=== PATIENT | female | born 1945 | race Caucasian/White ===

== ENCOUNTER → 2019-04-05 17:31 | Outpatient (CLI) | payer MEDICARE, SELFPAY ==
[2019-03-28 16:12] VITALS: BMI 36.1
--- NOTE | 2019-04-05 17:55 | CT_ITS ---
STUDY: CT ABDOMEN AND PELVIS WITH AND WITHOUT CONTRAST REASON FOR EXAM: Female, 73 years old. Hematuria RADIATION DOSAGE (If Supplied By Facility): CTDIvol = ( 24.45 ) mGy, DLP = ( 2800.76 ) mGycm TECHNIQUE: Transaxial images were obtained from the dome of the diaphragm to the symphysis pubis without oral contrast. IV 100mL Isovue-300 was administered. Sagittal and coronal images were reconstructed. Individualized dose optimization techniques were used for this CT. COMPARISON: None. FINDINGS: The visualized lung bases are unremarkable. The visualized portions of the heart are within normal limits. Up to 1 cm right cysts in the liver. Normal gallbladder and extrahepatic biliary system. Normal spleen. Normal pancreas. Normal bilateral adrenal glands. There are 3-4 nonobstructive stones are present 3 mm up to 1 cm cysts in the right kidney. There are 4-5 nonobstructive stones up to 3 mm in the left kidney. Normal visualized stomach. Normal small intestine. Fecal retention in the colon. The appendix is visualized and appears normal. Calcified abdominal aorta. Normal inferior vena cava. Normal retroperitoneum. Normal urinary bladder. Small fatty umbilical hernia. Normal osseous structures. CT/CT Abd/Pelvis W/WO Contrast IMPRESSION: Nonobstructive calculi are noted bilaterally. Right renal cysts. Small fatty umbilical hernia. Diffuse colonic fecal retention. Hepatic cysts. Electronically Signed: Luis Alberto Valdez DO at 23:01 EST Tel [phone], Service support ,
== END ==
PROVIDERS: Family Provider Family Medicine; PCP Family Medicine; Referring Provider Nurse Practitioner Adult Health
DX: R31.9 Hematuria, unspecified (principal)
CPT/HCPCS: 74178; Q9967; A4216

== ENCOUNTER → 2019-04-12 14:56 | Outpatient (CLI) | payer MEDICARE, SELFPAY ==
[2019-03-28 16:12] VITALS: BMI 36.1
--- NOTE | 2019-04-12 14:56 | ECHOD_ITS ---
Reason For Study: MURMUR Procedure This was a 2D Doppler, Color Flow transthoracic echocardiogram. The study was technically difficult. Exam performed in department. Left Ventricle Normal LV size. Left ventricular systolic function is normal. The estimated ejection fraction is 65 %. Diastolic function is indeterminate. No regional wall motion abnormalities noted. Right Ventricle Normal RV size. Normal systolic function. Atria Normal left atrium. Normal right atrium. No doppler evidence for ASD. Mitral Valve There is mild mitral annular calcification. Mild focal mitral valve calcification of the anterior leaflet. Mild (1+) mitral valve insufficiency. Tricuspid Valve Normal tricuspid valve. Trivial tricuspid valve insufficiency. Right ventricular systolic pressure estimated to be 37 mmHg. Aortic Valve Trisinus/trileaflet aortic valve. Mild focal aortic valve calcification. Mild aortic stenosis. Mild (1+) aortic valve insufficiency. Pulmonic Valve The pulmonic valve is not well visualized. Great Vessels Mildly dilated ascending aorta. Pericardium/Pleural No pericardial effusion. MMode/2D Measurements & Calculations LVIDd: 4.3 cm IVSd: 1.1 cm LVOT diam: 2.1 cm LVIDs: 2.5 cm LVPWd: 1.1 cm LVOT area: 3.4 cm2 RVDd: 3.4 cm FS: 42.1 % Ao root diam: 4.2 cm LAV(MOD-sp4): 47.7 ml LA A4 area: 17.2 cm2 LA dimension(2D): 3.5 cm RA A4 area: 11.2 cm2 Time Measurements MV dec time: 0.27 sec Doppler Measurements & Calculations MV E max major: 96.4 cm/sec Lat Peak E' Major: 9.6 cm/sec Med Peak E' Major: 6.0 cm/sec MV A max major: 112.6 cm/sec E/E' lat: 10.1 E/E' med: 16.0 MV E/A: 0.86 Ao V2 max: 240.0 cm/sec AI max major: 392.0 cm/sec LV V1 max: 125.7 cm/sec Ao max P.1 mmHg AI max P.5 mmHg LV V1 max P.3 mmHg Ao V2 mean: 169.7 cm/sec AI dec slope: 244.0 cm/sec2 LV V1 mean P.6 mmHg Ao mean P.5 mmHg AI P1/2t: 470.6 msec LV V1 mean: 90.3 cm/sec Ao V2 VTI: 54.0 cm LV V1 VTI: 32.8 cm FEDERICO(I,D): 2.1 cm2 FEDERICO(V,D): 1.8 cm2 SV(LVOT): 111.6 ml PA V2 max: 125.0 cm/sec TR max major: 292.6 cm/sec TR max P.3 mmHg Interpretation Summary The study was technically difficult. Left ventricular systolic function is normal. The estimated ejection fraction is 65 %. There is mild mitral annular calcification. Mild focal mitral valve calcification of the anterior leaflet. Mild (1+) mitral valve insufficiency. Trivial tricuspid valve insufficiency. Mild aortic stenosis. Mild (1+) aortic valve insufficiency. Mildly dilated ascending aorta. Right ventricular systolic pressure estimated to be 37 mmHg. Diastolic function is indeterminate. Ordering Physician: Jai Emerson Referring Physician: Colby Porter Performed By: Nanci Keith, ONEIDA, RVT
== END ==
PROVIDERS: Family Provider Family Medicine; PCP Family Medicine; Referring Provider Internal Medicine Cardiovascular Disease; Visit Provider Internal Medicine Cardiovascular Disease
DX: I71.2 Thoracic aortic aneurysm, without rupture (principal)
CPT/HCPCS: 93306

== ENCOUNTER → 2019-04-23 14:26 | Outpatient (CLI) | payer MEDICARE, SELFPAY ==
[2019-03-28 16:12] VITALS: BMI 36.1
--- NOTE | 2019-04-23 14:28 | CT_ITS ---
STUDY: CT CHEST WITH CONTRAST REASON FOR EXAM: Female, 73 years old. Aortic dilatation, hx atrial tachycardia. Family cardiac history. RADIATION DOSAGE (If Supplied By Facility): CTDIvol = ( 12.95 ) mGy, DLP = ( 469.52 ) mGycm TECHNIQUE: Transaxial imaging was performed following intravenous administration of IV 100mL Isovue-300. Multiplanar coronal and sagittal images were reformatted. Individualized dose optimization techniques were used for this CT. COMPARISON: None. FINDINGS: Mild degree of increased markings at the lung bases suggestive of linear scarring. Mild degree of linear scarring is seen in the peripheral aspects of the right middle lobe and lingular segment of the left upper lobe. There is a 5.4 mm noncalcified nodule in the posterior aspect of the superior segment of the right lobe as seen on axial image #54. 3 mm nodule in the posterior aspect of the right upper lobe as seen on axial image #49. There is no demonstrated pleural abnormality. Normal heart and pericardium. Normal mediastinum. Normal hilar regions. Normal enhanced pulmonary arteries. There is atherosclerotic calcification of the aortic arch . The aortic arch measures upper limits of normal at 40 mm at the root of the ascending aorta. There are degenerative changes of the thoracic spine. There is no demonstrated abnormality of the visualized upper abdomen. CT/Chest WITH Contrast IMPRESSION: The descending thoracic aorta measures 40 mm in maximum transverse dimension. Nodular density seen in the right lung as described. A 12 month follow-up is recommended. Electronically Signed: Job Mcguire, at 13:35 EST , Service support ,
[2019-04-23 14:55] LABS: CREATININE FINGERSTICK 0.9 mg/dL (0.55-1.02); EGFR FINGERSTICK > 60.0000 mL/min (>60)
== END ==
PROVIDERS: Family Provider Family Medicine; PCP Family Medicine; Referring Provider Internal Medicine Cardiovascular Disease; Visit Provider Internal Medicine Cardiovascular Disease
DX: I71.2 Thoracic aortic aneurysm, without rupture (principal)
CPT/HCPCS: 71260; Q9967; A4216

== ENCOUNTER → 2019-05-22 | Outpatient (CLI) | payer MEDICARE, SELFPAY ==
[2019-03-28 16:12] VITALS: BMI 36.1
--- NOTE | 2019-05-22 | CYSPIN_PTH ---
PATIENT: MARZENA Fleming LOC: [facility] U#:[id number] AGE/SX: 73/F ROOM: RE05/22/[address]: Dr. Michele Goodman MD : 1945 BED: DIS: 05/22/2019 SPEC #: [id number] RECD: 05/22/19 16:33 STATUS: MILAN SHILPI #: [id number] [place]: 05/22/19 00:[address]: Michele Goodman DEPT: CYTOLOGY RECD BY: Royal Gomez ENTERED: 05/23/19 08:23 SP TYPE: CYSPIN FL OTHR DR: Dr. Colby Porter III, MD Tissues: Urine Procedures: Pap Stain (control) Special Stain Group II Cytospin Fluid HEADER OPERATION: Not noted PRE-OP DIAGNOSIS: Gross hematuria TISSUE SUBMITTED: Urine for cytology DIAGNOSIS CYTOLOGY Urine for cytology (cytospin): Atypical urothelial cells suspicious for urothelial malignancy. AM:manjeet 05/24/19 COMMENT Case has been reviewed in consultation with Dr. Romero who concurs with the above diagnosis. IDC:[facility] CYTOLOGY STUDY Slides are reviewed. CYTOLOGY GROSS Received is 55 ml of clear yellow fluid labeled with the patient's name and and designated per the requisition as urine. Submitted for cytology preparation. / manjeet 05/23/19 TC:? CPT: 65636
[2019-05-22 17:19] LABS: Cytology, Body Fluid / CSF SEE PATHOLOGY REPORT
== END | disposition home or self-care (01) ==
LOC: LABSPEC 17:09
PROVIDERS: PCP Family Medicine; Referring Provider Urology; Visit Provider Urology
DX: R31.0 Gross hematuria (principal)
CPT/HCPCS: 87086; 87088; 88108; 88313

== ENCOUNTER 2019-06-15 06:04 | Day surgery (SDC) | payer MEDICARE, SELFPAY ==
[2019-03-28 16:12] VITALS: BMI 36.1
[2019-06-15 06:59] VITALS: BP 133/54; PULSE 56; RESP 16; TEMP 36.3; O2SAT 93; BMI 35.9
[2019-06-15] MEDS: Lactated Ringers 1,000 ML 100 ML IV (07:16)
[2019-06-15] MEDS: Cefazolin 2 GM in 0.9% Normal Saline 100 ML IV (08:25)
--- NOTE | 2019-06-15 09:11 | DCINST_ITS ---
Discharge Diet: Light diet - advance as tolerated Discharge Activity: Return to Normal Activity, May not drive while taking narcotic pain medications. May shower in (days): 1 Call your doctor if you observe: Fever of 101 or Higher Suture Line Care: Avoid Pulling/Pushing, Avoid Pinching/Bending Allergies/Adverse Reactions: Allergies lisinopril Adverse Reaction (Severe, Verified 06/15/19 06:56) Intolerence, cough nalbuphine HCl [From Nubain] Adverse Reaction (Verified 06/15/19 06:56) Nausea/Vom/Diarrhea Medications to take at Discharge Amitriptyline HCl [Elavil] 25 mg PO QHS 02/22/13 Gabapentin [Neurontin] 300 mg PO BIDCM 02/22/13 Digoxin [Lanoxin] 250 mcg PO DAILY 02/01/14 amlodipine 5 mg tablet 10 mg PO DAILY tab 10/06/17 pravastatin 80 mg tablet 80 mg PO QDAY 11/22/17 aspirin 81 mg tablet,delayed release 81 mg PO .2XWK 11/23/17 naproxen 500 mg tablet 500 mg PO BID 11/23/17 atenolol 100 mg tablet 100 mg PO DAILY 03/28/19 hydrocodone 5 mg-acetaminophen 325 mg tablet 1 tab PO DAILY PRN tab 03/28/19 Primary Care Physician: Colby Porter III, MD [Primary Care Provider] - Test Results: Test results from this visit will be discussed in further detail at your follow- up appointment, if applicable. Please Follow Up With: Michele Goodman MD When: please call to make an appointment.
--- NOTE | 2019-06-15 09:15 | PCM.OPRPT ---
Report of Operation Date of Procedure: 06/15/19 Pre-Operative Diagnosis: Bilateral renal calculi atypical cytology, cytology atypical was suspicious for malignancy. Post-Operative Diagnosis: Bilateral kidney stones no tumors seen. Surgery/Procedure Performed:: Cystoscopy, balloon dilation of the left ureter, left ureteroscopy laser lithotripsy of stones and left stent placement, balloon dilation of the right ureter right ureteroscopy laser lithotripsy of stones and right stent placement. Description of Surgical Findings:: 73-year-old female who had a history of gross hematuria on work-up she was found to have a normal bladder she had bilateral kidney stones cytology was sent off and came back suspicious for malignant cells are this for I recommended we proceed with cystoscopy bilateral ureteroscopy for inspection of both the kidneys and also redo inspection of the kidney and bladder and at the same time will laser the stones in the both kidneys. Patient was taken back to the operating room after smooth induction of general anesthesia he was placed supine on the table, urethrovaginal area prepped and draped in usual sterile fashion, went into the bladder with a 21 Angolan rigid cystourethroscope cannulated the left ureteral orifice with a Glidewire advance a balloon dilator over this balloon dilated the distal left ureter, after the balloon dilation was completed with a 12 Angolan 10 cm balloon dilator then I put a wire up in the left kidney I went over the wire with the flexible ureteroscope was able to get into the kidney inspected the upper pole midpole lower pole the kidney I inspected the ureter and the entire length there is no tumors I did find some stones in the upper pole in the midpole used a 200 ?m laser fiber laser the stones little tiny pieces that should pass on their own I worked my way down the ureter put a wire up in the left side and put a stent on the left side with a string for extraction. I then went to the right side and identified the right ureteral orifice advanced a wire up the right kidney over the wire I put a right balloon dilator and balloon dilated the distal right ureter with a balloon dilator once completed then I put a wire up on the right side and over the wire went in with a flexible ureteroscope once I got up into the kidney inspected the kidney the upper pole midpole lower pole and the entire length the ureter no tumors were seen along in the kidney or along the ureter. I then used a laser fiber and there was a stone in the midpole of the kidney and this is laser little tiny pieces. I then worked my way down the ureter on the right side and place a stent put a wire up in the right side and place a stent so he has stents in both sides of strings and the stent for easy extraction bladder was drained patient anesthetic reversed she was given antibiotics and pain medicine will see her next week for removal of the stents. Type of Anesthesia:: General Drains: bilateral stents - Admit VTE Documentation VTE Present on Admission: No
[2019-06-15 09:18] VITALS: BP 133/54; BP 146/69; PULSE 62; RESP 12; TEMP 36.3; O2SAT 92
[2019-06-15 09:30] VITALS: BP 133/54; BP 148/72; PULSE 59; RESP 14; O2SAT 92
[2019-06-15 09:45] VITALS: BP 133/54; BP 143/65; PULSE 60; RESP 16; O2SAT 96
[2019-06-15 09:49] VITALS: BP 133/54; BP 146/67; PULSE 59; RESP 16; TEMP 36.4; O2SAT 94
[2019-06-15 11:16] VITALS: BP 133/54; BP 137/58; PULSE 66; RESP 16; TEMP 36.8; O2SAT 94
== END 2019-06-15 11:22 | disposition home or self-care (01) ==
LOC: SDC 06:05 → AC 06:12
PROVIDERS: PCP Family Medicine; Referring Provider Urology; Visit Provider Urology
PROC: 0TJ98ZZ Inspection of Ureter, Via Natural or Artificial Opening Endoscopic (ICD-10-PCS; CPT 52352; principal; 2019-06-15 08:10)
DX: N20.0 Calculus of kidney (principal); I10 Essential (primary) hypertension; E78.5 Hyperlipidemia, unspecified; G25.81 Restless legs syndrome; Z87.891 Personal history of nicotine dependence; Z87.442 Personal history of urinary calculi; Z79.899 Other long term (current) drug therapy
CPT/HCPCS: 00873; 52356; J7120; Q9967; C1769; C2617; J2405

== ENCOUNTER → 2020-07-28 10:50 | Outpatient (CLI) | payer MEDICARE, SELFPAY ==
[2020-07-16 16:04] VITALS: BMI 36.0
--- NOTE | 2020-07-28 10:51 | ECHOD_ITS ---
Reason For Study: Murmur Procedure This was a 2D Doppler, Color Flow transthoracic echocardiogram. The exam was of adequate technical quality. Exam performed in department. Left Ventricle Normal LV size. Mild concentric left ventricular hypertrophy. Left ventricular systolic function is normal. The estimated ejection fraction is 65 %. No evidence for diastolic dysfunction. No regional wall motion abnormalities noted. Right Ventricle Normal RV size. Normal systolic function. Atria Normal left atrium. Normal right atrium. No doppler evidence for ASD. Mitral Valve There is mild mitral annular calcification. Extension of the mitral annular calcification on the base of the posterior mitral valve leaflet. Mild focal mitral valve calcification of the anterior leaflet. Mild (1+) mitral valve insufficiency. Tricuspid Valve Normal tricuspid valve. Trivial tricuspid valve insufficiency. Right ventricular systolic pressure estimated to be 29 mmHg. Aortic Valve Trisinus/trileaflet aortic valve. Mild diffuse aortic valve thickening. Moderate focal aortic valve calcification. Mild aortic stenosis. Mild (1+) aortic valve insufficiency. Pulmonic Valve The pulmonic valve is not well visualized. Great Vessels Normal sized aortic root. Pericardium/Pleural No pericardial effusion. MMode/2D Measurements & Calculations LVIDd: 3.7 cm IVSd: 1.6 cm LVOT diam: 2.1 cm LVIDs: 2.1 cm LVPWd: 1.3 cm LVOT area: 3.4 cm2 RVDd: 3.4 cm FS: 41.7 % Ao root diam: 3.8 cm LAV(MOD-bp): 34.8 ml LVAd ap4: 26.6 cm2 LAV(MOD-bp) Indexed: 17.9 ml/m2 EDV(MOD-sp4): 71.1 ml LAV(MOD-sp2): 39.0 ml EDV(sp4-el): 71.7 ml LAV(MOD-sp4): 26.3 ml LVAs ap4: 13.1 cm2 ESV(MOD-sp4): 20.6 ml ESV(sp4-el): 19.8 ml EF(MOD-sp4): 71.0 % EF(sp4-el): 72.4 % SV(MOD-sp4): 50.4 ml SV(sp4-el): 51.9 ml LA A4 area: 11.9 cm2 LA dimension(2D): 3.3 cm RA A4 area: 11.7 cm2 Doppler Measurements & Calculations MV E max major: 72.9 cm/sec Lat Peak E' Major: 9.0 cm/sec Med Peak E' Major: 6.3 cm/sec MV A max major: 109.0 cm/sec E/E' lat: 8.1 E/E' med: 11.5 MV E/A: 0.67 Ao V2 max: 235.0 cm/sec AI max major: 341.5 cm/sec LV V1 max: 128.9 cm/sec Ao max P.1 mmHg AI max P.7 mmHg LV V1 max P.7 mmHg Ao V2 mean: 156.5 cm/sec LV V1 mean P.7 mmHg Ao mean P.0 mmHg AI dec slope: 160.8 cm/sec2 LV V1 mean: 91.4 cm/sec Ao V2 VTI: 54.2 cm AI P1/2t: 621.9 msec LV V1 VTI: 32.7 cm FEDERICO(I,D): 2.0 cm2 FEDERICO(V,D): 1.9 cm2 SV(LVOT): 110.8 ml PA V2 max: 102.9 cm/sec TR max major: 253.9 cm/sec TR max P.8 mmHg ECHO/Echo Complete Interpretation Summary Left ventricular systolic function is normal. The estimated ejection fraction is 65 %. Mild concentric left ventricular hypertrophy. There is mild mitral annular calcification. Extension of the mitral annular calcification on the base of the posterior mitr al valve leaflet. Mild focal mitral valve calcification of the anterior leaflet. Mild (1+) mitral valve insufficiency. Trivial tricuspid valve insufficiency. Mild aortic stenosis. Mild (1+) aortic valve insufficiency. Right ventricular systolic pressure estimated to be 29 mmHg. No evidence for diastolic dysfunction. Ordering Physician: Jai Emerson Referring Physician: DAVID oPrter M.D. Performed By: Kanika Campbell RDCS
== END ==
PROVIDERS: PCP Family Medicine; Referring Provider Internal Medicine Cardiovascular Disease; Visit Provider Internal Medicine Cardiovascular Disease
DX: I71.2 Thoracic aortic aneurysm, without rupture (principal); I35.1 Nonrheumatic aortic (valve) insufficiency; I47.1 Supraventricular tachycardia; E78.5 Hyperlipidemia, unspecified; I10 Essential (primary) hypertension; R60.9 Edema, unspecified
CPT/HCPCS: 93306

== ENCOUNTER 2020-12-01 20:19 | Emergency (ER) | payer MEDICARE, SELFPAY ==
[2020-08-04 14:27] VITALS: BMI 35.9
[2020-12-01 20:20] VITALS: BP 150/70; PULSE 90; RESP 16; TEMP 36.3; O2SAT 98; BMI 35.4
--- NOTE | 2020-12-01 20:46 | ED.VIS.FALL ---
HPI HPI - Fall History of Present Illness Chief Complaint: Fall Informant: patient Occured/Mechanism Occurred: Today and Hours Mechanism/Context: Yes same level fall and Yes slip Narrative: Slipped and bathroom striking the back of her head and lower back Usually ambulates: Without assistance Pain/Injury Pain Location: head (Occiput) and back (Central low lumbar) Quality of Pain: Dull and Aching Current Severity: Mild Maximum Severity: Severe Worsened by: Back pain is worse with movement and bending Relieved by: Better remaining still Associated Symptoms Associated Symptoms: Positive for Parasthesias (Neuropathy lower extremities); Negative for Weakness, Loss of function, Inability to ambulate and Loss of consciousness Narrative Narrative: Patient is a 75-year-old woman with history of essential hypertension, hyperlipidemia, nonrheumatic aortic valvular heart disease, paroxysmal atrial tachycardia and thoracic aortic aneurysm without rupture who is on a baby aspirin twice a week. She hit the back of her head when she fell. She slipped in the bathroom because she was unable to hold her urine until making it to the bathroom. She hit the back of her head. She denies loss of conscious. She days. She denies double vision, blurred vision loss of vision. She denies neck pain. She denies chest pain or shortness of breath. She denies abdominal pain. She does report lower abdominal pain. She states she has paresthesia of her legs due to neuropathy. She does not know the cause of her neuropathy. She has no other complaints. Tetanus Immunization: 5-10 years Prior similar symptoms: No Recent Illness/Hospitalization: No [facility] Medical History (Updated 12/01/20 @ 20:[address] Irving Preston MD) Dysmetabolic syndrome Dyspnea on exertion Essential hypertension GERD (gastroesophageal reflux disease) History of kidney stones Hyperlipidemia Nonrheumatic aortic (valve) insufficiency Paroxysmal atrial tachycardia Peripheral neuropathy Thoracic aortic aneurysm without rupture Home Medications amitriptyline 25 mg PO QHS 02/22/13 [History Last Taken Unknown] gabapentin 300 mg PO BIDCM 02/22/13 [History Last Taken Unknown] digoxin 250 mcg PO DAILY 02/01/14 [History Last Taken 06/15/19 05:15 250 MCG] pravastatin 80 mg tablet 80 mg PO QDAY 11/22/17 [History Last Taken Unknown] aspirin 81 mg tablet,delayed release 81 mg PO .2XWK 11/23/17 [History Last Taken Unknown] naproxen 500 mg tablet 500 mg PO BID 11/23/17 [History Last Taken Unknown] atenolol 100 mg tablet 100 mg PO DAILY 03/28/19 [History Last Taken 06/15/19 05:15 100 MG] amlodipine 5 mg tablet 5 mg PO DAILY tablet 07/16/20 [History Last Taken Unknown] furosemide 20 mg tablet 20 mg PO BID #60 tablet 07/29/20 [Rx Last Taken Unknown] meloxicam 15 mg tablet 15 mg PO DAILY #30 tablet 08/04/20 [Rx Last Taken Unknown] Allergy/AdvReac Type Severity Reaction Status Date / Time lisinopril AdvReac Severe Intolerence, Verified 12/01/20 20:23 cough nalbuphine HCl [From Nubain] AdvReac Nausea/Vom/ Verified 12/01/20 20:23 Diarrhea Family History Father CAD (coronary artery disease) Myocardial infarction, Onset Age: 51 Brother Myocardial infarction, Onset Age: 51 Brother CAD (coronary artery disease) Hx of CABG Sister Heart disease COPD (chronic obstructive pulmonary disease) Sister CVA (cerebral vascular accident) Surgical History History of arthroscopy of right shoulder History of back surgery History of elbow surgery History of hand surgery History of hysterectomy History of knee replacement procedure of right knee History of knee surgery Status post trigger finger release Social History (Updated 12/01/20 @ 20:[address] Irving Preston MD) household members: none Smoking Status: Former smoker alcohol intake: never substance use type: does not use ROS ROS ED Constitutional Constitutional ED: Denies chills, fever(s), subjective or sweats Eyes Eyes: Denies blurry vision, change in vision or diplopia ENT ENT ED: Denies ear pain, rhinorrhea or sore throat Cardiovascular Cardiovascular: Denies chest pain, orthopnea, palpitations or paroxysmal nocturnal dyspnea Respiratory/Chest Respiratory/Chest: Denies dyspnea, dyspnea on exertion, orthopnea or paroxysmal nocturnal dyspnea Gastrointestinal Gastrointestinal: Denies abdominal pain, diarrhea, nausea or vomiting Genitourinary Genitourinary ED: Denies dysuria, hematuria or urinary frequency Musculoskeletal Musculoskeletal: Reports back pain; Denies arthralgias, myalgias or neck pain Integumentary Denies abscess or rash Neurologic Neurologic: Denies paresthesias or weakness Hematologic/Lymphatic Hematologic/Lymphatic: Denies easy bleeding or easy bruising EXAM Physical Exam Const Vital Signs: 12/01/20 20:20 Temperature 97.3 F L Temperature Source Temporal Pulse Rate 90 Respiratory Rate 16 Blood Pressure 150/70 H Blood Pressure Mean 96 Pulse Ox 98 Oxygen Delivery Method Room Air Positive well nourished and well developed General Appearance ED: well developed and NAD HEENT Reports normocephalic and TM's clear HEENT Narrative: There is no clinical findings of basal skull fracture. There is no hematoma abrasion over the occiput. There is no palpable depression. There is no septal deviation hematoma noted. atraumatic Tympanic Membrane ED: Yes TM's clear Eyes PERRL and EOMs intact bilaterally Eyes Narrative: There is no subconjunctival hemorrhage noted. General Eye ED: Negative for pale conjunctiva or scleral icterus Neck full ROM, no lymphadenopathy and supple General: Negative for tenderness Chest Wall inspection of chest normal Resp normal respiratory effort and clear to auscultation bilaterally Cardio regular rate, regular rhythm, S1 normal heart sound, S2 normal heart sound and no murmurs GI non-tender, non-distended and no masses Auscultation: normoactive bowel sounds Palpation: soft Back/Spine no CVA tenderness Cervical Spine: Negative for cervical spine tenderness Thoracic Spine / Upper Back: Negative for thoracic spinal tenderness Lumbar Spine / Lower Back: lumbar spinal tenderness; Negative for paraspinal muscle tenderness Extremity normal to inspection, full ROM, normal capillary refill, no joint enlargement, no clubbing, cyanosis or edema and no calf tenderness Neuro oriented x3, CN's II-XII intact bilaterally, no focal motor deficits and no sensory deficits noted Delio Coma Scale: document GCS findings Spontaneous Obeys Commands Oriented 15 Sensorium / Orientation: alert Motor Exam: strength 5/5 throughout Psych mental status grossly normal and thought process normal Skin Lesions: no lesions Rashes: no rashes MDM MDM MDM Narrative Medical decision making narrative: Patient has significant tenderness over the lumbar spinous processes. Will obtain x-ray to rule out contusion versus fracture. Patient was offered pain medicine which she declined. Since there is no evidence of trauma to the head, no loss conscious, no amnesia and she is not on anticoagulant per the [place] CT head rule imaging is not warranted. Radiography Diagnostic Testing: Three-view x-ray of the LS-spine was ordered. The x-ray was interpreted by me as negative for any acute process. There is no fracture, dislocation or subluxation. There is calcification of the entire aorta. The aorta is not dilated. There is significant degenerative changes of L4-5 disc space and L5-S1 disc space. There is also degenerative changes of L3 and L2 vertebral body. There is no abnormality of the portion of the pelvis or right or left femoral heads. Discharge Plan Triage Chief Complaint: Fall ED Provider: Irving Preston Dx/Rx/DC Orders Clinical Impression: Contusion of scalp, Contusion of lower back Instructions: ED Back Contusion, ED Scalp Contusion Prescriptions: No Action naproxen 500 mg tablet 500 mg PO BID RF: 0 pravastatin 80 mg tablet 80 mg PO QDAY RF: 0 atenolol 100 mg tablet 100 mg PO DAILY RF: 0 meloxicam [Mobic] 15 mg tablet 15 mg PO DAILY Qty: 30 RF: 0 amitriptyline 25 MG tablet 25 mg PO QHS RF: 0 gabapentin 300 MG capsule 300 mg PO BIDCM RF: 0 digoxin 250 MCG tablet 250 mcg PO DAILY RF: 0 aspirin 81 mg tablet,delayed release (DR/EC) 81 mg PO .2XWK RF: 0 amlodipine 5 mg tablet 5 mg PO DAILY RF: 0 furosemide 20 mg tablet 20 mg PO BID Qty: 60 RF: 12 Primary Care Provider: Rebecca Lewis Referrals: Rebecca Lewis MD [Primary Care Provider] - 1 Week if not improving Activity Restrictions/Additional Instructions: 1. Apply ice to areas discomfort 6-8 times a day 2. You may feel worse over the next 24 to 4 hours 3. You may hurt in more places and you presently do. Disposition Disposition: Home, Self Care
--- NOTE | 2020-12-01 21:10 | RAD_ITS ---
STUDY: X-RAY - LUMBAR SPINE REASON FOR EXAM: Female, 75 years old. Injury/Pain TECHNIQUE: 3 view(s) of the lumbar spine were obtained. COMPARISON: 31 March 2021 FINDINGS: Number spine is intact and aligned with age-related degeneration of L4-L5 and L5-S1 disc spaces and lower lumbar facets. SI joints are normal. There is no intestinal obstruction. There is aortic atherosclerosis. RAD/Lumbar Spine 2 or 3 Views IMPRESSION: No acute abnormality on plain films. For evaluation of fracture in adults over age [address] as plain films have suboptimal diagnostic accuracy. Electronically Signed: Mary Dallas MD at 21:33 EDT Tel , Service support ,
== END 2020-12-01 21:34 | disposition home or self-care (01) ==
PROVIDERS: Emergency Provider Emergency Medicine; PCP Internal Medicine
DX: S00.03XA Contusion of scalp, initial encounter (principal); S30.0XXA Contusion of lower back and pelvis, initial encounter; I10 Essential (primary) hypertension; K21.9 Gastro-esophageal reflux disease without esophagitis; E78.5 Hyperlipidemia, unspecified; Z79.899 Other long term (current) drug therapy; Z87.891 Personal history of nicotine dependence; W01.0XXA Fall on same level from slipping, tripping and stumbling without subsequent striking against object, initial encounter; Y93.01 Activity, walking, marching and hiking; Y92.002 Bathroom of unspecified non-institutional (private) residence as the place of occurrence of the external cause; Y99.8 Other external cause status
CPT/HCPCS: 72100; 99282

== ENCOUNTER 2020-12-02 16:33 | Inpatient (IN) | payer MEDICARE, SELFPAY ==
[2020-12-01 20:20] VITALS: BMI 35.4
[2020-12-02] VITALS (8 sets, daily range): BP systolic 129–153; BP diastolic 52–63; PULSE 74–89; RESP 15–26; TEMP 37.8–39.4; O2SAT 90–98; BMI 36.3; BMI 35.3
--- NOTE | 2020-12-02 17:07 | CT_ITS ---
HISTORY: trauma EXAMINATION: CT Spine Lumbar W/O Contrast Injection TECHNIQUE: Helically acquired images were obtained of the lumbar spine. 2D reformats were reviewed. A radiation dose optimization technique was used for this scan. IV Contrast dosage and agent: COMPARISON: None FINDINGS: VERTEBRAE: No fracture or traumatic subluxation. No discrete lytic or blastic abnormality observed. Normal alignment. DISCS and SPINAL CANAL: Degenerative loss of height at L3-4 and L4-5. Central and bilateral foraminal stenoses at L3-4 and L4-5. VISUALIZED ABDOMEN: Visualized abdominal aorta is not dilated. CT/Spine Lumbar without Contrast IMPRESSION: No evidence of acute lumbar spinal fracture. 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 Individualized dose optimization techniques were used for this CT. at 2034 Reported and signed by: Arturo Tanner MD Electronically Signed: Arturo Tanner MD at 20:33 EDT Tel , Service support ,
--- NOTE | 2020-12-02 17:07 | CT_ITS ---
HISTORY: trauma TECHNIQUE: Multiple axial images were obtained of the brain without intravenous contrast. A radiation dose optimization technique was used for this scan. IV Contrast dosage and agent: None. COMPARISON: None FINDINGS: # of images incl. paperwork: [id number] PARANASAL SINUSES AND MASTOID AIR CELLS: Left maxillary mucous retention cyst. INTRACRANIAL HEMORRHAGE: None. BRAIN PARENCHYMA: No CT evidence of stroke. Irregular calcification in the midline of the high posterior parietal lobes, 2.3 cm transverse by 2.0 cm craniocaudal by 1.0 cm AP. There is preservation of the breaux/white matter interface. Posterior fossa structures are unremarkable. There is hypoattenuation of the periventricular white matter. Chronic involutional changes are noted. CSF SPACES: Appropriate for age. There is no hydrocephalus. MASS EFFECT: None. CALVARIUM: No acute fracture. CT/Brain/Head without Contrast IMPRESSION: Chronic involutional and white matter changes. No acute intracranial process. Large midline extra-axial, dural and parafalcine calcification, possible meningioma. If not previously evaluated, this finding may be characterized by contrast enhanced brain MRI. Individualized dose optimization techniques were used for this CT. at 1949 Reported and signed by: Arturo Tanner MD Electronically Signed: Arturo Tanner MD at 19:48 EDT Tel , Service support ,
--- NOTE | 2020-12-02 17:07 | CT_ITS ---
HISTORY: trauma, fall EXAMINATION: CT Spine Cervical W/O Contrast Injection TECHNIQUE: Helically acquired images were obtained of the cervical spine. 2D reformatted images were reviewed. A radiation dose optimization technique was used for this scan. IV Contrast dosage and agent: None. COMPARISON: None FINDINGS: VERTEBRAE: No fracture or traumatic subluxation. No discrete lytic or blastic abnormality observed. Normal alignment. Normal craniocervical junction and cervicothoracic junction. DISCS and SPINAL CANAL: Degenerative discogenic changes are noted. No critical stenosis. NECK SOFT TISSUES: No prevertebral soft tissue swelling. LUNG APICES: Clear. CT/Spine Cervical without Contras IMPRESSION: Degenerative changes. No evidence of acute cervical spinal fracture. Individualized dose optimization techniques were used for this CT. at 1908 Reported and signed by: Arturo Tanner MD Electronically Signed: Arturo Tanner MD at 19:07 EDT Tel , Service support ,
--- NOTE | 2020-12-02 17:10 | EDS_ITS ---
HPI HPI - Fall History of Present Illness Chief Complaint: Fall Informant: patient and family Narrative Narrative: Patient returns to the ED by EMS for reevaluation. Seen yesterday for mechanical fall in the bathroom hitting the back of her head and her lower back. She had x-rays of lumbar spine. Family states they stayed with her 2:11 PM. They called her at 9 AM this morning patient reports she had 2 more falls. She has history of neuropathy with recent diabetes. She states her legs just felt weak. She is using a walker since yesterday however no assistance prior to that. Family is concerned states little bit more confused than normal. Patient does take baby aspirin. She had a head injury yesterday. There is no head imaging was performed. Patient does report pain in her back since the fall. Currently lives alone. Family reports there has been multiple falls recently. Patient denies any new injuries from the 2 falls this morning. History of hypertension, diabetes, hyperlipidemia, paroxysmal atrial tachycardia, none rheumatic aortic valve insufficiency, thoracic aortic aneurysm. 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 Patient noted to have a fever on arrival. Reports mild cough and reports she thinks she may feel like she is having urinary tract infection. She has been Covid vaccinated with [email or web address]. [facility] Medical History (Updated 12/02/20 @ 20:[address] Rajiv Quiroz DO) Dysmetabolic syndrome Dyspnea on exertion Essential hypertension GERD (gastroesophageal reflux disease) History of kidney stones Hyperlipidemia Nonrheumatic aortic (valve) insufficiency Paroxysmal atrial tachycardia Peripheral neuropathy Thoracic aortic aneurysm without rupture Home Medications amitriptyline 25 mg PO QHS 02/22/13 [History Last Taken Unknown] gabapentin 300 mg PO BIDCM 02/22/13 [History Last Taken Unknown] digoxin 250 mcg PO DAILY 02/01/14 [History Last Taken 06/15/19 05:15 250 MCG] pravastatin 80 mg tablet 80 mg PO QDAY 11/22/17 [History Last Taken Unknown] aspirin 81 mg tablet,delayed release 81 mg PO .2XWK 11/23/17 [History Last Taken Unknown] naproxen 500 mg tablet 500 mg PO BID 11/23/17 [History Last Taken Unknown] atenolol 100 mg tablet 50 mg PO DAILY 03/28/19 [History Last Taken 06/15/19 05:15 100 MG] amlodipine 5 mg tablet 10 mg PO DAILY tablet 07/16/20 [History Last Taken Unknown] furosemide 20 mg tablet 20 mg PO BID #60 tablet 07/29/20 [Rx Last Taken Unknown] meloxicam 15 mg tablet 15 mg PO DAILY #30 tablet 08/04/20 [Rx Last Taken Unknown] metformin 500 mg PO BID 12/02/20 [History Last Taken Unknown] Allergy/AdvReac Type Severity Reaction Status Date / Time lisinopril AdvReac Severe Intolerence, Verified 12/01/20 20:23 cough nalbuphine HCl [From Nubain] AdvReac Nausea/Vom/ Verified 12/01/20 20:23 Diarrhea Family History Father CAD (coronary artery disease) Myocardial infarction, Onset Age: 51 Brother Myocardial infarction, Onset Age: 51 Brother CAD (coronary artery disease) Hx of CABG Sister Heart disease COPD (chronic obstructive pulmonary disease) Sister CVA (cerebral vascular accident) Surgical History History of arthroscopy of right shoulder History of back surgery History of elbow surgery History of hand surgery History of hysterectomy History of knee replacement procedure of right knee History of knee surgery Status post trigger finger release Social History household members: none Smoking Status: Former smoker alcohol intake: never substance use type: does not use ROS ROS ED Constitutional Constitutional ED: Denies chills, fever(s) or sweats Eyes Eyes: Denies change in vision ENT ENT ED: Denies dysphagia or sore throat Cardiovascular Cardiovascular: Denies chest pain, leg edema, palpitations or racing heartbeat Respiratory/Chest Respiratory/Chest: Denies cough, dyspnea or dyspnea on exertion Gastrointestinal Gastrointestinal: Denies abdominal pain, diarrhea, nausea or vomiting Genitourinary Genitourinary ED: Denies dysuria, hematuria or urinary frequency Musculoskeletal Musculoskeletal: Reports back pain; Denies extremity pain or neck pain Integumentary Denies rash or wounds Neurologic Neurologic: Denies headache(s), paresthesias or weakness EXAM Physical Exam Const Vital Signs: 12/02/20 16:34 12/02/20 19:08 12/02/20 19:23 Temperature 103 F H Temperature Source Oral Pulse Rate 89 74 Respiratory Rate 26 H 15 Respiratory Effort Normal Non-Labored Respiratory Depth Normal Respiratory Pattern Normal Blood Pressure 153/63 H 147/52 H Blood Pressure Mean 93 83 Pulse Ox 93 91 94 Oxygen Delivery Method Room Air Nasal Cannula Oxygen Flow Rate (L/min) 1.5 GCS 14 with slight confusion, however is alert and oriented x3. Positive well nourished and well developed General Appearance ED: well developed and NAD HEENT Reports moist mucous membranes HEENT Narrative: No hemotympanum. normocephalic and atraumatic Eyes PERRL, EOMs intact bilaterally and conjunctivae normal General Eye ED: Yes normal appearance of both eyes Neck no lymphadenopathy and supple General: Negative for tenderness Chest Wall Chest: Negative for tenderness Resp normal respiratory effort and normal air movement Effort and Inspection: symmetric chest movement; Negative for respiratory distress Cardio regular rate, regular rhythm and no murmurs Peripheral Pulses: pulses 2+ throughout GI normal to inspection, nondistended, normoactive bowel sounds and non-tender Palpation: Negative for guarding or rebound tenderness present Back/Spine no CVA tenderness and no thoracic nor lumbar tenderness Back/Spine Narrative: This midline tenderness L4-L5 with no step-offs. Extremity normal to inspection General Extremety ED: Negative for edema or tenderness General Extremity: Negative for edema Neuro oriented x3 and no sensory deficits noted Sensorium / Orientation: awake and alert Skin no rashes or lesions noted and no wounds MDM MDM MDM Narrative Medical decision making narrative: Patient no new injuries from falls. Patient found to have fever in the ED later reporting there is some dysuria. Sepsis work-up initiated. White count 20 lactic acid 2.5. Chest x-ray report slight haziness right lower lobe, she reports a nonproductive cough she is in no resp iratory distress. Urine did note signs of infection. Cultures are is pending. She is covered with Zosyn. With her injury yesterday slight confusion I did obtain CT head and neck with trauma scans notes a meningioma that is known. There is no bleeds. Patient with persistent lower back pain I did have a CT lumbar spine also negative for fracture. On reevaluation she is much more alert and awake. Blood pressure stable. She meets severe sepsis criteria with white count however clinically stable. I spoke with hospitalist Dr. Lynn for admission and will place him to ICU meeting severe sepsis criteria. Lab Data Attestation: I reviewed the patient's lab results. Labs: Laboratory Results - last 24 hr 12/02/20 12/02/20 12/02/20 16:45 16:45 16:45 WBC 20.2 H RBC 4.17 L Hgb 13.3 Hct 41.1 MCV 98.6 MCH 31.9 MCHC 32.4 RDW Std Deviation 50.5 H RDW Coeff of Patti 13.8 Plt Count 198 MPV 10.2 Immature Gran % (Auto) 1.000 H Neut % (Auto) 81.4 H Lymph % (Auto) 5.7 L [place] % (Auto) 11.6 H Eos % (Auto) 0.1 Baso % (Auto) 0.2 Absolute Neuts (auto) 16.4 H Absolute Lymphs (auto) 1.15 Nucleated RBC % 0 Differential Comment SCANNED Diff Path Review May foll Sodium 135 L Potassium 4.0 Chloride 97 L Carbon Dioxide 29.0 Anion Gap 9 BUN 19 H Creatinine 1.39 H Estim Creat Clear Calc 28.93 Est GFR (MDRD) Af Amer 48 L Est GFR (MDRD) Non-Af 39 L BUN/Creatinine Ratio 13.7 Glucose 136 H Lactic Acid 2.5 H* Calcium 9.9 Total Bilirubin 0.90 Direct Bilirubin 0.27 AST 30 ALT 38 Alkaline Phosphatase 70 Total Protein 7.8 Albumin 4.1 Globulin 3.7 Urine Color Urine Clarity Urine pH Ur Specific [place] Urine Protein Urine Glucose (UA) Urine Ketones Urine Occult Blood Urine Nitrite Urine Bilirubin Urine Urobilinogen Ur Leukocyte Esterase Urine RBC Urine WBC Ur Squamous Epith Cells Urine Bacteria Urine Mucus 12/02/20 16:45 WBC RBC Hgb Hct MCV MCH MCHC RDW Std Deviation RDW Coeff of Patti Plt Count MPV Immature Gran % (Auto) Neut % (Auto) Lymph % (Auto) [place] % (Auto) Eos % (Auto) Baso % (Auto) Absolute Neuts (auto) Absolute Lymphs (auto) Nucleated RBC % Differential Comment Diff Path Review Sodium Potassium Chloride Carbon Dioxide Anion Gap BUN Creatinine Estim Creat Clear Calc Est GFR (MDRD) Af Amer Est GFR (MDRD) Non-Af BUN/Creatinine Ratio Glucose Lactic Acid Calcium Total Bilirubin Direct Bilirubin AST ALT Alkaline Phosphatase Total Protein Albumin Globulin Urine Color Yellow Urine Clarity Cloudy Urine pH 6.5 Ur Specific [place] 1.015 Urine Protein 100 H Urine Glucose (UA) Normal Urine Ketones Negative Urine Occult Blood 250 H Urine Nitrite Positive H Urine Bilirubin Negative Urine Urobilinogen Normal Ur Leukocyte Esterase 500 H Urine RBC 0 SEEN Urine WBC >100 SEEN Ur Squamous Epith Cells 0 SEEN Urine Bacteria 0 SEEN Urine Mucus 0 SEEN Radiography Diagnostic Testing: Radiology Impression Brain CT 12/02/20 17:07 IMPRESSION: Chronic involutional and white matter changes. No acute intracranial process. Large midline extra-axial, dural and parafalcine calcification, possible meningioma. If not previously evaluated, this finding may be characterized by contrast enhanced brain MRI. Individualized dose optimization techniques were used for this CT. at 1949 Reported and signed by: Arturo Tanner MD Electronically Signed: Arturo Tanner MD at 19:48 EDT Tel , Service support , Cervical Spine CT 12/02/20 17:07 IMPRESSION: Degenerative changes. No evidence of acute cervical spinal fracture. Individualized dose optimization techniques were used for this CT. at 1908 Reported and signed by: Arturo Tanner MD Electronically Signed: Arturo Tanner MD at 19:07 EDT Tel , Service support , Lumbar Spine CT 12/02/20 17:07 IMPRESSION: No evidence of acute lumbar spinal fracture. 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 Individualized dose optimization techniques were used for this CT. at 2034 Reported and signed by: Arturo Tanner MD Electronically Signed: Arturo Tanner MD at 20:33 EDT Tel , Service support , Chest X-Ray 12/02/20 18:10 IMPRESSION: Right basilar airspace disease suspicious for pneumonia. Recommend follow-up to resolution. at 1852 Reported and signed by: Arturo Tanner MD Electronically Signed: Arturo Tanner MD at 18:51 EDT Tel , Service support , EKG Initial EKG: Attestation: I personally reviewed and interpreted this EKG as follows: Comments: Sinus rhythm 87, no ST changes. T wave inversion lateral leads. Discharge Plan Triage Chief Complaint: Fall ED Provider: Rajiv Quiroz Dx/Rx/DC Orders Clinical Impression: Severe sepsis, Acute UTI, Back contusion, Meningioma Prescriptions: No Action naproxen 500 mg tablet 500 mg PO BID RF: 0 pravastatin 80 mg tablet 80 mg PO QDAY RF: 0 atenolol 100 mg tablet 50 mg PO DAILY RF: 0 meloxicam [Mobic] 15 mg tablet 15 mg PO DAILY Qty: 30 RF: 0 amitriptyline 25 MG tablet 25 mg PO QHS RF: 0 gabapentin 300 MG capsule 300 mg PO BIDCM RF: 0 digoxin 250 MCG tablet 250 mcg PO DAILY RF: 0 aspirin 81 mg tablet,delayed release (DR/EC) 81 mg PO .2XWK RF: 0 metformin 500 mg tablet 500 mg PO BID RF: 0 amlodipine 5 mg tablet 10 mg PO DAILY RF: 0 furosemide 20 mg tablet 20 mg PO BID Qty: 60 RF: 12 Primary Care Provider: Rebecca Lewis Referrals: Rebecca Lewis MD [Primary Care Provider] - Disposition Disposition: Acute Care Hospital
--- NOTE | 2020-12-02 17:14 | EKG12_ITS ---
Test Reason : Blood Pressure : / mmHG Vent. Rate : 087 BPM Atrial Rate : 087 BPM P-R Int : 156 ms QRS Dur : 090 ms QT Int : 334 ms P-R-T Axes : -04 -21 169 degrees QTc Int : 401 ms Normal sinus rhythm ST & T wave abnormality, consider lateral ischemia Abnormal ECG Confirmed by CHASE HOPKINS, BURAK ([id number]), state editor APRIL MATHIAS ([id number]) on 12/03/2020 1:50:45 PM Referred By: MARSHA Confirmed By:BURAK STONE MD
[2020-12-02 17:33] LABS: Absolute Lymphocyte Count 1.15 X10^3/uL (0.83-4.51); Absolute Neutrophil Count 16.4 X10^3/uL (2.0-7.7); Basophil# 0.05 X10^3/uL; Basophil% 0.2 % (0-1); Eosinophil# 0.03 X10^3/uL; Eosinophils% 0.1 % (0-5); Hematocrit 41.1 % (37-47); Hemoglobin 13.3 g/dL (12.0-15.0); Lymphocyte # 1.15 X10^3/ul (0.83-4.51); Lymphocyte % 5.7 % (19-41); Mean Corp Hgb Conc 32.4 g/dL (32-36); Mean Corpuscular Hgb 31.9 pg (27.0-32.0); Mean Corpuscular Volume 98.6 fL (81-99); Mean Platelet Vol. 10.2 fl (6.2-12.0); Monocyte# 2.34 X10^3/uL; Monocyte% 11.6 % (0-10); NRBC Flagged by Analyzer 0 % (0-5); Neutrophil % 81.4 % (47-70); POSITIVE DIFFERENTIAL YES; Platelet Count 198 K/mm3 (150-450); RBC Distribution Width CV 13.8 % (11.6-14.6); RBC Distribution Width SD 50.5 fl (35.1-43.9); Red Blood Count 4.17 M/mm3 (4.2-5.4); White Blood Count 20.2 K/mm3 (4.4-11.0)
[2020-12-02 17:37] LABS: Differential Indicated SCAN CRITERIA MET
[2020-12-02 17:41] LABS: Bacteria 0 SEEN /hpf (None Seen); Mucous, Urine 0 SEEN /hpf (<or=2+); Red Blood Cells-Urine 0 SEEN /hpf (0-5); Squamous Epithelial Cells - UA 0 SEEN /hpf (5-10)
[2020-12-02 17:43] LABS: AST(SGOT) 30 U/L (15-37); Alanine Aminotransfer ALT/SGPT 38 U/L (13-56); Albumin, Serum 4.1 g/dL (3.2-5.0); Alkaline Phosphatase 70 U/L (45-117); Anion Gap 9 (5-15); BUN 19 mg/dL (7-18); BUN/Creat Ratio 13.7 RATIO (10-20); Bilirubin, Direct 0.27 mg/dL (0.00-0.30); Calcium,Total 9.9 mg/dL (8.5-10.1); Chloride 97 mmol/L (98-107); Creatinine, Serum 1.39 mg/dL (0.55-1.02); EST Glomerular Filtration Rate 39 mL/min (>60); Est Glom Filt Rate - Afr Amer 48 mL/min (>60); Estimated Creatinine Clearance 28.93 ml/min; Globulin 3.7 g/dL (2.2-4.2); Glucose 136 mg/dL (74-106); Protein, Total 7.8 g/dL (6.4-8.2); Sodium Level 135 mmol/L (136-145)
[2020-12-02 17:58] LABS: Lactic Acid 2.5 mmol/L (0.4-1.9)
[2020-12-02 18:02] LABS: Color, Urine Yellow (Yellow); Glucose, Dipstick Normal (Normal); Ketone-Dipstick Negative (Negative); Leukocyte Esterase-Dipstick 500 /ul (Negative); Nitrite-Dipstick Positive (Negative); Occult Blood-Urine 250 /ul (Negative); Protein-Dipstick 100 mg/dl (Negative); Specific Gravity, Urine 1.015 (1.002-1.030); Urine Bilirubin Dipstick Negative (Negative); Urine Clarity Cloudy (Clear); Urine Urobilinogen Normal (Normal); Urine pH 6.5 (5.0 - 8.0)
--- NOTE | 2020-12-02 18:10 | RAD_ITS ---
HISTORY: confusion EXAMINATION/TECHNIQUE: XR Chest 1 View: Portable upright AP chest x-ray COMPARISON: None FINDINGS: LINES/DEVICES: None. LUNGS: Hazy airspace opacity right lower lung field without consolidation or pleural effusion. No vascular congestion. MEDIASTINUM AND CARDIOVASCULAR STRUCTURES: Cardiac silhouette not enlarged. Central airways and mediastinal contour are unremarkable. BONES AND SOFT TISSUES: No acute bony abnormalities. RAD/Chest 1 View (Portable) IMPRESSION: Right basilar airspace disease suspicious for pneumonia. Recommend follow-up to resolution. at 1852 Reported and signed by: Arturo Tanner MD Electronically Signed: Arturo Tanner MD at 18:51 EDT Tel , Service support ,
[2020-12-02 18:13] LABS: Differential Comment SCANNED
[2020-12-02 18:16] LABS: White Blood Cells >100 SEEN /hpf (0-5)
--- NOTE | 2020-12-02 21:05 | HP.PCM.HOS_ITS ---
[facility] - General General Date of Admission: 12/02/20 Date of Service: 12/02/20 Chief Complaint: Multiple falls HPI Narrative MARZENA TUESDAY, is a 75 F with a significant history of paroxysmal atrial tachycardia; chronic back pain; and neuropathy who presents to emergency department with multiple falls. A day before presentation as she fell at the bathroom and came to the emergency department. She was discharged home. On the day of presentation she fell 2 times; once at the bedroom and the other time at the Ring. She reported at times she feels insecure in walking. She reports suprapubic pain and right upper quadrant pain. She has polyuria that is chronic. She denies shortness of breath. But she reported occasionally she has to take in a deep breath and this has been going on for about 2 years. She denies coughing. [facility] Medical History (Updated 12/02/20 @ 21:[address] Austin Lynn MD) Dysmetabolic syndrome Dyspnea on exertion Essential hypertension GERD (gastroesophageal reflux disease) History of kidney stones Hyperlipidemia Nonrheumatic aortic (valve) insufficiency Paroxysmal atrial tachycardia Peripheral neuropathy Thoracic aortic aneurysm without rupture Home Medications amitriptyline 25 mg PO QHS 02/22/13 [History Last Taken Unknown] gabapentin 300 mg PO BID 02/22/13 [History Last Taken Unknown] digoxin 250 mcg PO DAILY 02/01/14 [History Last Taken 06/15/19 05:15 250 MCG] pravastatin 80 mg tablet 80 mg PO QDAY 11/22/17 [History Last Taken Unknown] aspirin 81 mg tablet,delayed release 81 mg PO .2XWK 11/23/17 [History Last Taken Unknown] naproxen 500 mg tablet 500 mg PO BID 11/23/17 [History Last Taken Unknown] atenolol 100 mg tablet 50 mg PO DAILY 03/28/19 [History Last Taken 06/15/19 05:15 100 MG] amlodipine 5 mg tablet 10 mg PO DAILY tablet 07/16/20 [History Last Taken Unknown] furosemide 20 mg tablet 20 mg PO BID #60 tablet 07/29/20 [Rx Last Taken Unknown] meloxicam [Mobic] 15 mg PO DAILY 12/02/20 [History Last Taken Unknown] metformin 500 mg PO BID 12/02/20 [History Last Taken Unknown] Allergy/AdvReac Type Severity Reaction Status Date / Time lisinopril AdvReac Severe Intolerence, Verified 12/01/20 20:23 cough nalbuphine HCl [From Nubain] AdvReac Nausea/Vom/ Verified 12/01/20 20:23 Diarrhea Family History Father CAD (coronary artery disease) Myocardial infarction, Onset Age: 51 Brother Myocardial infarction, Onset Age: 51 Brother CAD (coronary artery disease) Hx of CABG Sister Heart disease COPD (chronic obstructive pulmonary disease) Sister CVA (cerebral vascular accident) Surgical History History of arthroscopy of right shoulder History of back surgery History of elbow surgery History of hand surgery History of hysterectomy History of knee replacement procedure of right knee History of knee surgery Status post trigger finger release Social History household members: none Smoking Status: Former smoker alcohol intake: never substance use type: does not use ROS ROS Narrative Constitutional: Denies anorexia and change in weight Eyes: Denies blurry vision, change in eye color, change in vision, discharge from eye(s), double vision, erythema, eye pain, loss of vision or other HEENT: Denies abnormal hearing, dysphagia, ear pain, epistaxis, headache(s), hearing loss, nasal congestion, nasal discharge, post nasal drip, sinus pressure, sore throat or other Cardiovascular: Denies chest pain. Denies dyspnea on exertion, orthopnea and paroxysmal nocturnal dyspnea Respiratory/Chest: Denies cough, excessive phlegm production. Gastrointestinal: Reports right upper quadrant pain and suprapubic pain. Denies coffee ground emesis, constipation, diarrhea, dyspepsia, hematemesis, hematochezia, loose stools, melena, nausea, vomiting or other Genitourinary: Denies burning urination, difficulty urinating, dysuria, hematuria, nocturia, urinary hesitancy, urinary incontinence, urinary urgency or other. Reports polyuria (chronic) Musculoskeletal: Reports lower back pain. Denies myalgias, neck pain or other Neurologic: Denies abnormal gait, abnormal speech, dizziness, focal weakness, headache(s), numbness, paresthesias, seizure-like activity, seizures, syncope, tingling, tremor(s) or other. Reports confusion Psychiatric: Denies anxiety, depression, homicidal ideation, suicidal ideation or other Endocrinology: Denies change in body appearance, cold intolerance, excessive sweating, heat intolerance, polydipsia, polyuria or other Hematologic/Lymphatic: Denies anemia, easy bleeding, easy bruising, lymphadenopathy or other Integumentary: Denies rashes. Allergic/Immunologic: Denies rhinitis, hives, eczema, asthma or other Vital Signs Vital Signs Vital Signs: 12/02/20 16:34 12/02/20 19:08 12/02/20 19:23 Temperature 103 F H Temperature Source Oral Pulse Rate 89 74 Respiratory Rate 26 H 15 Respiratory Effort Normal Non-Labored Respiratory Depth Normal Respiratory Pattern Normal Blood Pressure 153/63 H 147/52 H Blood Pressure Mean 93 83 Pulse Ox 93 91 94 Oxygen Delivery Method Room Air Nasal Cannula Oxygen Flow Rate (L/min) 1.5 Weight Weight: 93 kg Body Mass Index (BMI) 36.3 Physical Exam Narrative Physical exam: General: Well-nourished, well-developed, no acute distress Head: Normocephalic, atraumatic, no tenderness Eyes: PERRLA, EOMI ENT, no trauma, moist mucous membranes, no rhinorrhea Neck: Nontender, full range of motion, no spinal tenderness, deformities, step- off CVS: Regular rate and rhythm Respiratory no acute distress, clear to auscultation bilaterally, chest wall nontender, no wheezing Abdomen: Soft, nontender, nondistended, normal bowel sounds, no masses : Deferred Back: Nontender, no CVA tenderness, no midline spinal tenderness, deformities, step-offs Extremities: Nontender full range of motion, no trauma Skin: Normal color, no trauma, abrasions Neuro: Alert, oriented, cranial nerves II through XII grossly intact. Psychiatry: Normal mood. Normal affect. Not depressed. Not anxious. Results Lab / Micro Data Result Diagrams: 12/02/20 16:45 12/02/20 16:45 Labs: Laboratory Results - last 24 hr 12/02/20 16:45: WBC 20.2 H, RBC 4.17 L, Hgb 13.3, Hct 41.1, MCV 98.6, MCH 31.9, MCHC 32.4, RDW Std Deviation 50.5 H, RDW Coeff of Patti 13.8, Plt Count 198, MPV 10.2, Immature Gran % (Auto) 1.000 H, Neut % (Auto) 81.4 H, Lymph % (Auto) 5.7 L , [place] % (Auto) 11.6 H, Eos % (Auto) 0.1, Baso % (Auto) 0.2, Absolute Neuts (auto) 16.4 H, Absolute Lymphs (auto) 1.15, Nucleated RBC % 0, Differential Comment SCANNED, Diff Path Review August foll 12/02/20 16:45: Sodium 135 L, Potassium 4.0, Chloride 97 L, Carbon Dioxide 29.0, Anion Gap 9, BUN 19 H, Creatinine 1.39 H, Estim Creat Clear Calc 28.93, Est GFR (MDRD) Af Amer 48 L, Est GFR (MDRD) Non-Af 39 L, BUN/Creatinine Ratio 13.7, Glucose 136 H, Calcium 9.9, Total Bilirubin 0.90, Direct Bilirubin 0.27, AST 30, ALT 38, Alkaline Phosphatase 70, Total Protein 7.8, Albumin 4.1, Globulin 3.7 12/02/20 16:45: Lactic Acid 2.5 H* 12/02/20 16:45: Urine Color Yellow, Urine Clarity Cloudy, Urine pH 6.5, Ur Specific [place] 1.015, Urine Protein 100 H, Urine Glucose (UA) Normal, Urine Ketones Negative, Urine Occult Blood 250 H, Urine Nitrite Positive H, Urine B ilirubin Negative, Urine Urobilinogen Normal, Ur Leukocyte Esterase 500 H, Urine RBC 0 SEEN, Urine WBC >100 SEEN, Ur Squamous Epith Cells 0 SEEN, Urine Bacteria 0 SEEN, Urine Mucus 0 SEEN Micro: Microbiology 12/02/20 17:25 Mucosa - Nose SARS-CoV-2 Antigen (Rapid) - Final Radiology Impression Brain CT 12/02/20 17:07 IMPRESSION: Chronic involutional and white matter changes. No acute intracranial process. Large midline extra-axial, dural and parafalcine calcification, possible meningioma. If not previously evaluated, this finding may be characterized by contrast enhanced brain MRI. Individualized dose optimization techniques were used for this CT. at 1949 Reported and signed by: Arturo Tanner MD Electronically Signed: Arturo Tanner MD at 19:48 EDT Tel , Service support , Cervical Spine CT 12/02/20 17:07 IMPRESSION: Degenerative changes. No evidence of acute cervical spinal fracture. Individualized dose optimization techniques were used for this CT. at 1908 Reported and signed by: Arturo Tanner MD Electronically Signed: Arturo Tanner MD at 19:07 EDT Tel , Service support , Lumbar Spine CT 12/02/20 17:07 IMPRESSION: No evidence of acute lumbar spinal fracture. 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 Individualized dose optimization techniques were used for this CT. at 2034 Reported and signed by: Arturo Tanner MD Electronically Signed: Artuor Tanner MD at 20:33 EDT Tel , Service support , Chest X-Ray 12/02/20 18:10 IMPRESSION: Right basilar airspace disease suspicious for pneumonia. Recommend follow-up to resolution. at 1852 Reported and signed by: Arturo Tanner MD Electronically Signed: Arturo Tanner MD at 18:51 EDT Tel , Service support , Assessment & Plan Assessment/Plan (1) Sepsis: QUALIFIERS: Acute renal failure type: unspecified Sepsis acute organ dysfunction status: with acute organ dysfunction Sepsis type: sepsis due to unspecified organism Severe sepsis acute organ dysfunction type: acute renal failure Severe sepsis shock status: without septic shock Qualified Code(s): A41.9 - Sepsis, unspecified organism; R65.20 - Severe sepsis without septic shock; N17.9 - Acute kidney failure, unspecified (2) Severe sepsis: (3) Meningioma: (4) Essential hypertension: (5) Paroxysmal atrial tachycardia: PLAN: Sepsis SIRS criteria: T-max of 103 Fahrenheit. White count of 20.2. Lactic acid of 2.5. Abnormal urinalysis. Bandemia of 1%. Urine culture pending. Blood culture pending. Rapid Covid antigen negative. Received Zosyn at the emergency department. Will continue patient on ceftriaxone. Impression of chest x-ray by radiologist: Right basilar airspace disease lucero spicious for pneumonia. Actual chest x-ray image was independently interpreted. Patient with a subtle infiltrate at the right base. However patient denies any acute lung symptoms. Doxycycline ordered. Admit to intensive care unit. Assistant Signal Maintainer consult. Trend CBC and BMP. Multiple falls/debility PT and OT to work with patient for strengthening and balance training. Review of community records showed that 25 hydroxyvitamin D level on 11/14/2020 was 40.5, normal. Essential hypertension Blood pressure is not within goal Atenolol and amlodipine continued. Trend blood pressure and adjust blood pressure medications. Acute kidney injury Review of community records show that on 08/02/2020 her creatinine was 0.80. Review of hospital records show that last creatinine was 11/04/2013. This was normal at 0.7. Trend BMP. Avoid nephrotoxins. Home Lasix held. Gentle IV hydration. Urine electrolytes ordered. Paroxysmal atrial tachycardia Stable Digoxin continued Diabetes mellitus Patient with hyperglycemia on presentation Review community records shows that on 11/14/2020 Her hemoglobin A1c was 6.4. Hold Metformin in view of lactic acidosis. Accu-Chek QA [facility] with correction scale insulin ordered. Meningioma Chronic DVT prophylaxis Subcutaneous heparin ordered. Charges/Coding Visit Charges Inpatient E&M: 16128 Init Hosp L3
--- NOTE | 2020-12-02 21:17 | NURSING ---
Report called to Valentín tube sent down on ice for reflex lactic acid
[2020-12-02 21:39] LABS: Reflex Lactate? Y
[2020-12-02 22:16] LABS: Lactic Acid 1.9 mmol/L (0.4-1.9)
[2020-12-02] MEDS: 0.9% Normal Saline 1,000 ML 75 ML IV (22:50)
[2020-12-02] MEDS: CLARIFY ORDER 1 EACH NOTE (22:53)
[2020-12-02] MEDS: Insulin Lispro 100 UNIT/ML INSULN.PEN SC (23:21)
[2020-12-02] MEDS: Heparin Injection (Vial) 5,000 UNIT/ML VIAL 5000 UNIT SC (23:21)
[2020-12-02 23:31] LABS: Bedside Glucose 246 mg/dL (70-110)
[2020-12-02] MEDS: MELATONIN 3 MG TABLET PO (23:50)
[2020-12-02] MEDS: Acetaminophen 325 MG Tablet 650 MG PO (23:50)
[2020-12-03] VITALS (19 sets, daily range): BP systolic 122–160; BP diastolic 48–97; PULSE 68–86; RESP 14–24; TEMP 36.7–37.7; O2SAT 90–97
[2020-12-03 00:19] LABS: Urea Nitrogen, Urine 329 mg/dL (NO RANGE EST.); Urine Sodium 17 mmol/L (Not Establ.)
[2020-12-03] MEDS: Ceftriaxone 1 GM/50 ML BAG IV ×2 (01:52→21:12)
[2020-12-03 05:13] LABS: Absolute Lymphocyte Count 0.94 X10^3/uL (0.83-4.51); Absolute Neutrophil Count 12.1 X10^3/uL (2.0-7.7); Basophil# 0.04 X10^3/uL; Basophil% 0.3 % (0-1); Eosinophil# 0.04 X10^3/uL; Eosinophils% 0.3 % (0-5); Hemoglobin 11.6 g/dL (12.0-15.0); Lymphocyte # 0.94 X10^3/ul (0.83-4.51); Lymphocyte % 6.4 % (19-41); Mean Corp Hgb Conc 32.2 g/dL (32-36); Mean Corpuscular Hgb 31.3 pg (27.0-32.0); Mean Platelet Vol. 9.6 fl (6.2-12.0); Monocyte# 1.46 X10^3/uL; NRBC Flagged by Analyzer 0 % (0-5); Neutrophil # 12.07 X10^3/uL (2.7-7.7); Neutrophil % 82.3 % (47-70); Platelet Count 151 K/mm3 (150-450); RBC Distribution Width CV 13.7 % (11.6-14.6); RBC Distribution Width SD 49.1 fl (35.1-43.9); Red Blood Count 3.71 M/mm3 (4.2-5.4); White Blood Count 14.7 K/mm3 (4.4-11.0)
[2020-12-03 05:27] LABS: Anion Gap 7 (5-15); BUN 20 mg/dL (7-18); BUN/Creat Ratio 16.1 RATIO (10-20); Calcium,Total 9.1 mg/dL (8.5-10.1); Chloride 103 mmol/L (98-107); Creatinine, Serum 1.24 mg/dL (0.55-1.02); EST Glomerular Filtration Rate 45 mL/min (>60); Est Glom Filt Rate - Afr Amer 54 mL/min (>60); Estimated Creatinine Clearance 32.43 ml/min; Glucose 144 mg/dL (74-106); Potassium 3.4 mmol/L (3.5-5.1); Sodium Level 138 mmol/L (136-145)
--- NOTE | 2020-12-03 08:05 | CON.PCM.CC_ITS ---
Assessment & Plan Assessment/Plan (1) Severe sepsis: (2) Meningioma: (3) Paroxysmal atrial tachycardia: (4) Acute UTI: PLAN: RECOMMENDATIONS: 1. Continue ceftriaxone. Discontinue doxycycline 2. Encourage incentive spirometer. Wean oxygen as tolerated. 3. PT/OT to evaluate 4. Continue telemetry 5. Hemodynamically stable on room air. Will sign off from a critical care perspective 6. Okay to leave the intensive care unit from my perspective IMPRESSIONS: 1. Severe sepsis secondary to UTI Endorgan damage demonstrated by encephalopathy and right lower lobe infiltrate. Patient had a slight increase in creatinine, but this would not constitute endorgan damage by recent criteria. Despite right lower lobe infiltrate, patient does not appear to have any symptomatology to suggest pneumonia, so we will discontinue doxycycline. Lobar pneumonia would not require atypical coverage. Patient does not appear to have gram-negative syndrome at this time. Likely okay to transfer from the intensive care unit. Agree with holding Lasix for 24 hours. Fluid boluses if necessary for decreased blood pressure. 2. Multiple falls/debility Clinical suspicion that weakness is secondary to problem #1. PT and OT can work with strengthening and balancing therapy. Exam is nonfocal at this time, so doubt acute CVA. 3. Advanced age/diabetes mellitus/hypertension/meningioma/obesity Complicates care, management, recovery and prognosis. We will need to watch blood sugars closely as endogenous steroids will be higher. Agree with continuation of antihypertensives at this time. Patient may require sliding scale insulin since Metformin has been held. Meningioma may be the cause of some neurologic symptoms, but these were not reported prior to onset of UTI. HPI Consult Data Date of Consult: 12/03/20 HPI Narrative HPI Narrative: MARZENA TUESDAY is a 75 F, with past medical history listed below, who presents to [facility] on 12/02/2020 secondary to concerns for repeat evaluation. Patient was seen in the ER on the day previous secondary to a fall in the bathroom where she struck the back of her head and her lower back. Patient had x-rays at that time that were unremarkable so she was discharged home. Subsequently at home, patient had experienced 2 more falls and stated that her legs were weak. Patient had been using a walker to assist given her falls and her family was concerned that she was more confused than normal. Patient reportedly lives alone at baseline. No new fall injuries were reported. In the ER, patient was febrile at 103 ?F, but normotensive with a heart rate of 89. Patient was ultimately requiring 1.5 L to maintain saturation at 94%. Patient has not required supplemental oxygen previously. Laboratory work-up showed a leukocytosis of 20.2 with a left shift. Chemistries showed an elevated creatinine of 1.39, lactate of 2.5 and normal liver function studies. Urinalysis was suggestive of UTI with occult blood, nitrites, leukocyte esterase and leukocytes. Multiple imaging studies were obtained. Of note, chest x-ray showed a possible right lower lobe infiltrate. The patient was given antibiotics, but no fluids and admitted to the intensive care unit for further evaluation. Since being in the intensive care unit, patient has remained hemodynamically stable. Patient's mentation reportedly is improving and she is faster to respond. Patient does not report any dysuria, abdominal pain, back pain, nausea or vomiting. Patient states she feels her weakness is probably improved, but she has not attempted to stand. Patient does not report requiring supplemental oxygen previously. Patient does report a [id number] smoking history, but does not carry a diagnosis of COPD or asthma. Patient does not use any inhalers at baseline. Patient describes herself as a social drinker and denies any illicit drug use. Patient denies any asbestos or TB exposure. Patient is a questionable historian, but otherwise review of systems negative from a constitutional, HEENT, respiratory, cardiovascular, GI, genitourinary, musculoskeletal, skin, neurologic, psychiatric and hematologic system unless stated above. [facility] Medical History Dysmetabolic syndrome Dyspnea on exertion Essential hypertension GERD (gastroesophageal reflux disease) History of kidney stones Hyperlipidemia Nonrheumatic aortic (valve) insufficiency Paroxysmal atrial tachycardia Peripheral neuropathy Thoracic aortic aneurysm without rupture Home Medications amitriptyline 25 mg PO QHS 02/22/13 [History Last Taken Unknown] gabapentin 300 mg PO BID 02/22/13 [History Last Taken Unknown] digoxin 250 mcg PO DAILY 02/01/14 [History Last Taken 06/15/19 05:15 250 MCG] pravastatin 80 mg tablet 80 mg PO QDAY 11/22/17 [History Last Taken Unknown] aspirin 81 mg tablet,delayed release 81 mg PO .2XWK 11/23/17 [History Last Taken Unknown] naproxen 500 mg tablet 500 mg PO BID 11/23/17 [History Last Taken Unknown] atenolol 100 mg tablet 50 mg PO DAILY 03/28/19 [History Last Taken 06/15/19 05:15 100 MG] amlodipine 5 mg tablet 10 mg PO DAILY tablet 07/16/20 [History Last Taken Unknown] furosemide 20 mg tablet 20 mg PO BID #60 tablet 07/29/20 [Rx Last Taken Unknown] meloxicam [Mobic] 15 mg PO DAILY 12/02/20 [History Last Taken Unknown] metformin 500 mg PO BID 12/02/20 [History Last Taken Unknown] Allergy/AdvReac Type Severity Reaction Status Date / Time lisinopril AdvReac Severe Intolerence, Verified 12/01/20 20:23 cough nalbuphine HCl [From Nubain] AdvReac Nausea/Vom/ Verified 12/01/20 20:23 Diarrhea Family History Father CAD (coronary artery disease) Myocardial infarction, Onset Age: 51 Brother Myocardial infarction, Onset Age: 51 Brother CAD (coronary artery disease) Hx of CABG Sister Heart disease COPD (chronic obstructive pulmonary disease) Sister CVA (cerebral vascular accident) Surgical History History of arthroscopy of right shoulder History of back surgery History of elbow surgery History of hand surgery History of hysterectomy History of knee replacement procedure of right knee History of knee surgery Status post trigger finger release Social History household members: none Smoking Status: Former smoker alcohol intake: never substance use type: does not use ROS ROS Narrative See HPI Physical Exam Const alert, oriented x3 and no apparent distress Constitutional Narrative: Somewhat slower to respond General Appearance: cooperative and well developed Nutritional Appearance: obese HEENT normocephalic, head/scalp atraumatic and moist oral mucous membranes Eyes PERRL and EOMs intact bilaterally Neck full ROM and no lymphadenopathy Chest inspection of chest normal Resp normal respiratory effort and no use of accessory muscles Effort and Inspection: able to speak in complete sentences Auscultation: clear to auscultation bilaterally; Negative for rales, rhonchi or wheezes Percussion: Negative for dullness Cardio regular rate, regular rhythm, S1 normal heart sound, S2 normal heart sound, no murmurs, no rub and no gallops GI normal to inspection, nondistended, normoactive bowel sounds no CVA tenderness Extremity normal to inspection General Extremity: edema bilateral (1+) lower extremity Skin no rashes or lesions noted Neuro oriented x3, CN's II-XII intact bilaterally, moves all extremities and no focal motor deficits Psych cooperative and affect normal Lab / Micro Data Result Diagrams: 12/03/20 04:55 12/03/20 04:55 Labs: Laboratory Results - last 24 hr 12/02/20 16:45: WBC 20.2 H, RBC 4.17 L, Hgb 13.3, Hct 41.1, MCV 98.6, MCH 31.9, MCHC 32.4, RDW Std Deviation 50.5 H, RDW Coeff of Patti 13.8, Plt Count 198, MPV 10.2, Immature Gran % (Auto) 1.000 H, Neut % (Auto) 81.4 H, Lymph % (Auto) 5.7 L , [place] % (Auto) 11.6 H, Eos % (Auto) 0.1, Baso % (Auto) 0.2, Absolute Neuts (auto) 16.4 H, Absolute Lymphs (auto) 1.15, Nucleated RBC % 0, Differential Comment SCANNED, Diff Path Review August12/02/20 16:45: Sodium 135 L, Potassium 4.0, Chloride 97 L, Carbon Dioxide 29.0, Anion Gap 9, BUN 19 H, Creatinine 1.39 H, Estim Creat Clear Calc 28.93, Est GFR (MDRD) Af Amer 48 L, Est GFR (MDRD) Non-Af 39 L, BUN/Creatinine Ratio 13.7, Glucose 136 H, Calcium 9.9, Total Bilirubin 0.90, Direct Bilirubin 0.27, AST 30, ALT 38, Alkaline Phosphatase 70, Total Protein 7.8, Albumin 4.1, Globulin 3.7 12/02/20 16:45: Lactic Acid 2.5 H* 12/02/20 16:45: Urine Color Yellow, Urine Clarity Cloudy, Urine pH 6.5, Ur Specific [place] 1.015, Urine Protein 100 H, Urine Glucose (UA) Normal, Urine Ketones Negative, Urine Occult Blood 250 H, Urine Nitrite Positive H, Urine Bilirubin Negative, Urine Urobilinogen Normal, Ur Leukocyte Esterase 500 H, Urine RBC 0 SEEN, Urine WBC >100 SEEN, Ur Squamous Epith Cells 0 SEEN, Urine Bacteria 0 SEEN, Urine Mucus 0 SEEN 12/02/20 21:31: Lactic Acid 1.9 12/02/20 23:19: POC Glucose 246 H 12/03/20 00:00: Ur Random Sodium 17, Urine Creatinine 59.40, Urine Urea Nitrogen 329 12/03/20 04:55: WBC 14.7 H, RBC 3.71 L, Hgb 11.6 L, Hct 36.0 L, MCV 97.0, MCH 31.3, MCHC 32.2, RDW Std Deviation 49.1 H, RDW Coeff of Patit 13.7, Plt Count 151, MPV 9.6, Immature Gran % (Auto) 0.700, Neut % (Auto) 82.3 H, Lymph % (Auto) 6.4 L, [place] % (Auto) 10.0, Eos % (Auto) 0.3, Baso % (Auto) 0.3, Absolute Neuts (auto) 12.1 H, Absolute Lymphs (auto) 0.94, Nucleated RBC % 0 12/03/20 04:55: Sodium 138, Potassium 3.4 L, Chloride 103, Carbon Dioxide 28.0, Anion Gap 7, BUN 20 H, Creatinine 1.24 H, Estim Creat Clear Calc 32.43, Est GFR (MDRD) Af Amer 54 L, Est GFR (MDRD) Non-Af 45 L, BUN/Creatinine Ratio 16.1, Glucose 144 H, Calcium 9.1 Micro: Microbiology 12/02/20 17:30 Blood Culture (Wb) - Left Hand Blood Culture - Preliminary Gram negative jhon 12/02/20 17:25 Mucosa - Nose SARS-CoV-2 Antigen (Rapid) - Final Radiology Impression Brain CT 12/02/20 17:07 IMPRESSION: Chronic involutional and white matter changes. No acute intracranial process. Large midline extra-axial, dural and parafalcine calcification, possible meningioma. If not previously evaluated, this finding may be characterized by contrast enhanced brain MRI. Individualized dose optimization techniques were used for this CT. at 1949 Reported and signed by: Arturo Tanner MD Electronically Signed: Arturo Tanner MD at 19:48 EDT Tel , Service support , Cervical Spine CT 12/02/20 17:07 IMPRESSION: Degenerative changes. No evidence of acute cervical spinal fracture. Individualized dose optimization techniques were used for this CT. at 1908 Reported and signed by: Arturo Tanner MD Electronically Signed: Arturo Tanner MD at 19:07 EDT Tel , Service support , Lumbar Spine CT 12/02/20 17:07 IMPRESSION: No evidence of acute lumbar spinal fracture. 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 Individualized dose optimization techniques were used for this CT. at 2034 Reported and signed by: Arturo Tanner MD Electronically Signed: Arturo Tanner MD at 20:33 EDT Tel , Service support , Chest X-Ray 12/02/20 18:10 IMPRESSION: Right basilar airspace disease suspicious for pneumonia. Recommend follow-up to resolution. at 1852 Reported and signed by: Arturo Tanner MD Electronically Signed: Arturo Tanner MD at 18:51 EDT Tel , Service support , Charges/Coding Visit Charges Inpatient E&M: 68378 Init Hosp L3
[2020-12-03] MEDS: Atenolol 50 MG Tablet PO (08:38)
[2020-12-03] MEDS: amLODIPine 10 MG Tablet PO (08:38)
[2020-12-03] MEDS: Digoxin 250 MCG Tablet PO (08:40)
[2020-12-03] MEDS: Heparin Injection (Vial) 5,000 UNIT/ML VIAL 5000 UNIT SC ×2 (08:41→21:11)
[2020-12-03] MEDS: CHLORHEXIDINE GLUC 2% CLOTH 1 EACH TOWELETTE TOPICAL (09:31)
[2020-12-03] MEDS: Acetaminophen 325 MG Tablet 650 MG PO (09:31)
[2020-12-03 10:26] LABS: Pathologist Review Reviewed
--- NOTE | 2020-12-03 10:26 | PCS.PANDOC ---
PANDEMIC DOCUMENTATION INITIATED: Date: 12/02/2020 Time: 2209
[2020-12-03] MEDS: HYDROcodone Bitartrate/Apap 5/325 Tablet PO ×2 (11:22→17:18)
--- NOTE | 2020-12-03 12:04 | CASEMGMT ---
RN CM Assessment Introduced role of RN CM to patient. Patient is alert, oriented and able to participate in RN CM Assessment. Care providers, pharmacy, and demographics verified. Admit Dx: Sepsis s/t UTI Re-Admit: No Barriers/Issues: Patient lives alone. Has steps to enter home and stated has fallen backwards onto concrete. Has railing on one side but does not always use railing. Has a medical alert device through [employer] but forgets to wear it sometimes. Recent fall from this illness prior to this admission while trying to make it from her bed to bathroom. States her Dtr Olga worked at a SNF and is wanting patient to come live with her and currently working on it with patient medical insurance for equipment and if allowed- hospital bed. States supposed to have rollator delivered today and her dtr is supposed to get a shower stool for her. PCP: [place] was her PCP and retired, starting as a new patient with Dr Lewis (first appt Jan 16, 2021) Specialists: Cardio- Moodispatammy Preferred [facility]acy: [facility] Insurance: [place] Secure Rx Benefit: Yes LNOK: Dtr Olga Gibson LW/HPOA: HPOA on file with [facility], Dtr Marcie Aguirre passed aware, Next HPOA is dtr Olga Gibson then alternative dtr Nanci Childers. Living Arrangements: Lives alone in a H, 5-6 steps to enter home ADL?s: Independent with ambulation and ADLs Transportation: Patient drives, Dtr Olga will transport upon DC DME: Cane, 2WW, Rollator being delivered today, Glucometer, hospital bed (self purchased), States dtr supposed to get her shower stool. HHC: None SNF: None Goal: Home and unsure of needs. States this is the first time since she has been out of her hospital bed to her bedside chair. States agreeable to HH PT if recommended and aware RNCM will continue to follow should any needs arise. DC PLAN: Home and RNCM to f/u on any mobility needs to see if HH PT recommended. 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 Prefers HH over Outpatient PT. No other needs anticipated. Jimi Chery, STEFANO
[2020-12-03] MEDS: Insulin Lispro 100 UNIT/ML INSULN.PEN SC ×3 (12:21→21:12)
[2020-12-03] MEDS: 0.9% Normal Saline 1,000 ML 75 ML IV (12:23)
[2020-12-03 12:30] LABS: Bedside Glucose 170 mg/dL (70-110)
--- NOTE | 2020-12-03 14:01 | PCM.PN.HOSP ---
Subjective Subjective Complains of back pain post fall. Objective Data Objective Data Vital Signs: Vital Signs Temp Pulse Resp BP Pulse Ox 37.1 C 79 20 H 155/50 H 90 12/03/20 12:00 12/03/20 13:00 12/03/20 13:00 12/03/20 13:00 12/03/20 13:00 Oxygen Flow Rate (L/min) 1 Oxygen Delivery Method Room Air Weight: 90.9 kg Body Mass Index (BMI) 35.3 Intake & Output: Intake and Output for Last 24 Hours 12/01/20 12/02/20 12/03/20 23:59 23:59 23:59 Intake Total 50 / 50 1989 / 1989 Output Total 1000 / 1000 Balance 50 / 50 990 / 990 Lab / Micro Data Result Diagrams: 12/03/20 04:55 12/03/20 04:55 Labs: Laboratory Results - last 24 hr 12/02/20 16:45: WBC 20.2 H, RBC 4.17 L, Hgb 13.3, Hct 41.1, MCV 98.6, MCH 31.9, MCHC 32.4, RDW Std Deviation 50.5 H, RDW Coeff of Patti 13.8, Plt Count 198, MPV 10.2, Immature Gran % (Auto) 1.000 H, Neut % (Auto) 81.4 H, Lymph % (Auto) 5.7 L, [place] % (Auto) 11.6 H, Eos % (Auto) 0.1, Baso % (Auto) 0.2, Absolute Neuts (auto) 16.4 H, Absolute Lymphs (auto) 1.15, Nucleated RBC % 0, Differential Comment SCANNED, Diff Path Review Reviewed 12/02/20 16:45: Sodium 135 L, Potassium 4.0, Chloride 97 L, Carbon Dioxide 29.0, Anion Gap 9, BUN 19 H, Creatinine 1.39 H, Estim Creat Clear Calc 28.93, Est GFR (MDRD) Af Amer 48 L, Est GFR (MDRD) Non-Af 39 L, BUN/Creatinine Ratio 13.7, Glucose 136 H, Calcium 9.9, Total Bilirubin 0.90, Direct Bilirubin 0.27, AST 30, ALT 38, Alkaline Phosphatase 70, Total Protein 7.8, Albumin 4.1, Globulin 3.7 12/02/20 16:45: Lactic Acid 2.5 H* 12/02/20 16:45: Urine Color Yellow, Urine Clarity Cloudy, Urine pH 6.5, Ur Specific [place] 1.015, Urine Protein 100 H, Urine Glucose (UA) Normal, Urine Ketones Negative, Urine Occult Blood 250 H, Urine Nitrite Positive H, Urine Bilirubin Negative, Urine Urobilinogen Normal, Ur Leukocyte Esterase 500 H, Urine RBC 0 SEEN, Urine WBC >100 SEEN, Ur Squamous Epith Cells 0 SEEN, Urine Bacteria 0 SEEN, Urine Mucus 0 SEEN 12/02/20 21:31: Lactic Acid 1.9 12/02/20 23:19: POC Glucose 246 H 12/03/20 00:00: Ur Random Sodium 17, Urine Creatinine 59.40, Urine Urea Nitrogen 329 12/03/20 04:55: WBC 14.7 H, RBC 3.71 L, Hgb 11.6 L, Hct 36.0 L, MCV 97.0, MCH 31.3, MCHC 32.2, RDW Std Deviation 49.1 H, RDW Coeff of Patti 13.7, Plt Count 151, MPV 9.6, Immature Gran % (Auto) 0.700, Neut % (Auto) 82.3 H, Lymph % (Auto) 6.4 L, [place] % (Auto) 10.0, Eos % (Auto) 0.3, Baso % (Auto) 0.3, Absolute Neuts (auto) 12.1 H, Absolute Lymphs (auto) 0.94, Nucleated RBC % 0 12/03/20 04:55: Sodium 138, Potassium 3.4 L, Chloride 103, Carbon Dioxide 28.0, Anion Gap 7, BUN 20 H, Creatinine 1.24 H, Estim Creat Clear Calc 32.43, Est GFR (MDRD) Af Amer 54 L, Est GFR (MDRD) Non-Af 45 L, BUN/Creatinine Ratio 16.1, Glucose 144 H, Calcium 9.1 12/03/20 12:20: POC Glucose 170 H Micro: Microbiology 12/02/20 16:45 Urine, Catheterized Urine Culture - Preliminary Gram negative jhon 12/02/20 16:45 Blood Culture (Wb) - Venous Blood Culture - Preliminary 12/02/20 17:30 Blood Culture (Wb) - Left Hand Blood Culture - Preliminary Gram negative jhon 12/02/20 17:25 Mucosa - Nose SARS-CoV-2 Antigen (Rapid) - Final Radiography Diagnostic Testing: Radiology Impression Brain CT 12/02/20 17:07 IMPRESSION: Chronic involutional and white matter changes. No acute intracranial process. Large midline extra-axial, dural and parafalcine calcification, possible meningioma. If not previously evaluated, this finding may be characterized by contrast enhanced brain MRI. Individualized dose optimization techniques were used for this CT. at 1949 Reported and signed by: Arturo Tanner MD Electronically Signed: Arturo Tanner MD at 19:48 EDT Tel , Service support , Cervical Spine CT 12/02/20 17:07 IMPRESSION: Degenerative changes. No evidence of acute cervical spinal fracture. Individualized dose optimization techniques were used for this CT. at 1908 Reported and signed by: Arturo Tanner MD Electronically Signed: Arturo Tanner MD at 19:07 EDT Tel , Service support , Lumbar Spine CT 12/02/20 17:07 IMPRESSION: No evidence of acute lumbar spinal fracture. 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 Individualized dose optimization techniques were used for this CT. at 2034 Reported and signed by: Arturo Tanner MD Electronically Signed: Arturo Tanner MD at 20:33 EDT Tel , Service support , Chest X-Ray 12/02/20 18:10 IMPRESSION: Right basilar airspace disease suspicious for pneumonia. Recommend follow-up to resolution. at 1852 Reported and signed by: Arturo Tanner MD Electronically Signed: Arturo Tanner MD at 18:51 EDT Tel , Service support , Physical Exam Const alert HEENT Head and Scalp: normocephalic Resp normal respiratory effort, no retractions, no use of accessory muscles and clear to auscultation bilaterally Cardio regular rate, regular rhythm, S1 normal heart sound and S2 normal heart sound GI normal to inspection, nondistended, normoactive bowel sounds, soft to palpation, non-tender and non-distended Extremity normal to inspection Assessment & Plan Assessment/Plan (1) Sepsis: QUALIFIERS: Sepsis type: sepsis due to unspecified organism Sepsis acute organ dysfunction status: with acute organ dysfunction Severe sepsis acute organ dysfunction type: acute renal failure Acute renal failure type: unspecified Severe sepsis shock status: without septic shock Qualified Code(s): A41.9 - Sepsis, unspecified organism; R65.20 - Severe sepsis without septic shock; N17.9 - Acute kidney failure, unspecified (2) Acute UTI: PLAN: 1. Early sepsis qSOFA score on admission was only 1 for respiratory rate Therefore sepsis and a severe sepsis ruled out. Secondary to UTI Clinically stable 2. UTI Urine culture showing gram-negative jhon Currently on ceftriaxone 3. Falls Likely contributed by the UTI PT OT evaluation for further recommendations 4. Back contusion Secondary to fall Add [place] to assist with pain as she states that that is what she typically takes as acetaminophen has been ineffective 5. Paroxysmal atrial tachycardia Continue with atenolol, digoxin Follow-up with Dr. Emerson as outpatient 6. VTE prophylaxis with heparin Transfer to Medical Surgical floor. Charges/Coding Visit Charges Inpatient E&M: 07370 Subs Hosp L2
[2020-12-03 16:56] LABS: Bedside Glucose 176 mg/dL (70-110)
[2020-12-03] MEDS: Ondansetron 4 MG/2 ML Vial IV (17:20)
[2020-12-03] MEDS: Furosemide 20 MG Tablet PO (21:10)
[2020-12-03] MEDS: Pravastatin 80 MG Tablet PO (21:11)
[2020-12-03] MEDS: Amitriptyline 25 MG Tablet PO (21:11)
[2020-12-03 21:21] LABS: Bedside Glucose 168 mg/dL (70-110)
[2020-12-04] VITALS (7 sets, daily range): BP systolic 121–154; BP diastolic 54–68; PULSE 66–82; RESP 16–18; TEMP 36.7–38.1; O2SAT 94–97
[2020-12-04] MEDS: 0.9% Normal Saline 1,000 ML 75 ML IV ×2 (01:15→13:53)
[2020-12-04] MEDS: HYDROcodone Bitartrate/Apap 5/325 Tablet PO ×2 (05:01→13:55)
[2020-12-04 05:05] LABS: Absolute Lymphocyte Count 0.72 X10^3/uL (0.83-4.51); Absolute Neutrophil Count 7.2 X10^3/uL (2.0-7.7); Basophil# 0.05 X10^3/uL; Basophil% 0.5 % (0-1); Eosinophil# 0.11 X10^3/uL; Eosinophils% 1.2 % (0-5); Hematocrit 36.4 % (37-47); Hemoglobin 11.5 g/dL (12.0-15.0); Lymphocyte # 0.72 X10^3/ul (0.83-4.51); Lymphocyte % 7.9 % (19-41); Mean Corp Hgb Conc 31.6 g/dL (32-36); Mean Corpuscular Volume 98.1 fL (81-99); Mean Platelet Vol. 10.4 fl (6.2-12.0); Monocyte# 1.02 X10^3/uL; Monocyte% 11.1 % (0-10); NRBC Flagged by Analyzer 0.2 % (0-5); Neutrophil # 7.16 X10^3/uL (2.7-7.7); Neutrophil % 78.3 % (47-70); Platelet Count 139 K/mm3 (150-450); RBC Distribution Width CV 13.4 % (11.6-14.6); RBC Distribution Width SD 47.8 fl (35.1-43.9); Red Blood Count 3.71 M/mm3 (4.2-5.4); White Blood Count 9.2 K/mm3 (4.4-11.0)
[2020-12-04 05:20] LABS: Anion Gap 5 (5-15); BUN 15 mg/dL (7-18); BUN/Creat Ratio 14.9 RATIO (10-20); Calcium,Total 8.7 mg/dL (8.5-10.1); Chloride 104 mmol/L (98-107); Creatinine, Serum 1.01 mg/dL (0.55-1.02); EST Glomerular Filtration Rate 57 mL/min (>60); Est Glom Filt Rate - Afr Amer 69 mL/min (>60); Estimated Creatinine Clearance 39.81 ml/min; Glucose 139 mg/dL (74-106); Potassium 3.7 mmol/L (3.5-5.1); Sodium Level 136 mmol/L (136-145)
[2020-12-04 08:05] LABS: Bedside Glucose 131 mg/dL (70-110)
[2020-12-04] MEDS: Heparin Injection (Vial) 5,000 UNIT/ML VIAL 5000 UNIT SC ×2 (10:01→21:57)
[2020-12-04] MEDS: Atenolol 50 MG Tablet PO (10:01)
[2020-12-04] MEDS: Digoxin 250 MCG Tablet PO (10:01)
[2020-12-04] MEDS: Meloxicam 15 MG Tablet PO (10:01)
[2020-12-04] MEDS: Furosemide 20 MG Tablet PO ×2 (10:01→21:57)
[2020-12-04] MEDS: amLODIPine 10 MG Tablet PO (10:01)
[2020-12-04] MEDS: Senna/Docusate Sodium 1 Tablet 2 TABLET PO (10:05)
[2020-12-04] MEDS: Insulin Lispro 100 UNIT/ML INSULN.PEN SC ×2 (11:51→22:01)
[2020-12-04 12:26] LABS: Bedside Glucose 175 mg/dL (70-110)
[2020-12-04] MEDS: Gabapentin 300 MG Capsule PO (16:22)
--- NOTE | 2020-12-04 16:30 | PN.HOSP_ITS ---
Subjective Subjective Feels good. Ready to go home. Objective Data Objective Data Vital Signs: Vital Signs Temp Pulse Resp BP Pulse Ox 36.8 C 70 16 137/68 H 97 12/04/20 16:00 12/04/20 16:00 12/04/20 16:00 12/04/20 16:00 12/04/20 16:00 Oxygen Flow Rate (L/min) 3 Oxygen Delivery Method Room Air Weight: 90.9 kg Body Mass Index (BMI) 35.3 Intake & Output: Intake and Output for Last 24 Hours 12/02/20 12/03/20 12/04/20 23:59 23:59 23:59 Intake Total 50 / 50 2280 / 2280 1912.5 / 1912.5 Output Total 1900 / 2400 1325 / 1325 Balance 50 / 50 380 / -120 587.5 / 587.5 Lab / Micro Data Result Diagrams: 12/04/20 04:57 12/04/20 04:57 Labs: Laboratory Results - last 24 hr 12/03/20 16:51: POC Glucose 176 H 12/03/20 21:10: POC Glucose 168 H 12/04/20 04:57: WBC 9.2, RBC 3.71 L, Hgb 11.5 L, Hct 36.4 L, MCV 98.1, MCH 31.0, MCHC 31.6 L, RDW Std Deviation 47.8 H, RDW Coeff of Patti 13.4, Plt Count 139 L, MPV 10.4, Immature Gran % (Auto) 1.000 H, Neut % (Auto) 78.3 H, Lymph % (Auto) 7.9 L, [place] % (Auto) 11.1 H, Eos % (Auto) 1.2, Baso % (Auto) 0.5, Absolute Neuts (auto) 7.2, Absolute Lymphs (auto) 0.72 L, Nucleated RBC % 0.2 12/04/20 04:57: Sodium 136, Potassium 3.7, Chloride 104, Carbon Dioxide 27.0, Anion Gap 5, BUN 15, Creatinine 1.01, Estim Creat Clear Calc 39.81, Est GFR (MDRD) Af Amer 69, Est GFR (MDRD) Non-Af 57 L, BUN/Creatinine Ratio 14.9, Glucose 139 H, Calcium 8.7 12/04/20 08:03: POC Glucose 131 H 12/04/20 11:49: POC Glucose 175 H Micro: Microbiology 12/02/20 16:45 Urine, Catheterized Urine Culture - Final Escherichia coli 12/02/20 16:45 Blood Culture (Wb) - Venous Blood Culture - Preliminary Gram negative jhon 12/02/20 17:30 Blood Culture (Wb) - Left Hand Blood Culture - Preliminary Gram negative jhon 12/02/20 17:25 Mucosa - Nose SARS-CoV-2 Antigen (Rapid) - Final Physical Exam Const alert HEENT Head and Scalp: normocephalic Eyes PERRL Resp normal respiratory effort, no retractions and no use of accessory muscles Cardio regular rate, regular rhythm, S1 normal heart sound and S2 normal heart sound GI normal to inspection, nondistended, normoactive bowel sounds, soft to palpation, non-tender and non-distended Extremity normal to inspection Assessment & Plan Assessment/Plan (1) Sepsis: QUALIFIERS: Sepsis type: sepsis due to unspecified organism Seps is acute organ dysfunction status: with acute organ dysfunction Severe sepsis acute organ dysfunction type: acute renal failure Acute renal failure type: unspecified Severe sepsis shock status: without septic shock Qualified Code(s): A41.9 - Sepsis, unspecified organism; R65.20 - Severe sepsis without septic shock; N17.9 - Acute kidney failure, unspecified (2) Acute UTI: PLAN: 1. Early sepsis qSOFA score on admission was only 1 for respiratory rate Therefore sepsis and a severe sepsis ruled out. Secondary to UTI and bacteremia Clinically stable 2. UTI Urine culture showing E. coli Currently on ceftriaxone 3. Bacteremia GNR so far 2/2 bottles. ID still pending 4. Falls Likely contributed by the UTI PT OT recommending addnl therapy 4. Back contusion Secondary to fall Add [place] to assist with pain as she states that that is what she typically takes as acetaminophen has been ineffective 5. Paroxysmal atrial tachycardia Continue with atenolol, digoxin Follow-up with Dr. Emerson as outpatient 6. VTE prophylaxis with heparin Charges/Coding Visit Charges Inpatient E&M: 42258 Subs Hosp L2
[2020-12-04 16:55] LABS: Bedside Glucose 131 mg/dL (70-110)
[2020-12-04] MEDS: Amitriptyline 25 MG Tablet PO (21:57)
[2020-12-04] MEDS: Ceftriaxone 1 GM/50 ML BAG IV (21:57)
[2020-12-04] MEDS: Pravastatin 80 MG Tablet PO (21:57)
[2020-12-04 22:10] LABS: Bedside Glucose 151 mg/dL (70-110)
[2020-12-05 03:10] VITALS: BP 164/73; PULSE 81; RESP 18; TEMP 37.5; O2SAT 94
[2020-12-05] MEDS: 0.9% Normal Saline 1,000 ML 75 ML IV (03:14)
[2020-12-05 09:10] VITALS: BP 148/67; PULSE 71; RESP 16; TEMP 37.2; O2SAT 96
--- NOTE | 2020-12-05 10:12 | PCM.DC ---
Discharge Instructions Diet Discharge Diet: 1999 Calorie Control Diet Activity Discharge Activity: Return to Normal Activity Dressing / Incision Call your doctor if you observe: Fever of 101 or Higher Follow Up Care Test Results: Test results from this visit will be discussed in further detail at your follow-up appointment, if applicable. Discharge Plan Admission Admit Date/Time: 12/02/20 21:02 Primary Reason for Your Visit: Bacteremia. Urinary tract infection. Attending Provider: Tiburcio Ngo Primary Care Provider: Rebecca Lewis Consulting Providers: Lauri Holt Discharge Orders/Prescriptions Prescriptions: New amoxicillin-pot clavulanate [Augmentin] 875-125 mg tablet 1 tab PO BID Qty: 14 RF: 0 Continued naproxen 500 mg tablet 500 mg PO BID RF: 0 pravastatin 80 mg tablet 80 mg PO QDAY RF: 0 atenolol 100 mg tablet 50 mg PO DAILY RF: 0 amitriptyline 25 MG tablet 25 mg PO QHS RF: 0 gabapentin 300 MG capsule 300 mg PO BID RF: 0 digoxin 250 MCG tablet 250 mcg PO DAILY RF: 0 aspirin 81 mg tablet,delayed release (DR/EC) 81 mg PO .2XWK RF: 0 metformin 500 mg tablet 500 mg PO BID RF: 0 meloxicam [Mobic] 15 mg tablet 15 mg PO DAILY RF: 0 amlodipine 5 mg tablet 10 mg PO DAILY RF: 0 furosemide 20 mg tablet 20 mg PO BID Qty: 60 RF: 12 Referrals / Follow Up: Rebecca Lewis MD [Primary Care Provider] - Within 2 Weeks Disposition Disposition (needs filled in before D/C Order can be placed): Home Health Service
--- NOTE | 2020-12-05 10:20 | PCM.DC.SUM ---
Providers Date of Admission: 12/02/20 Primary Care Physician: Dr. Rebecca Lewis MD Consultations 12/02/20 22:19 Consult: [employer] Records Clerk / Pulmonary Medicine Routine Consulting Provider: Lauri Holt Reason for Consult: Sepsis EMERGENT Consult: No MD Notified: Yes Date Notified: 12/02/20 Time Notified: 21:01 Method of Notification: Text Reason For Visit: SEPSIS Diagnosis Discharge Diagnosis (1) Sepsis: Status: Acute Code(s): A41.9 - Sepsis, unspecified organism Qualifiers: Sepsis type: sepsis due to unspecified organism Sepsis acute organ dysfunction status: with acute organ dysfunction Severe sepsis acute organ dysfunction type: acute renal failure Acute renal failure type: unspecified Severe sepsis shock status: without septic shock Qualified Code(s): A41.9 - Sepsis, unspecified organism; R65.20 - Severe sepsis without septic shock; N17.9 - Acute kidney failure, unspecified (2) Acute UTI: Status: Acute Code(s): N39.0 - Urinary tract infection, site not specified Medications at Discharge Home Medications amitriptyline 25 mg PO QHS 02/22/13 gabapentin 300 mg PO BID 02/22/13 digoxin 250 mcg PO DAILY 02/01/14 pravastatin 80 mg tablet 80 mg PO QDAY 11/22/17 aspirin 81 mg tablet,delayed release 81 mg PO .2XWK 11/23/17 naproxen 500 mg tablet 500 mg PO BID 11/23/17 atenolol 100 mg tablet 50 mg PO DAILY 03/28/19 amlodipine 5 mg tablet 10 mg PO DAILY tablet 07/16/20 furosemide 20 mg tablet 20 mg PO BID #60 tablet 07/29/20 meloxicam [Mobic] 15 mg PO DAILY 12/02/20 metformin 500 mg PO BID 12/02/20 amoxicillin-pot clavulanate [Augmentin] 1 tab PO BID #14 tab 12/05/20 Hospital Course Summary of Care Provided Minutes Spent on Discharge: 32 Hospital Course: 35-year-old female presents with fall. Patient was found to have a UTI. Initial concern was for sepsis but patient did not meet sofa criteria for sepsis. Patient was found to be bacteremic as well. The urinary tract infection and bacteremia were both E. coli. Patient will be discharged with Augmentin for total 10 days of antibiotics. Patient did receive 3 days of ceftriaxone here in the hospital. Patient was seen by therapy recommendation with therapy needs. Patient be discharged home with home care. 1. Early sepsis qSOFA score on admission was only 1 for respiratory rate Therefore sepsis and a severe sepsis ruled out. Secondary to UTI and bacteremia Clinically stable 2. UTI Urine culture showing E. coli Currently on ceftriaxone, change to Augmentin 3. Bacteremia E. coli Augmentin for total of 10 days of abx. 4. Falls Likely contributed by the UTI PT OT recommending addnl therapy home health care. 4. Back contusion Secondary to fall Add [place] to assist with pain as she states that that is what she typically takes as acetaminophen has been ineffective 5. Paroxysmal atrial tachycardia Continue with atenolol, digoxin Follow-up with Dr. Emerson as outpatient Physical Exam Const alert General Appearance: cooperative Extremity Extremity Narrative: infitration of RUE w/o erythema. Weight / BMI Weight Weight: 91.4 kg Body Mass Index (BMI) 35.3 ABG / Lab / Microbiology Data Result Diagrams: 12/04/20 04:57 12/04/20 04:57 Laboratory: Laboratory Results - last 24 hr 12/04/20 11:49: POC Glucose 175 H 12/04/20 16:25: POC Glucose 131 H 12/04/20 22:00: POC Glucose 151 H Microbiology: Microbiology 12/02/20 17:30 Blood Culture (Wb) - Left Hand Blood Culture - Final Gram negative jhon 12/02/20 16:45 Blood Culture (Wb) - Venous Blood Culture - Final Escherichia coli 12/02/20 16:45 Urine, Catheterized Urine Culture - Final Escherichia coli 12/02/20 17:25 Mucosa - Nose SARS-CoV-2 Antigen (Rapid) - Final D/C Instructions Discharge Diet: 2000 Calorie Control Diet Call your doctor if you observe: Fever of 101 or Higher Meaningful Use Info Meaningful Use Diagnoses (Choose all that apply): None applicable Discharge Plan Admission Admit Date/Time: 12/02/20 21:02 Primary Reason for Your Visit: Bacteremia. Urinary tract infection. Attending Provider: Tiburcio Ngo Primary Care Provider: Rebecca Lewis Consulting Providers: Lauri Holt Discharge Orders/Prescriptions Prescriptions: New amoxicillin-pot clavulanate [Augmentin] 875-125 mg tablet 1 tab PO BID Qty: 14 RF: 0 Continued naproxen 500 mg tablet 500 mg PO BID RF: 0 pravastatin 80 mg tablet 80 mg PO QDAY RF: 0 atenolol 100 mg tablet 50 mg PO DAILY RF: 0 amitriptyline 25 MG tablet 25 mg PO QHS RF: 0 gabapentin 300 MG capsule 300 mg PO BID RF: 0 digoxin 250 MCG tablet 250 mcg PO DAILY RF: 0 aspirin 81 mg tablet,delayed release (DR/EC) 81 mg PO .2XWK RF: 0 metformin 500 mg tablet 500 mg PO BID RF: 0 meloxicam [Mobic] 15 mg tablet 15 mg PO DAILY RF: 0 amlodipine 5 mg tablet 10 mg PO DAILY RF: 0 furosemide 20 mg tablet 20 mg PO BID Qty: 60 RF: 12 Referrals / Follow Up: Rebecca Lewis MD [Primary Care Provider] - Within 2 Weeks Disposition Disposition (needs filled in before D/C Order can be placed): Home Health Service Charges/Coding Visit Charges Inpatient E&M: 80553 Disch Hosp
[2020-12-05] MEDS: Gabapentin 300 MG Capsule PO (10:43)
[2020-12-05] MEDS: Digoxin 250 MCG Tablet PO (10:43)
[2020-12-05] MEDS: Furosemide 20 MG Tablet PO (10:44)
[2020-12-05] MEDS: amLODIPine 10 MG Tablet PO (10:44)
[2020-12-05] MEDS: Meloxicam 15 MG Tablet PO (10:44)
[2020-12-05] MEDS: Atenolol 50 MG Tablet PO (10:44)
--- NOTE | 2020-12-05 10:50 | CASEMGMT ---
RN CM in to discuss discharge planning with patient. Daughter on phone with CM. Daughter and patient requesting C. Patient was provided a list of [facility] providers including quality and resource use data and consistent with the patient?s preferred geographic region, medical needs, and insurance network. The patient?s preferred provider is [facility]. RN BISHNU called and made referral to [facility], awaiting acceptance.
--- NOTE | 2020-12-05 11:25 | CASEMGMT ---
CHARLINE GOETZ received call back from Michelle at [facility], they are able to accept the patient with start of care for Tuesday. CHARLINE GOETZ updated patient and daughter. No further questions or concerns at this time.
[2020-12-05 11:30] VITALS: O2SAT 92
--- NOTE | 2020-12-08 15:30 | CASEMGMT ---
RN CM Discharge Follow Up Phone Call: VIRGILE: Traci Strata:3 Call Date: 12/08/20 Discharge Date: 12/05/20 Time of Call:1525 Duration:<1 min Admitting Dx:sepsis RN BISHNU attempted to complete follow up phone call after recent hospitalization. Phone rang and rang, no voicemail. Unable to leave message.
== END 2020-12-05 13:30 | disposition home health service (06) | DRG 690 ==
LOC: ED 20:55 → ICU 21:01
PROVIDERS: Admitting Provider Hospitalist; Emergency Provider Emergency Medicine; PCP Internal Medicine
DX: N39.0 Urinary tract infection, site not specified (principal); I47.1 Supraventricular tachycardia; N17.9 Acute kidney failure, unspecified; R78.81 Bacteremia; B96.20 Unspecified Escherichia coli [E. coli] as the cause of diseases classified elsewhere; R29.6 Repeated falls; S20.229A Contusion of unspecified back wall of thorax, initial encounter; S09.90XA Unspecified injury of head, initial encounter; D32.9 Benign neoplasm of meninges, unspecified; W18.30XA Fall on same level, unspecified, initial encounter; Y93.9 Activity, unspecified; Y92.002 Bathroom of unspecified non-institutional (private) residence as the place of occurrence of the external cause; E11.40 Type 2 diabetes mellitus with diabetic neuropathy, unspecified; R53.81 Other malaise; E11.65 Type 2 diabetes mellitus with hyperglycemia; E78.5 Hyperlipidemia, unspecified; G89.29 Other chronic pain; I10 Essential (primary) hypertension; I35.1 Nonrheumatic aortic (valve) insufficiency; I25.2 Old myocardial infarction; I71.2 Thoracic aortic aneurysm, without rupture; J44.9 Chronic obstructive pulmonary disease, unspecified; K21.9 Gastro-esophageal reflux disease without esophagitis; M48.061 Spinal stenosis, lumbar region without neurogenic claudication; Z79.82 Long term (current) use of aspirin; Z79.84 Long term (current) use of oral hypoglycemic drugs; Z87.442 Personal history of urinary calculi; Z95.1 Presence of aortocoronary bypass graft; Z79.899 Other long term (current) drug therapy; Z87.891 Personal history of nicotine dependence
CPT/HCPCS: 70450; 71045; 72100; 72125; 72131; 80048; 80076; 81001; 82570; 82962; 83605; 84300; 84540; 85025; 87040; 87077; 87086; 87088; 87186; 87426; 93005; 97162; 97166; 97530; 97535; 97802; 99251; 99282; 99285; J7030; A4216; G0463; J2405

== ENCOUNTER 2021-05-11 15:05 | Outpatient (CLI) | payer MEDICARE, SELFPAY ==
--- NOTE | 2021-05-11 15:08 | CT_ITS ---
STUDY: CT Lower Extremity W/O Contrast Injection 05/11/2021 7:59 PM REASON FOR EXAM: Female, 75 years old. templating for left TKA Individualized dose optimization techniques were used for this CT. TECHNIQUE: templating for left TKA ITALIA protocol COMPARISON: No priors for comparison. FINDINGS: A jhon was placed along the lateral aspect of the patient''s lower extremity. CT scans were obtained over the hip, knee, and ankle, separately. IMPRESSION: The images will be utilized by the surgical prosthesis biomedical field service engineer for measurement and planning purposes.. Electronically Signed: Noah Whitaker MD at 20:01 EST , Service support , CT/Extremity Lower without Contra
== END 2021-05-11 23:59 | disposition short-term general hospital (02) ==
PROVIDERS: PCP Internal Medicine; Referring Provider Orthopaedic Surgery; Visit Provider Orthopaedic Surgery
DX: M17.12 Unilateral primary osteoarthritis, left knee (principal)
CPT/HCPCS: 73700

== ENCOUNTER 2021-05-25 06:10 | Outpatient (CLI) | payer MEDICARE, SELFPAY ==
--- NOTE | 2021-05-25 08:30 | STRESSREP_ITS ---
Stress Test Report Date: 05-25-2021 Procedure: Pharmacologic stress nuclear imaging study Indications: Abnormal ECG; cardiac dysrhythmia; preoperative assessment Consent: Per the patient Procedure: The patient underwent pharmacologic (Regadenoson 0.4mg ) evaluation with a peak heart rate of 85 beats per minute (58%predicted maximal heart rate) and a peak b lood pressure of 154/70 mmHg. The baseline ECG demonstrated sinus rhythm; ST/T wave abnormality. The peak pharmacologic ECG demonstrated continued ST/T wave abnormality. There were no cardiac dysrhythmias pretest, during pharmacologic infusion, or recovery. There was no complaint of chest discomfort during pharmacologic infusion or recovery. The examination was discontinued secondary to completion of protocol. Impression: 1. Pharmacologic (Regadenoson) evaluation 2. Peak pharmacologic ECG with continued ST/T wave abnormality. 3. There were no cardiac dysrhythmias pretest, during pharmacologic infusion, or recovery. 4. Nuclear images pending Myocardial perfusion imaging study: Technique: The patient was injected with 11.3 millicuries of technetium 99m Cardiolite and subsequently rest SPECT Cardiolite nuclear imaging was obtained in the horizontal long, vertical long, and short axis views. The patient underwent pharmacologic (Regadenoson) evaluation with a peak heart rate of 85 beats per minute (58% percent predicted maximal heart rate) and a peak blood pressure of 154/70 mmHg. The patient was injected with 33.9 millicuries of technetium 99m Cardiolite and subsequently stress SPECT Cardiolite nuclear imaging was obtained in the horizontal long, vertical long, and short axis views. A gated Cardiolite study at peak stress was obtained. Interpretation: Rest and stress SPECT Cardiolite nuclear imaging status post realignment, normalization, and attenuation correction demonstrate relative uniform tracer uptake and myocardial perfusion appearing within normal limits. There is end systolic thickening and brightening. The gated Cardiolite study demonstrates myocardial thickening and inward wall motion. The reported LVEF is 71%. Impression: 1. Rest and stress SPECT Cardiolite nuclear imaging demonstrate relative uniform tracer uptake and myocardial perfusion appearing within normal limits. 2. The gated Cardiolite study reports an LVEF of 71%. This note was generated with [employer] software. It may contain incorrect words, spelling, and punctuation that were not noted in checking the note before signing.
== END 2021-05-25 23:59 | disposition home or self-care (01) ==
PROVIDERS: PCP Internal Medicine; Referring Provider Nurse Practitioner Gerontology; Visit Provider Nurse Practitioner Gerontology
DX: R94.31 Abnormal electrocardiogram [ECG] [EKG] (principal)
CPT/HCPCS: 78452; 93017; A9500; A4216; J2785

== ENCOUNTER 2021-05-26 05:53 | Inpatient (IN) | payer MEDICARE, SELFPAY ==
--- NOTE | 2021-05-14 10:32 | EKG12_ITS ---
Test Reason : PREOP Blood Pressure : / mmHG Vent. Rate : 059 BPM Atrial Rate : 059 BPM P-R Int : 180 ms QRS Dur : 086 ms QT Int : 384 ms P-R-T Axes : 012 -26 205 degrees QTc Int : 380 ms Sinus bradycardia Septal infarct , age undetermined ST & T wave abnormality, consider inferolateral ischemia Abnormal ECG Confirmed by MARICHUY HOPKINS, MILES ([id number]), clinical editor APRIL MATHIAS ([id number]) on 05/15/2021 1:01:07 PM Referred By: Austin Abdalla Confirmed By:SRIRAM BENEDICT MD
[2021-05-14 12:25] LABS: Absolute Lymphocyte Count 1.96 X10^3/uL (0.83-4.51); Absolute Neutrophil Count 5.6 X10^3/uL (2.0-7.7); Basophil# 0.07 X10^3/uL; Basophil% 0.8 % (0-1); Eosinophil# 0.23 X10^3/uL; Eosinophils% 2.6 % (0-5); Hematocrit 39.1 % (37-47); Hemoglobin 12.5 g/dL (12.0-15.0); Lymphocyte # 1.96 X10^3/ul (0.83-4.51); Lymphocyte % 22.2 % (19-41); Mean Corpuscular Hgb 31.5 pg (27.0-32.0); Mean Corpuscular Volume 98.5 fL (81-99); Mean Platelet Vol. 10.5 fl (6.2-12.0); Monocyte# 0.95 X10^3/uL; Monocyte% 10.8 % (0-10); NRBC Flagged by Analyzer 0 % (0-5); Neutrophil # 5.56 X10^3/uL (2.7-7.7); Neutrophil % 63.1 % (47-70); Platelet Count 253 K/mm3 (150-450); RBC Distribution Width CV 13.8 % (11.6-14.6); RBC Distribution Width SD 49.6 fl (35.1-43.9); Red Blood Count 3.97 M/mm3 (4.2-5.4); White Blood Count 8.8 K/mm3 (4.4-11.0)
[2021-05-14 12:37] LABS: Prothrombin Time (Protime)PT. 12.2 SECONDS (11.7-14.9)
[2021-05-14 12:38] LABS: Partial Thromboplast Time 30.4 Seconds (24.1-36.2)
[2021-05-14 14:09] LABS: Magnesium 2.2 mg/dL (1.6-2.6)
[2021-05-14 14:09] LABS: Anion Gap 8 (5-15); BUN 12 mg/dL (7-18); BUN/Creat Ratio 12.8 RATIO (10-20); Calcium,Total 9.6 mg/dL (8.5-10.1); Chloride 106 mmol/L (98-107); Creatinine, Serum 0.94 mg/dL (0.55-1.02); EST Glomerular Filtration Rate 62 mL/min (>60); Est Glom Filt Rate - Afr Amer 75 mL/min (>60); Glucose 77 mg/dL (74-106); Potassium 3.6 mmol/L (3.5-5.1); Sodium Level 141 mmol/L (136-145)
[2021-05-15 17:52] LABS: Fructosamine 241 umol/L (0-285)
[2021-05-26] VITALS (19 sets, daily range): BP systolic 126–165; BP diastolic 58–85; PULSE 66–83; RESP 10–18; TEMP 36.6–37.2; O2SAT 89–99; BMI 35.8
[2021-05-26] MEDS: Lactated Ringers 1,000 ML 15 ML IV (06:30)
[2021-05-26] MEDS: Acetaminophen 500 MG Tablet 1000 MG PO ×3 (06:39→21:13)
[2021-05-26] MEDS: Scopolamine 1mg/72hr Patch 1 PATCH TD (06:40)
[2021-05-26] MEDS: Gabapentin 600 MG Tablet PO (06:40)
[2021-05-26 06:41] LABS: Bedside Glucose 238 mg/dL (70-110)
[2021-05-26] MEDS: Insulin Lispro 100 UNIT/ML INSULN.PEN SC (06:45)
[2021-05-26] MEDS: Cefazolin 2 GM in 0.9% Normal Saline 100 ML IV (08:30)
[2021-05-26] MEDS: TXA 1000mg in NS100 100ml (IVPB at Incision) 660 MG IV (08:40)
[2021-05-26] MEDS: dexAMETHasone 10 MG/ML Vial IV (08:40)
[2021-05-26] MEDS: Lactated Ringers 1,000 ML 125 ML IV (09:00)
[2021-05-26] MEDS: TXA 1000mg in NS100 100ml (IVPB at Closure) 660 MG IV (09:35)
[2021-05-26] MEDS: 0.9% Normal Saline (Pres. free 10 ML Vial (09:48)
[2021-05-26] MEDS: Betamethasone/Betamethasone 30 MG/5 ML Vial (09:48)
[2021-05-26] MEDS: Bupivacaine 0.5% PF 10 ML VIAL (09:48)
[2021-05-26] MEDS: Epinephrine (1 mg/ml) 1 MG/ML VIAL (09:48)
--- NOTE | 2021-05-26 10:38 | RAD_ITS ---
STUDY: X-RAY - LEFT KNEE REASON FOR EXAM: Postoperative evaluation of left total knee arthroplasty. TECHNIQUE: 2 view(s) of the knee. COMPARISON: Radiographs 04/15/2021. FINDINGS: There is a left total knee arthroplasty without evidence of complication. There is postoperative gas in the soft tissues and overlying skin balta. There is vascular calcification. RAD/Knee 1 or 2 Views IMPRESSION: Uncomplicated left total knee arthroplasty. Electronically Signed: Andrea German MD at 11:54 EST ,
--- NOTE | 2021-05-26 10:41 | PCM.HP.BLA ---
History and Physical Date of Admission: 05/26/21 Date of Service: 04/15/21 MR#:[id number]:[id number]: [facility] #:[id number]:1945 Provider:Dr. Austin Abdalla DOAge/Sex: 75/F Location:[place]:Signed Intake Intake Visit Reasons: LEFT KNEE Allergies lisinopril Adverse Reaction (Severe, Verified 12/01/20 20:23) Intolerence, cough nalbuphine HCl [From Nubain] Adverse Reaction (Verified 12/01/20 20:23) Nausea/Vom/Diarrhea Medications amitriptyline 25 mg PO QHS 02/22/13 [History Confirmed 04/15/21] gabapentin 300 mg PO BID 02/22/13 [History Confirmed 04/15/21] digoxin 250 mcg PO DAILY 02/01/14 [History Confirmed 04/15/21] pravastatin 80 mg tablet 80 mg PO QDAY 11/22/17 [History Confirmed 04/15/21] aspirin 81 mg tablet,delayed release 81 mg PO .2XWK 11/23/17 [History Confirmed 04/15/21] naproxen 500 mg tablet 500 mg PO BID 11/23/17 [History Confirmed 04/15/21] atenolol 100 mg tablet 50 mg PO DAILY 03/28/19 [History Confirmed 04/15/21] amlodipine 5 mg tablet 10 mg PO DAILY tablet 07/16/20 [History Confirmed 04/15/21] furosemide 20 mg tablet 20 mg PO BID #60 tablet 07/29/20 [Rx Confirmed 04/15/21] metformin 500 mg PO BID 12/02/20 [History Confirmed 04/15/21] [facility] Medical History (Updated 02/02/21 @ 11:[address] Austin Abdalla DO) Dysmetabolic syndrome Dyspnea on exertion Essential hypertension GERD (gastroesophageal reflux disease) History of kidney stones Hyperlipidemia Meningioma Nonrheumatic aortic (valve) insufficiency Paroxysmal atrial tachycardia Peripheral neuropathy Thoracic aortic aneurysm without rupture Surgical History History of arthroscopy of right shoulder History of back surgery History of elbow surgery History of hand surgery History of hysterectomy History of knee replacement procedure of right knee History of knee surgery Status post trigger finger release Family History Father CAD (coronary artery disease) Myocardial infarction, Onset Age: 51 Brother Myocardial infarction, Onset Age: 51 Brother CAD (coronary artery disease) Hx of CABG Sister Heart disease COPD (chronic obstructive pulmonary disease) Sister CVA (cerebral vascular accident) Social History household members: none Smoking Status: Former smoker alcohol intake: never substance use type: does not use HPI LEFT KNEE Details: Parts of this documentation were recorded by a scribe, this documentation accurately reflects the service provided and the decisions made by me, Dr. Austin Abdalla, DO 04/15/21 0808. MARZENA TUESDAY is a 75 year old F here today for F/U on the left knee. She states that the steroid injection in 01/2021 was helpful for about 2 months then she had a fall and she had to kneel to get up off the floor and this caused her knee pain to flare up and she has been having increased anterior knee pain since this incident. She does also report a hx of falls and balance issues. She does have chronic edema and was previously on Lasix and did not get a refill for unknown reasons Hx of BL shoulder scopes, hx of elbow surgery and back surgery. SHe has a hx of left knee arthroscopy but does not recall when this was. denies any hx of ulcer or infection in the foot. Ortho Exam General General: Yes no acute distress Neurologic: Yes alert and Yes oriented x3 Psychologic: Yes reasonable and appropriate Left Knee Skin/Wound: No ecchymosis, No erythema and Yes swelling Homans Sign: No Knee ROM: Yes ROM-Extension -20 to 0 and No ROM-Flexion 0-140 (98) Examination: Yes med jt line tenderness Stability: NML: Anterior Drawer, NML: Posterior Drawer and NML: Varus 0 and 1+: Valgus 0 Apprehension with Lateral Translation: No Patella Grind: Yes KNEE: pitting edema to tibial tubercle bilateral legs Decreased foot palpable pedal pulses no gross motor or sensory deficits medial hamstring inflammation posterior varicose veins intact sensation to light touch Coding Level of Care Code Off vis,est,level 3 Diagnoses Left knee DJD M17.12 Osteoarthritis type: primary Assessment and Plan Assessment and Plan (1) Left knee DJD: Status: Acute Qualifiers: Osteoarthritis type: primary Qualified Code(s): M17.12 - Unilateral primary osteoarthritis, left knee Orders: Orders: Knee 4 or More Views Today Plan - Dr. Austin Abdalla, DO: Obtained X-rays of patient's left knee. Personally reviewed x-rays. There is no obvious fracture, dislocation, or lucency noted. Educated that she does have OA of the left knee and there are calcifications noted on xrays that could indicate pseudogout of the knee but denies any hx of gout. Treatment options are PT or steroid injection or bracing or TKA. Educated that she is at an increased risk of developing a blood clot d/t her pitting edema in her legs prior to surgery. She also is at an risks for fx after the knee replacement d/t her hx of falls and balance issues. Risks, benefits and alternatives of surgery reviewed including but not limited to bleeding, infection, nerve, artery and/or tissue damage, fracture, VTE, mechanical feel of the knee, continued pain, stiffness and expected post-operative course. Naproxen will need to be stopped 7 days prior to surgery. Recommended that she stays the night after her surgery as long as she is ok with the risk of exposure to COVID, as she is of advanced age has multiple medical comorbidities and has balance difficulty with history of falls. Will schedule the surgery for inpatient. She wishes to proceed with left TKA and the IOVERA tx as long as it is covered by insurance. She will sign consent the day of IOVERA. She will need PCP clearance and cardiac clearance. Will also ask her PCP/cardiology is she can she be placed back onto diuretic for pitting edema pre and post op. Recommended out patient PT post op. Follow up for IOVERA tx or sooner if pain, swelling, numbness or associated symptoms, or concerns develop. All questions answered. Patient in agreement of plan. 04/15/21 1059<Electronically signed by Austin Abdalla DO>Date Austin Abdalla DO Cosigner Signature:Date I have re-examined the patient. There are no clinical changes since date of exam
--- NOTE | 2021-05-26 10:49 | PCM.OPRPT ---
Report of Operation Date of Procedure: 05/26/21 Description of Surgical Findings:: Preoperative diagnosis: Left knee DJD Postoperative diagnosis: Same Procedure: Left total knee arthroplasty CT guided Robotic Assisted Implant: Madeline triathlon cemented, femoral component size3, tibial baseplate size 4, asymmetric patella size 35, polyethylene X3 size 9 CS Anesthesia: Spinal with adductor canal block Tourniquet time: 40 broken up into 2 intervals minutes at 300 mmHg Complications: None Condition: Stable to PACU Estimated blood loss: 200 cc Indication for procedure: This is a 75-year-old female with long standing degenerative joint disease of the knee who has failed conservative treatment and wished to proceed with elective total knee arthroplasty. Risk benefits and alternatives were reviewed including; risk of bleeding, infection, nerve artery and tissue damage, continued pain, postoperative stiffness, venous thromboembolism, need for postoperative rehabilitation, mechanical feel to the knee, and expected postoperative course. The pre- operative CT and templating was performed with component sizing. Procedure: The patient was met in the preoperative holding area. The operative extremity was identified by both patient and physician and was marked. Patient was met by anesthesia. An adductor canal block was placed by anesthesia postoperatively the patient was brought back to the operating room on a wheeled cart and transferred to the operating table in the supine position. Anesthesia was started. A well-padded tourniquet was placed on the operative extremity. The patient was prepped and draped in the usual sterile fashion. A timeout was called to ensure the proper patient procedure and extremity were being contemplated. An esmarch was used to exsanguinate the extremity. The tourniquet was inflated. A 10 blade scalpel was used to make a midline incision down through the skin and subcutaneous tissue. Skin retractors placed. Bovie and Aquamantis were used to perform meticulous hemostasis. full-thickness flaps were elevated medial and lateral along the joint capsule. A deep blade scalpel was used to perform a medial parapatellar arthrotomy. The knee was brought to full extension. A bovie was used to release the soft tissues off the most proximal aspect of the medial tibial plateau, a three-quarter inch curved osteotome was also used in this process. The infrapatellar fat pad was excised. The suprapatellar fat pad was excised partially anteriorolateraly and portion the anterioromedial pad was elevated from the femur. At this point our intra-articular femoral array was placed at a 45 degree angle proximal and posterior to the medial epicondyle. femoral checkpoint was placed at this time. Our tibial array was placed greater than 1 hands breath below the incision at a 20 degree angle stab incisions were made with a 15 blade scalpel and pins were placed and attached to the tibial array , tibial checkpoint was placed in the proximal tibial metaphysis. Tourniquet was let down. At this point registration traore were taken throughout the knee . Once the knee was registered we then tensioned the medial and lateral ligaments in extension and 90 degrees of flexion. We then used these numbers to adjust our components within parameters to balance the knee in both flexion and extension once this was done on our monitor we then proceeded with using the robotic arm to make our tibial plateau cut, anterior and posterior chamfer and distal femur cuts. we removed the cut fragments with the use of a bovie and Sylvester, we did use a lamina electronic equipment repairer to insure we visualized and removed all posterior osteophytes and at this time also used the Aquamantis on the posterior joint capsule. we then trialed and achieved the desired plan with a well-balanced knee. we used the green probe to tran the corresponding tibial rotation based on our CT template. Lug holes were drilled in the femur the tibia preparation was completed with the appropriate sized base plate pinned based on previous rotation tran. An appropriate sized fin punch was used on the tibia and the patella was prepared by first using a caliper to ensure sufficient bone stock and a patellar reamer to remove the desired amount of bone. lug holes drilled for an asymmetric poly. We then brought the knee through range of motion with excellent patellar tracking. We thoroughly irrigated the knee. Trial components were removed a posterior capsular injection was preformed with our standard cocktail. In addition the aqua Mantis was also used to aid in hemostasis. Betadine rinse was allowed to sit and washed out completely. Components were cemented into place all excess cement was removed with a Maynard elevator. Aricept rinse was then used followed by several more liters of irrigation after it was allowed to sit. The joint capsule was closed with #1 Ethibond [id number] followed by Vicryl in the subcutaneous tissues with balta in the skin. Arrays and checkpoints were removed prior to closure all counts were correct stab incisions were closed with a staple standard dressing in the form of Mepilex AG for the main incision and a small Mepilex over the pin holes. Thigh-high LAYLA hose applied over top of dressing. Patient tolerated the procedure well and was directed to PACU in stable condition . There were no intraoperative complications.
[2021-05-26 11:11] LABS: Bedside Glucose 150 mg/dL (70-110)
[2021-05-26] MEDS: Cefazolin 1 GM/50 ML BAG IV ×2 (11:25→19:08)
[2021-05-26] MEDS: 0.9% Normal Saline 1,000 ML 100 ML IV (14:44)
[2021-05-26] MEDS: oxyCODONE 5 MG Tablet PO ×2 (15:31→19:08)
[2021-05-26 15:51] LABS: Bedside Glucose 184 mg/dL (70-110)
[2021-05-26] MEDS: Furosemide 20 MG Tablet PO (17:03)
[2021-05-26] MEDS: metFORMIN HCl 500 MG Tablet PO (17:03)
[2021-05-26] MEDS: Senna/Docusate Sodium 1 Tablet 2 TABLET PO (21:12)
[2021-05-26] MEDS: Amitriptyline 25 MG Tablet PO (21:12)
[2021-05-26] MEDS: Gabapentin 300 MG Capsule PO (21:13)
[2021-05-26] MEDS: Atenolol 50 MG Tablet PO (21:13)
[2021-05-26] MEDS: Pravastatin 80 MG Tablet PO (21:16)
[2021-05-27] MEDS: 0.9% Normal Saline 1,000 ML 100 ML IV (01:07)
[2021-05-27] MEDS: oxyCODONE 5 MG Tablet PO ×3 (01:10→11:15)
[2021-05-27 02:41] VITALS: BP 151/79; PULSE 80; RESP 18; TEMP 36.7; O2SAT 96
[2021-05-27] MEDS: Cefazolin 1 GM/50 ML BAG IV (04:04)
[2021-05-27 04:55] LABS: Hematocrit 34.9 % (37-47); Mean Corp Hgb Conc 31.5 g/dL (32-36); Mean Corpuscular Hgb 31.5 pg (27.0-32.0); Mean Platelet Vol. 9.9 fl (6.2-12.0); Platelet Count 198 K/mm3 (150-450); RBC Distribution Width CV 13.9 % (11.6-14.6); RBC Distribution Width SD 50.6 fl (35.1-43.9); Red Blood Count 3.49 M/mm3 (4.2-5.4); White Blood Count 16.4 K/mm3 (4.4-11.0)
[2021-05-27 05:15] LABS: Anion Gap 7 (5-15); BUN 9 mg/dL (7-18); BUN/Creat Ratio 11.5 RATIO (10-20); Calcium,Total 8.3 mg/dL (8.5-10.1); Chloride 106 mmol/L (98-107); Creatinine, Serum 0.78 mg/dL (0.55-1.02); EST Glomerular Filtration Rate 76 mL/min (>60); Est Glom Filt Rate - Afr Amer 92 mL/min (>60); Estimated Creatinine Clearance 40.21 ml/min; Glucose 154 mg/dL (74-106); Potassium 3.8 mmol/L (3.5-5.1); Sodium Level 140 mmol/L (136-145)
[2021-05-27] MEDS: APIXABAN 2.5 MG TABLET PO (06:14)
[2021-05-27] MEDS: Acetaminophen 500 MG Tablet 1000 MG PO (06:14)
[2021-05-27 06:30] VITALS: BP 145/77; PULSE 81; RESP 18; TEMP 36.6; O2SAT 96
[2021-05-27 09:46] VITALS: BP 144/68; PULSE 71; RESP 18; TEMP 36.6; O2SAT 92
[2021-05-27] MEDS: Digoxin 250 MCG Tablet PO (09:52)
[2021-05-27] MEDS: metFORMIN HCl 500 MG Tablet PO (09:52)
[2021-05-27] MEDS: Gabapentin 300 MG Capsule PO (09:53)
[2021-05-27] MEDS: Senna/Docusate Sodium 1 Tablet 2 TABLET PO (09:53)
[2021-05-27] MEDS: Cholecalciferol (VIT D3) 25 MCG TABLET (1,000 UNITS) PO (09:53)
[2021-05-27] MEDS: Furosemide 20 MG Tablet PO (09:53)
[2021-05-27] MEDS: Atenolol 50 MG Tablet PO (09:53)
[2021-05-27] MEDS: amLODIPine 10 MG Tablet PO (09:53)
--- NOTE | 2021-05-27 10:00 | CASEMGMT ---
CHARLINE GOETZ Assessment: Face to Face with pt for initial transition planning/care coordination assessment. CHARLINE GOETZ introduced self and role at [facility], pt voices understanding and consents to assessment. Pt is A/O x4 and answers all questions appropriately at this time. Pt sitting up in chair and just gave her lunch order to her the nurse. Care providers, pharmacy, and demographics verified/updated. Admitting Dx: Left TKR robotic PCP:Joshua Specialists: Lianne, ortho; [place], cardio Preferred Pharmacy: [facility] Retail Insurance: [employer] Secure Prescription Benefit: yes LW/HPOA: Pt has LW/DPOA on file at [facility]. Her DPOA is her dtr Olga Gibson. LNOK: Olga Gibson, dtaldo Living Arrangements: Pt lives alone in a two story house with 6 steps to enter. Pt reports she is I in ADL's and denies concerns at home. Transportation: Pt drives self and denies concerns with transportation typically but states she does not have transportation for therapy. She states her insurance provides transportation and if she gives a 48 hour notice, they will take her to her appts. DME/HHC/SNF: Pt has a FWW, grab bars over the toilet, lift chair and bed that is adjustable. Pt denies having previous HHC or SNF stays. Pt states that she will contact her insurance after dc to have meals delivered to her. Pt states she would like to have therapy at [facility]. She states she spoke with regarding home therapy and he prefers outpt. She is agreeable to this. Pt states no concerns with going home at time of dc. Pt states no further concerns/needs. CM to follow. Advised pt to ask CM if any further question/concerns/needs arise, voices understanding. Pt Goal: Home with outpt therapy Plan: Home with outpt therapy
--- NOTE | 2021-05-27 10:55 | CASEMGMT ---
Addendum entered by Marichuy Carranza 05/27/21 12:16: Pt wished to use [facility] van for transportation home today. TC to them, spoke with Zahira, she states they do not have availability for this today. Original Note: TC to [facility], pt has an appt set up on Tuesday at 1pm that was set up in March. TC to [facility] transportation, pt had not been set up with transportation for this appt and they do not have availability to do so. CHARLINE CM in to pt room to make aware, pt given her insurance phone number to contact for transportation. Pt will ask family member to transport her if her insurance is unable.
--- NOTE | 2021-05-27 11:29 | PCM.PN.ORT ---
Subjective Subjective Seen and examined doing well pain controlled although feels her pain was better controlled with Horse Shoe and is requesting to be switched. Denies she is requesting to go home fevers chills nausea vomiting shortness of breath or chest pain and she reports she did well she did have physical therapy this morning she feels she is safe to return home. Objective Data Objective Data Vital Signs: Vital Signs Temp Pulse Resp BP Pulse Ox 98 F 71 18 144/68 H 92 05/27/21 09:46 05/27/21 09:46 05/27/21 09:46 05/27/21 09:46 05/27/21 09:46 Oxygen Flow Rate (L/min) 2 Oxygen Delivery Method Room Air Weight: 202 lb 3.2 oz Body Mass Index (BMI) 35.8 Intake & Output: Intake and Output for Last 24 Hours 05/25/21 05/26/21 05/27/21 23:59 23:59 23:59 Intake Total 3789.67 / 3789.67 1088.33 / 1088.33 Output Total 2200 / 2200 2900 / 2900 Balance 1589.67 / 1589.67 -1811.67 / -1811.67 Lab / Micro Data Result Diagrams: 05/27/21 04:13 05/27/21 04:13 Labs: Laboratory Results - last 24 hr 05/26/21 15:43: POC Glucose 184 H 05/27/21 04:13: WBC 16.4 H, RBC 3.49 L, Hgb 11.0 L, Hct 34.9 L, MCV 100.0 H, MCH 31.5, MCHC 31.5 L, RDW Std Deviation 50.6 H, RDW Coeff of Patti 13.9, Plt Count 198, MPV 9.9 05/27/21 04:13: Sodium 140, Potassium 3.8, Chloride 106, Carbon Dioxide 27.0, Anion Gap 7, BUN 9, Creatinine 0.78, Estim Creat Clear Calc 40.21, Est GFR (MDRD) Af Amer 92, Est GFR (MDRD) Non-Af 76, BUN/Creatinine Ratio 11.5, Glucose 154 H, Calcium 8.3 L Micro: Microbiology 05/15/21 11:00 Swab (Method) Nasal Screen MRSA/MSSA - Final Radiography Diagnostic Testing: Radiology Impression Knee X-Ray 05/26/21 10:38 IMPRESSION: Uncomplicated left total knee arthroplasty. Electronically Signed: Andrea German MD at 11:54 EST , Physical Exam Const alert and oriented x3 General Appearance: cooperative Extremity Extremity Narrative: Dressing with minimal amount of drainage seal intact compartments soft neurovascular intact Assessment & Plan Assessment/Plan (1) S/P total knee arthroplasty: QUALIFIERS: Laterality: left Qualified Code(s): Z96.652 - Presence of left artificial knee joint PLAN: Postop day #1 left total knee arthroplasty. We will switch pain medication from oxycodone to Horse Shoe per patient request. Patient is requesting to be discharged home we will start outpatient physical therapy PT OT weightbearing as tolerated Eliquis 2.5 mg twice daily for 2 weeks follow-up in the office in 2 weeks dressing to remain on study 2 hours postop may remove on Tuesday for first shower stressed importance of ice and elevation of her legs with her lower extremity edema history cautioned for signs of blood clot and notification of us if concerned.
--- NOTE | 2021-05-27 11:34 | PCM.DC ---
Discharge Instructions Diet Discharge Diet: 2000 Calorie Control Diet (High sugar diet increases risk of infection) Activity Weight Bearing Status: Weight bearing as tolerated Keep extremity elevated above heart level: Operative Extremity Dressing / Incision Call your doctor if you observe: Shortness of breath and Chest pain Additional Dressing/Incision Instructions:: Ice and elevate one week while not ambulating. Ambulation is encouraged. Weightbearing as tolerated. Use assistive devise for stability. Encourage FULL knee extension and flexion 1 time EVERY time you get up and down and MULTIPLE times per day. No showering 72 hours after surgery. Begin showering postop day #3. Remove the dressing prior to shower and gently wash with warm water and antibacterial soap then pat dry and place abdominal pad (or plain gauze) and LAYLA hose over top. This is to be done daily. Do not submerge for 3 weeks. If not showering daily after the initial 72 hours then you must clean incision and change dressing daily. Do not allow animals near the incision area. Keep clean. Follow anticoagulation recommendations as prescribed. Do not take any NSAIDs while on blood thinner. Do not take any additional narcotic pain medication other than what was prescribed on your surgery day without discussing with physician. Narcotic medication can be addictive. Do not drink alcohol while taking narcotics. Start physical therapy. If you are not currently scheduled for physical therapy or you are unsure of appointment time please call office [facility] to arrange. Call Dr. Abdalla with any concerns. Follow Up Care Please Follow Up With: Austin Abdalla DO When: 2 weeks Test Results: Test results from this visit will be discussed in further detail at your follow-up appointment, if applicable. Discharge Plan Admission Admit Date/Time: 05/26/21 05:53 Attending Provider: Austin Abdalla Primary Care Provider: Rebecca Lewis Discharge Orders/Prescriptions Prescriptions: New Eliquis 2.5 mg Tablet 2.5 mg PO BID Qty: 28 RF: 0 hydrocodone-acetaminophen 5-325 mg tablet 1 - 2 tab PO Q4H PRN (Reason: pain) 7 Days Qty: 60 RF: 0 Continued pravastatin 80 mg tablet 80 mg PO QDAY RF: 0 atenolol 100 mg tablet 50 mg PO BID RF: 0 amlodipine 10 mg tablet 10 mg PO DAILY RF: 0 amitriptyline 25 MG tablet 25 mg PO QHS RF: 0 gabapentin 300 MG capsule 300 mg PO BID RF: 0 digoxin 250 MCG tablet 250 mcg PO DAILY RF: 0 metformin 500 mg tablet 500 mg PO BID RF: 0 cholecalciferol (vitamin D3) [Vitamin D3] 25 mcg (1,000 unit) Tablet 25 mcg PO DAILY RF: 0 furosemide 20 mg tablet 20 mg PO BID RF: 0 Referrals / Follow Up: Rebecca Lewis MD [Primary Care Provider] -
--- NOTE | 2021-05-27 11:38 | PCM.DC.SUM ---
Providers Date of Admission: 05/26/21 Primary Care Physician: Dr. Rebecca Lewis MD Reason For Visit: LT TOTAL KNEE ROBOT Diagnosis Discharge Diagnosis (1) S/P total knee arthroplasty: Status: Acute Code(s): Z96.659 - Presence of unspecified artificial knee joint Qualifiers: Laterality: left Qualified Code(s): Z96.652 - Presence of left artificial knee joint Medications at Discharge Home Medications amitriptyline 25 mg PO QHS 02/22/13 gabapentin 300 mg PO BID 02/22/13 digoxin 250 mcg PO DAILY 02/01/14 pravastatin 80 mg tablet 80 mg PO QDAY 11/22/17 atenolol 100 mg tablet 50 mg PO BID 03/28/19 metformin 500 mg PO BID 12/02/20 cholecalciferol (vitamin D3) [Vitamin D3] 25 mcg PO DAILY 05/12/21 furosemide 20 mg PO BID 05/12/21 amlodipine 10 mg tablet 10 mg PO DAILY tab 05/20/21 apixaban [Eliquis] 2.5 mg PO BID #28 tab 05/27/21 hydrocodone-acetaminophen 1 - 2 tab PO Q4H PRN 7 Days #60 tab 05/27/21 Hospital Course Summary of Care Provided Hospital Course: Who has long history of 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 Patient underwent the aformentioned procedure on the admission date without any intraoperative complications. Patient did receive pre-and postoperative antibiotics which were discontinued within 23 hours postoperatively. Patient did receive general anesthesia and adductor canal block postoperatively. pain was controlled with IV and transition to p.o. pain medication. Patient has had [place] and oxycodone in the past and feels that [place] works better for her and she request to be changed. She will be discharged home with [place] instead of oxycodone although she was counseled that this does contain Tylenol and would limit her max daily dose of Tylenol. Patient had minimal intraoperative blood loss and 2gm tranexamic acid was administered there was no need for postoperative blood transfusion Patients vital signs remained stable. Patient was started on both mechanical and chemical DVT per prophylaxis postoperatively in the form of SCDs LAYLA hose and Eliquis 2.5 mg twice daily for which she will continue for 2 additional weeks post hospital discharge. thigh high layla hose placed over top of the meplix silver dressing. This should be removed 72 hrs post operatively and showering begun daily at that time with warm water and antibacterial soap. not to submerge for 3 weeks. To change dressing daily after first dressing change. Patient will follow-up in the office in 2 weeks. No intrahospital complications. Weight / BMI Weight Weight: 202 lb 3.2 oz Body Mass Index (BMI) 35.8 ABG / Lab / Microbiology Data Result Diagrams: 05/27/21 04:13 05/27/21 04:13 Laboratory: Laboratory Results - last 24 hr 05/26/21 15:43: POC Glucose 184 H 05/27/21 04:13: WBC 16.4 H, RBC 3.49 L, Hgb 11.0 L, Hct 34.9 L, MCV 100.0 H, MCH 31.5, MCHC 31.5 L, RDW Std Deviation 50.6 H, RDW Coeff of Patti 13.9, Plt Count 198, MPV 9.9 05/27/21 04:13: Sodium 140, Potassium 3.8, Chloride 106, Carbon Dioxide 27.0, Anion Gap 7, BUN 9, Creatinine 0.78, Estim Creat Clear Calc 40.21, Est GFR (MDRD) Af Amer 92, Est GFR (MDRD) Non-Af 76, BUN/Creatinine Ratio 11.5, Glucose 154 H, Calcium 8.3 L Microbiology: Microbiology 05/15/21 11:00 Swab (Method) Nasal Screen MRSA/MSSA - Final Radiography Diagnostic Testing: Radiology Impression Knee X-Ray 05/26/21 10:38 IMPRESSION: Uncomplicated left total knee arthroplasty. Electronically Signed: Andrea German MD at 11:54 EST , D/C Instructions Discharge Diet: 2000 Calorie Control Diet (High sugar diet increases risk of infection) Weight Bearing Status: Weight bearing as tolerated Keep extremity elevated above heart level: Operative Extremity Call your doctor if you observe: Shortness of breath and Chest pain Additional Dressing/Incision Instructions: Ice and elevate one week while not ambulating. Ambulation is encouraged. Weightbearing as tolerated. Use assistive devise for stability. Encourage FULL knee extension and flexion 1 time EVERY time you get up and down and MULTIPLE times per day. No showering 72 hours after surgery. Begin showering postop day #3. Remove the dressing prior to shower and gently wash with warm water and antibacterial soap then pat dry and place abdominal pad (or plain gauze) and LAYLA hose over top. This is to be done daily. Do not submerge for 3 weeks. If not showering daily after the initial 72 hours then you must clean incision and change dressing daily. Do not allow animals near the incision area. Keep clean. Follow anticoagulation recommendations as prescribed. Do not take any NSAIDs while on blood thinner. Do not take any additional narcotic pain medication other than what was prescribed on your surgery day without discussing with physician. Narcotic medication can be addictive. Do not drink alcohol while taking narcotics. Start physical therapy. If you are not currently scheduled for physical therapy or you are unsure of appointment time please call office [facility] to arrange. Call Dr. Abdalla with any concerns. Please Follow Up With: Austin Abdalla DO When: 2 weeks Meaningful Use Info Meaningful Use Diagnoses (Choose all that apply): None applicable Discharge Plan Admission Admit Date/Time: 05/26/21 05:53 Attending Provider: Austin Abdalla Primary Care Provider: Rebecca Lewis Discharge Orders/Prescriptions Prescriptions: New Eliquis 2.5 mg Tablet 2.5 mg PO BID Qty: 28 RF: 0 hydrocodone-acetaminophen 5-325 mg tablet 1 - 2 tab PO Q4H PRN (Reason: pain) 7 Days Qty: 60 RF: 0 Continued pravastatin 80 mg tablet 80 mg PO QDAY RF: 0 atenolol 100 mg tablet 50 mg PO BID RF: 0 amlodipine 10 mg tablet 10 mg PO DAILY RF: 0 amitriptyline 25 MG tablet 25 mg PO QHS RF: 0 gabapentin 300 MG capsule 300 mg PO BID RF: 0 digoxin 250 MCG tablet 250 mcg PO DAILY RF: 0 metformin 500 mg tablet 500 mg PO BID RF: 0 cholecalciferol (vitamin D3) [Vitamin D3] 25 mcg (1,000 unit) Tablet 25 mcg PO DAILY RF: 0 furosemide 20 mg tablet 20 mg PO BID RF: 0 Referrals / Follow Up: Rebecca Lewis MD [Primary Care Provider] - Disposition Discharge Orders: Discharge Patient (Routine); Ordered 05/27/21 Ordered By: Dr. Austin Abdalla
[2021-05-27 12:17] VITALS: BP 153/55; PULSE 75; RESP 18; TEMP 36.9; O2SAT 94
--- NOTE | 2021-05-28 18:02 | CASEMGMT ---
Social Work Note NIRALI updated that pt is not doing well at home and called physician's office to see about SNF placement for pt. Pt stated that she called her insurance and was informed that [facility] and [place] [facility] accept her insurance. Physician's office was encouraged to call SNF that pt wants to go to inquire about process to get pt to SNF from [facility]. NIRALI also placed a call to Angelica at [facility] [facility] to inquire about the process to get a pt from the community to SNF. Angelica states she spoke with pt and pt will likely be going to [facility]. Angelica states she will need to reach out to pt's insurance to inquire about pre-cert. Angelica requests PT/OT evaluations to be faxed to her for pre-cert. For continuity of care, NIRALI faxed PT/OT to Angelica at [facility]. Charis Payton LONE LEAD LINEMAN, [employer] CAPTAIN
== END 2021-05-27 14:42 | disposition home or self-care (01) | DRG 470 ==
LOC: ACINP 05:56 → MS3 16:24
PROVIDERS: Anesthesiology; Admitting Provider Orthopaedic Surgery; PCP Internal Medicine; Referring Provider Orthopaedic Surgery; Visit Provider Orthopaedic Surgery
PROC: 0SRD0JZ Replacement of Left Knee Joint with Synthetic Substitute, Open Approach (ICD-10-PCS; CPT 27447; principal; 2021-05-26 07:45)
DX: M17.12 Unilateral primary osteoarthritis, left knee (principal); E11.9 Type 2 diabetes mellitus without complications; E78.5 Hyperlipidemia, unspecified; I10 Essential (primary) hypertension; K21.9 Gastro-esophageal reflux disease without esophagitis; I35.1 Nonrheumatic aortic (valve) insufficiency; Z87.891 Personal history of nicotine dependence; Z79.82 Long term (current) use of aspirin; Z79.1 Long term (current) use of non-steroidal anti-inflammatories (NSAID); Z79.84 Long term (current) use of oral hypoglycemic drugs; Z79.899 Other long term (current) drug therapy; Z96.651 Presence of right artificial knee joint
CPT/HCPCS: 36415; 73560; 78452; 80048; 82962; 82985; 83036; 83735; 85025; 85027; 85610; 85730; 86850; 86900; 86901; 87081; 93005; 93017; 97110; 97116; 97162; 97166; 97530; 97535; 99251; A9500; C1776; J7030; J7120; A4216; G0463; J0702; J2405; J2785; J3490

== ENCOUNTER → 2021-11-24 | Outpatient (CLI) | payer MEDICARE, SELFPAY ==
--- NOTE | 2021-11-24 15:00 | HEM_PTH ---
PATIENT: TUESDAYMARZENA I LOC: [facility] U#:[id number] AGE/SX: 76/F ROOM: RE11/24/[address]: Dr. David Porter MD : 1945 BED: DIS: 11/24/2021 SPEC #: [id number] RECD: 11/25/21 07:22 STATUS: MILAN SHILPI #: [id number] [place]: 11/24/21 15:[address]: David Porter DEPT: SURGICAL PATHOLOGY RECD BY: Lubna Wong ENTERED: 11/25/21 08:57 SP TYPE: HEMORRHOID OTHR DR: Dr. Rebecca Lewis MD Tissues: HEMORRHOIDS Procedures: Surgery Specimen Level III HEADER OPERATION: Hemorrhoidectomy PRE-OP DIAGNOSIS: Thrombosed hemorrhoid TISSUE SUBMITTED: Hemorrhoid tissue MICROSCOPIC DIAGNOSIS Hemorrhoid tissue, hemorrhoidectomy: A Piece of squamous mucosa with congested and dilated blood vessels consistent with hemorrhoid with thrombus formation and organization. LAN:[email or web address] 11/26/2021 MICROSCOPIC DESCRIPTION Slides are reviewed. GROSS DESCRIPTION Received in fixative is one container labeled with the patient's name and designated hemorrhoid tissue. The specimen consists of a piece of congested mucosal tissue measuring 1.5 x 1 x 0.7 cm. The specimen is serially sectioned and reveals congested and hemorrhagic cut surfaces. The entire specimen is submitted in one cassette. / LAN:[email or web address] 11/25/2021 TC:5 CPT: 08592
== END | disposition home or self-care (01) ==
LOC: LABSPEC 11-25 07:24
PROVIDERS: PCP Internal Medicine; Visit Provider Surgery
DX: K64.5 Perianal venous thrombosis (principal)
CPT/HCPCS: 88304

== ENCOUNTER 2022-04-19 11:29 | Emergency (ER) | payer MEDICARE, SELFPAY ==
[2022-04-19 11:30] VITALS: BP 179/73; PULSE 73; RESP 15; TEMP 36.2; O2SAT 95; BMI 32.8
--- NOTE | 2022-04-19 13:31 | RAD_ITS ---
STUDY: X-RAY - LUMBAR SPINE REASON FOR EXAM: Female, 76 years old. back pain TECHNIQUE: XR Spine Lumbar 2 or 3 Views COMPARISON: 8.16 FINDINGS: Normal lumbar lordosis. There is no substantial scoliosis. There is a normal alignment of the vertebrae. There is multilevel endplate spondylosis of the lumbar vertebrae. There is multi-level degenerative disc disease with multi-level disc space narrowing. There are atherosclerotic vascular calcifications. The soft tissue structures are unremarkable. RAD/Lumbar Spine 2 or 3 Views IMPRESSION: Degenerative changes of the spine, as detailed above. Electronically Signed: Noah Whitaker MD at 14:35 EST ,
--- NOTE | 2022-04-19 13:31 | RAD_ITS ---
STUDY: X-RAY CHEST REASON FOR EXAM: Female, 76 years old. weakness TECHNIQUE: XR Chest 1 View COMPARISON: 12.02.20 FINDINGS: There is atherosclerotic calcification of the aortic arch with tortuosity. There are diffuse degenerative changes of the visualized thoracic spine. There is degenerative osteoarthritis of the bilateral shoulders. There is no demonstrated pleural abnormality. Normal size heart. Normal mediastinum and alfonzo. Normal visualized pulmonary arteries. There is no demonstrated abnormality of the visualized soft tissue structures of the upper abdomen. RAD/Chest 1 View (Portable) IMPRESSION: There are no acute findings. Electronically Signed: Noah Whitaker MD at 14:42 EST ,
--- NOTE | 2022-04-19 13:32 | EKG12_ITS ---
Test Reason : Blood Pressure : / mmHG Vent. Rate : 065 BPM Atrial Rate : 065 BPM P-R Int : 214 ms QRS Dur : 090 ms QT Int : 388 ms P-R-T Axes : 023 -22 174 degrees QTc Int : 403 ms Sinus rhythm with 1st degree A-V block Left ventricular hypertrophy T-wave abnormality: Consider myocardial ischemia Septal IN, age undetermined, cannot be excluded Abnormal ECG Confirmed by HAYDEE HOPKINS, CHRISTI ([id number]), web content editor APRIL MATHIAS ([id number]) on 04/21/2022 9:24:34 AM Referred By: Confirmed By:CHRISTI HUBBARD MD
--- NOTE | 2022-04-19 13:34 | EX.ED.DYSGE1 ---
HPI History of Present Illness Chief Complaint: General Illness Narrative Narrative: 76-year-old female presenting with confusion. Apparently she has been having multiple falls over the last few months. Her family states that last evening they spoke with her and she said not to call until the morning because she was going to get some sleep. Apparently she had fallen overnight and was unable to get up. Unknown downtime. Patient was seemingly confused when the family arrived and she thought she was at another person's house. They stated that it took her a very long time to get oriented. They were to help her up. She complains of lower back pain which is somewhat chronic in nature. She states she saw her spinal surgeon in [place] a couple of months ago and had an x-ray which was normal. Her family is concerned because she keeps falling. She has hit her head. She is not on any blood thinners. She is not vomiting. She states he does not feel dizzy. She states she can tell when she is about to fall and is not lightheaded or spinning. Over the last couple months it has been normal for her not to be able to get up on her own strength. Her family states that last year she had similar symptoms of confusion and weakness and she had a UTI. She herself denies fever, chills, body aches, chest pain, palpitations, shortness of breath. [facility] Medical History Chronic pain Diabetes Dysmetabolic syndrome Dyspnea on exertion Essential hypertension Former smoker GERD (gastroesophageal reflux disease) Greater trochanteric bursitis of right hip History of kidney stones Hyperlipidemia Meningioma Nonrheumatic aortic (valve) insufficiency Osteoarthritis of right hip Paroxysmal atrial tachycardia Peripheral neuropathy Thoracic aortic aneurysm without rupture Home Medications amitriptyline 25 mg tablet 25 mg PO QHS Check with primary doctor 02/22/13 [History Last Taken Unknown] gabapentin 300 mg capsule 300 mg PO BID Check with primary doctor 02/22/13 [History Last Taken 04/18/22] digoxin 250 mcg (0.25 mg) tablet 250 mcg PO DAILY HEART 02/01/14 [History Last Taken 04/18/22] pravastatin 80 mg tablet 80 mg PO QDAY CHOLESTEROL 11/22/17 [History Last Taken 04/18/22] atenolol 100 mg tablet 50 mg PO BID BP 03/28/19 [History Last Taken 04/18/22] metformin 500 mg tablet 500 mg PO BID DIABETES 12/02/20 [History Last Taken 04/18/22] cholecalciferol (vitamin D3) 25 mcg (1,000 unit) tablet (Vitamin D3) 25 mcg PO DAILY SUPPLEMENT 05/12/21 [History Last Taken 04/19/22] furosemide 20 mg tablet 20 mg PO BID WATER PILL 05/12/21 [History Last Taken 04/18/22] amlodipine 10 mg tablet 10 mg PO DAILY Check with primary doctor 05/20/21 [History Last Taken 04/18/22] lidocaine 5 % topical patch (Lidoderm) 1 patch topical DAILY PRN pain #15 ea 04/19/22 [Rx Last Taken Unknown] Allergy/AdvReac Type Severity Reaction Status Date / Time lisinopril AdvReac Severe Intolerence, Verified 04/19/22 11:32 cough nalbuphine HCl [From Nubain] AdvReac Nausea/Vom/ Verified 04/19/22 11:32 Diarrhea Family History Father CAD (coronary artery disease) Myocardial infarction, Onset Age: 51 Brother Myocardial infarction, Onset Age: 51 Brother CAD (coronary artery disease) Hx of CABG Sister Heart disease COPD (chronic obstructive pulmonary disease) Sister CVA (cerebral vascular accident) Surgical History History of arthroscopy of right shoulder History of back surgery History of elbow surgery History of hand surgery History of hemorrhoidectomy (~11/2021) History of hysterectomy History of knee replacement procedure of right knee History of knee surgery Hx of cardiac cath Status post trigger finger release Social History household members: none Smoking Status: Former smoker how long ago did patient quit smokin years ago alcohol intake: never substance use type: does not use caffeine: No ROS ROS ED Constitutional Constitutional ED: Denies chills or fever(s) Eyes Eyes: Denies change in vision or diplopia ENT ENT ED: Denies rhinorrhea or sore throat Cardiovascular Cardiovascular: Denies chest pain or palpitations Respiratory/Chest Respiratory/Chest: Denies cough or dyspnea Gastrointestinal Gastrointestinal: Denies nausea or vomiting Genitourinary Genitourinary ED: Denies dysuria or hematuria Musculoskeletal Musculoskeletal: Reports back pain Integumentary Denies abscess or Abrasions EXAM Physical Exam Const Vital Signs: 04/19/22 11:30 04/19/22 11:53 Temperature 97.2 F L Temperature Source Temporal Pulse Rate 73 Respiratory Rate 15 Respiratory Effort Normal Non-Labored Blood Pressure 179/73 H Blood Pressure Mean 108 Pulse Ox 95 Oxygen Delivery Method Room Air Positive well nourished General Appearance ED: NAD; Negative for pallor HEENT Reports moist mucous membranes Eyes PERRL and EOMs intact bilaterally Neck no lymphadenopathy Chest Wall inspection of chest normal and palpation of chest normal Resp normal respiratory effort and clear to auscultation bilaterally Auscultation: Negative for rales, rhonchi or wheezes Cardio regular rate and regular rhythm GI normal to inspection, nondistended, normoactive bowel sounds Back/Spine Back/Spine Narrative: Left lumbar paraspinal muscular tenderness. Bruising. No midline deformity or step-off Neuro oriented x3, CN's II-XII intact bilaterally and no sensory deficits noted Sensorium / Orientation: alert Psych mental status grossly normal Skin no rashes or lesions noted and no wounds General Skin Exam: Negative for jaundice or pallor MDM MDM MDM Narrative Medical decision making narrative: Presenting with falls. Apparently she has been doing this for months. Her new baseline is not able to get up on her own. She has lower back pain which is also chronic and exacerbated by her falls. She denies hip pain. He has been hitting her head a lot. Her family states that she was confused this morning but she is at her baseline now. They are concerned for UTI. CBC was obtained to assess hemoglobin levels as well as to check her white blood cell count. Her white blood cell count slightly elevated 12.3. Hemoglobin is normal.. Platelets 211. BNP was obtained to assess for dehydration versus electrolyte abnormalities and these are within normal limits. Urinalysis negative for infection. EKG obtained to assess for dysrhythmia and on my interpretation this is a normal sinus rhythm with a first-degree AV block at 65 bpm. Chest x-ray was obtained and on my interpretation this shows no acute cardiopulmonary process. Radiologist agree. X-ray of the lumbar spine was ordered due to her back pain and on my interpretation there is no acute fracture. The radiologist interpreted this and agrees as well. Given ultimately negative work-up family states that they do not want it placed and that they want to go back to their house to care for her until she can get follow-up. Impression: 1. Multiple falls 2. Generalized weakness 3. Intermittent confusion 4. Closed head injury Lab Data Attestation: I reviewed the patient's lab results. Labs: Laboratory Results - last 24 hr 04/19/22 04/19/22 04/19/22 12:56 14:00 14:00 WBC 12.3 H RBC 4.48 Hgb 13.5 Hct 43.6 MCV 97.3 MCH 30.1 MCHC 31.0 L RDW Std Deviation 46.2 H RDW Coeff of Patti 13.0 Plt Count 211 MPV 9.7 Sodium 142 Potassium 3.7 Chloride 106 Carbon Dioxide 30.0 Anion Gap 6 BUN 13 Creatinine 0.83 Estim Creat Clear Calc 47.70 Est GFR (MDRD) Af Amer 86 Est GFR (MDRD) Non-Af 71 BUN/Creatinine Ratio 15.6 Glucose 103 Calcium 10.1 Total Creatine Kinase Troponin I High Sens 30 Urine Color Yellow Urine Clarity Sl. Cloudy Urine pH 8.0 Ur Specific [place] 1.010 Urine Protein 30 H Urine Glucose (UA) Normal Urine Ketones Negative Urine Occult Blood 10 H Urine Nitrite Negative Urine Bilirubin Negative Urine Urobilinogen Normal Ur Leukocyte Esterase 25 H Urine RBC 0-5 SEEN Urine WBC 0-5 SEEN Ur Squamous Epith Cells 0-5 SEEN Urine Bacteria 0 SEEN Urine Mucus 0 SEEN 04/19/22 14:00 WBC RBC Hgb Hct MCV MCH MCHC RDW Std Deviation RDW Coeff of Patti Plt Count MPV Sodium Potassium Chloride Carbon Dioxide Anion Gap BUN Creatinine Estim Creat Clear Calc Est GFR (MDRD) Af Amer Est GFR (MDRD) Non-Af BUN/Creatinine Ratio Glucose Calcium Total Creatine Kinase 247 H Troponin I High Sens Urine Color Urine Clarity Urine pH Ur Specific [place] Urine Protein Urine Glucose (UA) Urine Ketones Urine Occult Blood Urine Nitrite Urine Bilirubin Urine Urobilinogen Ur Leukocyte Esterase Urine RBC Urine WBC Ur Squamous Epith Cells Urine Bacteria Urine Mucus Radiography Diagnostic Testing: Clinical Impression(s) from Imaging Studies Chest X-Ray 04/19/22 13:31 IMPRESSION: There are no acute findings. Electronically Signed: Noah Whitaker MD at 14:42 EST , Lumbar Spine X-Ray 04/19/22 13:31 IMPRESSION: Degenerative changes of the spine, as detailed above. Electronically Signed: Noah Whitaker MD at 14:35 EST , Brain CT 04/19/22 15:33 IMPRESSION: There are no acute intracranial findings. Electronically Signed: Noah Whitaker MD at 16:15 EST , Discharge Plan Triage Chief Complaint: General Illness ED Provider: Shaun Gipson Dx/Rx/DC Orders Instructions: ED Back Contusion, ED Head Injury (Adult), ED Fall Prevention Prescriptions: New lidocaine [Lidoderm] 5 % adhesive patch,medicated 1 patch topical DAILY PRN (Reason: pain) Qty: 15 0RF Rx Instructions: leave on most painful area for up to 12 hrs No Action pravastatin 80 mg tablet 80 mg PO QDAY atenolol 100 mg tablet 50 mg PO BID amlodipine 10 mg tablet 10 mg PO DAILY amitriptyline 25 MG tablet 25 mg PO QHS Label Comments: INSOMNIA gabapentin 300 MG capsule 300 mg PO BID Label Comments: NERVE PAIN digoxin 250 MCG tablet 250 mcg PO DAILY metformin 500 mg tablet 500 mg PO BID cholecalciferol (vitamin D3) [Vitamin D3] 25 mcg (1,000 unit) Tablet 25 mcg PO DAILY furosemide 20 mg tablet 20 mg PO BID Primary Care Provider: Rebecca Lewis Referrals: Rebecca Lewis MD [Primary Care Provider] - Disposition Disposition: Home, Self Care
[2022-04-19 13:47] LABS: Bacteria 0 SEEN /hpf (None Seen); Mucous, Urine 0 SEEN /hpf (<or=2+)
[2022-04-19 13:52] LABS: Color, Urine Yellow (Yellow); Glucose, Dipstick Normal (Normal); Ketone-Dipstick Negative (Negative); Leukocyte Esterase-Dipstick 25 /ul (Negative); Nitrite-Dipstick Negative (Negative); Occult Blood-Urine 10 /ul (Negative); Protein-Dipstick 30 mg/dl (Negative); Urine Bilirubin Dipstick Negative (Negative); Urine Clarity Sl. Cloudy (Clear); Urine Urobilinogen Normal (Normal)
[2022-04-19] MEDS: Lidocaine 5% Patch 1 PATCH TOPICAL (13:58)
[2022-04-19 13:59] LABS: Red Blood Cells-Urine 0-5 SEEN /hpf (0-5); Squamous Epithelial Cells - UA 0-5 SEEN /hpf (5-10); White Blood Cells 0-5 SEEN /hpf (0-5)
[2022-04-19 14:14] LABS: Hematocrit 43.6 % (37-47); Hemoglobin 13.5 g/dL (12.0-15.0); Mean Corpuscular Hgb 30.1 pg (27.0-32.0); Mean Corpuscular Volume 97.3 fL (81-99); Mean Platelet Vol. 9.7 fl (6.2-12.0); Platelet Count 211 K/mm3 (150-450); RBC Distribution Width SD 46.2 fl (35.1-43.9); Red Blood Count 4.48 M/mm3 (4.2-5.4); White Blood Count 12.3 K/mm3 (4.4-11.0)
[2022-04-19 14:32] LABS: CPK Total, Creatine Kinase 247 U/L (26-192)
[2022-04-19 14:39] LABS: Anion Gap 6 (5-15); BUN 13 mg/dL (7-18); BUN/Creat Ratio 15.6 RATIO (10-20); Calcium,Total 10.1 mg/dL (8.5-10.1); Chloride 106 mmol/L (98-107); Creatinine, Serum 0.83 mg/dL (0.55-1.02); EST Glomerular Filtration Rate 71 mL/min (>60); Est Glom Filt Rate - Afr Amer 86 mL/min (>60); Glucose 103 mg/dL (74-106); Potassium 3.7 mmol/L (3.5-5.1); Sodium Level 142 mmol/L (136-145); Troponin-I HS 30 pg/mL (3.0-54.0)
--- NOTE | 2022-04-19 15:09 | NURSING ---
PCU OBS ZOYA DASH
--- NOTE | 2022-04-19 15:33 | CT_ITS ---
STUDY: CT BRAIN WITHOUT CONTRAST REASON FOR EXAM: Female, 76 years old. head injury TECHNIQUE: Transaxial CT imaging of the brain was performed without administration of intravenous contrast material. Individualized dose optimization techniques were used for this CT. COMPARISON: 12.02.20 FINDINGS: Normal calvarium. Normal soft tissues. There is a partially calcified mass along the midline perifalcine extra-axial space measuring 17mm. This is likely a meningioma. This is stable. Normal size ventricles and extra-axial spaces for the patient''s age. There are areas of decreased attenuation within the white matter tracts of the supratentorial brain, consistent with microvascular disease changes. Normal basal ganglia and thalami. Normal brainstem. Normal cerebellum. There is no intracranial hemorrhage. There are no findings of an acute ischemic infarction. There are calcifications noted in the distal vertebral arteries. There are calcifications noted in the cavernous carotid arteries. This is consistent for atherosclerotic disease. There is sinus disease. ASPECTS 10 CT/Brain/Head without Contrast IMPRESSION: There are no acute intracranial findings. Electronically Signed: Noah Whitaker MD at 16:15 EST ,
[2022-04-19 17:03] VITALS: RESP 16
== END 2022-04-19 17:05 | disposition home or self-care (01) ==
PROVIDERS: Emergency Provider Student in an Organized Health Care Education/Training Program; PCP Internal Medicine; Visit Provider Student in an Organized Health Care Education/Training Program
DX: R53.1 Weakness (principal); E11.42 Type 2 diabetes mellitus with diabetic polyneuropathy; I48.0 Paroxysmal atrial fibrillation; R41.0 Disorientation, unspecified; S09.90XA Unspecified injury of head, initial encounter; E78.5 Hyperlipidemia, unspecified; M54.50 Low back pain, unspecified; G89.29 Other chronic pain; I10 Essential (primary) hypertension; Z79.899 Other long term (current) drug therapy; Z79.84 Long term (current) use of oral hypoglycemic drugs; Z87.891 Personal history of nicotine dependence; W19.XXXA Unspecified fall, initial encounter
CPT/HCPCS: 70450; 71045; 72100; 80048; 81001; 82550; 84484; 85027; 93005; 99282; J7050

== ENCOUNTER 2022-05-15 11:49 | Emergency (ER) | payer MEDICARE, SELFPAY ==
[2022-05-15 11:50] VITALS: BP 146/53; PULSE 58; RESP 16; TEMP 36.6; O2SAT 98; BMI 34.5
--- NOTE | 2022-05-15 12:06 | CT_ITS ---
INDICATION: abd pain -- IV PO Contrast EXAMINATION: CT ABDOMEN AND PELVIS WITH CONTRAST - CT Abdomen And Pelvis W/ Contrast Injection TECHNIQUE: Helically acquired images were obtained of the abdomen and pelvis following IV contrast. A radiation dose optimization technique was used for this scan. IV Contrast dosage and agent: 100 cc of Isovue-370 Oral contrast: Gastrografin COMPARISON: April 05, 2019 FINDINGS: LOWER CHEST: There is dependent atelectasis within the lower lobes. No cardiomegaly or pericardial effusion. LIVER: There are stable scattered low attenuation foci throughout the liver which may reflect cysts and/or hemangiomas. No focal mass. GALLBLADDER AND BILIARY TREE: No calcified gallstones. No gallbladder distension or wall edema. No intra- or extrahepatic biliary ductal dilation. PANCREAS: No focal cystic or solid mass. SPLEEN: Normal size without focal cystic or solid mass. ADRENAL GLANDS: No nodules. KIDNEYS AND URETERS: There are stable cysts within the right kidney. There are bilateral nonobstructing renal calculi measuring up to 5.3 mm on the right and 6.1 mm on the left PERITONEUM: No ascites or free air. No other fluid collection. BOWEL: There is a moderate amount of gas and stool throughout the colon. No focal inflammatory change. LYMPH NODES: No enlarged mesenteric or retroperitoneal lymph nodes. VESSELS: Aorta is non-dilated. There are peripheral calcifications of the abdominal aorta consistent with atherosclerosis. URINARY BLADDER: Unremarkable. REPRODUCTIVE ORGANS: No pelvic masses. ABDOMINAL WALL: No discrete abdominal or pelvic wall hernia. BONES: There are degenerative changes of the lumbar spine. There are stable sclerotic foci within L2 and L3. CT/Abdomen/Pelvis WITH Contrast IMPRESSION: Moderate amount of gas and stool throughout the colon. Atherosclerosis. Bilateral nonobstructing renal calculi measuring up to 6.1 mm on the left. Electronically Signed: Gayle Jackson MD at 15:11 EST ,
--- NOTE | 2022-05-15 12:08 | EX.ED.DYSGE1 ---
HPI History of Present Illness Chief Complaint: Abd Pain Informant: patient Onset/Context/Timing Onset: Days (4 days) Context: Gradual Onset Timing: Waxes and wanes Current Severity: Moderate Maximum Severity: Moderate Narrative Narrative: Patient presents with 4-day history of right-sided abdominal pain. She was seen by her PCP this morning who sent her to the ER due to concern for possible appendicitis. She denies fever or chills. She is been able to tolerate diet without difficulty. She denies urinary symptoms. [facility] Medical History Chronic pain Diabetes Dysmetabolic syndrome Dyspnea on exertion Essential hypertension Former smoker GERD (gastroesophageal reflux disease) Greater trochanteric bursitis of right hip History of kidney stones Hyperlipidemia Meningioma Nonrheumatic aortic (valve) insufficiency Osteoarthritis of right hip Paroxysmal atrial tachycardia Peripheral neuropathy Thoracic aortic aneurysm without rupture Home Medications amitriptyline 25 mg tablet 25 mg PO QHS Check with primary doctor 02/22/13 [History Last Taken Unknown] gabapentin 300 mg capsule 300 mg PO BID Check with primary doctor 02/22/13 [History Last Taken 04/18/22] digoxin 250 mcg (0.25 mg) tablet 250 mcg PO DAILY HEART 02/01/14 [History Last Taken 04/18/22] pravastatin 80 mg tablet 80 mg PO QDAY CHOLESTEROL 11/22/17 [History Last Taken 04/18/22] atenolol 100 mg tablet 50 mg PO BID BP 03/28/19 [History Last Taken 04/18/22] metformin 500 mg tablet 500 mg PO BID DIABETES 12/02/20 [History Last Taken 04/18/22] cholecalciferol (vitamin D3) 25 mcg (1,000 unit) tablet (Vitamin D3) 25 mcg PO DAILY SUPPLEMENT 05/12/21 [History Last Taken 04/19/22] furosemide 20 mg tablet 20 mg PO BID WATER PILL 05/12/21 [History Last Taken 04/18/22] amlodipine 10 mg tablet 10 mg PO DAILY Check with primary doctor 05/20/21 [History Last Taken 04/18/22] Allergy/AdvReac Type Severity Reaction Status Date / Time lisinopril AdvReac Severe Intolerence, Verified 05/15/22 11:49 cough nalbuphine HCl [From Nubain] AdvReac Nausea/Vom/ Verified 05/15/22 11:49 Diarrhea Family History Father CAD (coronary artery disease) Myocardial infarction, Onset Age: 51 Brother Myocardial infarction, Onset Age: 51 Brother CAD (coronary artery disease) Hx of CABG Sister Heart disease COPD (chronic obstructive pulmonary disease) Sister CVA (cerebral vascular accident) Surgical History History of arthroscopy of right shoulder History of back surgery History of elbow surgery History of hand surgery History of hemorrhoidectomy (~11/2021) History of hysterectomy History of knee replacement procedure of right knee History of knee surgery Hx of cardiac cath Status post trigger finger release Social History household members: none Smoking Status: Former smoker how long ago did patient quit smokin years ago alcohol intake: never substance use type: does not use caffeine: No ROS ROS ED Constitutional Constitutional ED: Denies chills or fever(s) Eyes Eyes: Denies change in vision or discharge from eye(s) ENT ENT ED: Denies discharge from eye(s), rhinorrhea or sore throat Cardiovascular Cardiovascular: Denies chest pain or palpitations Respiratory/Chest Respiratory/Chest: Denies cough or dyspnea Gastrointestinal Gastrointestinal: Reports abdominal pain; Denies diarrhea, nausea or vomiting Genitourinary Genitourinary ED: Denies dysuria Musculoskeletal Musculoskeletal: Denies back pain or extremity pain Integumentary Denies Abrasions or rash Neurologic Neurologic: Denies headache(s) or weakness Psychiatric Psychiatric: Denies anxiety or depression Allergic/Immunologic Allergic/Immunologic ED: Denies lip swelling or urticaria EXAM Physical Exam Const Vital Signs: 05/15/22 11:50 05/15/22 13:59 Temperature 97.9 F Temperature Source Temporal Pulse Rate 58 L 58 L Respiratory Rate 16 16 Blood Pressure 146/53 H 143/67 H Blood Pressure Mean 84 92 Pulse Ox 98 94 Oxygen Delivery Method Room Air Room Air Positive well nourished and well developed General Appearance ED: well developed HEENT Reports normocephalic and head/scalp atraumatic Eyes PERRL and EOMs intact bilaterally Neck supple Chest Wall inspection of chest normal and palpation of chest normal Resp normal respiratory effort and clear to auscultation bilaterally Cardio regular rate and regular rhythm GI GI Narrative: Abdomen soft with mild tenderness on the right. No guarding or rebound. Active bowel sounds are noted. Palpation: soft Extremity normal to inspection Neuro oriented x3 and no sensory deficits noted Sensorium / Orientation: alert Motor Exam: strength 5/5 throughout Psych mental status grossly normal Skin no rashes or lesions noted MDM MDM MDM Narrative Medical decision making narrative: Patient was given a dose of morphine and Zofran along with IV fluids. Lab work obtained along with urinalysis to evaluate for infection and electrolyte derangement. CT scan of the abdomen pelvis with p.o. and IV contrast ordered. Lab Data Attestation: I reviewed the patient's lab results. Labs: Laboratory Results - last 24 hr 05/15/22 05/15/22 05/15/22 12:34 12:34 13:55 WBC 9.8 RBC 4.51 Hgb 13.5 Hct 44.1 MCV 97.8 MCH 29.9 MCHC 30.6 L RDW Std Deviation 48.6 H RDW Coeff of Patti 13.6 Plt Count 249 MPV 9.8 Immature Gran % (Auto) 0.400 Neut % (Auto) 66.3 Lymph % (Auto) 20.9 Fergus % (Auto) 9.3 Eos % (Auto) 2.3 Baso % (Auto) 0.8 Absolute Neuts (auto) 6.5 Absolute Lymphs (auto) 2.04 Nucleated RBC % 0 Sodium 141 Potassium 4.7 Chloride 106 Carbon Dioxide 28.0 Anion Gap 7 BUN 14 Creatinine 0.86 Estim Creat Clear Calc 46.04 Est GFR (MDRD) Af Amer 82 Est GFR (MDRD) Non-Af 68 BUN/Creatinine Ratio 16.3 Glucose 87 Calcium 9.7 Total Bilirubin 0.40 Direct Bilirubin < 0.05 AST 25 ALT 16 Alkaline Phosphatase 57 Total Protein 8.0 Albumin 3.7 Globulin 4.3 H Lipase 179 Urine Color Yellow Urine Clarity Clear Urine pH 8.0 Ur Specific [place] 1.010 Urine Protein Negative Urine Glucose (UA) Normal Urine Ketones Negative Urine Occult Blood Negative Urine Nitrite Negative Urine Bilirubin Negative Urine Urobilinogen Normal Ur Leukocyte Esterase Negative Urine RBC 0 SEEN Urine WBC 0 SEEN Ur Squamous Epith Cells 0 SEEN Urine Bacteria 0 SEEN Urine Mucus 0 SEEN Radiography Diagnostic Testing: Clinical Impression(s) from Imaging Studies Abdomen/Pelvis CT 05/15/22 12:06 IMPRESSION: Moderate amount of gas and stool throughout the colon. Atherosclerosis. Bilateral nonobstructing renal calculi measuring up to 6.1 mm on the left. Electronically Signed: Gayle Jackson MD at 15:11 EST , Treatment and Re-Evaluation Narrative: CBC and chemistry studies are unremarkable. Urinalysis reveals no acute infection. CT scan of the abdomen and pelvis with p.o. and IV contrast reveals moderate gas and stool throughout the colon. No acute findings are noted. No evidence of obstruction. Test results are discussed with the patient. She will be given GoLytely that she can use tomorrow to help clean her out as there is currently shortage of magnesium citrate. Patient does report chronic problems with having bowel movements and states that she has to use an enema daily. In light of this I will refer her to GI for follow-up. Discharge Plan Triage Chief Complaint: Abd Pain ED Provider: Leatha Barakat Dx/Rx/DC Orders Clinical Impression: Constipation, Abdominal pain Instructions: ED Constipation (Adult) Prescriptions: No Action pravastatin 80 mg tablet 80 mg PO QDAY atenolol 100 mg tablet 50 mg PO BID amlodipine 10 mg tablet 10 mg PO DAILY amitriptyline 25 MG tablet 25 mg PO QHS Label Comments: INSOMNIA gabapentin 300 MG capsule 300 mg PO BID Label Comments: NERVE PAIN digoxin 250 MCG tablet 250 mcg PO DAILY metformin 500 mg tablet 500 mg PO BID cholecalciferol (vitamin D3) [Vitamin D3] 25 mcg (1,000 unit) Tablet 25 mcg PO DAILY furosemide 20 mg tablet 20 mg PO BID Primary Care Provider: Rebecca Lewis Referrals: Rebecca Lewis MD [Primary Care Provider] - Leandro Juarez DO [Med Staff - Active Staff] - 10-14 Days if not better Disposition Disposition: Home, Self Care
[2022-05-15] MEDS: 0.9% Normal Saline 1,000 ML 150 ML IV (12:33)
[2022-05-15] MEDS: Ondansetron 4 MG/2 ML Vial IV (12:33)
[2022-05-15] MEDS: Morphine 4 MG/ML Syringe IV (12:34)
[2022-05-15 12:49] LABS: Absolute Lymphocyte Count 2.04 X10^3/uL (0.83-4.51); Absolute Neutrophil Count 6.5 X10^3/uL (2.0-7.7); Basophil# 0.08 X10^3/uL; Basophil% 0.8 % (0-1); Eosinophil# 0.22 X10^3/uL; Eosinophils% 2.3 % (0-5); Hematocrit 44.1 % (37-47); Hemoglobin 13.5 g/dL (12.0-15.0); Lymphocyte # 2.04 X10^3/ul (0.83-4.51); Lymphocyte % 20.9 % (19-41); Mean Corp Hgb Conc 30.6 g/dL (32-36); Mean Corpuscular Hgb 29.9 pg (27.0-32.0); Mean Corpuscular Volume 97.8 fL (81-99); Mean Platelet Vol. 9.8 fl (6.2-12.0); Monocyte# 0.91 X10^3/uL; Monocyte% 9.3 % (0-10); NRBC Flagged by Analyzer 0 % (0-5); Neutrophil # 6.48 X10^3/uL (2.7-7.7); Neutrophil % 66.3 % (47-70); Platelet Count 249 K/mm3 (150-450); RBC Distribution Width CV 13.6 % (11.6-14.6); RBC Distribution Width SD 48.6 fl (35.1-43.9); Red Blood Count 4.51 M/mm3 (4.2-5.4); White Blood Count 9.8 K/mm3 (4.4-11.0)
[2022-05-15 13:36] LABS: AST(SGOT) 25 U/L (15-37); Alanine Aminotransfer ALT/SGPT 16 U/L (13-56); Albumin, Serum 3.7 g/dL (3.2-5.0); Alkaline Phosphatase 57 U/L (45-117); Anion Gap 7 (5-15); BUN 14 mg/dL (7-18); BUN/Creat Ratio 16.3 RATIO (10-20); Bilirubin, Direct < 0.05 mg/dL (0.00-0.30); Calcium,Total 9.7 mg/dL (8.5-10.1); Chloride 106 mmol/L (98-107); Creatinine, Serum 0.86 mg/dL (0.55-1.02); EST Glomerular Filtration Rate 68 mL/min (>60); Est Glom Filt Rate - Afr Amer 82 mL/min (>60); Estimated Creatinine Clearance 46.04 ml/min; Globulin 4.3 g/dL (2.2-4.2); Glucose 87 mg/dL (74-106); Lipase 179 U/L (73-393); Potassium 4.7 mmol/L (3.5-5.1); Sodium Level 141 mmol/L (136-145)
[2022-05-15 13:59] VITALS: BP 143/67; PULSE 58; RESP 16; O2SAT 94
[2022-05-15 14:05] LABS: Bacteria 0 SEEN /hpf (None Seen); Mucous, Urine 0 SEEN /hpf (<or=2+); Red Blood Cells-Urine 0 SEEN /hpf (0-5); Squamous Epithelial Cells - UA 0 SEEN /hpf (5-10); White Blood Cells 0 SEEN /hpf (0-5)
[2022-05-15 14:11] LABS: Color, Urine Yellow (Yellow); Glucose, Dipstick Normal (Normal); Ketone-Dipstick Negative (Negative); Leukocyte Esterase-Dipstick Negative /ul (Negative); Nitrite-Dipstick Negative (Negative); Occult Blood-Urine Negative /ul (Negative); Protein-Dipstick Negative (Negative); Urine Bilirubin Dipstick Negative (Negative); Urine Clarity Clear (Clear); Urine Urobilinogen Normal (Normal)
[2022-05-15 15:26] VITALS: BP 143/51; PULSE 60; RESP 16; O2SAT 94
[2022-05-15] MEDS: Electrolyte Solution/Peg's 4000 ML PO (15:57)
== END 2022-05-15 16:03 | disposition home or self-care (01) ==
PROVIDERS: Emergency Provider Emergency Medicine; PCP Internal Medicine; Visit Provider Emergency Medicine
DX: K59.00 Constipation, unspecified (principal); E11.42 Type 2 diabetes mellitus with diabetic polyneuropathy; I10 Essential (primary) hypertension; E78.5 Hyperlipidemia, unspecified; Z87.891 Personal history of nicotine dependence; R10.9 Unspecified abdominal pain
CPT/HCPCS: 74177; 80048; 80076; 81001; 83690; 85025; 96361; 96374; 96375; 99282; J7030; Q9967; A4216; J2405

== ENCOUNTER 2022-08-01 04:40 | Observation (INO) | payer MEDICARE, SELFPAY ==
[2022-08-01] VITALS (8 sets, daily range): BP systolic 128–159; BP diastolic 45–98; PULSE 63–84; RESP 14–20; TEMP 36.4–37; O2SAT 87–98; BMI 31.2; BMI 30.9
--- NOTE | 2022-08-01 04:51 | EKG12_ITS ---
Test Reason : WEAKNESS Blood Pressure : / mmHG Vent. Rate : 065 BPM Atrial Rate : 065 BPM P-R Int : 202 ms QRS Dur : 092 ms QT Int : 380 ms P-R-T Axes : 011 -25 179 degrees QTc Int : 395 ms Normal sinus rhythm Left ventricular hypertrophy with repolarization abnormality ( R in aVL , Ganado product ) Abnormal ECG Confirmed by CHASE HOPKINS, BURAK ([id number]), editor map APRIL MATHIAS ([id number]) on 08/05/2022 7:47:07 AM Referred By: Confirmed By:BURAK STONE MD
--- NOTE | 2022-08-01 05:11 | RAD_ITS ---
EXAM: XR CHEST, 1 VIEW CLINICAL INDICATION: weakness weakness TECHNIQUE: Frontal view of the chest. This report was created using [employer] report generation technology. COMPARISON: Chest x-ray 04/19/2022. FINDINGS: LUNGS AND PLEURAL SPACES: There is minimal bilateral basilar atelectasis, similar to previous exam. There is no demonstrated pulmonary infiltrate. No pneumothorax. No effusion. HEART: Unremarkable. Cardiac silhouette not enlarged. MEDIASTINUM: Central airways and mediastinal contour are unremarkable. BONES/JOINTS: There are multilevel degenerative changes in the visualized spine. SOFT TISSUES: Unremarkable. UPPER ABDOMEN: There is prominent bowel gas within visualized upper abdomen. RAD/Chest 1 View (Portable) IMPRESSION: 1. No evidence for acute cardiopulmonary pathology. 2. Prominent bowel gas within the visualized upper abdomen. Electronically Signed: Edin Snow MD at 5:36 EDT Reading Location ID and State: [facility] / [place] , Service support ,
[2022-08-01 05:30] LABS: Absolute Lymphocyte Count 1.53 X10^3/uL (0.83-4.51); Absolute Neutrophil Count 7.5 X10^3/uL (2.0-7.7); Basophil# 0.03 X10^3/uL; Basophil% 0.3 % (0-1); Eosinophil# 0.03 X10^3/uL; Eosinophils% 0.3 % (0-5); Hemoglobin 12.9 g/dL (12.0-15.0); Lymphocyte # 1.53 X10^3/ul (0.83-4.51); Mean Corp Hgb Conc 31.5 g/dL (32-36); Mean Corpuscular Hgb 29.5 pg (27.0-32.0); Mean Corpuscular Volume 93.6 fL (81-99); Mean Platelet Vol. 10.3 fl (6.2-12.0); Monocyte# 1.06 X10^3/uL; Monocyte% 10.4 % (0-10); NRBC Flagged by Analyzer 0 % (0-5); Neutrophil # 7.49 X10^3/uL (2.7-7.7); Neutrophil % 73.6 % (47-70); Platelet Count 231 K/mm3 (150-450); RBC Distribution Width CV 13.4 % (11.6-14.6); RBC Distribution Width SD 45.7 fl (35.1-43.9); Red Blood Count 4.38 M/mm3 (4.2-5.4); White Blood Count 10.2 K/mm3 (4.4-11.0)
[2022-08-01 05:47] LABS: Anion Gap 5 (5-15); BUN 10 mg/dL (7-18); Calcium,Total 9.8 mg/dL (8.5-10.1); Chloride 101 mmol/L (98-107); EST Glomerular Filtration Rate 57 mL/min (>60); Est Glom Filt Rate - Afr Amer 69 mL/min (>60); Estimated Creatinine Clearance 39.59 ml/min; Glucose 116 mg/dL (74-106); Potassium 2.8 mmol/L (3.5-5.1); Sodium Level 135 mmol/L (136-145)
--- NOTE | 2022-08-01 05:58 | CT_ITS ---
INDICATION: falls, head injury, vertigo EXAMINATION: CT BRAIN - CT Head or Brain W/O Contrast Injection TECHNIQUE: Multiple axial images were obtained of the head without intravenous contrast. A radiation dose optimization technique was used for this scan. IV Contrast dosage and agent: None. COMPARISON: April 19, 2022, December 02, 2020 FINDINGS: BRAIN PARENCHYMA: No intra- or extra-axial hemorrhage. No evidence of acute infarct. Redemonstration of densely calcified mass along the posterior falx, without significant change from December 02, 2020. Moderate periventricular and subcortical white matter hypodense chronic small vessel white matter ischemic change. There is preservation of the breaux/white matter interface. Posterior fossa structures are unremarkable. Carotid and vertebral atherosclerosis. CSF SPACES: Moderate global cerebral volume loss with slightly discordant enlargement of the ventricles relative to sulci, unchanged from prior CT and mildly increased from December 02, 2020. Partial empty sella which is unchanged from December 02, 2020. No flattening of the optic discs. Basal cisterns are patent. CALVARIUM, SKULL BASE, PARANASAL SINUSES AND MASTOID AIR CELLS: No acute osseous finding. Mild scattered paransal sinus mucoperisteal thickening. Mastoid air cells are clear. ORBITS: Both globes, extraocular muscles, optic nerves and retrobulbar fat appear unremarkable. ASPECTS Score for Acute Strokes: 10 CT/Brain/Head without Contrast IMPRESSION: No CT evidence of acute intracranial hemorrhage or injury. Moderate senescent change with nonspecific slightly discordant enlargement of the ventricles relative to sulci that is mildly increased from December 02, 2020. Findings could represent progression of senescent cerebral volume loss or normal pressure hydrocephalus in the appropriate setting. Stable densely calcified posterior falx mass compatible with a benign process. Electronically Signed: Nathan Kay MD at 7:08 EDT ,
[2022-08-01 06:15] LABS: Magnesium 2.4 mg/dL (1.6-2.6)
[2022-08-01 06:41] LABS: Bacteria 0 SEEN /hpf (None Seen); Mucous, Urine 0 SEEN /hpf (<or=2+); Red Blood Cells-Urine 0 SEEN /hpf (0-5)
[2022-08-01 06:56] LABS: Color, Urine Yellow (Yellow); Glucose, Dipstick Normal (Normal); Ketone-Dipstick Negative (Negative); Leukocyte Esterase-Dipstick 25 /ul (Negative); Nitrite-Dipstick Negative (Negative); Occult Blood-Urine 25 /ul (Negative); Protein-Dipstick 30 mg/dl (Negative); Urine Bilirubin Dipstick Negative (Negative); Urine Clarity Clear (Clear); Urine Urobilinogen Normal (Normal)
[2022-08-01 07:04] LABS: Squamous Epithelial Cells - UA 0-5 SEEN /hpf (5-10); White Blood Cells 0-5 SEEN /hpf (0-5)
[2022-08-01] MEDS: Potassium Chloride 40 MEQ in 0.9% Normal Saline 1,000 ML 250 MEQ IV (08:10)
[2022-08-01] MEDS: Potassium Chloride Oral Soln 20 MEQ/15 ML UDC 60 MEQ PO (08:10)
--- NOTE | 2022-08-01 09:15 | CT_ITS ---
STUDY: CTA CHEST REASON FOR EXAM: Female, 76 years old. PE RADIATION DOSAGE (If Supplied By Facility): CTDIvol = ( ) mGy, DLP = ( ) mGycm TECHNIQUE: The examination was performed with the intravenous administration of IV 100mL [id number]-[id number]. Post-processing of the angiographic images was performed, with multiplanar reformation and 3D reconstruction. Individualized dose optimization techniques were used for this CT. COMPARISON: August 01, 2022 chest x-ray clinical history of weakness CT chest April 23, 2019 FINDINGS: Normal enhancement of the main pulmonary artery and right and left pulmonary arteries. Normal enhancement of the bilateral peripheral pulmonary arteries. There is no demonstrated pulmonary embolism. There is borderline aneurysmal dilatation of the ascending thoracic aorta is stable since prior study, measuring 3.8 x 4.1 cm.. The aorta is partially calcified. The ascending thoracic aorta measures 2.5 x 2.5 cm. There is no demonstrated aortic dissection. There is mild cardiac enlargement. There is trace coronary calcification. There few nonspecific subcentimeter mediastinal lymph nodes. Normal hilar regions. Normal visualized trachea and bronchi. There is bilateral lower lobe groundglass opacity and trace effusions. There is minimal groundglass opacity within the upper lung zones bordering the Major fissures. Normal chest wall structures. There are degenerative changes of thoracic spine. There is a subtle cyst in the left hepatic lobe measuring 4.5 mm. There is a subtle low attenuation within the right hepatic lobe measuring 8.5 mm stable since prior study. CT/CTA Chest W/WO Contrast IMPRESSION: Trace bilateral effusions, atelectasis and/or potentially developing infiltrates. There is bilateral mild thickening at the upper aspect of the bilateral minor fissure suggesting possible atelectasis and or developing inflammatory infiltrates. Mild to moderate cardiomegaly. No pulmonary embolism. 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 Electronically Signed: Janice Monteiro MD at 11:21 EDT ,
--- NOTE | 2022-08-01 09:23 | EX.ED.DYSGE1 ---
HPI History of Present Illness Chief Complaint: Weakness Informant: patient Narrative Narrative: Patient is a 76 year female with history of chronic back pain as well as knee pain presenting for falls. Patient's had 2 falls over the past day or so. She has in her head. Her daughter notes that she seemed more confused last evening. Family also does that she is been leaning to the right for months. She does suffer from chronic pain. Patient notes she has a history of vertigo which she states has been vertiginous for the past year. 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 She follows with a neurosurgeon in [facility]. She is been told it stable. She states she last had an MRI in September of last year. Patient denies any complaints at this time. She states that she has been dealing with some urinary incontinence for the past year but no acute change in that. She notes that she is supposed to use assistive device for walking however does not like to because it is too much of a pain. Patient lives home alone. She notes she had previously been in physical therapy but stopped it about a month ago because she states they were done with her. Patient does not wear any home oxygen. [facility] Medical History Chronic pain Diabetes Dysmetabolic syndrome Dyspnea on exertion Essential hypertension Former smoker GERD (gastroesophageal reflux disease) Greater trochanteric bursitis of right hip History of kidney stones Hyperlipidemia Meningioma Nonrheumatic aortic (valve) insufficiency Osteoarthritis of right hip Paroxysmal atrial tachycardia Peripheral neuropathy Thoracic aortic aneurysm without rupture Home Medications gabapentin 300 mg capsule 300 mg PO BID Check with primary doctor 02/22/13 [History Last Taken 04/18/22] digoxin 250 mcg (0.25 mg) tablet 250 mcg PO DAILY HEART 02/01/14 [History Last Taken 04/18/22] pravastatin 80 mg tablet 80 mg PO QDAY CHOLESTEROL 11/22/17 [History Last Taken 04/18/22] atenolol 100 mg tablet 50 mg PO DAILY BP 03/28/19 [History Last Taken 04/18/22] metformin 500 mg tablet 500 mg PO BID DIABETES 12/02/20 [History Last Taken 04/18/22] cholecalciferol (vitamin D3) 25 mcg (1,000 unit) tablet (Vitamin D3) 25 mcg PO DAILY SUPPLEMENT 05/12/21 [History Last Taken 04/19/22] furosemide 20 mg tablet 20 mg PO BID WATER PILL 05/12/21 [History Last Taken 04/18/22] amlodipine 10 mg tablet 10 mg PO DAILY 05/20/21 [History Last Taken 04/18/22] losartan 25 mg tablet 25 mg PO DAILY HTN 08/01/22 [History Last Taken 07/31/22] Allergy/AdvReac Type Severity Reaction Status Date / Time lisinopril AdvReac Severe Intolerence, Verified 05/15/22 11:49 cough nalbuphine HCl [From Nubain] AdvReac Nausea/Vom/ Verified 05/15/22 11:49 Diarrhea Family History Father CAD (coronary artery disease) Myocardial infarction, Onset Age: 51 Brother Myocardial infarction, Onset Age: 51 Brother CAD (coronary artery disease) Hx of CABG Sister Heart disease COPD (chronic obstructive pulmonary disease) Sister CVA (cerebral vascular accident) Surgical History History of arthroscopy of right shoulder History of back surgery History of elbow surgery History of hand surgery History of hemorrhoidectomy (~11/2021) History of hysterectomy History of knee replacement procedure of right knee History of knee surgery Hx of cardiac cath Status post trigger finger release Social History household members: none Smoking Status: Former smoker how long ago did patient quit smokin years ago alcohol intake: never substance use type: does not use caffeine: No ROS ROS ED Constitutional Constitutional ED: Denies chills or fever(s) Cardiovascular Cardiovascular: Denies chest pain Respiratory/Chest Respiratory/Chest: Reports cough; Denies dyspnea or dyspnea on exertion Gastrointestinal Gastrointestinal: Denies abdominal pain, nausea or vomiting Genitourinary Genitourinary ED: Denies dysuria Musculoskeletal Musculoskeletal: Reports arthralgias, back pain and neck pain Integumentary Denies rash Neurologic Neurologic: Reports weakness; Denies headache(s) or paresthesias Psychiatric Psychiatric: Denies anxiety Hematologic/Lymphatic Hematologic/Lymphatic: Denies easy bleeding or easy bruising EXAM Physical Exam Const Vital Signs: 08/01/22 04:42 08/01/22 04:56 08/01/22 06:43 Temperature 97.5 F L Temperature Source Temporal Pulse Rate 63 65 Respiratory Rate 15 20 H Respiratory Pattern Normal Blood Pressure 150/66 H 159/60 H Blood Pressure Mean 94 93 Pulse Ox 93 98 Oxygen Delivery Method Room Air Nasal Cannula Oxygen Flow Rate (L/min) 2 08/01/22 06:51 08/01/22 09:00 Temperature Temperature Source Pulse Rate 78 Respiratory Rate 16 Respiratory Pattern Blood Pressure 155/45 H Blood Pressure Mean 81 Pulse Ox 87 98 Oxygen Delivery Method Room Air Room Air Oxygen Flow Rate (L/min) Positive well nourished and well developed General Appearance ED: well developed and NAD HEENT Reports TM's clear and moist mucous membranes HEENT Narrative: No hemotympanum. No cephalhematoma. Negative for trauma Tympanic Membrane ED: Yes TM's clear Eyes PERRL and EOMs intact bilaterally Eyes Narrative: Segments appreciated. Neck supple Neck Narrative: Torticollis to the right present Chest Wall inspection of chest normal and palpation of chest normal Resp normal respiratory effort and clear to auscultation bilaterally Cardio regular rate, regular rhythm and no murmurs GI normal to inspection, nondistended, normoactive bowel sounds and non-tender Extremity normal to inspection Neuro oriented x3 and no sensory deficits noted Neuro Narrative: No focal deficits appreciated. Normal [id number] however she is slow to perform it. Sensorium / Orientation: alert Motor Exam: strength 5/5 throughout and general weakness Psych mental status grossly normal Skin no rashes or lesions noted and no wounds MDM MDM MDM Narrative Medical decision making narrative: Patient is evaluated for falls. She is little confused to me however she is ANO x4. She does not have any focal neurologic deficits. Given her year-long history of incontinence, increased falls and some reported confusion I am concerned about normal pressure hydrocephalus. CT of the brain shows possible Sensia changes versus normal pressure hydrocephalus. This is discussed with neurosurgery at [facility], Dr. Rodriguez, who states that this work-up would be outpatient and does not think she requires transfer to [facility] for neurosurgery evaluation. Because of this, [facility] do not feel that she needs to be admitted at [facility] from a medicine standpoint and can be admitted locally. Patient is found to have hypokalemia with a potassium of 2.8. Magnesium is normal and he is started on IV and oral potassium. Urinalysis more consistent with contamination. While in the ER patient does have transient desaturation. Chest x-ray does not show any acute process. Patient will be admitted to the hospital for her falls, hypoxia and hypokalemia. CTA is ordered to ensure she does have a PE as I have no other reason for her hypoxia at this time. Case is discussed with her daughter, Nanci, who is agreeable. She notes her mother seemed more confused since her fall yesterday. She is concerned about her as well because she lives alone. Lab Data Attestation: I reviewed the patient's lab results. Labs: Laboratory Results - last 24 hr 08/01/22 08/01/22 08/01/22 05:10 05:10 05:10 WBC 10.2 RBC 4.38 Hgb 12.9 Hct 41.0 MCV 93.6 MCH 29.5 MCHC 31.5 L RDW Std Deviation 45.7 H RDW Coeff of Patti 13.4 Plt Count 231 MPV 10.3 Immature Gran % (Auto) 0.400 Neut % (Auto) 73.6 H Lymph % (Auto) 15.0 L [place] % (Auto) 10.4 H Eos % (Auto) 0.3 Baso % (Auto) 0.3 Absolute Neuts (auto) 7.5 Absolute Lymphs (auto) 1.53 Nucleated RBC % 0 Sodium 135 L Potassium 2.8 L Chloride 101 Carbon Dioxide 29.0 Anion Gap 5 BUN 10 Creatinine 1.00 Estim Creat Clear Calc 39.59 Est GFR (MDRD) Af Amer 69 Est GFR (MDRD) Non-Af 57 L BUN/Creatinine Ratio 10.0 Glucose 116 H Calcium 9.8 Magnesium 2.4 Urine Color Urine Clarity Urine pH Ur Specific [place] Urine Protein Urine Glucose (UA) Urine Ketones Urine Occult Blood Urine Nitrite Urine Bilirubin Urine Urobilinogen Ur Leukocyte Esterase Urine RBC Urine WBC Ur Squamous Epith Cells Urine Bacteria Urine Mucus 08/01/22 06:34 WBC RBC Hgb Hct MCV MCH MCHC RDW Std Deviation RDW Coeff of Patti Plt Count MPV Immature Gran % (Auto) Neut % (Auto) Lymph % (Auto) [place] % (Auto) Eos % (Auto) Baso % (Auto) Absolute Neuts (auto) Absolute Lymphs (auto) Nucleated RBC % Sodium Potassium Chloride Carbon Dioxide Anion Gap BUN Creatinine Estim Creat Clear Calc Est GFR (MDRD) Af Amer Est GFR (MDRD) Non-Af BUN/Creatinine Ratio Glucose Calcium Magnesium Urine Color Yellow Urine Clarity Clear Urine pH 7.0 Ur Specific [place] 1.010 Urine Protein 30 H Urine Glucose (UA) Normal Urine Ketones Negative Urine Occult Blood 25 H Urine Nitrite Negative Urine Bilirubin Negative Urine Urobilinogen Normal Ur Leukocyte Esterase 25 H Urine RBC 0 SEEN Urine WBC 0-5 SEEN Ur Squamous Epith Cells 0-5 SEEN Urine Bacteria 0 SEEN Urine Mucus 0 SEEN Radiography Chest X-Ray - ED: 1 View, Read by ED Physician, Read by Radiologist and No Acute Disease Diagnostic Testing: Clinical Impression(s) from Imaging Studies Chest X-Ray 08/01/22 05:11 IMPRESSION: 1. No evidence for acute cardiopulmonary pathology. 2. Prominent bowel gas within the visualized upper abdomen. Electronically Signed: Edin Snow MD at 5:36 EDT , Brain CT 08/01/22 05:58 IMPRESSION: No CT evidence of acute intracranial hemorrhage or injury. Moderate senescent change with nonspecific slightly discordant enlargement of the ventricles relative to sulci that is mildly increased from December 02, 2020. Findings could represent progression of senescent cerebral volume loss or normal pressure hydrocephalus in the appropriate setting. Stable densely calcified posterior falx mass compatible with a benign process. Electronically Signed: Nathan Kay MD at 7:08 EDT , Rhythm Strip Rhythm Strip: Sinus Rhythm Rate: 65 Ectopy: None EKG Initial EKG: Attestation: I personally reviewed and interpreted this EKG as follows: Interpretation: Sinus Rhythm Comments: Normal sinus rhythm at a rate of 65 bpm Left axis deviation Left ventricular hypertrophy with repolarization abnormality T wave inversions in lateral leads Compared to prior EKG on 04/19/2022, no changes Management Discussion w/another healthcare provider: Hospitalist and Assembly Associate (Dr. Rodriguez-neurosurgery at [facility], no emergent intervention indicated) Discharge Plan Triage Chief Complaint: Weakness ED Provider: Bonny Caro Dx/Rx/DC Orders Clinical Impression: Hypoxia, Debility, Falls, Acute hypokalemia Prescriptions: No Action pravastatin 80 mg tablet 80 mg PO QDAY atenolol 100 mg tablet 50 mg PO BID amlodipine 10 mg tablet 10 mg PO DAILY gabapentin 300 MG capsule 300 mg PO BID Label Comments: NERVE PAIN digoxin 250 MCG tablet 250 mcg PO DAILY metformin 500 mg tablet 500 mg PO BID cholecalciferol (vitamin D3) [Vitamin D3] 25 mcg (1,000 unit) Tablet 25 mcg PO DAILY furosemide 20 mg tablet 20 mg PO BID losartan 25 mg tablet 25 mg PO DAILY Primary Care Provider: Rebecca Lewis Referrals: Rebecca Lewis MD [Primary Care Provider] - Disposition Disposition: Acute Care Hospital [facility]
--- NOTE | 2022-08-01 14:30 | NURSING ---
pt has arrived to unit without any orders and states she has not been seen by the hospitalist-staff texted Dr Rangel about admission-pt currently on 2l n/c
--- NOTE | 2022-08-01 14:46 | NURSING ---
pt and daughter updated that dr Rangel will be seeing pt for admission orders and explain to pt why she was admitted (daughter and pt claim she never saw a doctor in er that explained that to her)
[2022-08-01 15:26] LABS: Bedside Glucose 72 mg/dL (74-106)
[2022-08-01 16:45] LABS: Bedside Glucose 106 mg/dL (74-106)
[2022-08-01 17:11] LABS: Hemoglobin A1c 5.6 % (3.8-5.6)
[2022-08-01 18:04] LABS: Anion Gap 3 (5-15); BUN 7 mg/dL (7-18); BUN/Creat Ratio 7.3 RATIO (10-20); Calcium,Total 9.3 mg/dL (8.5-10.1); Chloride 104 mmol/L (98-107); Creatinine, Serum 0.96 mg/dL (0.55-1.02); EST Glomerular Filtration Rate 60 mL/min (>60); Est Glom Filt Rate - Afr Amer 72 mL/min (>60); Estimated Creatinine Clearance 41.24 ml/min; Glucose 149 mg/dL (74-106); Sodium Level 138 mmol/L (136-145)
--- NOTE | 2022-08-01 19:19 | HP.PCM.HOS_ITS ---
HPI - General General Date of Admission: 08/01/22 Date of Service: 08/01/22 Chief Complaint: Frequent falls, generalized weakness HPI Natalie IVAN TUESDAY, is a 76 F who presents to the emergency room at [facility] after sustaining a fall early this morning approximately 3 to 4 AM. Patient denies any head or neck discomfort. Patient struck her right upper leg. Patient is somewhat of a poor informant. Patient states she does not know why she falls. She lives alone. Patient states that she has been having weakness and falling episodes for the last several months. Patient is active with a neurosurgeon in [place] who follows her for a meningioma, she has not been advised to have surgery for the meningioma and it has not progressively enlarged. Patient's last MRI scan of her brain was in September 2021. Work-up in the emergency room included labs which revealed a low potassium at 2.8, BUN and creatinine were normal. Patient's glucose was 116 and sodium was 135, CBC was unremarkable, patient's pulse ox however was 87% on room air, patient denied any respiratory symptoms and on examination, patient's lungs are clear. Patient had a chest x-ray which was unremarkable, CTA of the chest showed trace bilateral effusions, atelectasis and or potentially developing infiltrates, there is mild to moderate cardiomegaly, no pulmonary embolism was noted, there is mild aneurysmal dilatation of the ascending thoracic aorta. There is bilateral lower lobe ground glass opacity and trace effusions, there was also minimal groundglass opacity within the upper lung zones bordering the major fissures. Patient underwent a CT of the brain which indicated possible normal pressure hydrocephalus, neurosurgery was contacted in [place] but they stated that the patient did not need to be transferred to [place] and this could be further investigated as an outpatient. Patient was placed into observation status on MedSurg 3 for hypokalemia and hypoxia, the etiology of the hypoxia is unknown, patient will be given potassium replacement and a repeat BMP will be ordered this afternoon. Patient will be seen by PT and OT. [facility] Medical History Chronic pain Diabetes Dysmetabolic syndrome Dyspnea on exertion Essential hypertension Former smoker GERD (gastroesophageal reflux disease) Greater trochanteric bursitis of right hip History of kidney stones Hyperlipidemia Meningioma Nonrheumatic aortic (valve) insufficiency Osteoarthritis of right hip Paroxysmal atrial tachycardia Peripheral neuropathy Thoracic aortic aneurysm without rupture Home Medications gabapentin 300 mg capsule 300 mg PO BID Check with primary doctor 02/22/13 [History Last Taken 07/31/22] digoxin 250 mcg (0.25 mg) tablet 250 mcg PO DAILY HEART 02/01/14 [History Last Taken 07/31/22] pravastatin 80 mg tablet 80 mg PO QDAY CHOLESTEROL 11/22/17 [History Last Taken 07/31/22] atenolol 100 mg tablet 50 mg PO BID BP 03/28/19 [History Last Taken 07/31/22] metformin 500 mg tablet 500 mg PO BID DIABETES 12/02/20 [History Last Taken 07/31/22] cholecalciferol (vitamin D3) 25 mcg (1,000 unit) tablet (Vitamin D3) 25 mcg PO DAILY SUPPLEMENT 05/12/21 [History Last Taken 07/31/22] furosemide 20 mg tablet 20 mg PO BID WATER PILL 05/12/21 [History Last Taken 07/31/22] amlodipine 10 mg tablet 10 mg PO DAILY 05/20/21 [History Last Taken 07/31/22] amitriptyline 25 mg tablet 25 mg PO QHS sleep 08/01/22 [History Last Taken Unknown] losartan 25 mg tablet 25 mg PO DAILY HTN 08/01/22 [History Last Taken 07/31/22] meclizine 12.5 mg tablet 12.5 mg PO TID PRN Dizziness 08/01/22 [History Last Taken Unknown] Allergy/AdvReac Type Severity Reaction Status Date / Time lisinopril AdvReac Severe Intolerence, Verified 05/15/22 11:49 cough nalbuphine HCl [From Nubain] AdvReac Nausea/Vom/ Verified 05/15/22 11:49 Diarrhea Family History Father CAD (coronary artery disease) Myocardial infarction, Onset Age: 51 Brother Myocardial infarction, Onset Age: 51 Brother CAD (coronary artery disease) Hx of CABG Sister Heart disease COPD (chronic obstructive pulmonary disease) Sister CVA (cerebral vascular accident) Surgical History History of arthroscopy of right shoulder History of back surgery History of elbow surgery History of hand surgery History of hemorrhoidectomy (~11/2021) History of hysterectomy History of knee replacement procedure of right knee History of knee surgery Hx of cardiac cath Status post trigger finger release Social History household members: none Smoking Status: Former smoker how long ago did patient quit smokin years ago alcohol intake: never substance use type: does not use caffeine: No ROS Constitutional Constitutional: Reports fatigue and weakness; Denies anorexia, change in weight, fever(s) or night sweats Eyes Eyes: Denies blurry vision, change in vision, discharge from eye(s) or eye pain Cardiovascular Cardiovascular: Denies chest pain, claudication, dyspnea on exertion, edema, lightheadedness, orthopnea or palpitations Respiratory/Chest Respiratory/Chest: Denies cough, hemoptysis, shortness of breath at rest or shortness of breath with exertion Gastrointestinal Gastrointestinal: Denies abdominal pain, constipation, diarrhea, dyspepsia, hematemesis, hematochezia, melena, nausea or vomiting Genitourinary Genitourinary: Denies difficulty urinating, dysuria, hematuria, urinary frequency, urinary hesitancy, urinary incontinence or urinary urgency Musculoskeletal Musculoskeletal: Reports other Details: Patient has chronic lower back pain due to degenerative disc disease of the lumbar spine, she also complains of generalized muscle pains ; Denies back pain, joint pain, joint stiffness, joint swelling, myalgias or neck pain Neurologic Neurologic: Denies abnormal gait, abnormal speech, dizziness, focal weakness, headache(s), loss of vision, numbness, other visual disturbances, paresthesias, syncope or tingling Psychiatric Psychiatric: Denies anxiety, cognitive impairment, depression, irritability, mood swings or suicidal ideation Endocrine Endocrinology: Denies change in body appearance, cold intolerance, excessive sweating, heat intolerance, polydipsia or polyuria Hematologic/Lymphatic Hematologic/Lymphatic: Denies none, anemia, easy bleeding, easy bruising or lymphadenopathy Allergic/Immunologic Allergic/Immunologic: Denies rhinitis, urticaria, eczemia or asthma Vital Signs Vital Signs Vital Signs: 08/01/22 04:42 08/01/22 04:56 08/01/22 06:43 Temperature 97.5 F L Temperature Source Temporal Pulse Rate 63 65 Respiratory Rate 15 20 H Respiratory Effort Respiratory Pattern Normal Blood Pressure 150/66 H 159/60 H Blood Pressure Mean 94 93 Blood Pressure Source Blood Pressure Position Blood Pressure Location Pulse Ox 93 98 Oxygen Delivery Method Room Air Nasal Cannula Oxygen Flow Rate (L/min) 2 08/01/22 06:51 08/01/22 09:00 08/01/22 13:19 Temperature 98 F Temperature Source Temporal Pulse Rate 78 71 Respiratory Rate 16 14 Respiratory Effort Respiratory Pattern Blood Pressure 155/45 H 128/82 H Blood Pressure Mean 81 97 Blood Pressure Source Blood Pressure Position Blood Pressure Location Pulse Ox 87 98 96 Oxygen Delivery Method Room Air Room Air Room Air Oxygen Flow Rate (L/min) 08/01/22 14:00 08/01/22 16:54 08/01/22 16:55 Temperature 98.6 F Temperature Source Temporal Pulse Rate 84 71 Respiratory Rate 18 18 Respiratory Effort Normal Respiratory Pattern Blood Pressure 157/63 H Blood Pressure Mean 94 Blood Pressure Source Monitor Blood Pressure Position Supine Blood Pressure Location Right Arm Pulse Ox 94 93 Oxygen Delivery Method Nasal Cannula Room Air Room Air Oxygen Flow Rate (L/min) 2 Weight Weight: 79.379 kg Body Mass Index (BMI) 30.9 Physical Exam Const alert, oriented x3 and no apparent distress Constitutional Narrative: Patient appears her stated age General Appearance: cooperative, well kempt and well developed Orientation / Consciousness: awake, oriented to person, oriented to place and oriented to time HEENT normocephalic, head/scalp atraumatic, hearing grossly normal bilaterally and moist oral mucous membranes Eyes PERRL, EOMs intact bilaterally and conjunctivae normal Neck supple, no JVD, thyroid normal and no carotid bruits General: trachea midline Resp normal respiratory effort, no retractions, no use of accessory muscles and clear to auscultation bilaterally Auscultation: Negative for rales, rhonchi or wheezes Cardio regular rate, regular rhythm, S1 normal heart sound, S2 normal heart sound, no murmurs, no rub and no gallops GI normal to inspection, nondistended, normoactive bowel sounds, soft to palpation, non-tender and non-distended Extremity Extremity Narrative: There is an ecchymotic area noted on the lateral aspect of the patient's right thigh, no lower extremity edema is noted Skin no rashes or lesions noted General Skin Exam: no breakdown Neuro oriented x3, CN's II-XII intact bilaterally, moves all extremities, no focal motor deficits and no sensory deficits noted Neuro Narrative: Patient was not ambulated during this examination Sensorium / Orientation: awake, alert, oriented to person and oriented to place Speech: speech normal Psych affect normal Results Lab / Micro Data Result Diagrams: 08/01/22 05:10 08/01/22 17:12 Labs: Laboratory Results - last 24 hr 08/01/22 05:10: WBC 10.2, RBC 4.38, Hgb 12.9, Hct 41.0, MCV 93.6, MCH 29.5, MCHC 31.5 L, RDW Std Deviation 45.7 H, RDW Coeff of Patti 13.4, Plt Count 231, MPV 10.3, Immature Gran % (Auto) 0.400, Neut % (Auto) 73.6 H, Lymph % (Auto) 15.0 L, [place] % (Auto) 10.4 H, Eos % (Auto) 0.3, Baso % (Auto) 0.3, Absolute Neuts (auto) 7.5, Absolute Lymphs (auto) 1.53, Nucleated RBC % 0 08/01/22 05:10: Sodium 135 L, Potassium 2.8 L, Chloride 101, Carbon Dioxide 29.0, Anion Gap 5, BUN 10, Creatinine 1.00, Estim Creat Clear Calc 39.59, Est GFR (MDRD) Af Amer 69, Est GFR (MDRD) Non-Af 57 L, BUN/Creatinine Ratio 10.0, Glucose 116 H, Calcium 9.8 08/01/22 05:10: Magnesium 2.4 08/01/22 05:10: Hemoglobin A1c 5.6 08/01/22 06:34: Urine Color Yellow, Urine Clarity Clear, Urine pH 7.0, Ur Specific Lee 1.010, Urine Protein 30 H, Urine Glucose (UA) Normal, Urine Ketones Negative, Urine Occult Blood 25 H, Urine Nitrite Negative, Urine Bilirubin Negative, Urine Urobilinogen Normal, Ur Leukocyte Esterase 25 H, Urine RBC 0 SEEN, Urine WBC 0-5 SEEN, Ur Squamous Epith Cells 0-5 SEEN, Urine Bacteria 0 SEEN, Urine Mucus 0 SEEN 08/01/22 09:42: Digoxin 1.70 08/01/22 15:03: POC Glucose 72 L 08/01/22 16:19: POC Glucose 106 08/01/22 17:12: Sodium 138, Potassium 3.0 L, Chloride 104, Carbon Dioxide 31.0, Anion Gap 3 L, BUN 7, Creatinine 0.96, Estim Creat Clear Calc 41.24, Est GFR (MDRD) Af Amer 72, Est GFR (MDRD) Non-Af 60, BUN/Creatinine Ratio 7.3 L, Glucose 149 H, Calcium 9.3 Rhythm Strip Rhythm Strip: Sinus Rhythm Rate: 65 Ectopy: None Radiology Impression Chest X-Ray 08/01/22 05:11 IMPRESSION: 1. No evidence for acute cardiopulmonary pathology. 2. Prominent bowel gas within the visualized upper abdomen. Electronically Signed: Edin Snow MD at 5:36 EDT , Brain CT 08/01/22 05:58 IMPRESSION: No CT evidence of acute intracranial hemorrhage or injury. Moderate senescent change with nonspecific slightly discordant enlargement of the ventricles relative to sulci that is mildly increased from December 02, 2020. Findings could represent progression of senescent cerebral volume loss or normal pressure hydrocephalus in the appropriate setting. Stable densely calcified posterior falx mass compatible with a benign process. Electronically Signed: Nathan Kay MD at 7:08 EDT , ADDENDUM: 08/01/22 1532 IMPRESSION: undefined Chest CTA 08/01/22 09:15 IMPRESSION: Trace bilateral effusions, atelectasis and/or potentially developing infiltrates. There is bilateral mild thickening at the upper aspect of the bilateral minor fissure suggesting possible atelectasis and or developing inflammatory infiltrates. Mild to moderate cardiomegaly. No pulmonary embolism. 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 Electronically Signed: Janice Monteiro MD at 11:21 EDT , Assessment & Plan Assessment/Plan (1) Hypoxia: PLAN: Plan 1. Hypokalemia-secondary to use of furosemide as an outpatient, patient will be placed into observation status on MedSurg 3, potassium supplementation will be given, labs will be monitored, I have decided to stop the patient's Lasix at this time, she states she takes it for foot and ankle edema but she has no edema on exam today, she denies any history of congestive heart failure. #2 hypoxia-this is mild at this time, oxygen will be weaned if possible, the etiology of the hypoxia is unknown but felt to be secondary to atelectasis, I will not order breathing treatments at this time, pulse ox will be monitored #3 generalized debility-secondary to multiple medical problems including degenerative disc disease of the lumbar spine, deconditioning, and osteoarthritis-patient will be seen by PT and OT, I told the patient that she may have to consider going into a fci facility for short-term rehab services, she did not appear to be opposed to this. #4 fibromyalgia-patient does take gabapentin, I have elected not to taper the dose at this time, I do not think it is causing her weakness. #5 contusion to the right thigh-no treatment necessary at this time #6 history of meningioma-patient's CT today showed an abnormality that raise the possibility of normal pressure hydrocephalus, patient does have urinary incontinence but she has had it for over 5 years, patient does not know why she is unsteady on her feet but denies any overt dizziness or lightheadedness- patient's daughter who is present at the time of my examination states that the patient leans to her side when she walks at times. Patient follows up with a neurosurgeon in [place], the last MRI that she had performed was last September 2021. I have elected to reorder an MRI for tomorrow with contrast, patient is okay with this. I talked at length with radiology today and had them compare the patient's last 3 head CTs, the radiologist told me they were all the same with no changes. I do not believe the patient has normal pressure hydrocephalus. Total clinical time spent by myself addressing the patient's medical issues, reviewing all of her data, and collaborating with patient's care team: 75 minutes Charges/Coding Visit Charges Inpatient E&M: 23053 Init Hosp L3
[2022-08-01] MEDS: Pravastatin 80 MG Tablet PO (21:01)
[2022-08-01] MEDS: Atenolol 50 MG Tablet PO (21:01)
[2022-08-01] MEDS: Amitriptyline 25 MG Tablet PO (21:01)
[2022-08-01] MEDS: Potassium Chloride Oral Tablet 20 MEQ 60 MEQ PO (21:01)
[2022-08-01] MEDS: Heparin Injection (Vial) 5,000 UNIT/ML VIAL 5000 UNIT SC (21:02)
[2022-08-01] MEDS: Gabapentin 300 MG Capsule PO (21:06)
[2022-08-01 22:15] LABS: Bedside Glucose 137 mg/dL (74-106)
[2022-08-02] VITALS (7 sets, daily range): BP systolic 154–159; BP diastolic 55–65; PULSE 68–74; RESP 16; TEMP 37.2–37.3; O2SAT 90–95
[2022-08-02 06:51] LABS: Bedside Glucose 111 mg/dL (74-106)
[2022-08-02 07:06] LABS: Anion Gap 7 (5-15); BUN 7 mg/dL (7-18); BUN/Creat Ratio 9.7 RATIO (10-20); Calcium,Total 9.2 mg/dL (8.5-10.1); Chloride 107 mmol/L (98-107); Creatinine, Serum 0.72 mg/dL (0.55-1.02); EST Glomerular Filtration Rate 84 mL/min (>60); Est Glom Filt Rate - Afr Amer 101 mL/min (>60); Estimated Creatinine Clearance 39.59 ml/min; Glucose 122 mg/dL (74-106); Potassium 3.8 mmol/L (3.5-5.1); Sodium Level 138 mmol/L (136-145)
--- NOTE | 2022-08-02 07:50 | PCM.PN.HOSP ---
Reason for Visit Reason for Visit: Diagnoses Hypoxemia (08/01/22) Subjective Subjective Denied any dizziness/diaphoresis Objective Data Objective Data Vital Signs: Vital Signs Temp Pulse Resp BP Pulse Ox O2 Del Method O2 Flow Rate 37.2 C 68 16 154/56 H 90 Room Air 2 08/02/22 04:27 08/02/22 04:27 08/02/22 04:27 08/02/22 04:27 08/02/22 07:20 08/02/22 07:20 08/01/22 14:00 Oxygen Flow Rate (L/min) 2 Oxygen Delivery Method Room Air Weight: 79.379 kg Body Mass Index (BMI) 30.9 Intake & Output: Intake and Output for Last 24 Hours 07/31/22 08/01/22 08/02/22 23:59 23:59 23:59 Intake Total 2220 / 2220 700 / 700 Output Total 800 / 800 1150 / 1150 Balance 1420 / 1420 -450 / -450 Lab / Micro Data Result Diagrams: 08/01/22 05:10 08/02/22 05:34 Labs: Laboratory Results - last 24 hr 08/01/22 05:10: Hemoglobin A1c 5.6 08/01/22 09:42: Digoxin 1.70 08/01/22 15:03: POC Glucose 72 L 08/01/22 16:19: POC Glucose 106 08/01/22 17:12: Sodium 138, Potassium 3.0 L, Chloride 104, Carbon Dioxide 31.0, Anion Gap 3 L, BUN 7, Creatinine 0.96, Estim Creat Clear Calc 41.24, Est GFR (MDRD) Af Amer 72, Est GFR (MDRD) Non-Af 60, BUN/Creatinine Ratio 7.3 L, Glucose 149 H, Calcium 9.3 08/01/22 21:14: POC Glucose 137 H 08/02/22 05:34: Sodium 138, Potassium 3.8, Chloride 107, Carbon Dioxide 24.0, Anion Gap 7, BUN 7, Creatinine 0.72, Estim Creat Clear Calc 39.59, Est GFR (MDRD) Af Amer 101, Est GFR (MDRD) Non-Af 84, BUN/Creatinine Ratio 9.7 L, Glucose 122 H, Calcium 9.2 08/02/22 06:30: POC Glucose 111 H Radiography Diagnostic Testing: Radiology Impression Brain CT 08/01/22 05:58 IMPRESSION: No CT evidence of acute intracranial hemorrhage or injury. Moderate senescent change with nonspecific slightly discordant enlargement of the ventricles relative to sulci that is mildly increased from December 02, 2020. Findings could represent progression of senescent cerebral volume loss or normal pressure hydrocephalus in the appropriate setting. Stable densely calcified posterior falx mass compatible with a benign process. Electronically Signed: Nathan Kay MD at 7:08 EDT , ADDENDUM: 08/01/22 1532 IMPRESSION: undefined Chest CTA 08/01/22 09:15 IMPRESSION: Trace bilateral effusions, atelectasis and/or potentially developing infiltrates. There is bilateral mild thickening at the upper aspect of the bilateral minor fissure suggesting possible atelectasis and or developing inflammatory infiltrates. Mild to moderate cardiomegaly. No pulmonary embolism. 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 Electronically Signed: Janice Monteiro MD at 11:21 EDT , Rhythm Strip Rhythm Strip: Sinus Rhythm Rate: 65 Ectopy: None Physical Exam HEENT head/scalp atraumatic and moist oral mucous membranes Resp normal respiratory effort, no retractions, no use of accessory muscles and clear to auscultation bilaterally Cardio regular rate, regular rhythm, S1 normal heart sound and S2 normal heart sound GI normal to inspection, nondistended, normoactive bowel sounds, soft to palpation, non-tender and non-distended Extremity normal to inspection Assessment & Plan Assessment/Plan (1) Hypoxia: PLAN: Resolved Unclear etiology. (2) Acute hypokalemia: PLAN: secondary to use of furosemide as an outpatient Resolved with potassium supplementation will be given, Furosemide on hold as pt takes furosemide for foot and ankle edema, she denies any history of congestive heart failure. (3) Debility: PLAN: generalized debility-secondary to multiple medical problems including degenerative disc disease of the lumbar spine, deconditioning, and osteoarthritis-patient will be seen by PT and OT, I told the patient that she may have to consider going into a intermediate facility for short-term rehab services, Pt does not want to go to SNF PLAN: Plan Chronic conditions: fibromyalgia-patient does take gabapentin, I have elected not to taper the dose at this time, I do not think it is causing her weakness. history of meningioma-patient's CT today showed an abnormality that raise the possibility of normal pressure hydrocephalus, patient does have urinary incontinence but she has had it for over 5 years, patient does not know why she is unsteady on her feet but denies any overt dizziness or lightheadedness-patient's daughter who is present at the time of my examination states that the patient leans to her side when she walks at times. Patient follows up with a neurosurgeon in [place], the last MRI that she had performed was last September 2021. Repeat MRI ordered. Pt has seen Dr. Larry for meningioma. Charges/Coding Visit Charges Inpatient E&M: 43269 Subs Hosp L2
[2022-08-02] MEDS: Atenolol 50 MG Tablet PO ×2 (09:45→20:56)
[2022-08-02] MEDS: amLODIPine 10 MG Tablet PO (09:45)
[2022-08-02] MEDS: Digoxin 250 MCG Tablet PO (09:45)
[2022-08-02] MEDS: Heparin Injection (Vial) 5,000 UNIT/ML VIAL 5000 UNIT SC ×2 (09:46→20:55)
[2022-08-02] MEDS: Losartan Potassium 25 MG Tablet PO (09:49)
[2022-08-02] MEDS: Gabapentin 300 MG Capsule PO ×2 (09:49→20:59)
[2022-08-02] MEDS: Insulin Lispro 100 UNIT/ML INSULN.PEN SC ×2 (11:20→20:54)
[2022-08-02 12:00] LABS: Bedside Glucose 165 mg/dL (74-106)
--- NOTE | 2022-08-02 12:20 | MRI_ITS ---
EXAM: MR HEAD WITHOUT AND WITH INTRAVENOUS CONTRAST CLINICAL INDICATION: meningeoma TECHNIQUE: Multiplanar and multisequence MR images of the brain were obtained without and with intravenous contrast. This report was created using [employer] report generation technology. CONTRAST: IV 15mL CLARISCAN COMPARISON: CT brain 08/01/2022 FINDINGS: BRAIN AND EXTRA-AXIAL SPACES: Increased T2 signal intensity within the cerebral white matter suggestive of chronic microvascular change. Prominence of the cortical sulci and ventricles related to volume loss change. The partially calcified mass located along the posterior fusion of the falx noted demonstrating fairly uniform contrast-enhancement consistent with meningioma no associated mass effect or vasogenic edema. No intra- or extra-axial hemorrhage. No evidence of acute infarct. There is preservation of the breaux/white matter interface. Posterior fossa structures are unremarkable. Basal cisterns are patent. SELLA: Normal. Normal sella turcica, pituitary gland, infundibular stalk, optic chiasm and hypothalamus. AUDITORY SYSTEM: Normal. The internal auditory canals are patent. BONES/JOINTS: Intact calvarium. SINUSES: Unremarkable as visualized. Clear. MASTOID AIR CELLS: Unremarkable as visualized. Clear. ORBITS: Unremarkable as visualized. Both globes, extraocular muscles, optic nerves and retrobulbar fat appear unremarkable. VASCULATURE: Unremarkable as visualized. Normal flow voids in the major intracranial circulation. MRI/Brain W/WO Contrast IMPRESSION: 1. No acute ischemia. 2. Posterior 2.1 cm parafalcine meningioma without mass effect or vasogenic edema. 3. Chronic senescent changes. Electronically Signed: Octaviano Tavarez MD at 14:01 EDT ,
--- NOTE | 2022-08-02 16:03 | CASEMGMT ---
Social Work? SW sent referral to [facility] following update from CHARLINE Polo that pt will need placement at nursing facility according to therapy team and MD Ngo. CHARLINE Polo informed SW oracio tpt preference was [facility] and that pt had declined a SNF list from [facility]. PLAN: [facility], pending precert and acceptance? NEELAM Shearer?
--- NOTE | 2022-08-02 16:06 | CASEMGMT ---
RN BISHNU NOTE: Intro role of CM to patient and GRANT form explained re: Observation status for treatment of hypokalemia and hypoxia. Explained hospitalization will be paid per? her insurance policy for Outpatient billing?and condition will continue to be evaluated for Inpt necessity. Also let pt know that [facility] sends paper in the billing packet with their phone number if questions arise. Discussed Pharmacy section of GRANT form and self administered medication guideline.? Pt verbalizes understanding and does not have further questions. ?Form signed, copy made and placed in chart, and original given to pt. Discussed discharge planning and made aware therapy is recommending SNF. Pt stated to this CHARLINE GOETZ that she does not wish to go to a SNF, that she wishes to return home, and stated she feels safe returning home. Discussed HHC and pt agreeable. She states has had [facility] in the past and would like to have them again. She denied wanting list of other HHC options. RN BISHNU informed her a referral would be made w/[facility] and if they are unable to accept, RN BSIHNU would be back in to provide other HHC options. Pt voiced understanding. As RN BISHNU getting ready to exit pt's room, Dr Ngo, came into room. He was made aware pt wishing to return home and agreeable to HHC. Dr Ngo reinforced w/pt that therapy is recommending SNF and concern for a fall or injury. Pt now agreeable to SNF. She states she has been to [facility] in the past, but does not wish to return there. She states wishes to go to [place]. She declines wanting list of other SNF choices at this time. NIRALI Shah, made aware. Rashawn BLANCAS RN, CM
[2022-08-02 17:40] LABS: Bedside Glucose 78 mg/dL (74-106)
[2022-08-02] MEDS: Glucerna Shake 120 ML LIQUID PO (17:58)
[2022-08-02] MEDS: Amitriptyline 25 MG Tablet PO (20:57)
[2022-08-02] MEDS: Pravastatin 80 MG Tablet PO (20:57)
[2022-08-02 22:05] LABS: Bedside Glucose 198 mg/dL (74-106)
[2022-08-03] VITALS (10 sets, daily range): BP systolic 111–162; BP diastolic 53–84; PULSE 70–90; RESP 16–20; TEMP 36.4–39.5; O2SAT 93–98
[2022-08-03 07:10] LABS: Bedside Glucose 149 mg/dL (74-106)
--- NOTE | 2022-08-03 07:49 | PCM.PN.HOSP ---
Reason for Visit Reason for Visit: Diagnoses Hypokalemia (08/01/22) Hypoxemia (08/01/22) Other malaise (08/01/22) Subjective Subjective No events overnight. Objective Data Objective Data Vital Signs: Vital Signs Temp Pulse Resp BP Pulse Ox O2 Del Method O2 Flow Rate 37.1 C 70 16 148/84 H 95 Room Air 2 08/03/22 06:45 08/03/22 06:45 08/03/22 06:45 08/03/22 06:45 08/03/22 06:47 08/03/22 06:47 08/01/22 14:00 Oxygen Flow Rate (L/min) 2 Oxygen Delivery Method Room Air Weight: 79.379 kg Body Mass Index (BMI) 30.9 Intake & Output: Intake and Output for Last 24 Hours 08/01/22 08/02/22 08/03/22 23:59 23:59 23:59 Intake Total 2220 / 2220 1000 / 1000 700 / 700 Output Total 800 / 800 2150 / 2150 700 / 700 Balance 1420 / 1420 -1150 / -1150 0 / 0 Lab / Micro Data Result Diagrams: 08/01/22 05:10 08/02/22 05:34 Labs: Laboratory Results - last 24 hr 08/02/22 11:17: POC Glucose 165 H 08/02/22 17:18: POC Glucose 78 08/02/22 20:52: POC Glucose 198 H 08/03/22 06:44: POC Glucose 149 H Radiography Diagnostic Testing: Radiology Impression Brain MRI 08/02/22 12:20 IMPRESSION: 1. No acute ischemia. 2. Posterior 2.1 cm parafalcine meningioma without mass effect or vasogenic edema. 3. Chronic senescent changes. Electronically Signed: Octaviano Tavarez MD at 14:01 EDT , Rhythm Strip Rhythm Strip: Sinus Rhythm Rate: 65 Ectopy: None Physical Exam Const alert and no apparent distress HEENT head/scalp atraumatic and moist oral mucous membranes Assessment & Plan Assessment/Plan (1) Hypoxia: PLAN: Resolved Unclear etiology. (2) Acute hypokalemia: PLAN: secondary to use of furosemide as an outpatient Resolved with potassium supplementation will be given, Furosemide on hold as pt takes furosemide for foot and ankle edema, she denies any history of congestive heart failure. (3) Debility: PLAN: generalized debility-secondary to multiple medical problems including degenerative disc disease of the lumbar spine, deconditioning, and osteoarthritis-patient will be seen by PT and OT, I told the patient that she may have to consider going into a nursing home facility for short-term rehab services, Pt was max assist with sitting up and still required assistance with other activities. 08/02: I recommended SNF. Pt reluctantly agreed. PLAN: Plan Chronic conditions: fibromyalgia-patient does take gabapentin, I have elected not to taper the dose at this time, I do not think it is causing her weakness. history of meningioma-patient's CT today showed an abnormality that raise the possibility of normal pressure hydrocephalus, patient does have urinary incontinence but she has had it for over 5 years, patient does not know why she is unsteady on her feet but denies any overt dizziness or lightheadedness-patient's daughter who is present at the time of my examination states that the patient leans to her side when she walks at times. Patient follows up with a neurosurgeon in [place], the last MRI that she had performed was last September 2021. MRI shows stability. Pt has seen Dr. Larry for meningioma. Disposition: to SNF pending insurance authorization. Charges/Coding Visit Charges Inpatient E&M: 69603 Subs Hosp L1
[2022-08-03] MEDS: Heparin Injection (Vial) 5,000 UNIT/ML VIAL 5000 UNIT SC ×2 (09:20→22:12)
[2022-08-03] MEDS: Atenolol 50 MG Tablet PO ×2 (09:20→22:12)
[2022-08-03] MEDS: Gabapentin 300 MG Capsule PO ×2 (09:20→22:12)
[2022-08-03] MEDS: Digoxin 250 MCG Tablet PO (09:20)
[2022-08-03] MEDS: amLODIPine 10 MG Tablet PO (09:20)
[2022-08-03] MEDS: Losartan Potassium 25 MG Tablet PO (09:21)
--- NOTE | 2022-08-03 09:54 | CASEMGMT ---
Addendum entered by Alyssa Cuello 08/03/22 16:09: SW reached out to [facility] to check on approval. SW messaged on [facility] and called facility. No response on [facility]. When calling received a busy tone. Unable to leave a message. Addendum entered by Alyssa Cuello 08/03/22 10:03: SW in to speak to pt face to face. Confirmed pt wants [facility] and explained that [facility] has tentatively accepted and the referral/insurance approval process. Pt voiced understanding. Original Note: Social work [facility] reached out via [facility]. Pt has been accepted pending Financial Review. PLAN: [facility], pending final acceptance, and precert NEELAM Shearer
--- NOTE | 2022-08-03 13:11 | CHAPLAIN ---
Type of Pastoral Visit _x__ Initial Visit ___ Follow-up Visit ___ On-call Visit ___ General Patient Visit ___ Spiritual Assessment ___ Family Conference ___ Bereavement ___ Rapid Response ___ Code Blue ___ Other (describe below) Pastoral Care Referral From _x__ Patient ___ Family ___ Nurse ___ Physician ___ Aerographer ___ Transverse Abdominal Muscle Nurse ___ Other (describe below) Sacrament/Intervention _x__ Active listening ___ Anointing ___ Amish ___ Bereavement ___ Communion _x__ [place] ___ ___ Life review _x__ Prayer ___ Reconciliation ___ Sacrament of Sick _x__ Supportive presence ___ Wedding ___ Other (describe below) Pastoral Comments patient has received a light lunch and needs adjusted in bed; help is called by this gym manager and response is quick; pt states that she is discouraged; admits to being fed up with this situation that has been going on for a year; pt asks this gym manager about her transfer to [place] which he refers she ask the SW or CM; when asked about coping methods pt simply responds what else can I do?; pt says her needs include answers to her health needs and getting to [place]; pt does welcome a prayer and says that she has a Druze heritage but there are no Druze churches around; this gym manager offers her assurance that there are Druze churches in the area that she can participate with in the future
[2022-08-03 16:31] LABS: Bedside Glucose 138 mg/dL (74-106)
[2022-08-03 16:56] LABS: Bedside Glucose 145 mg/dL (74-106)
[2022-08-03] MEDS: Acetaminophen 325 MG Tablet 650 MG PO (18:01)
[2022-08-03 19:34] LABS: Color, Urine Yellow (Yellow); Glucose, Dipstick 50 mg/dl (Normal); Ketone-Dipstick Negative (Negative); Leukocyte Esterase-Dipstick Negative /ul (Negative); Nitrite-Dipstick Positive (Negative); Occult Blood-Urine 10 /ul (Negative); Protein-Dipstick 30 mg/dl (Negative); Urine Bilirubin Dipstick Negative (Negative); Urine Clarity Sl. Cloudy (Clear); Urine Urobilinogen Normal (Normal)
[2022-08-03] MEDS: Insulin Lispro 100 UNIT/ML INSULN.PEN SC (22:11)
[2022-08-03] MEDS: MELATONIN 3 MG TABLET PO (22:12)
[2022-08-03] MEDS: Pravastatin 80 MG Tablet PO (22:12)
[2022-08-03] MEDS: Amitriptyline 25 MG Tablet PO (22:12)
[2022-08-03 22:40] LABS: Bedside Glucose 151 mg/dL (74-106)
[2022-08-04] VITALS (10 sets, daily range): BP systolic 117–148; BP diastolic 59–81; PULSE 60–76; RESP 16; TEMP 36.3–38.6; O2SAT 88–98
[2022-08-04] MEDS: 0.9% Saline Lock 10 ML Syringe IV (03:23)
[2022-08-04 06:55] LABS: Bedside Glucose 120 mg/dL (74-106)
--- NOTE | 2022-08-04 07:53 | CASEMGMT ---
Addendum entered by Alyssa Cuello 08/04/22 10:17: SW into pt room to discuss discharge planning. SW informed pt that [facility] has still not accepted pt and this means process is taking longer than expected and we will still need to wait for insurance auth. A list of SNF providers including quality and resource use data consistent with the patient?s preferred geographic region, medical needs, and insurance network were provided from the [facility]Port Guide. Pt hesitant to chose another option due to not wanting family to have to travel but after discussing further with SW was willing to give choice of [facility]. SW explained will still leave [facility] as option and wait for determination but a back up plan needs to be in place. Pt agreeable to this. SW updated d/c machine assistant, Rosibel of pt choice and requested Rosibel send updated referral to [facility]. PLAN: [facility] vs. [facility], pending acceptance and precert NEELAM Shearer Original Note: Social Work Message received from [facility] via [facility]: We are working on Financial Review right now. Our manager business and [facility] is down. We are actively working to resolve both issues. PLAN: [facility], pending acceptance and precert NEELAM Shearer
--- NOTE | 2022-08-04 08:10 | PN.HOSP_ITS ---
Reason for Visit Reason for Visit: Diagnoses Hypokalemia (08/01/22) Hypoxemia (08/01/22) Other malaise (08/01/22) Subjective Subjective Fever last night up to 39.5. Resolved, then again today 38.6 Objective Data Objective Data Vital Signs: Vital Signs Temp Pulse Resp BP Pulse Ox O2 Del Method O2 Flow Rate 36.3 C L 60 16 145/69 H 98 Nasal Cannula 2 08/04/22 02:45 08/04/22 02:45 08/04/22 02:45 08/04/22 02:45 08/04/22 03:24 08/04/22 03:32 08/04/22 03:32 Oxygen Flow Rate (L/min) 2 Oxygen Delivery Method Nasal Cannula Weight: 79.379 kg Body Mass Index (BMI) 30.9 Intake & Output: Intake and Output for Last 24 Hours 08/02/22 08/03/22 08/04/22 23:59 23:59 23:59 Intake Total 1000 / 1000 1400 / 1600 200 / 200 Output Total 2150 / 2150 1300 / 1600 300 / 300 Balance -1150 / -1150 100 / 0 -100 / -100 Lab / Micro Data Result Diagrams: 08/01/22 05:10 08/02/22 05:34 Labs: Laboratory Results - last 24 hr 08/03/22 11:29: POC Glucose 138 H 08/03/22 16:37: POC Glucose 145 H 08/03/22 18:58: Urine Color Yellow, Urine Clarity Sl. Cloudy, Urine pH 8.0, Ur Specific [place] 1.010, Urine Protein 30 H, Urine Glucose (UA) 50 H, Urine Ketones Negative, Urine Occult Blood 10 H, Urine Nitrite Positive H, Urine Bilirubin Negative, Urine Urobilinogen Normal, Ur Leukocyte Esterase Negative 08/03/22 22:10: POC Glucose 151 H 08/04/22 06:10: POC Glucose 120 H Micro: Microbiology 08/03/22 19:00 Mucosa - Nasopharyngeal Respiratory Panel (PCR) - Final 08/03/22 17:55 Nasal Secretion SARS-CoV-2 Antigen (Rapid) - Final Rhythm Strip Rhythm Strip: Sinus Rhythm Rate: 65 Ectopy: None Physical Exam Const alert and no apparent distress HEENT head/scalp atraumatic and moist oral mucous membranes Resp normal respiratory effort, no retractions, no use of accessory muscles and clear to auscultation bilaterally Cardio regular rate, regular rhythm, S1 normal heart sound and S2 normal heart sound GI normal to inspection, nondistended, normoactive bowel sounds, soft to palpation, non-tender and non-distended Assessment & Plan Assessment/Plan (1) Hypoxia: PLAN: Resolved. Place back on oxygen, but again discontinued. Unclear etiology. (2) Acute hypokalemia: PLAN: secondary to use of furosemide as an outpatient Resolved with potassium supplementation will be given, Furosemide on hold as pt takes furosemide for foot and ankle edema, she denies any history of congestive heart failure. (3) Debility: PLAN: generalized debility-secondary to multiple medical problems including degenerative disc disease of the lumbar spine, deconditioning, and osteoarthritis-patient will be seen by PT and OT, I told the patient that she may have to consider going into a snf facility for short-term rehab services, Pt was max assist with sitting up and still required assistance with other activities. 08/02: I recommended SNF. Pt reluctantly agreed. (4) Fever: PLAN: Transient. UA, COVID 19, resp panel negative. PLAN: Plan Chronic conditions: * fibromyalgia-patient does take gabapentin, I have elected not to taper the dose at this time, I do not think it is causing her weakness. * history of meningioma-patient's CT today showed an abnormality that raise the possibility of normal pressure hydrocephalus, patient does have urinary incontinence but she has had it for over 5 years, patient does not know why she is unsteady on her feet but denies any overt dizziness or lightheadedness- patient's daughter who is present at the time of my examination states that the patient leans to her side when she walks at times. Patient follows up with a neurosurgeon in [place], the last MRI that she had performed was last September 2021. MRI shows stability. Pt has seen Dr. Larry for meningioma. Disposition: to SNF pending insurance authorization. Charges/Coding Visit Charges Inpatient E&M: 52579 Subs Hosp L2
[2022-08-04] MEDS: amLODIPine 10 MG Tablet PO ×2 (08:36)
[2022-08-04] MEDS: Atenolol 50 MG Tablet PO ×2 (08:36→21:10)
[2022-08-04] MEDS: Digoxin 250 MCG Tablet PO (08:36)
[2022-08-04] MEDS: Heparin Injection (Vial) 5,000 UNIT/ML VIAL 5000 UNIT SC ×2 (08:36→20:54)
[2022-08-04] MEDS: Losartan Potassium 25 MG Tablet PO (08:37)
[2022-08-04] MEDS: Gabapentin 300 MG Capsule PO ×2 (08:39→20:54)
--- NOTE | 2022-08-04 10:27 | CASEMGMT ---
New referal sent to [facility] per patient request. Rosibel Patel
--- NOTE | 2022-08-04 10:50 | CASEMGMT ---
[facility] declined. Out of network. Rosibel Patel
--- NOTE | 2022-08-04 10:59 | CM.UR ---
Discharge Planning [facility] declined d/t out of network. Rosibel Patel
[2022-08-04] MEDS: Insulin Lispro 100 UNIT/ML INSULN.PEN SC ×2 (12:10→20:59)
[2022-08-04] MEDS: Acetaminophen 325 MG Tablet 650 MG PO ×2 (14:31→20:55)
--- NOTE | 2022-08-04 15:23 | CASEMGMT ---
Discharge Planning [facility] received referral and clinical team is reviewing. Rosibel Patel
[2022-08-04 17:05] LABS: Bedside Glucose 118 mg/dL (74-106)
[2022-08-04 17:45] LABS: Bedside Glucose 186 mg/dL (74-106)
[2022-08-04] MEDS: Amitriptyline 25 MG Tablet PO (20:54)
[2022-08-04] MEDS: MELATONIN 3 MG TABLET PO (20:54)
[2022-08-04] MEDS: Pravastatin 80 MG Tablet PO (20:54)
--- NOTE | 2022-08-04 21:56 | PCM.HOSP.N ---
Hospitalist Note Patient with chronic knee pain. Had vicodin outpatient prior but short regimen. On gabapentin. Will given x 1 low dose oxycodone per patient and family request and will then start compounded OA cream.
[2022-08-04 22:06] LABS: Bedside Glucose 173 mg/dL (74-106)
[2022-08-04] MEDS: Arthritis Pain Compound 60 CLICK TUBE TOPICAL (22:17)
[2022-08-04] MEDS: oxyCODONE 5 MG Tablet PO (22:17)
[2022-08-05] MEDS: Acetaminophen 325 MG Tablet 650 MG PO ×2 (05:25→16:10)
[2022-08-05 05:32] VITALS: BP 130/62; PULSE 66; RESP 16; TEMP 37.5; O2SAT 94
[2022-08-05 06:45] LABS: Bedside Glucose 126 mg/dL (74-106)
--- NOTE | 2022-08-05 07:32 | PN.HOSP_ITS ---
Reason for Visit Reason for Visit: Diagnoses Hypokalemia (08/01/22) Hypoxemia (08/01/22) Fever, unspecified (08/01/22) Other malaise (08/01/22) Subjective Subjective Transient fever. Objective Data Objective Data Vital Signs: Vital Signs Temp Pulse Resp BP Pulse Ox O2 Del Method O2 Flow Rate 37.5 C H 66 16 130/62 H 94 Nasal Cannula 2 08/05/22 05:32 08/05/22 05:32 08/05/22 05:32 08/05/22 05:32 08/05/22 05:32 08/05/22 05:32 08/05/22 05:32 Oxygen Flow Rate (L/min) 2 Oxygen Delivery Method Nasal Cannula Weight: 79.379 kg Body Mass Index (BMI) 30.9 Intake & Output: Intake and Output for Last 24 Hours 08/03/22 08/04/22 08/05/22 23:59 23:59 23:59 Intake Total 1400 / 1600 820 / 820 Output Total 1300 / 1600 300 / 300 775 / 775 Balance 100 / 0 520 / 520 -775 / -775 Lab / Micro Data Result Diagrams: 08/01/22 05:10 08/02/22 05:34 Labs: Laboratory Results - last 24 hr 08/04/22 11:29: POC Glucose 186 H 08/04/22 16:43: POC Glucose 118 H 08/04/22 20:57: POC Glucose 173 H 08/05/22 06:25: POC Glucose 126 H Micro: Microbiology 08/03/22 19:00 Mucosa - Nasopharyngeal Respiratory Panel (PCR) - Final 08/03/22 17:55 Nasal Secretion SARS-CoV-2 Antigen (Rapid) - Final Rhythm Strip Rhythm Strip: Sinus Rhythm Rate: 65 Ectopy: None Physical Exam Const alert and no apparent distress HEENT head/scalp atraumatic and moist oral mucous membranes Resp normal respiratory effort, no retractions, no use of accessory muscles and clear to auscultation bilaterally Cardio regular rate, regular rhythm, S1 normal heart sound and S2 normal heart sound GI normal to inspection, nondistended, normoactive bowel sounds, soft to palpation, non-tender and non-distended Extremity normal to inspection Assessment & Plan Assessment/Plan (1) Hypoxia: PLAN: Resolved. Place back on oxygen, but again discontinued. Unclear etiology. (2) Acute hypokalemia: PLAN: secondary to use of furosemide as an outpatient Resolved with potassium supplementation will be given, Furosemide on hold as pt takes furosemide for foot and ankle edema, she denies any history of congestive heart failure. (3) Debility: PLAN: generalized debility-secondary to multiple medical problems including degenerative disc disease of the lumbar spine, deconditioning, and osteoarthritis-patient will be seen by PT and OT, I told the patient that she may have to consider going into a custodial facility for short-term rehab services, Pt was max assist with sitting up and still required assistance with other activities. 08/02: I recommended SNF. Pt reluctantly agreed. (4) Fever: PLAN: Transient. UA, COVID 19, resp panel negative. CXR negative on the PLAN: Plan Chronic conditions: * fibromyalgia-patient does take gabapentin, I have elected not to taper the dose at this time, I do not think it is causing her weakness. * history of meningioma-patient's CT today showed an abnormality that raise the possibility of normal pressure hydrocephalus, patient does have urinary incontinence but she has had it for over 5 years, patient does not know why she is unsteady on her feet but denies any overt dizziness or lightheadedness- patient's daughter who is present at the time of my examination states that the patient leans to her side when she walks at times. Patient follows up with a neurosurgeon in [place], the last MRI that she had performed was last September 2021. MRI shows stability. Pt has seen Dr. Larry for meningioma. Disposition: to SNF pending insurance authorization. Declined by [facility]. Charges/Coding Visit Charges Inpatient E&M: 69416 Subs Hosp L2
[2022-08-05 08:52] VITALS: BP 116/61; PULSE 58; RESP 16; TEMP 36.3; O2SAT 96
--- NOTE | 2022-08-05 08:56 | CASEMGMT ---
Social work NIRALI spoke to Silvina at [facility] via PC. Silvina informed had received an email from billing that states pt's insurance, [employer], is NOT in network. NIRALI shared [facility] is listed as an in network provider. Silvina stated unable to accept pt at this time as [facility] cannot confirm insurance will be accepted. NEELAM Shearer
[2022-08-05] MEDS: Arthritis Pain Compound 60 CLICK TUBE TOPICAL (09:45)
[2022-08-05] MEDS: Losartan Potassium 25 MG Tablet PO (09:45)
[2022-08-05] MEDS: Heparin Injection (Vial) 5,000 UNIT/ML VIAL 5000 UNIT SC (09:46)
[2022-08-05] MEDS: Digoxin 250 MCG Tablet PO (09:47)
[2022-08-05] MEDS: Gabapentin 300 MG Capsule PO (09:53)
[2022-08-05 11:06] VITALS: O2SAT 94
[2022-08-05 11:21] LABS: Bedside Glucose 149 mg/dL (74-106)
--- NOTE | 2022-08-05 11:45 | CASEMGMT ---
Social Work [facility] declined to take pt. SW in to pt room to discuss and follow up on next choices. Pt wishes to remain in [place] area. Next choices would be [facility] then [facility]. NIRALI updated d/c orthodontic technician assistant, Rosibel. Rosibel to send referral to [facility]. PLAN: [facility], pending acceptance and precert. NEELAM Shearer
--- NOTE | 2022-08-05 11:47 | CASEMGMT ---
Discharge Planning Referral sent to [facility] per patients request. Rosibel Patel
[2022-08-05 13:01] VITALS: BP 132/50; PULSE 57; RESP 16; TEMP 37.2; O2SAT 97
--- NOTE | 2022-08-05 13:09 | CASEMGMT ---
Addendum entered by Alyssa Cuello 08/05/22 16:15: Rosibel, D/c assistant men's lacrosse coach set up cot transport for pt for 7pm. Addendum entered by Alyssa Cuello 08/05/22 15:44: PASRR completed in [facility]. NIRALI sent all discharge orders (except Covid result- still pending) to [facility] via [facility]. Notified front office secretary will set up transport when covid is back and will notify of time then. NIRALI made copies of discharge orders (except covid result) to place on pt chart and put originals in envelope to go with pt.??NIRALI provided Unit Sec. with [facility] outlining need to add covid and set up transport when covid result is back. ?? Disposition: [facility], skilled, convalescent level of care? NEELAM Shearer? Addendum entered by Alyssa Cuello 08/05/22 15:29: [facility] sent approval for pt. Auth Number [id number] Valid 08/05/22-08/09/2022 MD Ngo notified that precert has been obtained. NIRALI also sent copy of Auth letter to [facility] Via [facility]. NIRALI notified pt of approval and pending discharge. Pt voiced understanding. NIRALI called pt daughter, Nanci, notified of d/c plan. Nanci voiced understanding. Stated would call rest of family to inform of plan. NEELAM Shearer Original Note: [facility] has accepted pt. NIRALI informed pt that [facility] has accepted and next steps would be obtaining insurance authorization. Pt voiced understanding. NIRALI called [facility] to begin precert. Case number: [id number] NIRALI faxed all requested information to [facility] at this time. PLAN: [facility], pending precert NEELAM Shearer
--- NOTE | 2022-08-05 15:29 | TREXTCAR_ITS ---
Diet Diet Order/Speech Therapy: 08/01/22 14:57 Diet: Consistent Carb - Calorie Controlled Food consistency:: Regular Liquid Consistency:: Regular/Thin Is pt able to select menu?: No How many daily calories?: 1800 calorie Routine Orders/Code Status Code Status: Full Code Therapies Physical Therapy: Eval and Treat Occupational Therapy: Eval and Treat Problem/Diagnosis (1) Hypoxia: Status: Acute Code(s): R09.02 - Hypoxemia Plan: Resolved. Place back on oxygen, but again discontinued. Unclear etiology. (2) Acute hypokalemia: Status: Acute Code(s): E87.6 - Hypokalemia Plan: secondary to use of furosemide as an outpatient Resolved with potassium supplementation will be given, Furosemide on hold as pt takes furosemide for foot and ankle edema, she denies any history of congestive heart failure. (3) Debility: Status: Acute Code(s): R53.81 - Other malaise Plan: generalized debility-secondary to multiple medical problems including degenerative disc disease of the lumbar spine, deconditioning, and osteoarthritis-patient will be seen by PT and OT, I told the patient that she may have to consider going into a group home facility for short-term rehab services, Pt was max assist with sitting up and still required assistance with other activities. 08/02: I recommended SNF. Pt reluctantly agreed. (4) Fever: Status: Acute Code(s): R50.9 - Fever, unspecified Plan: Transient. UA, COVID 19, resp panel negative. CXR negative on the 16th Plan Chronic conditions: * fibromyalgia-patient does take gabapentin, I have elected not to taper the dose at this time, I do not think it is causing her weakness. * history of meningioma-patient's CT today showed an abnormality that raise the possibility of normal pressure hydrocephalus, patient does have urinary incontinence but she has had it for over 5 years, patient does not know why she is unsteady on her feet but denies any overt dizziness or lightheadedness- patient's daughter who is present at the time of my examination states that the patient leans to her side when she walks at times. Patient follows up with a neurosurgeon in [place], the last MRI that she had performed was last September 2021. MRI shows stability. Pt has seen Dr. Larry for meningioma. Disposition: to SNF pending insurance authorization. Declined by [facility]. Allergies/Procedures Done in Hospital Allergies lisinopril Adverse Reaction (Severe, Verified 05/15/22 11:49) Intolerence, cough nalbuphine HCl [From Nubain] Adverse Reaction (Verified 05/15/22 11:49) Nausea/Vom/Diarrhea Procedures: None Type of Care/Length of Stay Estimated LOS: Convalescent Care Less Than 30 days Type of Care Needed: Skilled Rehab Potential: Good Prognosis: Good Additional Orders/Day of Discharge Day of Discharge: 08/05/22 Dietary and Speech Recommendations Dietitian Recommendations/Changes: Will continue 1800 laura Consistent CHO diet as ordered Will order 4 oz glucerna shake 4x/day w/ medpass for increased laura/pro if consumed Will interview pt at time of follow up re: diet/wt hx, etc and make additional rec as indicated. Discharge Plan Admission Admit Date/Time: 08/01/22 14:46 Primary Reason for Your Visit: hypokalemia. Attending Provider: Tiburcio Ngo Primary Care Provider: Rebecca Lewis Consulting Providers: Sridhar Gar Discharge Orders/Prescriptions Prescriptions: New acetaminophen 325 mg Tablet 650 mg PO Q4H PRN PRN (Reason: Pain 1-10 Or Fever) Qty: 0 0RF insulin lispro [Humalog KwikPen Insulin] 100 unit/mL Insulin Pen See Protocol subcut ACHS Qty: 0 0RF Protocol: 4. Sliding Scale Insulin High-Med Dosing Condition: 150-199 mg/dl = 2 units Condition: 200-259 mg/dl = 4 units Condition: 260-324 mg/dl = 6 units Condition: 325-374 mg/dl = 8 units Condition: 375-409 mg/dl = 10 units Condition: 410-449 mg/dl = 11 units Condition: Greater than 449 call physician Protocol Text: - Use for Total Daily Dose of Insulin 56-80 units - Patient who are insulin resistant or septic HIGH MEDIUM DOSING ALGORITHM Glucerna 1.2 Laura 0.06-1.2 gram-kcal/mL Liquid 120 ml PO 4X/DAY Qty: 0 0RF Continued pravastatin 80 mg tablet 80 mg PO QDAY atenolol 100 mg tablet 50 mg PO BID amlodipine 10 mg tablet 10 mg PO DAILY gabapentin 300 MG capsule 300 mg PO BID Label Comments: NERVE PAIN digoxin 250 MCG tablet 250 mcg PO DAILY metformin 500 mg tablet 500 mg PO BID cholecalciferol (vitamin D3) [Vitamin D3] 25 mcg (1,000 unit) Tablet 25 mcg PO DAILY furosemide 20 mg tablet 20 mg PO BID losartan 25 mg tablet 25 mg PO DAILY meclizine 12.5 mg Tablet 12.5 mg PO TID PRN (Reason: Dizziness) amitriptyline 25 mg Tablet 25 mg PO QHS Referrals / Follow Up: Rebecca Lewis MD [Primary Care Provider] - Within 2 Weeks Disposition Disposition (needs filled in before D/C Order can be placed): Assisted Facility
--- NOTE | 2022-08-05 15:33 | DS.PCM_ITS ---
Providers Date of Admission: 08/01/22 Primary Care Physician: Dr. Rebecca Lewis MD Reason For Visit: HYPOKALEMIA, HYPOXIA Diagnosis Discharge Diagnosis (1) Hypoxia: Status: Acute Code(s): R09.02 - Hypoxemia Plan: Resolved. Place back on oxygen, but again discontinued. Unclear etiology. (2) Acute hypokalemia: Status: Acute Code(s): E87.6 - Hypokalemia Plan: secondary to use of furosemide as an outpatient Resolved with potassium supplementation will be given, Furosemide on hold as pt takes furosemide for foot and ankle edema, she denies any history of congestive heart failure. (3) Debility: Status: Acute Code(s): R53.81 - Other malaise Plan: generalized debility-secondary to multiple medical problems including degenerative disc disease of the lumbar spine, deconditioning, and osteoarthritis-patient will be seen by PT and OT, I told the patient that she may have to consider going into a group home facility for short-term rehab services, Pt was max assist with sitting up and still required assistance with other activities. 08/02: I recommended SNF. Pt reluctantly agreed. (4) Fever: Status: Acute Code(s): R50.9 - Fever, unspecified Plan: Transient. UA, COVID 19, resp panel negative. CXR negative on the 16th Plan Chronic conditions: * fibromyalgia-patient does take gabapentin, I have elected not to taper the dose at this time, I do not think it is causing her weakness. * history of meningioma-patient's CT today showed an abnormality that raise the possibility of normal pressure hydrocephalus, patient does have urinary incontinence but she has had it for over 5 years, patient does not know why she is unsteady on her feet but denies any overt dizziness or lightheadedness- patient's daughter who is present at the time of my examination states that the patient leans to her side when she walks at times. Patient follows up with a neurosurgeon in [place], the last MRI that she had performed was last September 2021. MRI shows stability. Pt has seen Dr. Larry for meningioma. Disposition: to SNF pending insurance authorization. Declined by Opal. Medications at Discharge Home Medications gabapentin 300 mg capsule 300 mg PO BID Check with primary doctor 02/22/13 digoxin 250 mcg (0.25 mg) tablet 250 mcg PO DAILY HEART 02/01/14 pravastatin 80 mg tablet 80 mg PO QDAY CHOLESTEROL 11/22/17 atenolol 100 mg tablet 50 mg PO BID BP 03/28/19 metformin 500 mg tablet 500 mg PO BID DIABETES 12/02/20 cholecalciferol (vitamin D3) 25 mcg (1,000 unit) tablet (Vitamin D3) 25 mcg PO DAILY SUPPLEMENT 05/12/21 furosemide 20 mg tablet 20 mg PO BID WATER PILL 05/12/21 amlodipine 10 mg tablet 10 mg PO DAILY 05/20/21 amitriptyline 25 mg tablet 25 mg PO QHS sleep 08/01/22 losartan 25 mg tablet 25 mg PO DAILY HTN 08/01/22 meclizine 12.5 mg tablet 12.5 mg PO TID PRN Dizziness 08/01/22 acetaminophen 325 mg tablet 650 mg PO Q4H PRN PRN Pain 1-10 Or Fever #0 tabs 08/05/22 insulin lispro 100 unit/mL subcutaneous pen (Humalog KwikPen (U-100) Insulin) See Protocol subcut ACHS #0 mL 08/05/22 nutrition tx glu intol,lac-free,soy-fiber 0.06 gram-1.2 kcal/mL liquid (Glucerna 1.2 Donald) 120 ml PO 4X/DAY #0 mL 08/05/22 Hospital Course Operations None Procedures None Summary of Care Provided Minutes Spent on Discharge: 33 Weight / BMI Weight Weight: 79.379 kg Body Mass Index (BMI) 30.9 ABG / Lab / Microbiology Data Result Diagrams: 08/01/22 05:10 08/02/22 05:34 Laboratory: Laboratory Results - last 24 hr 08/04/22 11:29: POC Glucose 186 H 08/04/22 16:43: POC Glucose 118 H 08/04/22 20:57: POC Glucose 173 H 08/05/22 06:25: POC Glucose 126 H 08/05/22 10:56: POC Glucose 149 H Microbiology: Microbiology 08/03/22 18:58 Urine, Clean Catch Urine Culture - Final Culture exhibits no growth. 08/03/22 19:00 Mucosa - Nasopharyngeal Respiratory Panel (PCR) - Final 08/03/22 17:55 Nasal Secretion SARS-CoV-2 Antigen (Rapid) - Final Meaningful Use Info Meaningful Use Diagnoses (Choose all that apply): None applicable Discharge Plan Admission Admit Date/Time: 08/01/22 14:46 Primary Reason for Your Visit: hypokalemia. Attending Provider: Tiburcio Ngo Primary Care Provider: Rebecca Leiws Consulting Providers: Sridhar Gar Discharge Orders/Prescriptions Prescriptions: New acetaminophen 325 mg Tablet 650 mg PO Q4H PRN PRN (Reason: Pain 1-10 Or Fever) Qty: 0 0RF insulin lispro [Humalog KwikPen Insulin] 100 unit/mL Insulin Pen See Protocol subcut ACHS Qty: 0 0RF Protocol: 4. Sliding Scale Insulin High-Med Dosing Condition: 150-199 mg/dl = 2 units Condition: 200-259 mg/dl = 4 units Condition: 260-324 mg/dl = 6 units Condition: 325-374 mg/dl = 8 units Condition: 375-409 mg/dl = 10 units Condition: 410-449 mg/dl = 11 units Condition: Greater than 449 call physician Protocol Text: - Use for Total Daily Dose of Insulin 56-80 units - Patient who are insulin resistant or septic HIGH MEDIUM DOSING ALGORITHM Glucerna 1.2 Donald 0.06-1.2 gram-kcal/mL Liquid 120 ml PO 4X/DAY Qty: 0 0RF Continued pravastatin 80 mg tablet 80 mg PO QDAY atenolol 100 mg tablet 50 mg PO BID amlodipine 10 mg tablet 10 mg PO DAILY gabapentin 300 MG capsule 300 mg PO BID Label Comments: NERVE PAIN digoxin 250 MCG tablet 250 mcg PO DAILY metformin 500 mg tablet 500 mg PO BID cholecalciferol (vitamin D3) [Vitamin D3] 25 mcg (1,000 unit) Tablet 25 mcg PO DAILY furosemide 20 mg tablet 20 mg PO BID losartan 25 mg tablet 25 mg PO DAILY meclizine 12.5 mg Tablet 12.5 mg PO TID PRN (Reason: Dizziness) amitriptyline 25 mg Tablet 25 mg PO QHS Referrals / Follow Up: Rebecca Lewis MD [Primary Care Provider] - Within 2 Weeks Disposition Disposition (needs filled in before D/C Order can be placed): Detention Facility Charges/Coding Visit Charges Inpatient E&M: 27144 Disch Hosp >30min
[2022-08-05 16:15] VITALS: O2SAT 88
[2022-08-05 16:20] VITALS: BP 143/71; PULSE 89; RESP 18; TEMP 37.8; O2SAT 94
[2022-08-05 16:35] LABS: Bedside Glucose 98 mg/dL (74-106)
== END 2022-08-05 19:17 | disposition skilled nursing facility (03) ==
LOC: ED 12:21 → MS3 13:24
PROVIDERS: Admitting Provider Internal Medicine; Emergency Provider Emergency Medicine; PCP Internal Medicine
DX: E87.6 Hypokalemia (principal); E11.42 Type 2 diabetes mellitus with diabetic polyneuropathy; I71.21 Aneurysm of the ascending aorta, without rupture; R53.1 Weakness; Z79.84 Long term (current) use of oral hypoglycemic drugs; E78.5 Hyperlipidemia, unspecified; R09.02 Hypoxemia; G89.29 Other chronic pain; I10 Essential (primary) hypertension; R53.81 Other malaise; Z87.891 Personal history of nicotine dependence; Z79.899 Other long term (current) drug therapy; K21.9 Gastro-esophageal reflux disease without esophagitis; T50.1X5A Adverse effect of loop [high-ceiling] diuretics, initial encounter; M79.7 Fibromyalgia; S70.11XA Contusion of right thigh, initial encounter; W19.XXXA Unspecified fall, initial encounter; Z86.011 Personal history of benign neoplasm of the brain
CPT/HCPCS: 36415; 70450; 70553; 71045; 71275; 80048; 80162; 81001; 81002; 82962; 83036; 83735; 85025; 87086; 87633; 87811; 93005; 96365; 96366; 96372; 97110; 97162; 97166; 97530; 97535; 97802; 99221; 99285; A9575; J7030; Q9967; A4216; G0378

== ENCOUNTER 2022-08-20 09:03 | Inpatient (IN) | payer MEDICARE, SELFPAY ==
[2022-08-20] VITALS (13 sets, daily range): BP systolic 107–155; BP diastolic 59–81; PULSE 65–89; RESP 16–28; TEMP 36.6–37.6; O2SAT 73–97; BMI 30.4; BMI 28.8
--- NOTE | 2022-08-20 09:21 | EDS_ITS ---
HPI History of Present Illness HPI Narrative: Presents with bilateral ankle pain that has been constant since yesterday. Patient states she has had pain in her ankles over the last 8 to 9 years. Patient denies any trauma or injury. Patient states the pain came on gradually. Patient states the pain has been constant. Patient describes her pain as sharp. Patient states pain is worse with any movement. Patient denies any paresthesias or weakness. Patient was recently discharged from the [facility] after rehab from a total knee replacement. Patient states she was diagnosed with pneumonia there and is currently on home oxygen. Patient states that this was started while she was at the intermediate. Patient denies any fevers or chills. Patient denies any shortness of breath. Chief Complaint: Lower Extremity Injury Onset/Context/Timing Onset: Yesterday Context: Gradual Onset Timing: Continuous Quality of Pain: Sharp Location: Bilateral ankles Worsened by: Movement Relieved by: Nothing Associated Symptoms Associated Symptoms: Negative for Parasthesia, Weakness or Loss of Funtion PFSH [facility] Medical History Chronic pain Diabetes Dysmetabolic syndrome Dyspnea on exertion Essential hypertension Former smoker GERD (gastroesophageal reflux disease) Greater trochanteric bursitis of right hip History of kidney stones Hyperlipidemia Meningioma Nonrheumatic aortic (valve) insufficiency Osteoarthritis of right hip Paroxysmal atrial tachycardia Peripheral neuropathy Thoracic aortic aneurysm without rupture Home Medications gabapentin 300 mg capsule 300 mg PO BID Check with primary doctor 02/22/13 [History Last Taken 07/31/22] digoxin 250 mcg (0.25 mg) tablet 250 mcg PO DAILY HEART 02/01/14 [History Last Taken 07/31/22] pravastatin 80 mg tablet 80 mg PO QDAY CHOLESTEROL 11/22/17 [History Last Taken 07/31/22] atenolol 100 mg tablet 50 mg PO BID BP 03/28/19 [History Last Taken 07/31/22] metformin 500 mg tablet 500 mg PO BID DIABETES 12/02/20 [History Last Taken 07/31/22] cholecalciferol (vitamin D3) 25 mcg (1,000 unit) tablet (Vitamin D3) 25 mcg PO DAILY SUPPLEMENT 05/12/21 [History Last Taken 07/31/22] amlodipine 10 mg tablet 10 mg PO DAILY 05/20/21 [History Last Taken 07/31/22] amitriptyline 25 mg tablet 25 mg PO QHS sleep 08/01/22 [History Last Taken Unknown] losartan 25 mg tablet 25 mg PO DAILY HTN 08/01/22 [History Last Taken 07/31/22] acetaminophen 325 mg tablet 650 mg PO Q4H PRN PRN Pain 1-10 Or Fever #0 tabs 08/05/22 [Rx Last Taken Unknown] Allergy/AdvReac Type Severity Reaction Status Date / Time lisinopril AdvReac Severe Intolerence, Verified 08/20/22 09:06 cough nalbuphine HCl [From Nubain] AdvReac Nausea/Vom/ Verified 08/20/22 09:06 Diarrhea Family History Father CAD (coronary artery disease) Myocardial infarction, Onset Age: 51 Brother Myocardial infarction, Onset Age: 51 Brother CAD (coronary artery disease) Hx of CABG Sister Heart disease COPD (chronic obstructive pulmonary disease) Sister CVA (cerebral vascular accident) Surgical History History of arthroscopy of right shoulder History of back surgery History of elbow surgery History of hand surgery History of hemorrhoidectomy (~11/2021) History of hysterectomy History of knee replacement procedure of right knee History of knee surgery Hx of cardiac cath Status post trigger finger release Social History household members: none Smoking Status: Former smoker how long ago did patient quit smokin years ago alcohol intake: never substance use type: does not use caffeine: No ROS ROS ED Constitutional Constitutional ED: Denies chills or fever(s) Eyes Eyes: Denies blurry vision or change in vision ENT ENT ED: Denies rhinorrhea or sore throat Cardiovascular Cardiovascular: Denies chest pain or palpitations Respiratory/Chest Respiratory/Chest: Reports cough; Denies dyspnea Gastrointestinal Gastrointestinal: Denies nausea or vomiting Genitourinary Genitourinary ED: Denies dysuria or hematuria Musculoskeletal Musculoskeletal: Denies back pain or neck pain Integumentary Denies abscess or rash Neurologic Neurologic: Denies headache(s) or weakness Allergic/Immunologic Allergic/Immunologic ED: Denies mouth swelling or urticaria EXAM Physical Exam Const Vital Signs: 08/20/22 09:06 08/20/22 10:48 08/20/22 10:48 Temperature 98.8 F 99.6 F H Temperature Source Temporal Oral Pulse Rate 89 80 Respiratory Rate 16 18 Blood Pressure 155/77 H 107/74 Blood Pressure Mean 103 85 Pulse Ox 92 73 92 Oxygen Delivery Method Room Air Room Air Nasal Cannula Oxygen Flow Rate (L/min) 4 08/20/22 11:32 08/20/22 11:33 08/20/22 12:31 Temperature Temperature Source Pulse Rate 81 81 Respiratory Rate 20 H 28 H Blood Pressure 147/59 H 149/71 H Blood Pressure Mean 88 97 Pulse Ox 88 91 93 Oxygen Delivery Method Nasal Cannula Nasal Cannula Nasal Cannula Oxygen Flow Rate (L/min) 4 4.5 4.5 Positive well nourished and well developed General Appearance ED: well developed HEENT Reports moist mucous membranes Neck supple and no JVD Resp normal respiratory effort and clear to auscultation bilaterally Cardio regular rate and regular rhythm GI normal to inspection, nondistended, normoactive bowel sounds and non-tender Palpation: soft Extremity normal to inspection Extremity Narrative: There is tenderness and mild edema of the bilateral ankles, worse on the left. There is no ecchymosis. There is no bony crepitance, step-off, or deformity noted. Range of motion was limited in all motions of the ankles bilaterally secondary to pain. Pedal pulses are equal bilaterally. Sensation was intact to light touch in all digits. Capillary refill was less than 2 seconds in all digits. There is no calf tenderness.. Lower extremity compartments are soft. There is no erythema or warmth. General Extremety ED: Negative for edema or tenderness General Extremity: Negative for edema Neuro oriented x3, CN's II-XII intact bilaterally and no sensory deficits noted Sensorium / Orientation: alert Motor Exam: strength 5/5 throughout Psych mental status grossly normal Skin no rashes or lesions noted MDM MDM MDM Narrative Medical decision making narrative: Differential diagnosis includes arthritis, bursitis, chronic pain, electrolyte abnormality, and occult fracture. CBC will be obtained to assess for leukocytosis and anemia. Basic metabolic profile will be obtained to assess for electrolyte abnormality and renal function. Sed rate and CRP will be obtained to assess for inflammatory markers. X-rays of the ankles will be obtained to assess for fracture. Lab Data Attestation: I reviewed the patient's lab results. Lab results narrative: CBC was reviewed. There is a mild leukocytosis of 15.7. Basic metabolic profile was reviewed. This was essentially within normal limits. Sed rate was reviewed and was elevated at 99. C-reactive protein was reviewed and was elevated at 103. Urinalysis was reviewed. There are positive nitrites but leukocyte esterase was 25. There is 0-5 white blood cells. There is 3+ bacteria. There are 0-5 epithelial cells. Urine culture was ordered. Labs: Laboratory Results - last 24 hr 08/20/22 08/20/22 08/20/22 09:50 09:50 10:30 WBC 15.7 H RBC 4.49 Hgb 13.0 Hct 41.4 MCV 92.2 MCH 29.0 MCHC 31.4 L RDW Std Deviation 46.8 H RDW Coeff of Patti 13.8 Plt Count 296 MPV 9.7 Immature Gran % (Auto) 0.500 Neut % (Auto) 78.4 H Lymph % (Auto) 10.6 L [place] % (Auto) 9.2 Eos % (Auto) 0.8 Baso % (Auto) 0.5 Absolute Neuts (auto) 12.3 H Absolute Lymphs (auto) 1.67 Nucleated RBC % 0 ESR 99 H Sodium 140 Potassium 3.9 Chloride 104 Carbon Dioxide 27.0 Anion Gap 9 BUN 14 Creatinine 0.76 Estim Creat Clear Calc 39.59 Est GFR (MDRD) Af Amer 95 Est GFR (MDRD) Non-Af 78 BUN/Creatinine Ratio 18.3 Glucose 121 H Calcium 10.3 H C-React Prot Ext Range 103.00 H Urine Color Yellow Urine Clarity Sl. Cloudy Urine pH 6.0 Ur Specific [place] 1.020 Urine Protein 30 H Urine Glucose (UA) Normal Urine Ketones Negative Urine Occult Blood 25 H Urine Nitrite Positive H Urine Bilirubin Negative Urine Urobilinogen 1 H Ur Leukocyte Esterase 25 H Urine RBC 0-5 SEEN Urine WBC 0-5 SEEN Ur Squamous Epith Cells 0-5 SEEN Ur Transition Epith Cell 0-5 SEEN Urine Bacteria 3+ Urine Mucus 0 SEEN Radiography Diagnostic Testing: Clinical Impression(s) from Imaging Studies Ankle X-Ray 08/20/22 09:44 IMPRESSION: Diffuse soft tissue swelling. Electronically Signed: Job Mcguire MD at 10:35 EDT , Chest X-Ray 08/20/22 10:03 IMPRESSION: Increased markings are seen in the right lower lobe. Follow-up is recommended. Electronically Signed: Job Mcguire MD at 10:37 EDT , Ankle X-Ray 08/20/22 10:10 IMPRESSION: Diffuse soft tissue swelling. Small plantar calcaneal spur. Electronically Signed: Job Mcguire MD at 10:36 EDT , X-rays of the right ankle were obtained. There are 3 views. On my independent interpretation, there is no acute fracture. There is no dislocation. There is some soft tissue swelling noted. Radiologist also interpreted the x-rays and agrees. X-rays of the left ankle were obtained. There are 3 views. On my independent interpretation, there is no acute fracture or dislocation. There is some soft tissue swelling noted. Radiologist also interpreted the x-rays and agrees. Chest x-ray was obtained. There is 1 view. On my interpretation, there are increased markings in the right lower lobe. Patient does have a history of recent pneumonia. Radiologist also interpreted the x-rays and agrees. Management Discussion w/another healthcare provider: Hospitalist and table worker packager/Case management Treatment and Re-Evaluation Narrative: IV line was established. Patient was given dose of morphine and Zofran. Patient was given a dose of prednisone here. Patient was also given a dose of Rocephin and Zithromax for her pneumonia. Patient was unable to ambulate. table worker packager was in to evaluate the patient. They are unable to arrange for home health until next week. Since the patient is unable to ambulate, she will require admission and possible intermediate placement. Patient and family understand and are agreeable with the plan. All questions were answered. Discharge Plan Triage Chief Complaint: Lower Extremity Injury ED Provider: Tiburcio Milner Dx/Rx/DC Orders Clinical Impression: Acute bilateral ankle pain, Inability to ambulate due to ankle or foot, Right lower lobe pneumonia Prescriptions: No Action pravastatin 80 mg tablet 80 mg PO QDAY atenolol 100 mg tablet 50 mg PO BID amlodipine 10 mg tablet 10 mg PO DAILY gabapentin 300 MG capsule 300 mg PO BID Label Comments: NERVE PAIN digoxin 250 MCG tablet 250 mcg PO DAILY metformin 500 mg tablet 500 mg PO BID cholecalciferol (vitamin D3) [Vitamin D3] 25 mcg (1,000 unit) Tablet 25 mcg PO DAILY losartan 25 mg tablet 25 mg PO DAILY amitriptyline 25 mg Tablet 25 mg PO QHS acetaminophen 325 mg Tablet 650 mg PO Q4H PRN PRN (Reason: Pain 1-10 Or Fever) Qty: 0 0RF Primary Care Provider: Rebecca Lewis Referrals: Rebecca Lewis MD [Primary Care Provider] - Disposition Disposition: Acute Care Hospital [facility]
--- NOTE | 2022-08-20 09:44 | RAD_ITS ---
STUDY: X-RAY - LEFT ANKLE REASON FOR EXAM: Female, 76 years old. Severe pain. No history of trauma. TECHNIQUE: 3 view(s) of the ankle. COMPARISON: None. FINDINGS: Normal visualized distal tibia and fibula. Normal medial and lateral malleoli. Normal tibiotalar articulation and ankle mortise. Normal visualized talus and calcaneus. The visualized subtalar, talonavicular, calcaneocuboid and tarsal articulations are normal. Diffuse soft tissue swelling. RAD/Ankle min 3 Views IMPRESSION: Diffuse soft tissue swelling. Electronically Signed: Job Mcguire MD at 10:35 EDT ,
[2022-08-20] MEDS: Ondansetron 4 MG/2 ML Vial IV (09:53)
[2022-08-20] MEDS: Morphine 4 MG/ML Syringe IV (09:54)
[2022-08-20 10:00] LABS: Absolute Lymphocyte Count 1.67 X10^3/uL (0.83-4.51); Absolute Neutrophil Count 12.3 X10^3/uL (2.0-7.7); Basophil# 0.08 X10^3/uL; Basophil% 0.5 % (0-1); Eosinophil# 0.12 X10^3/uL; Eosinophils% 0.8 % (0-5); Hematocrit 41.4 % (37-47); Lymphocyte # 1.67 X10^3/ul (0.83-4.51); Lymphocyte % 10.6 % (19-41); Mean Corp Hgb Conc 31.4 g/dL (32-36); Mean Corpuscular Volume 92.2 fL (81-99); Mean Platelet Vol. 9.7 fl (6.2-12.0); Monocyte# 1.44 X10^3/uL; Monocyte% 9.2 % (0-10); NRBC Flagged by Analyzer 0 % (0-5); Neutrophil # 12.33 X10^3/uL (2.7-7.7); Neutrophil % 78.4 % (47-70); Platelet Count 296 K/mm3 (150-450); RBC Distribution Width CV 13.8 % (11.6-14.6); RBC Distribution Width SD 46.8 fl (35.1-43.9); Red Blood Count 4.49 M/mm3 (4.2-5.4); White Blood Count 15.7 K/mm3 (4.4-11.0)
--- NOTE | 2022-08-20 10:03 | RAD_ITS ---
STUDY: X-RAY CHEST REASON FOR EXAM: Female, 76 years old. Pneumonia TECHNIQUE: Single AP portable view of the chest. COMPARISON: Comparison is made with prior examination dated August 01, 2022. FINDINGS: Increased markings in the right lower lobe suggestive of early infiltrate. Follow-up is recommended. There is no demonstrated pleural abnormality. Normal size heart. Normal mediastinum and alfonzo. Normal visualized pulmonary arteries. There is atherosclerotic calcification of the aortic arch with tortuosity. Normal visualized thoracic spine. There has been resection of the lateral aspect of the left clavicle. There is no demonstrated abnormality of the visualized soft tissue structures of the upper abdomen. RAD/Chest 1 View (Portable) IMPRESSION: Increased markings are seen in the right lower lobe. Follow-up is recommended. Electronically Signed: Job Mcguire MD at 10:37 EDT ,
--- NOTE | 2022-08-20 10:10 | RAD_ITS ---
STUDY: X-RAY - RIGHT ANKLE REASON FOR EXAM: Female, 76 years old. Severe pain. No history of trauma. TECHNIQUE: 3 view(s) of the ankle. COMPARISON: None. FINDINGS: Normal visualized distal tibia and fibula. Normal medial and lateral malleoli. Normal tibiotalar articulation and ankle mortise. Small plantar calcaneal spur. The visualized subtalar, talonavicular, calcaneocuboid and tarsal articulations are normal. Diffuse soft tissue swelling. RAD/Ankle min 3 Views IMPRESSION: Diffuse soft tissue swelling. Small plantar calcaneal spur. Electronically Signed: Job Mcguire MD at 10:36 EDT ,
[2022-08-20 10:11] LABS: Erythrocyte Sedimentation Rate 99 mm/hr (0-30)
[2022-08-20 10:13] LABS: Anion Gap 9 (5-15); BUN 14 mg/dL (7-18); BUN/Creat Ratio 18.3 RATIO (10-20); Calcium,Total 10.3 mg/dL (8.5-10.1); Chloride 104 mmol/L (98-107); Creatinine, Serum 0.76 mg/dL (0.55-1.02); EST Glomerular Filtration Rate 78 mL/min (>60); Est Glom Filt Rate - Afr Amer 95 mL/min (>60); Estimated Creatinine Clearance 39.59 ml/min; Glucose 121 mg/dL (74-106); Potassium 3.9 mmol/L (3.5-5.1); Sodium Level 140 mmol/L (136-145)
[2022-08-20 10:47] LABS: Mucous, Urine 0 SEEN /hpf (<or=2+)
[2022-08-20 10:50] LABS: Color, Urine Yellow (Yellow); Glucose, Dipstick Normal (Normal); Ketone-Dipstick Negative (Negative); Leukocyte Esterase-Dipstick 25 /ul (Negative); Nitrite-Dipstick Positive (Negative); Occult Blood-Urine 25 /ul (Negative); Protein-Dipstick 30 mg/dl (Negative); Urine Bilirubin Dipstick Negative (Negative); Urine Clarity Sl. Cloudy (Clear); Urine Urobilinogen 1 mg/dl (Normal)
[2022-08-20 11:07] LABS: Bacteria 3+ /hpf (None Seen); Red Blood Cells-Urine 0-5 SEEN /hpf (0-5); Squamous Epithelial Cells - UA 0-5 SEEN /hpf (5-10); Transitional Epithelial - Ur 0-5 SEEN /hpf (0-5); White Blood Cells 0-5 SEEN /hpf (0-5)
--- NOTE | 2022-08-20 11:11 | ED.RN ---
pt yells in pain with any movement of either leg.
[2022-08-20] MEDS: predniSONE 20 MG Tablet 60 MG PO (11:29)
--- NOTE | 2022-08-20 14:24 | CM.ED ---
Social Work CM Assessment SW met Face to Face with patient for initial transition planning/care coordination assessment at request of Dr. Milner. SW introduced self and role at [facility]. Patient lying in bed, alert and oriented. Patient willing to participate in assessment and is able to answer some questions appropriately but mostly deferred to daughter/HCPOA Olga Gibson whom was present and able to answer questions.? Care providers, pharmacy, and demographics verified. Patient?s daughter removed her from the [facility] AMA due to being unhappy with care and wishing to care for her at home. Daughter reports pt was suddenly unable to walk or bear weight on feet today and she was unable to take her to her 10:00 am doctor?s appointment to get her pneumonia medication, home health care, an aide, home oxygen and ?special wheelchair? set up. Daughter reports she only took 2 of her 5 ?pneumonia pills. Pt wishes to discharge to daughter?s home with home health care. Daughter reports concern over insurance coverage. Daughter reports if patient needs to go somewhere they prefer the hospital SNF and they want hospital home health as well. Patient denies further needs or concerns at this time. PCP: Joshua Specialists: Cardiology unsure of name Preferred Pharmacy: [facility] Insurance: [place] Secure Prescription Benefit:?Yes Living Will/HPOA: Yes LNOK: Be Gibson and Nacni Childers, daughters Living Arrangements: Pt left the [facility] yesterday to live at daughter?s home which is a split level. 1 step to get in and 6-7 steps inside the home. Transportation: Daughter can transport DME/HHC: Daughter reports she has shower chair, grab bars, BSC, Cane, walker/rollator, wheelchair, hospital bed, pulse ox and glucometer. Daughter reports she needs a ?special wheelchair? and home oxygen set up for 4L. Disposition Plan: Pt reports she is unable to stand at this time. Pt and daughter would like Home Health but are in agreement that HHC may not be adequate in caring for pt?s needs at this time. Pt to be admitted to a different SNF than original placement at [facility]. Pt will need a new precert.
--- NOTE | 2022-08-20 15:17 | CM.ED ---
Social Work SW spoke with patient and daughter Olga about the ability to care for patient at home. Daughter does not believe she can manage all the care unless mother can stand. Patient reports she is unable to stand or walk at this time. Pt and daughter believe patient may need more help than HHC can provide and agreed to look into SNF options besides [facility]. A list of SNF and Home Health providers including quality and resource use data and consistent with patient?s preferred geographic region, medical needs, and insurance network were provided from the [employer] Guide. Katie Salmeron MSW, JEWEL OLIVING MACHINE OPERATOR
--- NOTE | 2022-08-20 15:55 | PCM.HP.STD ---
HPI - General General Date of Admission: 08/20/22 Date of Service: 08/20/22 Chief Complaint: Ankle pain HPI Narrative MARZENA TUESDAY, is a 76 F who presents with bilateral ankle pain and inability to get up. Patient was admitted here from August 01 to with transient hypoxia, hypokalemia secondary to furosemide and debility. Patient was a maximum assist. Patient was discharged to the community health. While she was at the [facility] [place], she was diagnosed with pneumonia and started on antibiotics and oxygen. Patient left the community health yesterday but while at home she had ankle pain and was unable to get up. Patient states that she gets his ankle pain periodically and will be transient will be sudden jolt and then will go away. This pain has not gone away but is only present when she tries to stand on it. Patient had an x-ray of both of her ankles that showed soft tissue swelling but no other acute process. Chest x-ray showed increased markings bilaterally. Patient received ceftriaxone and azithromycin in the emergency room. As she is unable to get up, on oxygen, the hospital service was contacted for admission. [facility] Medical History Chronic pain Diabetes Dysmetabolic syndrome Dyspnea on exertion Essential hypertension Former smoker GERD (gastroesophageal reflux disease) Greater trochanteric bursitis of right hip History of kidney stones Hyperlipidemia Meningioma Nonrheumatic aortic (valve) insufficiency Osteoarthritis of right hip Paroxysmal atrial tachycardia Peripheral neuropathy Thoracic aortic aneurysm without rupture Home Medications gabapentin 300 mg capsule 300 mg PO BID Check with primary doctor 02/22/13 [History Last Taken 07/31/22] digoxin 250 mcg (0.25 mg) tablet 250 mcg PO DAILY HEART 02/01/14 [History Last Taken 07/31/22] pravastatin 80 mg tablet 80 mg PO QDAY CHOLESTEROL 11/22/17 [History Last Taken 07/31/22] atenolol 100 mg tablet 50 mg PO BID BP 03/28/19 [History Last Taken 07/31/22] metformin 500 mg tablet 500 mg PO BID DIABETES 12/02/20 [History Last Taken 07/31/22] cholecalciferol (vitamin D3) 25 mcg (1,000 unit) tablet (Vitamin D3) 25 mcg PO DAILY SUPPLEMENT 05/12/21 [History Last Taken 07/31/22] amlodipine 10 mg tablet 10 mg PO DAILY 05/20/21 [History Last Taken 07/31/22] amitriptyline 25 mg tablet 25 mg PO QHS sleep 08/01/22 [History Last Taken Unknown] losartan 25 mg tablet 25 mg PO DAILY HTN 08/01/22 [History Last Taken 07/31/22] acetaminophen 325 mg tablet 650 mg PO Q4H PRN PRN Pain 1-10 Or Fever #0 tabs 08/05/22 [Rx Last Taken Unknown] Allergy/AdvReac Type Severity Reaction Status Date / Time lisinopril AdvReac Severe Intolerence, Verified 08/20/22 09:06 cough nalbuphine HCl [From Nubain] AdvReac Nausea/Vom/ Verified 08/20/22 09:06 Diarrhea Family History Father CAD (coronary artery disease) Myocardial infarction, Onset Age: 51 Brother Myocardial infarction, Onset Age: 51 Brother CAD (coronary artery disease) Hx of CABG Sister Heart disease COPD (chronic obstructive pulmonary disease) Sister CVA (cerebral vascular accident) Surgical History History of arthroscopy of right shoulder History of back surgery History of elbow surgery History of hand surgery History of hemorrhoidectomy (~11/2021) History of hysterectomy History of knee replacement procedure of right knee History of knee surgery Hx of cardiac cath Status post trigger finger release Social History household members: none Smoking Status: Former smoker how long ago did patient quit smokin years ago alcohol intake: never substance use type: does not use caffeine: No ROS ROS Narrative No fever or chills. No sore throat or rhinitis. No chest pain. No abdominal pain. All review of systems were negative except as mentioned above in the history of present illness and the other review of systems. Vital Signs Vital Signs Vital Signs: 08/20/22 09:06 08/20/22 10:48 08/20/22 10:48 Temperature 37.1 C 37.6 C H Temperature Source Temporal Oral Pulse Rate 89 80 Respiratory Rate 16 18 Blood Pressure 155/77 H 107/74 Blood Pressure Mean 103 85 Pulse Ox 92 73 92 Oxygen Delivery Method Room Air Room Air Nasal Cannula Oxygen Flow Rate (L/min) 4 08/20/22 11:32 08/20/22 11:33 08/20/22 12:31 Temperature Temperature Source Pulse Rate 81 81 Respiratory Rate 20 H 28 H Blood Pressure 147/59 H 149/71 H Blood Pressure Mean 88 97 Pulse Ox 88 91 93 Oxygen Delivery Method Nasal Cannula Nasal Cannula Nasal Cannula Oxygen Flow Rate (L/min) 4 4.5 4.5 08/20/22 14:24 08/20/22 15:07 Temperature 36.7 C Temperature Source Temporal Pulse Rate 78 73 Respiratory Rate 24 H 20 H Blood Pressure 122/76 H 108/81 H Blood Pressure Mean 91 90 Pulse Ox 91 91 Oxygen Delivery Method Nasal Cannula Nasal Cannula Oxygen Flow Rate (L/min) 4 4 Weight Weight: 78.1 kg Body Mass Index (BMI) 30.4 Physical Exam Const alert and no apparent distress Constitutional Narrative: No respiratory distress. No conversational dyspnea. HEENT normocephalic and head/scalp atraumatic Eyes EOMs intact bilaterally Eyes Narrative: No icterus. Neck no lymphadenopathy and no JVD Resp normal respiratory effort and no retractions Resp Narrative: Bibasilar crackles. Cardio regular rate, regular rhythm, S1 normal heart sound and S2 normal heart sound GI normal to inspection, nondistended, normoactive bowel sounds, soft to palpation, non-tender and non-distended Extremity Extremity Narrative: Nonpitting edema in lower extremities. Ankle joints right was not really reproducible to any tenderness but did have very prominent tenderness on the left. Joint was not warm. Neuro oriented x3 and moves all extremities Sensorium / Orientation: awake and alert Psych affect normal Psych Narrative: Did become tearful during encounter when she was talking about one of her daughters who from ALS. Results Lab / Micro Data Attestation: I reviewed the patient's lab results. Lab results narrative: Chest x-ray reviewed and shows bilateral infiltrates right greater than left. Result Diagrams: 08/20/22 09:50 08/20/22 09:50 Labs: Laboratory Results - last 24 hr 08/20/22 09:50: WBC 15.7 H, RBC 4.49, Hgb 13.0, Hct 41.4, MCV 92.2, MCH 29.0, MCHC 31.4 L, RDW Std Deviation 46.8 H, RDW Coeff of Patti 13.8, Plt Count 296, MPV 9.7, Immature Gran % (Auto) 0.500, Neut % (Auto) 78.4 H, Lymph % (Auto) 10.6 L, [place] % (Auto) 9.2, Eos % (Auto) 0.8, Baso % (Auto) 0.5, Absolute Neuts (auto) 12.3 H, Absolute Lymphs (auto) 1.67, Nucleated RBC % 0, ESR 99 H 08/20/22 09:50: Sodium 140, Potassium 3.9, Chloride 104, Carbon Dioxide 27.0, Anion Gap 9, BUN 14, Creatinine 0.76, Estim Creat Clear Calc 39.59, Est GFR (MDRD) Af Amer 95, Est GFR (MDRD) Non-Af 78, BUN/Creatinine Ratio 18.3, Glucose 121 H, Calcium 10.3 H, C-React Prot Ext Range 103.00 H 08/20/22 10:30: Urine Color Yellow, Urine Clarity Sl. Cloudy, Urine pH 6.0, Ur Specific [place] 1.020, Urine Protein 30 H, Urine Glucose (UA) Normal, Urine Ketones Negative, Urine Occult Blood 25 H, Urine Nitrite Positive H, Urine Bilirubin Negative, Urine Urobilinogen 1 H, Ur Leukocyte Esterase 25 H, Urine RBC 0-5 SEEN, Urine WBC 0-5 SEEN, Ur Squamous Epith Cells 0-5 SEEN, Ur Transition Epith Cell 0-5 SEEN, Urine Bacteria 3+, Urine Mucus 0 SEEN Radiology Impression Ankle X-Ray 08/20/22 09:44 IMPRESSION: Diffuse soft tissue swelling. Electronically Signed: Job Mcguire MD at 10:35 EDT , Chest X-Ray 08/20/22 10:03 IMPRESSION: Increased markings are seen in the right lower lobe. Follow-up is recommended. Electronically Signed: Job Mcguire MD at 10:37 EDT , Ankle X-Ray 08/20/22 10:10 IMPRESSION: Diffuse soft tissue swelling. Small plantar calcaneal spur. Electronically Signed: Job Mcguire MD at 10:36 EDT , Assessment & Plan Assessment/Plan (1) Right lower lobe pneumonia: PLAN: We will continue with antibiotics with ceftriaxone and azithromycin Check sputum culture Check urinary antigens for Streptococcus and Legionella Bronchodilators Pulmonary toilet (2) Acute bilateral ankle pain: PLAN: Appears to be more so on the left. Patient has no prior history of gout. Check uric acid Pain control (3) Inability to ambulate due to ankle or foot: PLAN: PT OT evaluate and treat The ER was attempted to get the patient out with home care but that would not be able to get that till next week. Given the patient's profound debility and having difficulty just sitting up, I do not feel that her going home at this point in time Pt does not want to go back to the [facility] PLAN: Plan Chronic conditions: OA fibromyalgia atrial tachycardia: continue dig, HLP: continue statin. DM2: continue metformin, add SSI HTN: continue losartan VTE prophylaxis: LMWH CODE: [id number], ok for intubation. Charges/Coding Visit Charges Inpatient E&M: 06187 Init Hosp L3
[2022-08-20 17:51] LABS: Uric Acid 4.3 mg/dL (2.6-6.0)
[2022-08-20] MEDS: Atenolol 50 MG Tablet PO (21:41)
[2022-08-20] MEDS: guaiFENesin 1,200 MG Tablet 1200 MG PO (21:41)
[2022-08-20] MEDS: Gabapentin 300 MG Capsule PO (21:41)
[2022-08-20] MEDS: Pravastatin 80 MG Tablet PO (21:41)
[2022-08-20] MEDS: Amitriptyline 25 MG Tablet PO (21:41)
[2022-08-21] VITALS (10 sets, daily range): BP systolic 118–139; BP diastolic 52–77; PULSE 63–76; RESP 16–18; TEMP 36.4–37.6; O2SAT 84–98
[2022-08-21 06:29] LABS: Absolute Lymphocyte Count 1.37 X10^3/uL (0.83-4.51); Basophil# 0.03 X10^3/uL; Basophil% 0.2 % (0-1); Eosinophil# 0.01 X10^3/uL; Eosinophils% 0.1 % (0-5); Hematocrit 37.4 % (37-47); Hemoglobin 11.5 g/dL (12.0-15.0); Lymphocyte # 1.37 X10^3/ul (0.83-4.51); Mean Corp Hgb Conc 30.7 g/dL (32-36); Mean Corpuscular Hgb 28.6 pg (27.0-32.0); Mean Platelet Vol. 9.9 fl (6.2-12.0); Monocyte# 0.94 X10^3/uL; Monocyte% 7.6 % (0-10); NRBC Flagged by Analyzer 0 % (0-5); Neutrophil % 80.5 % (47-70); Platelet Count 290 K/mm3 (150-450); RBC Distribution Width CV 13.7 % (11.6-14.6); RBC Distribution Width SD 46.7 fl (35.1-43.9); Red Blood Count 4.02 M/mm3 (4.2-5.4); White Blood Count 12.4 K/mm3 (4.4-11.0)
[2022-08-21 07:05] LABS: BUN 26 mg/dL (7-18); Creatinine, Serum 0.88 mg/dL (0.55-1.02); Estimated Creatinine Clearance 44.99 ml/min; Glucose 132 mg/dL (74-106)
[2022-08-21 07:06] LABS: Anion Gap 8 (5-15); BUN/Creat Ratio 29.4 RATIO (10-20); Calcium,Total 10.3 mg/dL (8.5-10.1); Chloride 104 mmol/L (98-107); EST Glomerular Filtration Rate 66 mL/min (>60); Est Glom Filt Rate - Afr Amer 80 mL/min (>60); Potassium 3.9 mmol/L (3.5-5.1); Sodium Level 136 mmol/L (136-145)
[2022-08-21] MEDS: Ipratropium/Albuterol Sulfate 3 ML AMPUL.NEB INHALATION ×3 (07:21→19:12)
--- NOTE | 2022-08-21 07:27 | PCM.PN.HOSP ---
Reason for Visit Reason for Visit: Diagnoses Pneumonia, unspecified organism (08/20/22) Pain in right ankle and joints of right foot (08/20/22) Pain in left ankle and joints of left foot (08/20/22) Difficulty in walking, not elsewhere classified (08/20/22) Subjective Subjective Patient is a 76-year-old female with past medical history significant for osteoarthritis with bilateral knee replacement resident is an extended care facility presented to the emergency department with difficulty ambulating pain in both lower extremities. X-ray on admission demonstrated right lower lobe pneumonia admitted to regular nursing floor for further management Objective Data Objective Data Vital Signs: Vital Signs Temp Pulse Resp BP Pulse Ox O2 Del Method O2 Flow Rate 98.1 F 76 18 124/62 H 91 Nasal Cannula 3 08/21/22 02:35 08/21/22 07:21 08/21/22 07:21 08/21/22 02:35 08/21/22 07:24 08/21/22 07:24 08/21/22 07:24 Oxygen Flow Rate (L/min) 3 Oxygen Delivery Method Nasal Cannula Weight: 73.936 kg Body Mass Index (BMI) 28.8 Intake & Output: Intake and Output for Last 24 Hours 08/19/22 08/20/22 08/21/22 23:59 23:59 23:59 Intake Total 346 / 346 0 / 0 Output Total 200 / 200 Balance 346 / 346 -200 / -200 Lab / Micro Data Result Diagrams: 08/21/22 05:40 08/21/22 05:40 Labs: Laboratory Results - last 24 hr 08/20/22 09:50: WBC 15.7 H, RBC 4.49, Hgb 13.0, Hct 41.4, MCV 92.2, MCH 29.0, MCHC 31.4 L, RDW Std Deviation 46.8 H, RDW Coeff of Patti 13.8, Plt Count 296, MPV 9.7, Immature Gran % (Auto) 0.500, Neut % (Auto) 78.4 H, Lymph % (Auto) 10.6 L, [place] % (Auto) 9.2, Eos % (Auto) 0.8, Baso % (Auto) 0.5, Absolute Neuts (auto) 12.3 H, Absolute Lymphs (auto) 1.67, Nucleated RBC % 0, ESR 99 H 08/20/22 09:50: Sodium 140, Potassium 3.9, Chloride 104, Carbon Dioxide 27.0, Anion Gap 9, BUN 14, Creatinine 0.76, Estim Creat Clear Calc 39.59, Est GFR (MDRD) Af Amer 95, Est GFR (MDRD) Non-Af 78, BUN/Creatinine Ratio 18.3, Glucose 121 H, Calcium 10.3 H, C-React Prot Ext Range 103.00 H 08/20/22 09:50: Uric Acid 4.3 08/20/22 10:30: Urine Color Yellow, Urine Clarity Sl. Cloudy, Urine pH 6.0, Ur Specific [place] 1.020, Urine Protein 30 H, Urine Glucose (UA) Normal, Urine Ketones Negative, Urine Occult Blood 25 H, Urine Nitrite Positive H, Urine Bilirubin Negative, Urine Urobilinogen 1 H, Ur Leukocyte Esterase 25 H, Urine RBC 0-5 SEEN, Urine WBC 0-5 SEEN, Ur Squamous Epith Cells 0-5 SEEN, Ur Transition Epith Cell 0-5 SEEN, Urine Bacteria 3+, Urine Mucus 0 SEEN 08/21/22 05:40: WBC 12.4 H, RBC 4.02 L, Hgb 11.5 L, Hct 37.4, MCV 93.0, MCH 28.6, MCHC 30.7 L, RDW Std Deviation 46.7 H, RDW Coeff of Patti 13.7, Plt Count 290, MPV 9.9, Immature Gran % (Auto) 0.600, Neut % (Auto) 80.5 H, Lymph % (Auto) 11.0 L, [place] % (Auto) 7.6, Eos % (Auto) 0.1, Baso % (Auto) 0.2, Absolute Neuts (auto) 10.0 H, Absolute Lymphs (auto) 1.37, Nucleated RBC % 0 08/21/22 05:40: Sodium 136, Potassium 3.9, Chloride 104, Carbon Dioxide 24.0, Anion Gap 8, BUN 26 H, Creatinine 0.88, Estim Creat Clear Calc 44.99, Est GFR (MDRD) Af Amer 80, Est GFR (MDRD) Non-Af 66, BUN/Creatinine Ratio 29.4 H, Glucose 132 H, Calcium 10.3 H Radiography Diagnostic Testing: Radiology Impression Ankle X-Ray 08/20/22 09:44 IMPRESSION: Diffuse soft tissue swelling. Electronically Signed: Job Mcguire MD at 10:35 EDT , Chest X-Ray 08/20/22 10:03 IMPRESSION: Increased markings are seen in the right lower lobe. Follow-up is recommended. Electronically Signed: Job Mcguire MD at 10:37 EDT , Ankle X-Ray 08/20/22 10:10 IMPRESSION: Diffuse soft tissue swelling. Small plantar calcaneal spur. Electronically Signed: Job Mcguire MD at 10:36 EDT , Physical Exam Narrative GENERAL: cooperative HEENT: Atraumatic; normocephalic EYES; Anicteric, Normal Conjunctiva NECK; supple, normal thyroid, RESPIRATORY: Diminished to auscultation CARDIOVASCULAR: Regular S1 S2, GI: soft, normoactive bowel sounds, : No Renal angle tenderness; EXTREMITIES: No edema, no clubbing, MUSCULOSKELETAL: no muscle wasting NEURO: Awake; no lateralizing signs. SKIN: No Rash PSYCH; Flat affect Assessment & Plan Assessment/Plan (1) Acute bilateral ankle pain: PLAN: Plan Patient is a 76-year-old female with past medical history significant for osteoarthritis with bilateral knee replacement resident is an extended care facility presented to the emergency department with difficulty ambulating pain in both lower extremities. X-ray on admission demonstrated right lower lobe pneumonia 1. Pneumonia - Suspected to be secondary to streptococcal pneumonia, Blood and sputum cultures sent. Patient placed on Rocephin and Zithromax and placed on oxygen titrated to keep Pulse Ox greater than 90 2.. Physical deconditioning with bilateral ankle pain - Requested for PT OT eval and secondary social studies teacher to assist with discharge planning 3. Hypertension - Blood pressure controlled, home medications continued with dose adjustment as needed 4. Diabetes mellitus type II -Patient home medication regimen continued in addition to Accu-Cheks a.c. and at bedtime and covered with sliding scale insulin 5. Dyslipidemia -Patient is on statin therapy, continued at home dose 6. Generalized osteoarthritis ? Pain meds as needed 7. Paroxysmal Atrial tachycardia ? Patient is on digoxin 8. Fibromyalgia ? Pain meds as needed 9. Depression ? Patient is on amitriptyline at bedtime 10. DVT prophylaxis ? Lovenox Time spent in the patient's overall evaluation,decision-making process, review of diagnostic data, adjustment of management, discussion with other providers, nursing nursing and ancillary staff involved in patient's care documentation, 55 Minutes Charges/Coding Visit Charges Inpatient E&M: 96684 [facility] Hosp L3
[2022-08-21 08:05] LABS: Bedside Glucose 120 mg/dL (74-106)
[2022-08-21] MEDS: metFORMIN HCl 500 MG Tablet PO ×2 (09:15→16:41)
[2022-08-21] MEDS: Enoxaparin 40 MG/0.4 ML Syringe SC (09:17)
[2022-08-21] MEDS: Digoxin 250 MCG Tablet PO (09:17)
[2022-08-21] MEDS: guaiFENesin 1,200 MG Tablet 1200 MG PO ×2 (09:17→22:02)
[2022-08-21] MEDS: Losartan Potassium 25 MG Tablet PO (09:17)
[2022-08-21] MEDS: Atenolol 50 MG Tablet PO ×2 (09:17→22:02)
[2022-08-21] MEDS: amLODIPine 10 MG Tablet PO (09:18)
--- NOTE | 2022-08-21 09:18 | CASEMGMT ---
Addendum entered by Marichuy Carranza 08/21/22 09:41: Spoke with therapy who states that pt is not safe to return home. Will update SW. Original Note: RN CM into pt room. Pt sitting up in chair with oxygen on in no distress. Pt states she does have oxygen at home at 4L through [employer], unable to confirm. Pt reports she has portability. She would like to go back to her dtr's after this hospital stay but is not sure if she is going to be able. If she is able, she would like [facility] as she has had them in the past. Therapy evals pending.
[2022-08-21] MEDS: Gabapentin 300 MG Capsule PO ×2 (09:19→22:02)
[2022-08-21] MEDS: Insulin Lispro 100 UNIT/ML INSULN.PEN SC (11:07)
[2022-08-21 11:40] LABS: Bedside Glucose 183 mg/dL (74-106)
[2022-08-21 16:36] LABS: Bedside Glucose 98 mg/dL (74-106)
--- NOTE | 2022-08-21 16:40 | CASEMGMT ---
Social Work Note SW met with patient and introduced herself and role as [facility] Draw Press Operator. Patient lying in hospital bed and agreeable to speak with SW. SW reviewed therapy recommendations for SNF. Patient reports she is open to referral for TCU but would otherwise like to discharge home with [facility]. SW explained a referral would be sent and the SW on Tuesday would continue to assist with discharge plan. No other needs at this time. Plan: TBD, referral to TCU Rupa DAVILA, EMMANUEL
[2022-08-21] MEDS: Menthol/Lanolin/Calamine/Znox 113 GM Tube 1 APPLIC TOPICAL (22:02)
[2022-08-21] MEDS: Amitriptyline 25 MG Tablet PO (22:02)
[2022-08-21] MEDS: Pravastatin 80 MG Tablet PO (22:02)
[2022-08-22] VITALS (9 sets, daily range): BP systolic 130–147; BP diastolic 53–66; PULSE 68–77; RESP 16–18; TEMP 36.6–37.4; O2SAT 95–98
[2022-08-22] MEDS: Acetaminophen 325 MG Tablet 650 MG PO ×2 (01:51→21:11)
[2022-08-22 02:26] LABS: Bedside Glucose 131 mg/dL (74-106)
[2022-08-22] MEDS: guaiFENesin 10 ML UDC (200MG/10ML) PO ×2 (02:26→21:11)
[2022-08-22 06:50] LABS: Bedside Glucose 75 mg/dL (74-106)
[2022-08-22 07:14] LABS: Absolute Lymphocyte Count 2.01 X10^3/uL (0.83-4.51); Absolute Neutrophil Count 5.9 X10^3/uL (2.0-7.7); Basophil# 0.06 X10^3/uL; Basophil% 0.7 % (0-1); Eosinophil# 0.14 X10^3/uL; Eosinophils% 1.6 % (0-5); Hematocrit 31.7 % (37-47); Hemoglobin 10.4 g/dL (12.0-15.0); Lymphocyte # 2.01 X10^3/ul (0.83-4.51); Lymphocyte % 22.6 % (19-41); Mean Corp Hgb Conc 32.8 g/dL (32-36); Mean Corpuscular Volume 94.3 fL (81-99); Mean Platelet Vol. 9.7 fl (6.2-12.0); Monocyte# 0.81 X10^3/uL; Monocyte% 9.1 % (0-10); NRBC Flagged by Analyzer 0 % (0-5); Neutrophil # 5.85 X10^3/uL (2.7-7.7); Neutrophil % 65.7 % (47-70); Platelet Count 238 K/mm3 (150-450); RBC Distribution Width CV 13.8 % (11.6-14.6); RBC Distribution Width SD 47.1 fl (35.1-43.9); Red Blood Count 3.36 M/mm3 (4.2-5.4); White Blood Count 8.9 K/mm3 (4.4-11.0)
[2022-08-22 07:20] LABS: Bedside Glucose 82 mg/dL (74-106)
[2022-08-22] MEDS: Ipratropium/Albuterol Sulfate 3 ML AMPUL.NEB INHALATION ×3 (07:24→19:55)
--- NOTE | 2022-08-22 07:25 | PCM.PN.HOSP ---
Reason for Visit Reason for Visit: Diagnoses Pneumonia, unspecified organism (08/20/22) Pain in right ankle and joints of right foot (08/20/22) Pain in left ankle and joints of left foot (08/20/22) Difficulty in walking, not elsewhere classified (08/20/22) Subjective Subjective No significant changes overall condition overnight. Per nursing staff patient had episodes of delirium during the evening Objective Data Objective Data Vital Signs: Vital Signs Temp Pulse Resp BP Pulse Ox O2 Del Method O2 Flow Rate 98.1 F 68 16 130/53 H 95 Nasal Cannula 3 08/22/22 02:00 08/22/22 02:00 08/22/22 02:00 08/22/22 02:00 08/22/22 02:00 08/22/22 02:00 08/22/22 02:00 Oxygen Flow Rate (L/min) 3 Oxygen Delivery Method Nasal Cannula Weight: 73.936 kg Body Mass Index (BMI) 28.8 Intake & Output: Intake and Output for Last 24 Hours 08/20/22 08/21/22 08/22/22 23:59 23:59 23:59 Intake Total 346 / 346 1014 / 1014 Output Total 1000 / 1600 900 / 900 Balance 346 / 346 14 / -586 -900 / -900 Lab / Micro Data Result Diagrams: 08/22/22 06:07 08/22/22 06:07 Labs: Laboratory Results - last 24 hr 08/21/22 07:27: POC Glucose 120 H 08/21/22 11:04: POC Glucose 183 H 08/21/22 16:06: POC Glucose 98 08/21/22 22:00: POC Glucose 131 H 08/22/22 06:07: WBC 8.9, RBC 3.36 L, Hgb 10.4 L, Hct 31.7 L, MCV 94.3, MCH 31.0, MCHC 32.8 D, RDW Std Deviation 47.1 H, RDW Coeff of Patti 13.8, Plt Count 238, MPV 9.7, Immature Gran % (Auto) 0.300, Neut % (Auto) 65.7, Lymph % (Auto) 22.6, [place] % (Auto) 9.1, Eos % (Auto) 1.6, Baso % (Auto) 0.7, Absolute Neuts (auto) 5.9, Absolute Lymphs (auto) 2.01, Nucleated RBC % 0 08/22/22 06:28: POC Glucose 75 08/22/22 06:57: POC Glucose 82 Micro: Microbiology 08/21/22 07:37 Urine, Clean Catch Legionella Antigen - Final 08/21/22 07:37 Urine, Clean Catch Streptococcus pneumoniae Antigen (M - Final 08/20/22 10:30 Urine, Catheterized Urine Culture - Preliminary Culture exhibits no growth. Physical Exam Narrative GENERAL: cooperative HEENT: Atraumatic; normocephalic EYES; Anicteric, Normal Conjunctiva NECK; supple, normal thyroid, RESPIRATORY: Diminished to auscultation CARDIOVASCULAR: Regular S1 S2, GI: soft, normoactive bowel sounds, : No Renal angle tenderness; EXTREMITIES: No edema, no clubbing, MUSCULOSKELETAL: no muscle wasting NEURO: Awake; no lateralizing signs. SKIN: No Rash PSYCH; Flat affect Assessment & Plan Assessment/Plan (1) Acute bilateral ankle pain: PLAN: Plan Patient is a 76-year-old female with past medical history significant for osteoarthritis with bilateral knee replacement resident is an [facility] facility presented to the emergency department with difficulty ambulating pain in both lower extremities. X-ray on admission demonstrated right lower lobe pneumonia 1. Pneumonia - Suspected to be secondary to streptococcal pneumonia, Blood and sputum cultures sent. Patient placed on Rocephin and Zithromax and placed on oxygen titrated to keep Pulse Ox greater than 90 ? 08/22/2022 cultures so far negative to date patient remains on supplemental oxygen 2.. Physical deconditioning with bilateral ankle pain - Requested for PT OT eval and rn social services to assist with discharge planning 3. Hypertension - Blood pressure controlled, home medications continued with dose adjustment as needed 4. Diabetes mellitus type II -Patient home medication regimen continued in addition to Accu-Cheks a.c. and at bedtime and covered with sliding scale insulin 5. Dyslipidemia -Patient is on statin therapy, continued at home dose 6. Generalized osteoarthritis ? Pain meds as needed 7. Paroxysmal Atrial tachycardia ? Patient is on digoxin 8. Fibromyalgia ? Pain meds as needed 9. Depression ? Patient is on amitriptyline at bedtime 10. DVT prophylaxis ? Lovenox Time spent in the patient's overall evaluation,decision-making process, review of diagnostic data, adjustment of management, discussion with other providers, nursing nursing and ancillary staff involved in patient's care documentation, 35 Minutes Charges/Coding Visit Charges Inpatient E&M: 25243 Subs Hosp L2
[2022-08-22 07:49] LABS: Anion Gap 7 (5-15); BUN 21 mg/dL (7-18); BUN/Creat Ratio 34.8 RATIO (10-20); Calcium,Total 9.1 mg/dL (8.5-10.1); Chloride 108 mmol/L (98-107); EST Glomerular Filtration Rate 102 mL/min (>60); Est Glom Filt Rate - Afr Amer 124 mL/min (>60); Estimated Creatinine Clearance 39.59 ml/min; Glucose 82 mg/dL (74-106); Magnesium 2.2 mg/dL (1.6-2.6); Phosphorus 2.6 mg/dL (2.5-4.9); Potassium 3.7 mmol/L (3.5-5.1); Sodium Level 142 mmol/L (136-145)
[2022-08-22] MEDS: metFORMIN HCl 500 MG Tablet PO ×2 (09:15→17:49)
[2022-08-22] MEDS: Menthol/Lanolin/Calamine/Znox 113 GM Tube 1 APPLIC TOPICAL ×2 (10:20→21:12)
[2022-08-22] MEDS: Enoxaparin 40 MG/0.4 ML Syringe SC (10:25)
[2022-08-22] MEDS: Digoxin 250 MCG Tablet PO (10:26)
[2022-08-22] MEDS: Losartan Potassium 25 MG Tablet PO (10:26)
[2022-08-22] MEDS: Atenolol 50 MG Tablet PO ×2 (10:26→21:11)
[2022-08-22] MEDS: amLODIPine 10 MG Tablet PO (10:27)
[2022-08-22] MEDS: Gabapentin 300 MG Capsule PO ×2 (10:38→21:11)
[2022-08-22 12:56] LABS: Bedside Glucose 130 mg/dL (74-106)
[2022-08-22 18:11] LABS: Bedside Glucose 101 mg/dL (74-106)
[2022-08-22] MEDS: Pravastatin 80 MG Tablet PO (21:11)
[2022-08-22] MEDS: Amitriptyline 25 MG Tablet PO (21:11)
[2022-08-22 22:20] LABS: Bedside Glucose 119 mg/dL (74-106)
[2022-08-23 02:35] VITALS: BP 130/52; PULSE 70; RESP 18; TEMP 36.8; O2SAT 95
[2022-08-23 06:24] LABS: Absolute Neutrophil Count 4.1 X10^3/uL (2.0-7.7); Basophil# 0.05 X10^3/uL; Basophil% 0.7 % (0-1); Eosinophil# 0.23 X10^3/uL; Eosinophils% 3.3 % (0-5); Hematocrit 35.6 % (37-47); Hemoglobin 11.5 g/dL (12.0-15.0); Lymphocyte % 25.7 % (19-41); Mean Corp Hgb Conc 32.3 g/dL (32-36); Mean Corpuscular Hgb 30.4 pg (27.0-32.0); Mean Corpuscular Volume 94.2 fL (81-99); Mean Platelet Vol. 9.7 fl (6.2-12.0); Monocyte# 0.82 X10^3/uL; Monocyte% 11.7 % (0-10); NRBC Flagged by Analyzer 0 % (0-5); Neutrophil # 4.08 X10^3/uL (2.7-7.7); Neutrophil % 58.3 % (47-70); Platelet Count 232 K/mm3 (150-450); RBC Distribution Width CV 13.5 % (11.6-14.6); RBC Distribution Width SD 46.2 fl (35.1-43.9); Red Blood Count 3.78 M/mm3 (4.2-5.4)
[2022-08-23 07:01] LABS: Anion Gap 7 (5-15); BUN 13 mg/dL (7-18); BUN/Creat Ratio 24.3 RATIO (10-20); Calcium,Total 9.6 mg/dL (8.5-10.1); Chloride 109 mmol/L (98-107); Creatinine, Serum 0.54 mg/dL (0.55-1.02); EST Glomerular Filtration Rate 117 mL/min (>60); Est Glom Filt Rate - Afr Amer 142 mL/min (>60); Estimated Creatinine Clearance 39.59 ml/min; Glucose 94 mg/dL (74-106); Potassium 3.7 mmol/L (3.5-5.1); Sodium Level 143 mmol/L (136-145)
[2022-08-23 07:10] LABS: Bedside Glucose 100 mg/dL (74-106)
[2022-08-23 07:10] LABS: Bedside Glucose 79 mg/dL (74-106)
[2022-08-23 07:23] VITALS: PULSE 70; RESP 18; O2SAT 93
[2022-08-23] MEDS: Ipratropium/Albuterol Sulfate 3 ML AMPUL.NEB INHALATION (07:23)
[2022-08-23] MEDS: metFORMIN HCl 500 MG Tablet PO ×2 (07:58→17:19)
[2022-08-23 08:00] VITALS: RESP 18
[2022-08-23 08:56] VITALS: BP 145/67; PULSE 98; RESP 18; TEMP 37.1; O2SAT 100
--- NOTE | 2022-08-23 09:30 | CASEMGMT ---
Social Work NIRALI discussed with MD Mercer regarding disposition for pt. NIRALI explained [facility] accepted at [facility] due to no beds available. This information was shared with NIRALI via email from Ellie, [facility] director of catering sales. MD Mercer spoke with pt and informed of this. MD Mercer reported to NIRALI and CHARLINE GOETZ that pt would like to go home. Pt lives with family and someone is always home. CHARLINE GOETZ to follow up with pt and family to discuss [facility]. PLAN: C NEELAM Shearer
[2022-08-23] MEDS: Meloxicam 15 MG Tablet PO (09:39)
[2022-08-23] MEDS: Menthol/Lanolin/Calamine/Znox 113 GM Tube 1 APPLIC TOPICAL (09:41)
[2022-08-23] MEDS: Digoxin 250 MCG Tablet PO (09:42)
[2022-08-23] MEDS: Atenolol 50 MG Tablet PO (09:42)
[2022-08-23] MEDS: amLODIPine 10 MG Tablet PO (09:42)
[2022-08-23] MEDS: Gabapentin 300 MG Capsule PO (09:45)
[2022-08-23] MEDS: Enoxaparin 40 MG/0.4 ML Syringe SC (09:47)
[2022-08-23] MEDS: Losartan Potassium 25 MG Tablet PO (09:47)
--- NOTE | 2022-08-23 09:51 | CASEMGMT ---
Addendum entered by Marichuy Carranza 08/23/22 14:21: Spoke with pt nurse, unable to ambulate pt for walking pox. Pt did not qualify for oxygen. Updated Michelle at [facility]. Addendum entered by Marichuy Carranza 08/23/22 10:19: [facility] is able to accept pt for SOC on Tuesday. Original Note: CHARLINE GOETZ into pt room, pt sitting up in chair. Pt wishes to return home. She states her dtr and son in law will be present to assist her. She is agreeable to this CHARLINE GOETZ calling her dtr to discuss. Pt still wants [facility] for services. TC to pt dtr Nanci. She states she will be with the patient at all times and her works in the home. She states they have a hospital bed for pt. She is also agreeable to [facility]. She states pt has a pox and is borrowing oxygen from someone. States she does not have her own. She would like pt oxygen through [facility] if pt qualifies. Pt dtr goal is for pt to return to her home. Contacted Michelle at [facility], referral made, will await acceptance.
--- NOTE | 2022-08-23 11:48 | DS.PCM_ITS ---
Providers Date of Admission: 08/20/22 Date of Discharge: 08/23/22 Primary Care Physician: Dr. Rebecca Lewis MD Reason For Visit: PNEUMONIA / DEBILITY Diagnosis Discharge Diagnosis (1) Acute bilateral ankle pain: Status: Acute Code(s): M25.571 - Pain in right ankle and joints of right foot; M25.572 - Pain in left ankle and joints of left foot (2) Right lower lobe pneumonia: Status: Acute Code(s): J18.9 - Pneumonia, unspecified organism Medications at Discharge Home Medications gabapentin 300 mg capsule 300 mg PO BID Check with primary doctor 02/22/13 digoxin 250 mcg (0.25 mg) tablet 250 mcg PO DAILY HEART 02/01/14 pravastatin 80 mg tablet 80 mg PO QDAY CHOLESTEROL 11/22/17 atenolol 100 mg tablet 50 mg PO BID BP 03/28/19 metformin 500 mg tablet 500 mg PO BID DIABETES 12/02/20 cholecalciferol (vitamin D3) 25 mcg (1,000 unit) tablet (Vitamin D3) 25 mcg PO DAILY SUPPLEMENT 05/12/21 amlodipine 10 mg tablet 10 mg PO DAILY 05/20/21 amitriptyline 25 mg tablet 25 mg PO QHS sleep 08/01/22 losartan 25 mg tablet 25 mg PO DAILY HTN 08/01/22 acetaminophen 325 mg tablet 650 mg PO Q4H PRN PRN Pain 1-10 Or Fever #0 tabs 08/05/22 amoxicillin 875 mg-potassium clavulanate 125 mg tablet 1 tab PO BID #6 tabs 08/23/22 meloxicam 15 mg tablet 15 mg PO DAILY #14 tabs 08/23/22 Hospital Course Operations None Procedures - (Chest x-ray/ankle x-ray x2) Summary of Care Provided Minutes Spent on Discharge: 37 Hospital Course: Tuesday is a 76-year-old white female who presented to the emergency department at [facility] on 08/20/2022 complaining of ankle pain and the inability to get up. She had a recent hospitalization from August 01 August 06 due to transient hypoxia, hypokalemia and debility. At that time she was a maximum assist to ambulate. She was discharged to the [facility] and while at the [facility] she was diagnosed with pneumonia and started on antibiotics and oxygen. The patient left the [facility] the day prior to admission but while at home she had sudden ankle pain and was unable to ambulate or get up. She is not on chronic oxygen but has been wearing 2 L as prescribed prior to discharge from the nursing facility. Patient did admit to getting ankle pain periodically and it will be transient and sudden but then will go away. She is never been evaluated for this prior. Imaging of her ankles in the emergency department showed some soft tissue swelling but no other acute processes. Chest x-ray showed increased markings bilaterally but most pacifically the right base. Given the fact she was unable to get up request for admission was made. She was given ceftriaxone and azithromycin for suspected pneumonia in the emergency department and admitted to the medical floor. While hospitalized an ESR and CRP were obtained and both found to be elevated at 99 and 103 respectively. Her uric acid was normal. Inflammatory marker elevation could be seen with her pneumonia and also with her ankle pain. Her ankle pain was improving prior to discharge so I did recommend that she have follow-up inflammatory markers after her pneumonia treatment has been completed to reevaluate and guide further work- up for her joint pain as if they are still elevated she may need further laboratory studies to be ordered. Were able to wean her oxygen to room air prior to discharge she was 100% with rest and did not require oxygen with ambulation either. I have made a referral to podiatry to be evaluated for her ankle pain as well. She was started on meloxicam 15 mg daily for 14-day supply. She did indicate that her previous primary care physician, who has since retired, had her on naproxen daily which was recently discontinued by her new primary care physician. I reiterated to her I agreed and explained why with regards to renal function and GI issues on chronic NSAID use and she voiced unde rstanding however with normal renal function and no GI symptoms at this time I did feel comfortable starting on a short course of meloxicam to see if we could help improve her ankle pain at the time of discharge. She was given 150 mg dose prior to discharge without any issues. The patient was adamant she wanted to go home. She will have 24-hour care as she is going to be staying with her daught er and son-in-law temporarily. They are both there on a regular basis. Home health care will evaluate the patient on 08/25/2022. She was discharged home in stable condition. I have instructed her to obtain follow-up lab work with ESR and CRP to be done after her pneumonia treatment has been completed for reevaluation as discussed above. She is to see her primary care physician and podiatry within the next week. She was discharged home in stable condition on 08/23/2022. Prescriptions for meloxicam and Augmentin were ordered to complete treatment. 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 She was asymptomatic at the time of discharge. Discharge diagnoses: Bilateral ankle pain left greater than right-etiology unclear Right lower lobe pneumonia Hypoxia-resolved Elevated inflammatory markers (CRP 103/ESR 99) Debility DM-2 GERD History of nephrolithiasis Hyperlipidemia History of meningioma Aortic valve insufficiency-chronic OA PAT Peripheral neuropathy History of thoracic aortic aneurysm Hypertension Physical Exam Narrative Patient states she is having ongoing ankle pain however is improving since she arrived. This has been an ongoing issue on and off however this is the most severe episodes she has had. She has never had any follow-up as an outpatient for this. I am able to move her ankle throughout significant passive range of motion and put stress on the anterior lateral ligaments without any undue discomfort. She does have some discomfort with palpation to the ATFL but no significant swelling at the joint or pain with stretching of this ligament. States she intends to go home with home health care and would like to do so as s oon as possible. Const alert, oriented x3, no apparent distress, healthy appearing and well nourished Constitutional Narrative: Overweight, older white female sitting up in a chair at the bedside, on room air, appears comfortable nontoxic General Appearance: cooperative, comfortable, well kempt and well developed HEENT normocephalic, head/scalp atraumatic, hearing grossly normal bilaterally and moist oral mucous membranes HEENT Narrative: Mallampati 2, no thrush Eyes PERRL, EOMs intact bilaterally and conjunctivae normal Eyes Narrative: No scleral icterus Neck no lymphadenopathy, supple, no JVD and no carotid bruits Neck Narrative: Trachea midline, no thyroid enlargement Resp normal respiratory effort, no retractions and no use of accessory muscles Resp Narrative: Few crackles at right base with deep inspiration but otherwise clear Auscultation: crackles; Negative for rhonchi or wheezes Cardio regular rate, regular rhythm, S1 normal heart sound, S2 normal heart sound, no murmurs, no rub, no gallops and no clicks GI normal to inspection, nondistended, normoactive bowel sounds and soft to palpation Extremity no clubbing, cyanosis or edema Extremity Narrative: 2+ pedal pulses Left Lower Extremity: ankle joint inspection (Very minimal swelling laterally), palpation (Tenderness over left ATFL), ROM (Range of motion is normal with no pain elicited on passive range of motion), neurovascular exam (Within normal limits) and special tests Ankle Special Tests - Left: Inversion test: Negative, Eversion test: Negative, Posterior drawer test: Negative, Anterior drawer test: Negative and Talar tilt test: Negative Skin no rashes or lesions noted, no wounds, skin turgor normal and no jaundice Neuro oriented x3, CN's II-XII intact bilaterally, moves all extremities, no focal motor deficits and no sensory deficits noted Speech: speech normal Psych affect normal Psych Narrative: Very pleasant and appropriately interactive Weight / BMI Weight Weight: 73.936 kg Body Mass Index (BMI) 28.8 ABG / Lab / Microbiology Data Result Diagrams: 08/23/22 05:04 08/23/22 06:04 Laboratory: Laboratory Results - last 24 hr 08/22/22 12:15: POC Glucose 130 H 08/22/22 17:42: POC Glucose 101 08/22/22 21:10: POC Glucose 119 H 08/23/22 05:04: WBC 7.0, RBC 3.78 L, Hgb 11.5 L, Hct 35.6 L, MCV 94.2, MCH 30.4, MCHC 32.3, RDW Std Deviation 46.2 H, RDW Coeff of Patti 13.5, Plt Count 232, MPV 9.7, Immature Gran % (Auto) 0.300, Neut % (Auto) 58.3, Lymph % (Auto) 25.7, [place] % (Auto) 11.7 H, Eos % (Auto) 3.3, Baso % (Auto) 0.7, Absolute Neuts (auto) 4.1, Absolute Lymphs (auto) 1.80, Nucleated RBC % 0 08/23/22 06:04: Sodium 143, Potassium 3.7, Chloride 109 H, Carbon Dioxide 27.0, Anion Gap 7, BUN 13, Creatinine 0.54 L, Estim Creat Clear Calc 39.59, Est GFR (MDRD) Af Amer 142, Est GFR (MDRD) Non-Af 117, BUN/Creatinine Ratio 24.3 H, Glucose 94, Calcium 9.6 08/23/22 06:17: POC Glucose 79 08/23/22 06:49: POC Glucose 100 Microbiology: Microbiology 08/20/22 10:30 Urine, Catheterized Urine Culture - Final Actinomyces neuii 08/21/22 07:37 Urine, Clean Catch Legionella Antigen - Final 08/21/22 07:37 Urine, Clean Catch Streptococcus pneumoniae Antigen (M - Final D/C Instructions Discharge Diet: Low fat / Low cholesterol Discharge Activity: Return to Normal Activity Weight Bearing Status: Weight bearing as tolerated (Please ambulate with a wheeled walker) Meaningful Use Info Meaningful Use Diagnoses (Choose all that apply): None applicable Discharge Plan Admission Admit Date/Time: 08/20/22 15:43 Primary Reason for Your Visit: Ankle Pain/Hypoxia Attending Provider: Mary Mercer Primary Care Provider: Rebecca Lewis Consulting Providers: Tiburcio Ngo ; Sky Barrera Instructions Additional Instructions / Restrictions: 1. Would Recommend a repeat lab of erythrocyte sedimentation rate and C-reactive protein as they were elevated however this may be due to your pneumonia and not necessarily your ankle pain. Please ask your primary care physician to repeat these labs at your follow-up appointment. Once your pneumonia has cleared a repeat of these laboratory data should help guide ongoing recommendations for your ankle pain. 2. Please take the meloxicam with food in the morning. 14 days were prescribed. 3. Please call for follow-up appointments with your primary care physician and podiatry as noted below within the next 24 to 48 hours to assure close follow- up. Discharge Orders/Prescriptions Prescriptions: New amoxicillin-pot clavulanate 875-125 mg tablet 1 tab PO BID Qty: 6 0RF meloxicam 15 mg tablet 15 mg PO DAILY Qty: 14 0RF Continued pravastatin 80 mg tablet 80 mg PO QDAY atenolol 100 mg tablet 50 mg PO BID amlodipine 10 mg tablet 10 mg PO DAILY gabapentin 300 MG capsule 300 mg PO BID Label Comments: NERVE PAIN digoxin 250 MCG tablet 250 mcg PO DAILY metformin 500 mg tablet 500 mg PO BID cholecalciferol (vitamin D3) [Vitamin D3] 25 mcg (1,000 unit) Tablet 25 mcg PO DAILY losartan 25 mg tablet 25 mg PO DAILY amitriptyline 25 mg Tablet 25 mg PO QHS acetaminophen 325 mg Tablet 650 mg PO Q4H PRN PRN (Reason: Pain 1-10 Or Fever) Qty: 0 0RF Referrals / Follow Up: Rebecca Lewis MD [Primary Care Provider] - Within 1 Week Jonathan Hines DPM [Med Staff - Active Staff] - Within 1 Week (please call for appt) Disposition Disposition (needs filled in before D/C Order can be placed): Home Health Service Charges/Coding Visit Charges Inpatient E&M: 34360 Disch Hosp >30min
--- NOTE | 2022-08-23 12:35 | CASEMGMT ---
Social Work As per admitting RN, pt has LW and POA but unable to bring in the documents. Pt stated that Olga Gibson is medical POA. FELISHA Parker
[2022-08-23 12:40] LABS: Bedside Glucose 156 mg/dL (74-106)
--- NOTE | 2022-08-23 13:48 | CASEMGMT ---
CHARLINE CM NOTE: Per Fabiana, she has completed Home O2 testing and pt does not qualify for home O2, stating her pulse ox was 92-93% on RA. Rashawn BLANCAS RN CM
[2022-08-23 13:51] VITALS: O2SAT 93
[2022-08-23 17:35] LABS: Bedside Glucose 90 mg/dL (74-106)
[2022-08-23 17:44] VITALS: BP 124/70; PULSE 74; RESP 18; TEMP 36.8; O2SAT 94
== END 2022-08-23 18:17 | disposition home health service (06) | DRG 194 ==
LOC: ED 15:40 → MS3 16:03
PROVIDERS: Internal Medicine; Emergency Provider Emergency Medicine; PCP Internal Medicine; Visit Provider Internal Medicine
DX: J15.4 Pneumonia due to other streptococci (principal); I47.1 Supraventricular tachycardia; E11.42 Type 2 diabetes mellitus with diabetic polyneuropathy; M15.9 Polyosteoarthritis, unspecified; I10 Essential (primary) hypertension; E78.5 Hyperlipidemia, unspecified; M25.572 Pain in left ankle and joints of left foot; M25.571 Pain in right ankle and joints of right foot; M79.7 Fibromyalgia; R26.2 Difficulty in walking, not elsewhere classified; I35.1 Nonrheumatic aortic (valve) insufficiency; E87.6 Hypokalemia; K21.9 Gastro-esophageal reflux disease without esophagitis; Z79.84 Long term (current) use of oral hypoglycemic drugs; Z87.891 Personal history of nicotine dependence; G89.29 Other chronic pain; R53.81 Other malaise; F32.A Depression, unspecified; Z82.3 Family history of stroke; Z66 Do not resuscitate; R09.02 Hypoxemia
CPT/HCPCS: 36415; 71045; 73610; 80048; 81001; 82962; 83735; 84100; 84550; 85025; 85652; 86140; 87077; 87086; 87088; 87449; 94640; 94667; 94668; 97162; 97165; 97530; 97535; 99252; 99285; J7050; P9612; A4216; G0463; J0696; J2405

== ENCOUNTER → 2022-09-03 | Outpatient (CLI) | payer MEDICARE, SELFPAY ==
--- NOTE | 2022-09-03 12:57 | ART_ITS ---
Reason For Study: PVD bilateral lower extremity Procedure A bilateral lower extremity continuous wave Doppler with analog waveform analysis,segmental pressures,and ankle brachial indexes without exercise. Left Segmental Pressures Left brachial= 135mmHg. Left posterior tibial artery = 169mmHg. Left dorsalis pedis artery = 160mmHg. Left digit = 103 mmHg. Right Segmental Pressures Right brachial= 139mmHg. Right posterior tibial artery = 148mmHg. Right dorsalis pedis artery = 161mmHg. Right digit = 120 mmHg. Indices The right ankle brachial index by the posterior tibial artery is 1.06. The right ankle brachial index by the dorsalis pedis is 1.16. The right digital-brachial index is 0.86. The left ankle brachial index by the posterior tibial artery is 1.22. The left ankle brachial index by the dorsalis pedis is 1.15. The left digital-brachial index is 0.74. VL/Lower Ext Art Exam w/o Exercis Interpretation Summary Triphasic Doppler waveforms are noted at ankle level bilaterally. Pulse-volume recordings appear satisfactory at all levels bilaterally. Resting ankle-brachial indices are norm al bilaterally. Digital-brachial indices are normal bilaterally. There is no evidence of significant arterial occlusive disease in the lower ext remities bilaterally. Ordering Physician: Jonathan Hines Referring Physician: Rebecca Lewis Performed By: Tona Roca RDCS/RVT
== END | disposition home or self-care (01) ==
LOC: CVS 12:52
PROVIDERS: PCP Internal Medicine; Referring Provider Podiatrist; Visit Provider Podiatrist
DX: I73.9 Peripheral vascular disease, unspecified (principal)
CPT/HCPCS: 93923

== ENCOUNTER 2022-10-30 00:50 | Inpatient (IN) | payer MEDICARE, SELFPAY ==
[2022-10-30] VITALS (21 sets, daily range): BP systolic 118–168; BP diastolic 46–107; PULSE 61–80; RESP 14–24; TEMP 36.3–38.1; O2SAT 2–99; BMI 30.5; BMI 30.1
--- NOTE | 2022-10-30 02:20 | RAD_ITS ---
INDICATION: cough EXAMINATION/TECHNIQUE: X-RAY - XR Chest 1 View COMPARISON: Chest x-ray from 08/20/2022 FINDINGS: LINES/DEVICES: None. LUNGS: No pulmonary edema or focal airspace consolidation. Stable mild linear scarring right midlung. No sizable pleural effusion. No pneumothorax detected. MEDIASTINUM AND CARDIOVASCULAR STRUCTURES: Heart size within normal limits. Mediastinal contours unremarkable. BONES AND SOFT TISSUES: Skeletal degenerative changes. Colonic gaseous distention similar to prior exam. RAD/Chest 1 View (Portable) IMPRESSION: No radiographic evidence of acute cardiopulmonary disease. Electronically Signed: Sridhar Rodriguez MD at 3:11 EDT ,
[2022-10-30 02:47] LABS: Absolute Lymphocyte Count 2.28 X10^3/uL (0.83-4.51); Absolute Neutrophil Count 12.7 X10^3/uL (2.0-7.7); Basophil# 0.05 X10^3/uL; Basophil% 0.3 % (0-1); Eosinophil# 0.04 X10^3/uL; Eosinophils% 0.2 % (0-5); Hematocrit 36.3 % (37-47); Hemoglobin 11.9 g/dL (12.0-15.0); Lymphocyte # 2.28 X10^3/ul (0.83-4.51); Lymphocyte % 13.1 % (19-41); Mean Corp Hgb Conc 32.8 g/dL (32-36); Mean Corpuscular Hgb 29.9 pg (27.0-32.0); Mean Corpuscular Volume 91.2 fL (81-99); Mean Platelet Vol. 9.5 fl (6.2-12.0); Monocyte# 2.28 X10^3/uL; Monocyte% 13.1 % (0-10); NRBC Flagged by Analyzer 0 % (0-5); Neutrophil # 12.73 X10^3/uL (2.7-7.7); Neutrophil % 72.9 % (47-70); POSITIVE DIFFERENTIAL YES; Platelet Count 269 K/mm3 (150-450); RBC Distribution Width SD 46.9 fl (35.1-43.9); Red Blood Count 3.98 M/mm3 (4.2-5.4); White Blood Count 17.5 K/mm3 (4.4-11.0)
[2022-10-30] MEDS: Acetaminophen 500 MG Tablet 1000 MG PO (02:50)
[2022-10-30 03:05] LABS: Bacteria 0 SEEN /hpf (None Seen); Mucous, Urine 0 SEEN /hpf (<or=2+); Red Blood Cells-Urine 0 SEEN /hpf (0-5); Squamous Epithelial Cells - UA 0 SEEN /hpf (5-10); White Blood Cells 0 SEEN /hpf (0-5)
[2022-10-30 03:09] LABS: Anion Gap 6 (5-15); BUN 10 mg/dL (7-18); BUN/Creat Ratio 12.8 RATIO (10-20); Calcium,Total 9.4 mg/dL (8.5-10.1); Chloride 98 mmol/L (98-107); Creatinine, Serum 0.78 mg/dL (0.55-1.02); EST Glomerular Filtration Rate 76 mL/min (>60); Est Glom Filt Rate - Afr Amer 92 mL/min (>60); Estimated Creatinine Clearance 39.59 ml/min; Glucose 130 mg/dL (74-106); Potassium 3.4 mmol/L (3.5-5.1); Sodium Level 133 mmol/L (136-145)
[2022-10-30 03:10] LABS: Differential Indicated SCAN CRITERIA MET
[2022-10-30 03:13] LABS: Lactic Acid 1.5 mmol/L (0.4-1.9)
[2022-10-30 03:38] LABS: BNP,B-Type NATRIURETIC PEPTIDE 129.3 pg/mL (0-100)
[2022-10-30 03:44] LABS: Glucose, Dipstick Normal (Normal); Ketone-Dipstick Negative (Negative); Leukocyte Esterase-Dipstick Negative /ul (Negative); Nitrite-Dipstick Negative (Negative); Occult Blood-Urine 10 /ul (Negative); Protein-Dipstick 30 mg/dl (Negative); Specific Gravity, Urine 1.015 (1.002-1.030); Urine Bilirubin Dipstick Negative (Negative); Urine Urobilinogen 1 mg/dl (Normal); Urine pH 6.5 (5.0 - 8.0)
[2022-10-30 03:50] LABS: Color, Urine Yellow (Yellow); Urine Clarity Clear (Clear)
--- NOTE | 2022-10-30 04:05 | CT_ITS ---
We are attempting to reach an attending provider to discuss findings. An addendum with communication details will be sent when the communication is complete. INDICATION: Chest and abdominal pain EXAMINATION: CTA CHEST, ABDOMEN AND PELVIS WITH CONTRAST TECHNIQUE: Helically acquired images were obtained of the chest, abdomen, and pelvis following IV contrast. MIP reconstructions reviewed. A radiation dose optimization technique was used for this scan. IV Contrast dosage and agent: 100 cc [id number] Oral contrast: None. COMPARISON: CTA chest from 08/01/2022 FINDINGS: ----Chest: LUNGS, PLEURA AND LARGE AIRWAYS: Mild bilateral dependent and basilar atelectatic changes. No pulmonary edema, mass or consolidation. Small right pleural effusion. No pneumothorax. THYROID: Unremarkable as visualized. HEART AND PERICARDIUM: Heart size within normal limits, with no evidence of acute right heart strain. No significant pericardial effusion. VESSELS: Right middle lobe segmental pulmonary arterial filling defects present. Mild atherosclerosis with no thoracic aortic aneurysm or dissection. Great vessels are patent. MEDIASTINUM AND KERON: No mediastinal or hilar adenopathy. Esophagus is unremarkable. BONES: Intact with no suspicious osseous lesion. ----Abdomen/Pelvis: LIVER: Enlarged fatty liver measures 23 cm craniocaudal length. There are several small, simple appearing hepatic cysts requiring no additional follow-up at this time. No concerning hepatic lesion. GALLBLADDER AND BILIARY TREE: No calcified gallstones. No significant biliary ductal dilation. PANCREAS: No discrete mass or peripancreatic edema. SPLEEN: Normal size without focal cystic or solid mass. ADRENAL GLANDS: Unremarkable. KIDNEYS AND URETERS: Normal renal size and position. Bilateral renal stones, measuring up to 8 mm diameter on the left. No ureteral stones identified. No hydronephrosis. Couple small simple appearing right renal cysts requiring no additional follow-up, largest measuring 1.3 cm. PERITONEUM: No peritoneal free air or significant free fluid. No other fluid collection. BOWEL: Appendix not visualized but no evidence of appendicitis. Prominent colonic fecal load and mild colonic gaseous distention. No obstructing lesion. Redundant sigmoid colon projects into upper abdomen, with no volvulus. No significant small bowel dilatation. No focal bowel thickening detected. LYMPH NODES: No enlarged mesenteric or retroperitoneal lymph nodes. VESSELS: Generalized atherosclerosis with no abdominal aortic aneurysm or dissection. Aortic branch vessels with no significant stenosis. Patent celiac artery, superior mesenteric artery, bilateral renal arteries, inferior mesenteric artery and bilateral iliac arteries. URINARY BLADDER: Unremarkable as visualized. REPRODUCTIVE ORGANS: Status post hysterectomy. No pelvic mass. ABDOMINAL WALL: No acute findings or significant hernia defect. BONES: Skeletal degenerative changes with multiple chronic left lumbar transverse process fractures. No acute fracture identified. CT/CTA Chst, Abd, Pel W and/or WO IMPRESSION: 1. Right middle lobe pulmonary emboli with no signs of acute right heart strain. There are bilateral atelectatic changes and small right pleural effusion. 2. Atherosclerotic disease with no aortic aneurysm or dissection. 3. Nonobstructing bilateral nephrolithiasis. 4. Redundant sigmoid colon with probable constipation, correlate clinically. 5. Hepatic steatosis and hepatomegaly. 6. Other nonurgent findings within body of report. Electronically Signed: Sridhar Rodriguez MD at 5:13 EDT ,
--- NOTE | 2022-10-30 05:38 | HP.PCM.HOS_ITS ---
HPI - General General Date of Admission: 10/30/22 Date of Service: 10/30/22 Chief Complaint: Weakness, pleuritic chest discomfort, dyspnea. 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 Patient does have a recent increased fall history per family report. Patient did have a significant fall approximately 2 weeks prior falling on the edge of the toilet with significant discomfort and musculos keletal pain causing her to be less active and less mobile of note. She denies any recent cough, congestion, nausea, emesis, diarrhea. Work-up in the ED included T 100.5 with most recent repeat T99.1, heart rate 162/72, respiratory rate 18, 94% on room air however did eventually desaturated to 86% on room air and was placed on 2L nasal cannula now currently 94% on 2 L nasal cannula, CBC with WBC 17.5, hemoglobin 11.9, MCV 91.2, platelet 269 with left shift, BMP with sodium 133, potassium 3.4, glucose 130, BNP 129.3, lactic acid 1.5, urinalysis not marked appearing, rapid SARS COVID and influenza antigens negative, chest/abdomen/pelvis CTA with a right middle lobe pulmonary emboli with no signs of acute right heart strain with bilateral atelectatic changes and a small right pleural effusion, atherosclerotic disease with no aortic aneurysm or dissection, nonobstructing bilateral nephrolithiasis, redundant sigmoid colon with probable constipation, hepatic steatosis and hepatomegaly, EKG []. In the ED patient ministered 1 L normal saline, Tylenol 1000 mg p.o. x1 as well as initiated on eliquis therapy. [facility] Medical History Chronic pain Diabetes Dysmetabolic syndrome Dyspnea on exertion Essential hypertension Former smoker GERD (gastroesophageal reflux disease) Greater trochanteric bursitis of right hip History of kidney stones Hyperlipidemia Meningioma Nonrheumatic aortic (valve) insufficiency Osteoarthritis of right hip Paroxysmal atrial tachycardia Peripheral neuropathy Thoracic aortic aneurysm without rupture Home Medications gabapentin 300 mg capsule 300 mg PO BID Check with primary doctor 02/22/13 [History Last Taken 07/31/22] digoxin 250 mcg (0.25 mg) tablet 250 mcg PO DAILY HEART 02/01/14 [History Last Taken 07/31/22] pravastatin 80 mg tablet 80 mg PO QDAY CHOLESTEROL 11/22/17 [History Last Taken 07/31/22] atenolol 100 mg tablet 50 mg PO BID BP 03/28/19 [History Last Taken 07/31/22] metformin 500 mg tablet 500 mg PO BID DIABETES 12/02/20 [History Last Taken 07/31/22] cholecalciferol (vitamin D3) 25 mcg (1,000 unit) tablet (Vitamin D3) 25 mcg PO DAILY SUPPLEMENT 05/12/21 [History Last Taken 07/31/22] amlodipine 10 mg tablet 10 mg PO DAILY 05/20/21 [History Last Taken 07/31/22] amitriptyline 25 mg tablet 25 mg PO QHS sleep 08/01/22 [History Last Taken Unknown] losartan 25 mg tablet 25 mg PO DAILY HTN 08/01/22 [History Last Taken 07/31/22] acetaminophen 325 mg tablet 650 mg (2 x 325 mg) PO Q4H PRN PRN Pain 1-10 Or Fever #0 tabs 08/05/22 [Rx Last Taken Unknown] amoxicillin 875 mg-potassium clavulanate 125 mg tablet 1 tab PO BID #6 tabs 08/23/22 [Rx Last Taken Unknown] meloxicam 15 mg tablet 15 mg PO DAILY #14 tabs 08/23/22 [Rx Last Taken Unknown] Allergy/AdvReac Type Severity Reaction Status Date / Time lisinopril AdvReac Severe Intolerence, Verified 08/20/22 09:06 cough nalbuphine HCl [From Nubain] AdvReac Nausea/Vom/ Verified 08/20/22 09:06 Diarrhea Family History Father CAD (coronary artery disease) Myocardial infarction, Onset Age: 51 Brother Myocardial infarction, Onset Age: 51 Brother CAD (coronary artery disease) Hx of CABG Sister Heart disease COPD (chronic obstructive pulmonary disease) Sister CVA (cerebral vascular accident) Surgical History History of arthroscopy of right shoulder History of back surgery History of elbow surgery History of hand surgery History of hemorrhoidectomy (~11/2021) History of hysterectomy History of knee replacement procedure of right knee History of knee surgery Hx of cardiac cath Status post trigger finger release Social History household members: none Smoking Status: Former smoker how long ago did patient quit smokin years ago alcohol intake: never substance use type: does not use caffeine: No ROS ROS Narrative Admission Review of Systems: CONSTITUTIONAL: No weight loss, fever, chills, + weakness or fatigue. HEENT: Eyes: No visual loss, blurred vision, double vision or yellow sclerae. Ears, Nose, Throat: No hearing loss, sneezing, congestion, runny nose or sore throat. SKIN: + Stage ecchymoses given recent chemical falls. CARDIOVASCULAR: + Pleuritic chest discomfort, right-sided. Palpitations, edema, orthopnea, syncopal events. RESPIRATORY: + Shortness of breath, No cough or sputum, wheezing, hemoptysis. GASTROINTESTINAL: + Chronic constipation. No anorexia, nausea, vomiting or diarrhea, abdominal pain, melena, BRBPR. GENITOURINARY: No dysuria, frequency, urgency or retention. NEUROLOGICAL: No headache, dizziness, syncope, paralysis, ataxia, numbness or tingling in the extremities, focal weakness, change in bowel or bladder control, seizure. MUSCULOSKELETAL: + muscle, back pain, joint pain or stiffness. HEMATOLOGIC: + anemia, bleeding or bruising. LYMPHATICS: No enlarged nodes. No history of splenectomy. PSYCHIATRIC: No history of depression or anxiety. ENDOCRINOLOGIC: No reports of sweating, cold or heat intolerance. No polyuria or polydipsia. ALLERGIES: No history of asthma, hives, eczema or rhinitis. Vital Signs Vital Signs Vital Signs: 10/30/22 00:51 10/30/22 00:53 10/30/22 00:53 Temperature 100.5 F H 100.5 F H 100.5 F H Temperature Source Oral Oral Oral Pulse Rate 80 76 76 Respiratory Rate 18 18 18 Blood Pressure 162/72 H 152/72 H 152/72 H Blood Pressure Mean 102 98 98 Pulse Ox 94 93 93 Oxygen Delivery Method Room Air Room Air Room Air Oxygen Flow Rate (L/min) 10/30/22 02:54 10/30/22 03:59 10/30/22 04:14 Temperature 97.6 F L 99.1 F Temperature Source Axillary Oral Pulse Rate 76 69 67 Respiratory Rate 24 H 16 17 Blood Pressure 162/63 H 142/62 H 168/50 H Blood Pressure Mean 96 88 89 Pulse Ox 93 95 94 Oxygen Delivery Method Nasal Cannula Nasal Cannula Nasal Cannula Oxygen Flow Rate (L/min) 2 2 2 Weight Weight: 172 lb 6.424 oz Body Mass Index (BMI) 30.5 Physical Exam Narrative Physical Examination: General: Awake, alert, oriented x 3 and cooperative, laying in the ED bed, fatigued, notes ongoing pleuritic discomfort to the right chest specifically worse with deep inspiratory effort. Skin: Normal color, normal turgor, no icterus, no cyanosis except resolving very staged ecchymoses especially given recent fall history. HEENT: AT/NC, EOMI, PERRLA, MMM, no carotid bruits or JVD noted. Lungs: Diminished, greater bases, decreased effort secondary to elicited discomfort with deep inspiratory effort, no rales, ronchi or wheezing. Heart: Regular rate and rhythm; no gallop, rub audible. Abdomen: Soft, obese, NTTP, ND, normal BS, no HSM. Extremities: No cyanosis, no clubbing, chronic bilateral lower extremity edema but no marked pitting. Neurological: Patient awake, alert, oriented as noted, cognitive function intact; pupils equally reactive to light and accommodation, cranial nerves II- XII grossly normal, moving all 4 extremities, no focal deficits, strength moderately to severely global decreased secondary to acute presentation and recent falls. Psychiatric: Affect appears fatigued otherwise normal, no acute evidence of depressive or anxiety feelings. Results Lab / Micro Data 10/30/22 02:37 10/30/22 02:37 Labs: Laboratory Results - last 24 hr 10/30/22 02:37: WBC 17.5 H, RBC 3.98 L, Hgb 11.9 L, Hct 36.3 L, MCV 91.2, MCH 29.9, MCHC 32.8, RDW Std Deviation 46.9 H, RDW Coeff of Patti 14.0, Plt Count 269, MPV 9.5, Immature Gran % (Auto) 0.400, Neut % (Auto) 72.9 H, Lymph % (Auto) 13.1 L, [place] % (Auto) 13.1 H, Eos % (Auto) 0.2, Baso % (Auto) 0.3, Absolute Neuts (auto) 12.7 H, Absolute Lymphs (auto) 2.28, Nucleated RBC % 0, Sodium 133 L, Potassium 3.4 L, Chloride 98, Carbon Dioxide 29.0, Anion Gap 6, BUN 10, Creatinine 0.78, Estim Creat Clear Calc 39.59, Est GFR (MDRD) Af Amer 92, Est GFR (MDRD) Non-Af 76, BUN/Creatinine Ratio 12.8, Glucose 130 H, Lactic Acid 1.5, Calcium 9.4, B-Natriuretic Peptide 129.3 H 10/30/22 02:45: Urine Color Yellow, Urine Clarity Clear, Urine pH 6.5, Ur Specific Ong 1.015, Urine Protein 30 H, Urine Glucose (UA) Normal, Urine Ketones Negative, Urine Occult Blood 10 H, Urine Nitrite Negative, Urine Bilirubin Negative, Urine Urobilinogen 1 H, Ur Leukocyte Esterase Negative, Urine RBC 0 SEEN, Urine WBC 0 SEEN, Ur Squamous Epith Cells 0 SEEN, Urine Bacteria 0 SEEN, Urine Mucus 0 SEEN Micro: Microbiology 10/30/22 03:00 Nasal Secretion SARS-CoV-2 & FLU Antigen (Rapid) - Final Radiology Impression Chest X-Ray 10/30/22 02:20 IMPRESSION: No radiographic evidence of acute cardiopulmonary disease. Electronically Signed: Sridhar Rodriguez MD at 3:11 EDT , Chest/Abdomen/Pelvis CTA 10/30/22 04:05 IMPRESSION: 1. Right middle lobe pulmonary emboli with no signs of acute right heart strain. There are bilateral atelectatic changes and small right pleural effusion. 2. Atherosclerotic disease with no aortic aneurysm or dissection. 3. Nonobstructing bilateral nephrolithiasis. 4. Redundant sigmoid colon with probable constipation, correlate clinically. 5. Hepatic steatosis and hepatomegaly. 6. Other nonurgent findings within body of report. Electronically Signed: Sridhar Rodriguez MD at 5:13 EDT , ADDENDUM: 10/30/22 0529 IMPRESSION: 1. Right middle lobe pulmonary emboli with no signs of acute right heart strain. There are bilateral atelectatic changes and small right pleural effusion. 2. Atherosclerotic disease with no aortic aneurysm or dissection. 3. Nonobstructing bilateral nephrolithiasis. 4. Redundant sigmoid colon with probable constipation, correlate clinically. 5. Hepatic steatosis and hepatomegaly. 6. Other nonurgent findings within body of report. N.B. : The above Results were Read Back by Sridhar Rodriguez MD to Elmer Mckeon DO, and understanding confirmed on 10/30/2022 05:22:24 (ET). Electronically Signed: Sridhar Rodriguez MD at 5:13 EDT , Assessment & Plan Assessment/Plan (1) Pulmonary embolism: PLAN: Plan The patient is a 76 y/o F w/ PMHx: Chronic anemia, PAT on digoxin, SUSAN with ch ronic hypoxia respiratory failure (2L NC), Chronic pain syndrome, Diabetes mellitus type II, HTN, HLD, GERD, Former tobacco use who presents to the [facility] ED on 10/30/22 with history of increased fatigue and malaise as well as worsening weakness with difficulty getting around the home over the last 2 to 3 days with significant dyspnea, worse with exertion and pleuritic chest discomfort on the right side worse with deep inspiratory effort eventually prompting daughter to bring her in for evaluation. #1. Acute Hypoxia, Dyspnea, Pleuritic chest discomfort secondary to Acute Right Sided Pulmonary Embolism: EKG without acute findings, CXR no acute process, CTPA with right middle lobe pneumonia emboli with no evidence of any cardiac strain. Will admit to PCU, will maintain on cardiac telemetry. Will obtain ECHO. We will continue Eliquis regimen initiated in the ED. Case management consulted f or discharge planning. PT/OT consulted as well for discharge planning. #2. Leukocytosis, unclear etiology, possibly stress response, possibly dehydration: Admission CBC with WBC 17.5 with left shift, urinalysis not marked appearing, CTPA with no obvious evidence of infiltrate, will obtain full re spiratory viral panel and COVID PCR to be cautious, procalcitonin requested. #3. Hypokalemia: Admission K+ 3.4, magnesium level requested, supplementation given, repeat level in AM. #4. Chronic normocytic anemia: Admission hemoglobin 11.9, baseline more recently has been 10-11, stable, continue to trend. #6. Diabetes mellitus type II with chronic neuropathy: Hold oral home regimen, ADA diet, accu checks w/ ISS, continue home. #7. PAT: Will continue patient home digoxin regimen. #8. Hypertension: Continue home regimen including losartan, amlodipine, atenolol, PRN hydralazine. #9. Hyperlipidemia: We will continue patient on statin therapy. #10. Obesity: Weight loss and lifestyle changes encouraged. #11. Former tobacco use: Encourage continued tobacco cessation. #12. DVT prophylaxis: Will continue recently initated eliquis regimen. #13. CODE status: Patient KALEY is her 2 daughters and living will is currently in place. Discussed CODE status at length including difference between FULL code, DNR-CCA and DNR-CC status. Following discussions about the differences in these status, requested very adamantly DNR-CCA, no intubation. She does report though that one of her daughters disagrees with her therefore we did have an honest discussion about consideration of removing her as one of her healthcare barrett of drapery inspector if she fears her daughter changing the status she would like. Advanced Care Planning Face to Face Time: 16 minutes. Admission Evaluation Time spent evaluating chart, patient history, patient evaluation, care planning and discussion with specialists: 60 minutes. Charges/Coding Visit Charges Inpatient E&M: 27909 Init Hosp L2 Procedures Hospitalists Procedures: [id number] Advncd Care Plan 30 Min
[2022-10-30 05:42] LABS: Differential Comment SCANNED
--- NOTE | 2022-10-30 05:46 | ED.RN ---
called and left message with patients daughter mike about admission [phone]
[2022-10-30] MEDS: APIXABAN 5 MG TABLET PO ×2 (06:02→06:30)
--- NOTE | 2022-10-30 06:03 | EDS_ITS ---
HPI History of Present Illness Chief Complaint: Weakness Informant: patient and family Narrative Narrative: Patient is a 76-year-old female with past medical history of hyperlipidemia paroxysmal atrial tachycardia as well as debility and degenerative disc disease. She stays with her daughter at home. Daughter reports patient has a history of frequent UTIs and that over the last 2 to 3 days she has had increased weakness and has made some odd comments which make her think she is developing a UTI. Reported the patient has been too weak to ambulate and over the last 2 days has had episodes of falling and had been on the ground for approximate 1 to 2 hours as she cannot get up on her own. Therefore based on the increased weakness and inability to care for herself the daughter is concerned that she has developed a UTI and will need potential IV antibiotics and rehab and therefore patient was brought to the hospital for evaluation. Daughter does state that patient wears nasal cannula oxygen at bedtime on a regular basis [facility] Medical History Chronic pain Diabetes Dysmetabolic syndrome Dyspnea on exertion Essential hypertension Former smoker GERD (gastroesophageal reflux disease) Greater trochanteric bursitis of right hip History of kidney stones Hyperlipidemia Meningioma Nonrheumatic aortic (valve) insufficiency Osteoarthritis of right hip Paroxysmal atrial tachycardia Peripheral neuropathy Thoracic aortic aneurysm without rupture Home Medications gabapentin 300 mg capsule 300 mg PO BID Check with primary doctor 02/22/13 [History Last Taken 07/31/22] digoxin 250 mcg (0.25 mg) tablet 250 mcg PO DAILY HEART 02/01/14 [History Last Taken 07/31/22] pravastatin 80 mg tablet 80 mg PO QDAY CHOLESTEROL 11/22/17 [History Last Taken 07/31/22] atenolol 100 mg tablet 50 mg PO BID BP 03/28/19 [History Last Taken 07/31/22] metformin 500 mg tablet 500 mg PO BID DIABETES 12/02/20 [History Last Taken 07/31/22] cholecalciferol (vitamin D3) 25 mcg (1,000 unit) tablet (Vitamin D3) 25 mcg PO DAILY SUPPLEMENT 05/12/21 [History Last Taken 07/31/22] amlodipine 10 mg tablet 10 mg PO DAILY 05/20/21 [History Last Taken 07/31/22] amitriptyline 25 mg tablet 25 mg PO QHS sleep 08/01/22 [History Last Taken Unknown] losartan 25 mg tablet 25 mg PO DAILY HTN 08/01/22 [History Last Taken 07/31/22] acetaminophen 325 mg tablet 650 mg (2 x 325 mg) PO Q4H PRN PRN Pain 1-10 Or Fever #0 tabs 08/05/22 [Rx Last Taken Unknown] amoxicillin 875 mg-potassium clavulanate 125 mg tablet 1 tab PO BID #6 tabs 08/23/22 [Rx Last Taken Unknown] meloxicam 15 mg tablet 15 mg PO DAILY #14 tabs 08/23/22 [Rx Last Taken Unknown] Allergy/AdvReac Type Severity Reaction Status Date / Time lisinopril AdvReac Severe Intolerence, Verified 08/20/22 09:06 cough nalbuphine HCl [From Nubain] AdvReac Nausea/Vom/ Verified 08/20/22 09:06 Diarrhea Family History Father CAD (coronary artery disease) Myocardial infarction, Onset Age: 51 Brother Myocardial infarction, Onset Age: 51 Brother CAD (coronary artery disease) Hx of CABG Sister Heart disease COPD (chronic obstructive pulmonary disease) Sister CVA (cerebral vascular accident) Surgical History History of arthroscopy of right shoulder History of back surgery History of elbow surgery History of hand surgery History of hemorrhoidectomy (~11/2021) History of hysterectomy History of knee replacement procedure of right knee History of knee surgery Hx of cardiac cath Status post trigger finger release Social History household members: none Smoking Status: Former smoker how long ago did patient quit smokin years ago alcohol intake: never substance use type: does not use caffeine: No ROS ROS ED Constitutional Constitutional ED: Denies chills or fever(s) Eyes Eyes: Denies change in vision ENT ENT ED: Denies sore throat Cardiovascular Cardiovascular: Reports chest pain; Denies palpitations or racing heartbeat Respiratory/Chest Respiratory/Chest: Reports cough; Denies dyspnea Gastrointestinal Gastrointestinal: Reports nausea; Denies abdominal pain, diarrhea or vomiting Genitourinary Genitourinary ED: Denies dysuria Musculoskeletal Musculoskeletal: Denies myalgias Integumentary Denies rash Neurologic Neurologic: Denies headache(s) Hematologic/Lymphatic Hematologic/Lymphatic: Denies easy bleeding or easy bruising EXAM Physical Exam Const Vital Signs: 10/30/22 00:51 10/30/22 00:53 10/30/22 00:53 Temperature 100.5 F H 100.5 F H 100.5 F H Temperature Source Oral Oral Oral Pulse Rate 80 76 76 Respiratory Rate 18 18 18 Blood Pressure 162/72 H 152/72 H 152/72 H Blood Pressure Mean 102 98 98 Pulse Ox 94 93 93 Oxygen Delivery Method Room Air Room Air Room Air Oxygen Flow Rate (L/min) 10/30/22 02:54 10/30/22 03:59 10/30/22 04:14 Temperature 97.6 F L 99.1 F Temperature Source Axillary Oral Pulse Rate 76 69 67 Respiratory Rate 24 H 16 17 Blood Pressure 162/63 H 142/62 H 168/50 H Blood Pressure Mean 96 88 89 Pulse Ox 93 95 94 Oxygen Delivery Method Nasal Cannula Nasal Cannula Nasal Cannula Oxygen Flow Rate (L/min) 2 2 2 Positive well nourished, well developed and obese General Appearance ED: well developed Nutritional Appearance: obese HEENT Reports dry mucous membranes HEENT Narrative: No tongue or lip swelling. No oral lesions. No airway edema or compromise. No signs of infection noted in the posterior pharynx Mouth ED: Yes dry mucous membranes Mouth: dry mucous membranes Eyes PERRL and EOMs intact bilaterally General Eye ED: Negative for scleral icterus Neck supple and no JVD Neck Narrative: No nuchal rigidity or meningeal signs present Chest Wall Chest Narrative: Patient has reproducible right anterior lateral chest wall pain rib regions 5-8 without bony deformity or crepitance Resp normal respiratory effort Resp Narrative: Breath sounds are diminished throughout with rhonchi in the bilateral bases but no nasal flaring retractions tachypnea or accessory muscle use Cardio regular rate and regular rhythm Rate: other Other Details: Radial pulses are plus 2 out of 4 bilaterally are equal and symmetric GI GI Narrative: Abdomen is soft but distended with hypoactive bowel sounds. There is no voluntary guarding or rigidity. No pulsatile mass or fluid wave noted. Auscultation: hypoactive bowel sounds Palpation: soft Extremity Extremity Narrative: Trace to +1 pitting edema to the bilateral lower extremities that is equal and symmetric Negative Homans' sign bilaterally Neuro oriented x3 and CN's II-XII intact bilaterally Sensorium / Orientation: alert Psych mental status grossly normal Skin no rashes or lesions noted MDM MDM MDM Narrative Medical decision making narrative: Patient presented to the ER with low-grade fever but otherwise no signs of respiratory distress. She was on nasal cannula oxygen but wears this on a regular basis at nighttime therefore her presentation this evening is not abnormal. With the patient having a previous history of pneumonia and now low- grade fever there is concern for return of pneumonia or potential COVID or influenza. Also as daughter reports patient is prone to UTIs there is concern for this even though patient denies any dysuria. With concern for an infectious process because of her weakness and low-grade fever basic blood work was obtained. Labs showed leukocytosis of 17.5 but otherwise no clinically significant finding. Urine sample obtained showed no obvious signs of inf ection. Chest x-ray was then ordered looking for pneumonia which revealed no acute findings. As patient has a low-grade fever with right-sided chest discomfort that is worse with inspiration there is also concern for pulmonary embolus. Therefore CTA was obtained of the chest abdomen and pelvis. CTA did confirm right segmental lobe pulmonary embolus without heart strain. Evaluation through the abdomen did not reveal any acute abdominal pathology. At this time based on the patient's stability and the large clot burden on CT scan I felt it was best that patient stay in the hospital for anticoagulation and further monitoring and evaluation by physical and Occupational Therapy. Secondary to this the case was discussed with the medicine service and they are agreeable to it. As the patient is not hemodynamically unstable and there is no heart strain patient will be placed on oral Eliquis for anticoagulation. History & Record Review Discussion w/independent historian: Patient and Family Lab Data Attestation: I reviewed the patient's lab results. Labs: Laboratory Results - last 24 hr 10/30/22 10/30/22 02:37 02:45 WBC 17.5 H RBC 3.98 L Hgb 11.9 L Hct 36.3 L MCV 91.2 MCH 29.9 MCHC 32.8 RDW Std Deviation 46.9 H RDW Coeff of Patti 14.0 Plt Count 269 MPV 9.5 Immature Gran % (Auto) 0.400 Neut % (Auto) 72.9 H Lymph % (Auto) 13.1 L [place] % (Auto) 13.1 H Eos % (Auto) 0.2 Baso % (Auto) 0.3 Absolute Neuts (auto) 12.7 H Absolute Lymphs (auto) 2.28 Nucleated RBC % 0 Differential Comment SCANNED Diff Path Review May foll Sodium 133 L Potassium 3.4 L Chloride 98 Carbon Dioxide 29.0 Anion Gap 6 BUN 10 Creatinine 0.78 Estim Creat Clear Calc 39.59 Est GFR (MDRD) Af Amer 92 Est GFR (MDRD) Non-Af 76 BUN/Creatinine Ratio 12.8 Glucose 130 H Lactic Acid 1.5 Calcium 9.4 Magnesium 2.1 B-Natriuretic Peptide 129.3 H Urine Color Yellow Urine Clarity Clear Urine pH 6.5 Ur Specific [place] 1.015 Urine Protein 30 H Urine Glucose (UA) Normal Urine Ketones Negative Urine Occult Blood 10 H Urine Nitrite Negative Urine Bilirubin Negative Urine Urobilinogen 1 H Ur Leukocyte Esterase Negative Urine RBC 0 SEEN Urine WBC 0 SEEN Ur Squamous Epith Cells 0 SEEN Urine Bacteria 0 SEEN Urine Mucus 0 SEEN Radiography Diagnostic Testing: Clinical Impression(s) from Imaging Studies Chest X-Ray 10/30/22 02:20 IMPRESSION: No radiographic evidence of acute cardiopulmonary disease. Electronically Signed: Sridhar Rodriguez MD at 3:11 EDT , Chest/Abdomen/Pelvis CTA 10/30/22 04:05 IMPRESSION: 1. Right middle lobe pulmonary emboli with no signs of acute right heart strain. There are bilateral atelectatic changes and small right pleural effusion. 2. Atherosclerotic disease with no aortic aneurysm or dissection. 3. Nonobstructing bilateral nephrolithiasis. 4. Redundant sigmoid colon with probable constipation, correlate clinically. 5. Hepatic steatosis and hepatomegaly. 6. Other nonurgent findings within body of report. Electronically Signed: Sridhar Rodriguez MD at 5:13 EDT , ADDENDUM: 10/30/22 0529 IMPRESSION: 1. Right middle lobe pulmonary emboli with no signs of acute right heart strain. There are bilateral atelectatic changes and small right pleural effusion. 2. Atherosclerotic disease with no aortic aneurysm or dissection. 3. Nonobstructing bilateral nephrolithiasis. 4. Redundant sigmoid colon with probable constipation, correlate clinically. 5. Hepatic steatosis and hepatomegaly. 6. Other nonurgent findings within body of report. N.B. : The above Results were Read Back by Sridhar Rodriguez MD to Elmer Mckeon DO, and understanding confirmed on 10/30/2022 05:22:24 (ET). Electronically Signed: Sridhar Rodriguez MD at 5:13 EDT , Chest x-ray as interpreted by the emergency medicine physician reveals no acute infiltrate pneumothorax or pleural effusion Management Discussion w/another healthcare provider: Hospitalist Discharge Plan Dx/Rx/DC Orders Clinical Impression: Pulmonary embolism on right, History of paroxysmal atrial tachycardia, Hyperlipidemia, Debility Disposition Disposition: Acute Care Hospital [facility]
[2022-10-30 06:06] LABS: Magnesium 2.1 mg/dL (1.6-2.6)
[2022-10-30 07:27] LABS: Procalcitonin 0.08 ng/mL (0.00-0.09)
--- NOTE | 2022-10-30 07:31 | ECHOD_ITS ---
Reason For Study: Pulm embolism Procedure This was a 2D Doppler, Color Flow transthoracic echocardiogram. The study was technically difficult. Patient scanned sitting in chair due to back pain. Exam performed portable in patient room. Left Ventricle Normal LV size. Left ventricular systolic function is hyperdynamic. The estimated ejection fraction is 70 %. Normal diastology for age. No regional wall motion abnormalities noted. Right Ventricle Normal RV size. Normal systolic function. Atria Normal left atrium. Normal right atrium. Mitral Valve Bileaflet diffuse mitral valve thickening. Moderate diffuse mitral valve calcification. There is no mitral valve stenosis. Trivial mitral valve insufficiency. Tricuspid Valve Normal tricuspid valve. Trivial tricuspid valve insufficiency. Right ventricular systolic pressure estimated to be 25 mmHg. Aortic Valve Mild diffuse aortic valve thickening. Moderate focal aortic valve calcification. Mild aortic stenosis. Peak aortic valve gradient 26 mmHg. Mean aortic valve gradient 13 mmHg. Mild (1+) aortic valve insufficiency. Pulmonic Valve Normal pulmonic valve. Trivial pulmonic valve insufficiency. Great Vessels Normal aortic root. Pericardium/Pleural No pericardial effusion. MMode/2D Measurements & Calculations LVIDd: 3.7 cm IVSd: 1.8 cm LVOT diam: 2.1 cm LVIDs: 2.0 cm LVPWd: 1.4 cm LVOT area: 3.5 cm2 RVDd: 3.8 cm FS: 45.2 % Ao root diam: 3.8 cm LAV(MOD-bp): 27.6 ml LVAd ap4: 26.0 cm2 LAV(MOD-bp) Indexed: 15.2 ml/m2 LVLd ap4: 8.9 cm LAV(MOD-sp2): 31.2 ml EDV(MOD-sp4): 62.7 ml LAV(MOD-sp4): 24.6 ml EDV(sp4-el): 64.7 ml LVAs ap4: 11.5 cm2 LVLs ap4: 7.4 cm ESV(MOD-sp4): 14.8 ml ESV(sp4-el): 15.2 ml EF(MOD-sp4): 76.3 % EF(sp4-el): 76.5 % SV(MOD-sp4): 47.9 ml SV(sp4-el): 49.5 ml LA A4 area: 12.3 cm2 LA dimension(2D): 3.0 cm RA A4 area: 10.5 cm2 TAPSE: 1.8 cm Time Measurements MV dec time: 0.37 sec Doppler Measurements & Calculations MV E max major: 71.3 cm/sec Lat Peak E' Major: 7.9 cm/sec Med Peak E' Major: 4.9 cm/sec MV A max major: 109.2 cm/sec E/E' lat: 9.1 E/E' med: 14.7 MV E/A: 0.65 Ao V2 max: 254.4 cm/sec AI max major: 388.4 cm/sec MV dec slope: 190.2 cm/sec2 Ao max P.9 mmHg AI max P.4 mmHg Ao V2 mean: 170.4 cm/sec Ao mean P.2 mmHg AI dec slope: 214.3 cm/sec2 Ao V2 VTI: 51.1 cm AI P1/2t: 530.9 msec AV (velocity ratio): 0.59 FEDERICO(I,D): 2.0 cm2 FEDERICO(V,D): 1.9 cm2 LV V1 max: 142.6 cm/sec SV(LVOT): 103.4 ml PA V2 max: 108.6 cm/sec LV V1 max P.1 mmHg PA V2 mean: 73.3 cm/sec LV V1 mean P.3 mmHg LV V1 mean: 98.1 cm/sec LV V1 VTI: 29.9 cm TR max major: 235.7 cm/sec TR max P.2 mmHg ECHO/Echo Complete Interpretation Summary The estimated ejection fraction is 70 %. Trivial mitral valve insufficiency. Mild aortic stenosis. Mild (1+) aortic valve insufficiency. Right ventricular systolic pressure estimated to be 25 mmHg. Ordering Physician: Katia Desai Referring Physician: Rebecca Lewis Performed By: Kanika Campbell RDCS
--- NOTE | 2022-10-30 07:57 | PCM.PN.HOSP ---
Reason for Visit Reason for Visit: Diagnoses Other pulmonary embolism without acute cor pulmonale (10/30/22) Subjective Subjective Patient is a 76-year-old lady who presented with pleuritic chest pain and dyspnea on exertion. Imaging studies obtained on admission demonstrated Right middle lobe pulmonary emboli with no signs of acute right heart strain. There are bilateral atelectatic changes and small right pleural effusion. Admitted to a monitored bed for subsequent management Objective Data Objective Data Vital Signs: Vital Signs Temp Pulse Resp BP Pulse Ox O2 Del Method O2 Flow Rate 97.7 F L 63 16 136/102 H 96 Nasal Cannula 2 10/30/22 07:50 10/30/22 07:50 10/30/22 07:50 10/30/22 07:50 10/30/22 07:50 10/30/22 07:50 10/30/22 07:50 Oxygen Flow Rate (L/min) 2 Oxygen Delivery Method Nasal Cannula Weight: 77.2 kg Body Mass Index (BMI) 30.1 Intake & Output: Intake and Output for Last 24 Hours 10/28/22 10/29/22 10/30/22 23:59 23:59 23:59 Intake Total 500 / 500 Balance 500 / 500 Lab / Micro Data 10/30/22 02:37 10/30/22 02:37 Labs: Laboratory Results - last 24 hr 10/30/22 02:37: WBC 17.5 H, RBC 3.98 L, Hgb 11.9 L, Hct 36.3 L, MCV 91.2, MCH 29.9, MCHC 32.8, RDW Std Deviation 46.9 H, RDW Coeff of Patti 14.0, Plt Count 269, MPV 9.5, Immature Gran % (Auto) 0.400, Neut % (Auto) 72.9 H, Lymph % (Auto) 13.1 L, [place] % (Auto) 13.1 H, Eos % (Auto) 0.2, Baso % (Auto) 0.3, Absolute Neuts (auto) 12.7 H, Absolute Lymphs (auto) 2.28, Nucleated RBC % 0, Differential Comment SCANNED, Diff Path Review August foll, Sodium 133 L, Potassium 3.4 L, Chloride 98, Carbon Dioxide 29.0, Anion Gap 6, BUN 10, Creatinine 0.78, Estim Creat Clear Calc 39.59, Est GFR (MDRD) Af Amer 92, Est GFR (MDRD) Non-Af 76, BUN/Creatinine Ratio 12.8, Glucose 130 H, Lactic Acid 1.5, Calcium 9.4, Magnesium 2.1, B-Natriuretic Peptide 129.3 H 10/30/22 02:45: Urine Color Yellow, Urine Clarity Clear, Urine pH 6.5, Ur Specific [place] 1.015, Urine Protein 30 H, Urine Glucose (UA) Normal, Urine Ketones Negative, Urine Occult Blood 10 H, Urine Nitrite Negative, Urine Bilirubin Negative, Urine Urobilinogen 1 H, Ur Leukocyte Esterase Negative, Urine RBC 0 SEEN, Urine WBC 0 SEEN, Ur Squamous Epith Cells 0 SEEN, Urine Bacteria 0 SEEN, Urine Mucus 0 SEEN 10/30/22 05:50: Procalcitonin 0.08 Micro: Microbiology 10/30/22 03:00 Nasal Secretion SARS-CoV-2 & FLU Antigen (Rapid) - Final Radiography Diagnostic Testing: Radiology Impression Chest X-Ray 10/30/22 02:20 IMPRESSION: No radiographic evidence of acute cardiopulmonary disease. Electronically Signed: Sridhar Rodriguez MD at 3:11 EDT , Chest/Abdomen/Pelvis CTA 10/30/22 04:05 IMPRESSION: 1. Right middle lobe pulmonary emboli with no signs of acute right heart strain. There are bilateral atelectatic changes and small right pleural effusion. 2. Atherosclerotic disease with no aortic aneurysm or dissection. 3. Nonobstructing bilateral nephrolithiasis. 4. Redundant sigmoid colon with probable constipation, correlate clinically. 5. Hepatic steatosis and hepatomegaly. 6. Other nonurgent findings within body of report. Electronically Signed: Sridhar Rodriguez MD at 5:13 EDT , ADDENDUM: 10/30/22 0529 IMPRESSION: 1. Right middle lobe pulmonary emboli with no signs of acute right heart strain. There are bilateral atelectatic changes and small right pleural effusion. 2. Atherosclerotic disease with no aortic aneurysm or dissection. 3. Nonobstructing bilateral nephrolithiasis. 4. Redundant sigmoid colon with probable constipation, correlate clinically. 5. Hepatic steatosis and hepatomegaly. 6. Other nonurgent findings within body of report. N.B. : The above Results were Read Back by Sridhar Rodriguez MD to Elmer Mckeon DO, and understanding confirmed on 10/30/2022 05:22:24 (ET). Electronically Signed: Sridhar Rodriguez MD at 5:13 EDT , Physical Exam Narrative GENERAL: cooperative HEENT: Atraumatic; normocephalic EYES; Anicteric, Normal Conjunctiva NECK; supple, normal thyroid, RESPIRATORY: Diminished to auscultation CARDIOVASCULAR: Regular S1 S2, GI: soft, normoactive bowel sounds, : No Renal angle tenderness; EXTREMITIES: No edema, no clubbing, MUSCULOSKELETAL: no muscle wasting NEURO: Awake; no lateralizing signs. SKIN: No Rash PSYCH; Flat affect Assessment & Plan Assessment/Plan (1) Pulmonary embolism: QUALIFIERS: Pulmonary embolism type: single subsegmental (without acute cor pulmonale) Qualified Code(s): I26.93 - Single subsegmental pulmonary embolism without acute cor pulmonale PLAN: Plan Patient is a 76-year-old lady who presented with pleuritic chest pain and dyspnea on exertion. Imaging studies obtained on admission demonstrated Right middle lobe pulmonary emboli with no signs of acute right heart strain. There are bilateral atelectatic changes and small right pleural effusion. Admitted to a monitored bed for subsequent management 1. Acute hypoxia secondary to acute pulmonary embolism Admitted to a monitored bed started on apixaban in addition to supplemental oxygen. 2D echo ordered as part of patient eval 2. Hypokalemia -Corrected per protocol 3. Diabetes mellitus type 2 ? Patient is on metformin held please on Accu-Cheks before meals and is at with sliding scale insulin 4. Mild hyponatremia ? On fluids with subsequent monitoring of electrolytes ordered 5. Hypertension - Blood pressure controlled, home medications continued with dose adjustment as needed 6. Dyslipidemia -Patient is on statin therapy, continued at home dose 7. Paroxysmal atrial tachycardia ? Patient is on dig 8. Class I obesity with BMI of 30 ? Complicating care weight loss advised Time spent in the patient's overall evaluation,decision-making process, review of diagnostic data, adjustment of management, discussion with other providers, nursing nursing and ancillary staff involved in patient's care documentation, 50 Minutes Charges/Coding Visit Charges Inpatient E&M: 10160 [facility] Hosp L3
[2022-10-30] MEDS: 0.9% Normal Saline 1,000 ML 100 ML IV (08:26)
[2022-10-30] MEDS: Potassium Chloride Oral Tablet 20 MEQ 40 MEQ PO (08:27)
[2022-10-30] MEDS: Gabapentin 300 MG Capsule PO ×2 (08:27→19:49)
[2022-10-30] MEDS: amLODIPine 10 MG Tablet PO (08:27)
[2022-10-30] MEDS: Atenolol 50 MG Tablet PO ×2 (08:28→19:48)
[2022-10-30] MEDS: Losartan Potassium 25 MG Tablet PO (08:28)
[2022-10-30] MEDS: Digoxin 250 MCG Tablet PO (08:29)
[2022-10-30 08:47] LABS: Bedside Glucose 121 mg/dL (74-106)
--- NOTE | 2022-10-30 11:15 | CASEMGMT ---
RN BISHNU Face to Face with patient for initial transition planning/care coordination assessment. RN CM introduced self and role at [facility]. Patient lying in bed, alert and oriented, daughter at bedside. Patient willing to participate in assessment and is able to answer all questions appropriately. Care providers, pharmacy, and demographics verified. Patient wishes to discharge home but is interested in going to TCU if necessary, will monitor progress with therapy. Patient states she has no further needs or concerns at this time. SW notified of possible TCU referral. CM to follow for discharge planning needs that may arise. PCP: Joshua Specialists: [facility] Preferred Pharmacy: [facility] Insurance: [employer] [facility] Prescription Benefit: yes Living Will/HPOA: yes, daughter Olga Gibson LNOK: daughter Living Arrangements: Patient has been staying with daughter the last 5 months in a split level home with 7 steps between levels. Patient was independent at home but has been having increased weakness. Transportation: daughter DME/HHC: Patient has shower chair, grab bar, walker, wheelchair, pulse ox, glucometer, and home oxygen with portability through [facility] at 2lpm. Patient has been to [place] and TCU in the past. Patient has had [facility] HHC in the past Disposition Plan: Patient interested in TCU, pending acceptance and precert. Charis BLANCAS, RN, CM
[2022-10-30 12:14] LABS: Bedside Glucose 147 mg/dL (74-106)
[2022-10-30] MEDS: Acetaminophen 325 MG Tablet 650 MG PO ×2 (12:38→19:49)
[2022-10-30] MEDS: oxyCODONE 5 MG Tablet PO ×2 (12:38→22:13)
[2022-10-30 17:25] LABS: Bedside Glucose 118 mg/dL (74-106)
[2022-10-30] MEDS: Pravastatin 80 MG Tablet PO (19:47)
[2022-10-30] MEDS: Amitriptyline 25 MG Tablet PO (19:47)
[2022-10-30] MEDS: APIXABAN 5 MG TABLET 10 MG PO (19:48)
[2022-10-30] MEDS: MELATONIN 3 MG TABLET PO (19:49)
[2022-10-30 20:11] LABS: Bedside Glucose 110 mg/dL (74-106)
[2022-10-30 21:38] LABS: Absolute Lymphocyte Count 1.43 X10^3/uL (0.83-4.51); Absolute Neutrophil Count 8.9 X10^3/uL (2.0-7.7); Basophil# 0.05 X10^3/uL; Basophil% 0.4 % (0-1); Eosinophil# 0.18 X10^3/uL; Eosinophils% 1.5 % (0-5); Hematocrit 35.7 % (37-47); Hemoglobin 11.3 g/dL (12.0-15.0); Lymphocyte # 1.43 X10^3/ul (0.83-4.51); Lymphocyte % 11.9 % (19-41); Mean Corp Hgb Conc 31.7 g/dL (32-36); Mean Corpuscular Hgb 29.7 pg (27.0-32.0); Mean Corpuscular Volume 93.7 fL (81-99); Mean Platelet Vol. 9.5 fl (6.2-12.0); Monocyte# 1.39 X10^3/uL; Monocyte% 11.6 % (0-10); NRBC Flagged by Analyzer 0 % (0-5); Neutrophil # 8.93 X10^3/uL (2.7-7.7); Neutrophil % 74.2 % (47-70); Platelet Count 258 K/mm3 (150-450); RBC Distribution Width SD 47.6 fl (35.1-43.9); Red Blood Count 3.81 M/mm3 (4.2-5.4)
[2022-10-31] VITALS (9 sets, daily range): BP systolic 119–141; BP diastolic 48–103; PULSE 63–83; RESP 16–18; TEMP 36.9–37.4; O2SAT 88–96; BMI 32.5
[2022-10-31 06:04] LABS: Absolute Lymphocyte Count 1.68 X10^3/uL (0.83-4.51); Absolute Neutrophil Count 6.6 X10^3/uL (2.0-7.7); Basophil# 0.06 X10^3/uL; Basophil% 0.6 % (0-1); Eosinophil# 0.21 X10^3/uL; Eosinophils% 2.1 % (0-5); Hematocrit 34.5 % (37-47); Hemoglobin 10.8 g/dL (12.0-15.0); Lymphocyte # 1.68 X10^3/ul (0.83-4.51); Lymphocyte % 17.1 % (19-41); Mean Corp Hgb Conc 31.3 g/dL (32-36); Mean Corpuscular Hgb 29.5 pg (27.0-32.0); Mean Corpuscular Volume 94.3 fL (81-99); Mean Platelet Vol. 9.2 fl (6.2-12.0); Monocyte# 1.26 X10^3/uL; Monocyte% 12.8 % (0-10); NRBC Flagged by Analyzer 0 % (0-5); Neutrophil # 6.58 X10^3/uL (2.7-7.7); Platelet Count 244 K/mm3 (150-450); RBC Distribution Width SD 48.2 fl (35.1-43.9); Red Blood Count 3.66 M/mm3 (4.2-5.4); White Blood Count 9.8 K/mm3 (4.4-11.0)
[2022-10-31 06:42] LABS: ALB/GLOB Ratio 0.7 RATIO (0.9-2.4); AST(SGOT) 9 U/L (15-37); Alanine Aminotransfer ALT/SGPT 12 U/L (13-56); Albumin, Serum 2.6 g/dL (3.2-5.0); Alkaline Phosphatase 57 U/L (45-117); Anion Gap 4 (5-15); BUN 15 mg/dL (7-18); BUN/Creat Ratio 19.1 RATIO (10-20); Calcium,Total 9.2 mg/dL (8.5-10.1); Chloride 107 mmol/L (98-107); Creatinine, Serum 0.78 mg/dL (0.55-1.02); EST Glomerular Filtration Rate 76 mL/min (>60); Est Glom Filt Rate - Afr Amer 91 mL/min (>60); Estimated Creatinine Clearance 39.59 ml/min; Globulin 3.9 g/dL (2.2-4.2); Glucose 133 mg/dL (74-106); Potassium 3.5 mmol/L (3.5-5.1); Protein, Total 6.5 g/dL (6.4-8.2); Sodium Level 139 mmol/L (136-145)
--- NOTE | 2022-10-31 07:38 | PCM.PN.HOSP ---
Reason for Visit Reason for Visit: Diagnoses Single subsegmental pulmonary embolism without acute cor pulmonale (10/30/22) Other pulmonary embolism without acute cor pulmonale (10/30/22) Subjective Subjective Patient seen still remains on supplemental oxygen. Use of incentive spirometry encourage Objective Data Objective Data Vital Signs: Vital Signs Temp Pulse Resp BP Pulse Ox O2 Del Method O2 Flow Rate 98.7 F 63 18 130/48 H 93 Nasal Cannula 2 10/31/22 02:00 10/31/22 02:00 10/31/22 02:00 10/31/22 02:00 10/31/22 02:00 10/31/22 04:16 10/31/22 04:16 Oxygen Flow Rate (L/min) 2 Oxygen Delivery Method Nasal Cannula Weight: 77.2 kg Body Mass Index (BMI) 30.1 Intake & Output: Intake and Output for Last 24 Hours 10/29/22 10/30/22 10/31/22 23:59 23:59 23:59 Intake Total 1900 / 1900 200 / 200 Output Total 0 / 0 Balance 1900 / 1900 200 / 200 Lab / Micro Data 10/31/22 05:57 10/31/22 05:57 Labs: Laboratory Results - last 24 hr 10/30/22 08:18: POC Glucose 121 H 10/30/22 11:36: POC Glucose 147 H 10/30/22 16:22: POC Glucose 118 H 10/30/22 19:47: POC Glucose 110 H 10/30/22 21:15: WBC 12.0 H, RBC 3.81 L, Hgb 11.3 L, Hct 35.7 L, MCV 93.7, MCH 29.7, MCHC 31.7 L, RDW Std Deviation 47.6 H, RDW Coeff of Patti 14.0, Plt Count 258, MPV 9.5, Immature Gran % (Auto) 0.400, Neut % (Auto) 74.2 H, Lymph % (Auto) 11.9 L, [place] % (Auto) 11.6 H, Eos % (Auto) 1.5, Baso % (Auto) 0.4, Absolute Neuts (auto) 8.9 H, Absolute Lymphs (auto) 1.43, Nucleated RBC % 0 10/31/22 05:57: WBC 9.8, RBC 3.66 L, Hgb 10.8 L, Hct 34.5 L, MCV 94.3, MCH 29.5, MCHC 31.3 L, RDW Std Deviation 48.2 H, RDW Coeff of Patti 14.0, Plt Count 244, MPV 9.2, Immature Gran % (Auto) 0.400, Neut % (Auto) 67.0, Lymph % (Auto) 17.1 L, [place] % (Auto) 12.8 H, Eos % (Auto) 2.1, Baso % (Auto) 0.6, Absolute Neuts (auto) 6.6, Absolute Lymphs (auto) 1.68, Nucleated RBC % 0, Sodium 139, Potassium 3.5, Chloride 107, Carbon Dioxide 28.0, Anion Gap 4 L, BUN 15, Creatinine 0.78, Estim Creat Clear Calc 39.59, Est GFR (MDRD) Af Amer 91, Est GFR (MDRD) Non-Af 76, BUN/Creatinine Ratio 19.1, Glucose 133 H, Calcium 9.2, Total Bilirubin 0.20, AST 9 L, ALT 12 L, Alkaline Phosphatase 57, Total Protein 6.5, Albumin 2.6 L, Globulin 3.9, Albumin/Globulin Ratio 0.7 L Micro: Microbiology 10/30/22 10:53 Mucosa - Nose Respiratory Panel (PCR) - Final 10/30/22 03:00 Nasal Secretion SARS-CoV-2 & FLU Antigen (Rapid) - Final Radiography Diagnostic Testing: Radiology Impression Echocardiogram 10/30/22 07:31 Interpretation Summary The estimated ejection fraction is 70 %. Trivial mitral valve insufficiency. Mild aortic stenosis. Mild (1+) aortic valve insufficiency. Right ventricular systolic pressure estimated to be 25 mmHg. Ordering Physician: Katia Desai Referring Physician: Rebecca Lewis Performed By: Kanika Campbell RDCS Physical Exam Narrative GENERAL: cooperative HEENT: Atraumatic; normocephalic EYES; Anicteric, Normal Conjunctiva NECK; supple, normal thyroid, RESPIRATORY: Diminished to auscultation CARDIOVASCULAR: Regular S1 S2, GI: soft, normoactive bowel sounds, : No Renal angle tenderness; EXTREMITIES: No edema, no clubbing, MUSCULOSKELETAL: no muscle wasting NEURO: Awake; no lateralizing signs. SKIN: No Rash PSYCH; Flat affect Assessment & Plan Assessment/Plan (1) Pulmonary embolism: QUALIFIERS: Pulmonary embolism type: single subsegmental (without acute cor pulmonale) Qualified Code(s): I26.93 - Single subsegmental pulmonary embolism without acute cor pulmonale PLAN: Plan Patient is a 76-year-old lady who presented with pleuritic chest pain and dyspnea on exertion. Imaging studies obtained on admission demonstrated Right middle lobe pulmonary emboli with no signs of acute right heart strain. There are bilateral atelectatic changes and small right pleural effusion. Admitted to a monitored bed for subsequent management 1. Acute hypoxia secondary to acute pulmonary embolism Admitted to a monitored bed started on apixaban in addition to supplemental oxygen. 2D echo ordered as part of patient eval 10/31/2022 2D echo result reviewed The estimated ejection fraction is 70 %.Trivial mitral valve insufficiency.Mild aortic stenosis.Mild (1+) aortic valve insufficiency.Right ventricular systolic pressure estimated to be 25 mmHg.. Patient remains on supplemental oxygen plan is to wean off oxygen. Use of incentive spirometry encouraged 2. Hypokalemia -Corrected per protocol 3. Diabetes mellitus type 2 ? Patient is on metformin held please on Accu-Cheks before meals and is at with sliding scale insulin 4. Mild hyponatremia ? On fluids with subsequent monitoring of electrolytes ordered 5. Hypertension - Blood pressure controlled, home medications continued with dose adjustment as needed 6. Dyslipidemia -Patient is on statin therapy, continued at home dose 7. Paroxysmal atrial tachycardia ? Patient is on dig 8. Class I obesity with BMI of 30 ? Complicating care weight loss advised Time spent in the patient's overall evaluation,decision-making process, review of diagnostic data, adjustment of management, discussion with other providers, nursing nursing and ancillary staff involved in patient's care documentation, 50 Minutes Charges/Coding Visit Charges Inpatient E&M: 84771 Subs Hosp L3
[2022-10-31] MEDS: Gabapentin 300 MG Capsule PO ×2 (08:39→21:24)
[2022-10-31] MEDS: 0.9% Saline Lock 10 ML Syringe IV (08:39)
[2022-10-31] MEDS: Digoxin 250 MCG Tablet PO (08:39)
[2022-10-31] MEDS: Atenolol 50 MG Tablet PO ×2 (08:39→21:24)
[2022-10-31] MEDS: Losartan Potassium 25 MG Tablet PO (08:39)
[2022-10-31] MEDS: amLODIPine 10 MG Tablet PO (08:39)
[2022-10-31] MEDS: APIXABAN 5 MG TABLET 10 MG PO ×2 (08:39→21:24)
[2022-10-31 10:00] LABS: Bedside Glucose 111 mg/dL (74-106)
[2022-10-31] MEDS: Acetaminophen 325 MG Tablet 650 MG PO (11:34)
[2022-10-31] MEDS: Insulin Lispro 100 UNIT/ML INSULN.PEN SC (11:35)
[2022-10-31 13:52] LABS: Bedside Glucose 163 mg/dL (74-106)
[2022-10-31] MEDS: oxyCODONE 5 MG Tablet PO ×2 (16:40→22:13)
[2022-10-31 18:11] LABS: Bedside Glucose 130 mg/dL (74-106)
[2022-10-31] MEDS: Amitriptyline 25 MG Tablet PO (21:23)
[2022-10-31] MEDS: Pravastatin 80 MG Tablet PO (21:23)
[2022-10-31] MEDS: MELATONIN 3 MG TABLET PO (21:24)
[2022-10-31 22:27] LABS: Bedside Glucose 171 mg/dL (74-106)
[2022-11-01 04:00] VITALS: BP 146/66; PULSE 66; RESP 18; TEMP 36.6; O2SAT 95
[2022-11-01] MEDS: Acetaminophen 325 MG Tablet 650 MG PO (04:08)
[2022-11-01 05:32] VITALS: BMI 31.2
[2022-11-01 07:10] LABS: Bedside Glucose 104 mg/dL (74-106)
[2022-11-01 08:16] VITALS: BP 143/61; PULSE 61; RESP 14; TEMP 36.5; O2SAT 93
--- NOTE | 2022-11-01 09:00 | CASEMGMT ---
TCU is unable to take patient. SW met with patient. Introduced self and role at [facility]. SW told patient TCU is unable to accept her. Patient said she has not looked at the list. Patient was eating breakfast. SW moved the list closer to patient and asked that she look at the list and pick some other options. SW to check back. Sophie Reardon ACETYLENE OPERATOR EMMANUEL
[2022-11-01] MEDS: APIXABAN 5 MG TABLET 10 MG PO ×2 (10:33→21:27)
[2022-11-01] MEDS: Losartan Potassium 25 MG Tablet PO (10:33)
[2022-11-01] MEDS: Digoxin 250 MCG Tablet PO (10:33)
[2022-11-01] MEDS: amLODIPine 10 MG Tablet PO (10:33)
[2022-11-01] MEDS: Atenolol 50 MG Tablet PO ×2 (10:34→21:27)
[2022-11-01] MEDS: Furosemide 20 MG Tablet PO (10:37)
[2022-11-01] MEDS: Gabapentin 300 MG Capsule PO ×2 (10:40→21:27)
--- NOTE | 2022-11-01 11:32 | CASEMGMT ---
SW met with patient to find out her other SNF choices. Patient said her choices [facility] be [facility], [facility], and [facility]. SW let patient know SW will work on referrals. NIRALI asked Rosibel corona/justin planning management it specialist to work on referrals. Plan: SNF pending accepting facility and insurance approval. Sophie BENITEZ
[2022-11-01 12:00] LABS: Bedside Glucose 123 mg/dL (74-106)
[2022-11-01 12:40] VITALS: O2SAT 92
[2022-11-01 12:44] VITALS: O2SAT 94
--- NOTE | 2022-11-01 12:53 | CASEMGMT ---
Discharge Planning Referral sent to [facility], [facility], and [facility] via [facility]. Rosibel Patel, Discharge Planning Asst.
--- NOTE | 2022-11-01 13:28 | CASEMGMT ---
Discharge Planning Asst. Patient has been accepted by [facility]. Asked for precert to be submitted. Rosibel Patel, Discharge Planning Asst.
--- NOTE | 2022-11-01 13:40 | PCM.PN.HOSP ---
Reason for Visit Reason for Visit: Chest pain/shortness of breath Subjective Subjective Ms Tuesday is a 76-year-old white female who presented to the emergency department at [facility] on 10/30/2022 with pleuritic chest pain and shortness of breath. She also reported some increased weakness with difficulty getting around. She has been living with her son-in-law and daughter since she has been having some difficulty after having a knee replacement done in May 2022. She evidently had a fall approximately 2 weeks prior to presenting at which time she fell on the edge of the toilet with significant discomfort and musculoskeletal pain since that point time and she has been less active. On presentation she had a mild fever with a temperature of 100.5, blood pressure was 162/72, respiratory rate is 18 and oxygen saturations are 95% on room air however she did desaturate emergency department to an oxygen saturation of 96% was placed on 2 L nasal cannula after which time she was stable. She had a leukocytosis with a white count of 17.5 and a left shift. Her chemistry panel was overall unremarkable. Her lactic acid was normal at 1.5. Her UA was unremarkable. COVID and flu are negative. A CTA of her chest was performed and showed a right middle lobe pulmonary embolus with no sign of acute right heart strain and a small right pleural effusion. She was given IV fluids, Tylenol and Eliquis 10 mg was initiated and she was admitted to the PCU for ongoing care. Today she has ongoing right-sided pleuritic chest pain and has generalized weakness. She remains on 2 L nasal cannula with stable oxygen saturations. No signs of bleeding. She is amenable for placement at discharge for ongoing therapy services. Objective Data Objective Data Vital Signs: Vital Signs Temp Pulse Resp BP Pulse Ox O2 Del Method O2 Flow Rate 97.7 F L 61 14 143/61 H 94 Nasal Cannula 2 11/01/22 08:16 11/01/22 08:16 11/01/22 08:16 11/01/22 08:16 11/01/22 12:44 11/01/22 12:44 11/01/22 12:44 Oxygen Flow Rate (L/min) 2 Oxygen Delivery Method Nasal Cannula Weight: 80 kg Body Mass Index (BMI) 31.2 Intake & Output: Intake and Output for Last 24 Hours 10/30/22 10/31/22 11/01/22 23:59 23:59 23:59 Intake Total 1900 / 1900 200 / 400 200 / 200 Output Total 400 / 800 800 / 800 Balance 1900 / 1900 -200 / -400 -600 / -600 Lab / Micro Data 10/31/22 05:57 10/31/22 05:57 Labs: Laboratory Results - last 24 hr 10/31/22 11:34: POC Glucose 163 H 10/31/22 16:32: POC Glucose 130 H 10/31/22 21:05: POC Glucose 171 H 11/01/22 06:53: POC Glucose 104 11/01/22 11:43: POC Glucose 123 H Micro: Microbiology 10/30/22 10:53 Mucosa - Nose Respiratory Panel (PCR) - Final 10/30/22 03:00 Nasal Secretion SARS-CoV-2 & FLU Antigen (Rapid) - Final Physical Exam Const alert, oriented x3, no apparent distress and well nourished Constitutional Narrative: Obese, elderly, white female, sitting up in bed, appears comfortable and nontoxic at this time, watching television HEENT head/scalp atraumatic, moist oral mucous membranes and oropharynx normal HEENT Narrative: Mallampati 2, no thrush Resp normal respiratory effort, no retractions, no use of accessory muscles and clear to auscultation bilaterally Resp Narrative: Some right-sided splinting with deep breathing Auscultation: Negative for rales, rhonchi or wheezes Cardio regular rate, regular rhythm, S1 normal heart sound, S2 normal heart sound, no murmurs, no rub, no gallops and no clicks GI normal to inspection, nondistended, normoactive bowel sounds, soft to palpation and non-tender Extremity no clubbing, cyanosis or edema Extremity Narrative: Pedal pulses are 2+ Neuro oriented x3, moves all extremities and no focal motor deficits Neuro Narrative: Significant generalized weakness noted with no focal the visit Speech: speech normal Psych affect normal Psych Narrative: Mood is appropriate Assessment & Plan Assessment/Plan (1) Pulmonary embolism on right: (2) Hypoxia: PLAN: Plan Right-sided pulmonary embolus -Highly likely that this is the etiology for her ongoing right-sided pleuritic chest pain -Continue full anticoagulation with Eliquis 10 mg p.o. twice daily for total of 7 days then transition to 5 mg p.o. twice daily for at least 6 months -Day 3 of 7 for 10 mg dosing -Patient with decreased mobility and I suspect this is likely provoked -Did have knee surgery in May -Echocardiogram is unremarkable showing a normal EF with no signs of right-sided strain -No previous history of DVT or PE Hypoxia -Likely related to PE -Continue oxygen at 2 L and wean as able -Encourage I-S and Acapella -Patient does have history of tobacco abuse as well Leukocytosis -Resolved -Suspect stress response -Infectious work-up is unremarkable Hypokalemia -Resolved Chronic normocytic anemia -Baseline hemoglobin appears to be between 10 and 11 -Repeat CBC in a.m. DM-2 -Hold home oral regimen -Diabetic diet -SSI -Accu-Cheks as ordered -Restart home oral agents on discharge Paroxysmal atrial tachycardia -Continue home digoxin HTN/HPL -Continue home statin -Continue home losartan -Continue amlodipine -Continue home atenolol -As needed hydralazine for systolic pressure greater than 160 History of tobacco abuse -Encouraged ongoing cessation Obesity -BMI 31.2 -Recommend weight loss -Complicates treatment, prognosis, outcomes Osteoarthritis with recent total knee arthroplasty -Encouraged ongoing physical and occupational therapy for mobility enhancement DVT prophylaxis -Continue Eliquis CODE STATUS -DNR CCA with no intubation as per discussion on admission Charges/Coding Visit Charges Inpatient E&M: 76667 Subs Hosp L2
[2022-11-01] MEDS: oxyCODONE 5 MG Tablet PO (13:50)
[2022-11-01 14:00] VITALS: BP 126/78; PULSE 76; RESP 14; TEMP 36.8; O2SAT 94
--- NOTE | 2022-11-01 14:04 | CASEMGMT ---
[facility] said they are not in network with patient's insurance. [facility] accepted patient and since that was patient's next choice SW canceled the referral for [facility]. SW went back to patient's room and patient's daughter was present. SW let patient know about [facility] and [facility]. Patient and her daughter decided [facility] is their first choice. SW notified Rosibel who notified [facility] and [facility]. Await response from [facility]. Sophie Reardon CRIMINAL RECORDS TECHNICIAN EMMANUEL
--- NOTE | 2022-11-01 15:10 | CHAPLAIN ---
Type of Pastoral Visit _x__ Initial Visit ___ Follow-up Visit ___ On-call Visit ___ General Patient Visit ___ Spiritual Assessment ___ Family Conference ___ Bereavement ___ Rapid Response ___ Code Blue ___ Other (describe below) Pastoral Care Referral From _x__ Patient ___ Family ___ Nurse ___ Physician ___ Gerontological Nurse Practitioner ___ Chief Creative Officer ___ Other (describe below) Sacrament/Intervention _x__ Active listening ___ Anointing ___ Christian ___ Bereavement ___ Communion ___ Luh exploration ___ _x__ Life review _x__ Prayer ___ Reconciliation ___ Sacrament of Sick _x__ Supportive presence ___ Wedding ___ Other (describe below) Pastoral Comments patient is sitting up in chair and daughter is next to her holding her hand; pt talks about being so mixed up in her mind and thinking she was in a different place; pt reviews what her mind was thinking and how she is realizing that was all wrong; pt is distressed and frustrated that her mind was confused and admits that it is still some mixed up; pt says she wants to go home to her house but knows that she can't right now; pt is living with another daughter at this time; pt also speaks of of a third daughter and has difficult that has been for her; pt does welcome spiritual care support and prayer; pt given reassurance of good care and the help offered here; pt is reminded of her luh in God and how that can be helpful; pt acknowledges the same as mentioned here
--- NOTE | 2022-11-01 16:02 | NURSING ---
Patient attempt to wean off oxygen today successful. Patient tolerating 0 oxygen and SPO2 reading 93-94% on room air. Will trial walking oxygen test later.
[2022-11-01 17:05] LABS: Bedside Glucose 136 mg/dL (74-106)
[2022-11-01] MEDS: MELATONIN 3 MG TABLET PO (21:27)
[2022-11-01] MEDS: Amitriptyline 25 MG Tablet PO (21:27)
[2022-11-01] MEDS: Pravastatin 80 MG Tablet PO (21:27)
[2022-11-01 22:00] VITALS: BP 153/67; PULSE 82; RESP 16; TEMP 35.9; O2SAT 94
[2022-11-01 22:00] LABS: Bedside Glucose 133 mg/dL (74-106)
[2022-11-02] VITALS (7 sets, daily range): BP systolic 131–171; BP diastolic 61–76; PULSE 70–84; RESP 16–18; TEMP 35.8–37.5; O2SAT 90–98; BMI 30.4
[2022-11-02 06:33] LABS: Absolute Lymphocyte Count 1.89 X10^3/uL (0.83-4.51); Absolute Neutrophil Count 8.9 X10^3/uL (2.0-7.7); Basophil# 0.05 X10^3/uL; Basophil% 0.4 % (0-1); Eosinophil# 0.17 X10^3/uL; Eosinophils% 1.4 % (0-5); Hematocrit 41.8 % (37-47); Hemoglobin 12.9 g/dL (12.0-15.0); Lymphocyte # 1.89 X10^3/ul (0.83-4.51); Lymphocyte % 15.5 % (19-41); Mean Corp Hgb Conc 30.9 g/dL (32-36); Mean Corpuscular Hgb 29.1 pg (27.0-32.0); Mean Corpuscular Volume 94.4 fL (81-99); Mean Platelet Vol. 9.8 fl (6.2-12.0); Monocyte# 1.13 X10^3/uL; Monocyte% 9.2 % (0-10); NRBC Flagged by Analyzer 0 % (0-5); Neutrophil # 8.91 X10^3/uL (2.7-7.7); Neutrophil % 72.9 % (47-70); Platelet Count 351 K/mm3 (150-450); RBC Distribution Width CV 13.9 % (11.6-14.6); RBC Distribution Width SD 48.2 fl (35.1-43.9); Red Blood Count 4.43 M/mm3 (4.2-5.4); White Blood Count 12.2 K/mm3 (4.4-11.0)
[2022-11-02 07:01] LABS: Bedside Glucose 119 mg/dL (74-106)
[2022-11-02 07:12] LABS: Anion Gap 8 (5-15); BUN 10 mg/dL (7-18); BUN/Creat Ratio 14.4 RATIO (10-20); Chloride 103 mmol/L (98-107); EST Glomerular Filtration Rate 87 mL/min (>60); Est Glom Filt Rate - Afr Amer 105 mL/min (>60); Estimated Creatinine Clearance 39.59 ml/min; Glucose 116 mg/dL (74-106); Magnesium 2.5 mg/dL (1.6-2.6); Phosphorus 3.3 mg/dL (2.5-4.9); Potassium 3.5 mmol/L (3.5-5.1); Sodium Level 138 mmol/L (136-145)
[2022-11-02] MEDS: Atenolol 50 MG Tablet PO ×2 (09:02→20:52)
[2022-11-02] MEDS: APIXABAN 5 MG TABLET 10 MG PO ×2 (09:02→20:53)
[2022-11-02] MEDS: Gabapentin 300 MG Capsule PO ×2 (09:02→20:53)
[2022-11-02] MEDS: Digoxin 250 MCG Tablet PO (09:02)
[2022-11-02] MEDS: amLODIPine 10 MG Tablet PO (09:02)
[2022-11-02] MEDS: Furosemide 20 MG Tablet PO (09:02)
[2022-11-02] MEDS: Losartan Potassium 25 MG Tablet PO (09:02)
[2022-11-02] MEDS: oxyCODONE 5 MG Tablet PO ×2 (09:07→20:52)
--- NOTE | 2022-11-02 10:02 | CASEMGMT ---
Discharge Planning Patient has been accepted by [facility]. Asked for pre-cert to be submitted. Notified [facility] that patient has chosen another provider. Rosibel Patel, Discharge Planning Asst.
[2022-11-02 12:20] LABS: Pathologist Review Reviewed
[2022-11-02 13:08] LABS: Bedside Glucose 91 mg/dL (74-106)
[2022-11-02] MEDS: Acetaminophen 325 MG Tablet 650 MG PO ×2 (15:44→20:52)
--- NOTE | 2022-11-02 16:02 | PN.HOSP_ITS ---
Reason for Visit Reason for Visit: Right-sided chest pain/shortness of breath Subjective Subjective No significant issues overnight. Patient only requiring oxygen at night. Now on room air with sats at 95%. States her right-sided pleuritic chest pain is improving with time. Awaiting okay from insurance company to discharge to skilled facility. Objective Data Objective Data Vital Signs: Vital Signs Temp Pulse Resp BP Pulse Ox O2 Del Method O2 Flow Rate 99.5 F H 74 18 146/61 H 95 Room Air 2 11/02/22 15:34 11/02/22 15:34 11/02/22 15:34 11/02/22 15:34 11/02/22 15:34 11/02/22 15:34 11/02/22 09:09 Oxygen Flow Rate (L/min) 2 Oxygen Delivery Method Room Air Weight: 77.8 kg Body Mass Index (BMI) 30.4 Intake & Output: Intake and Output for Last 24 Hours 10/31/22 11/01/22 11/02/22 23:59 23:59 23:59 Intake Total 200 / 400 200 / 200 Output Total 400 / 800 1400 / 1400 400 / 400 Balance -200 / -400 -1200 / -1200 -400 / -400 Lab / Micro Data 11/02/22 05:54 11/02/22 05:54 Labs: Laboratory Results - last 24 hr 10/30/22 02:37: Diff Path Review Reviewed 11/01/22 16:44: POC Glucose 136 H 11/01/22 21:25: POC Glucose 133 H 11/02/22 05:54: WBC 12.2 H, RBC 4.43, Hgb 12.9, Hct 41.8, MCV 94.4, MCH 29.1, MCHC 30.9 L, RDW Std Deviation 48.2 H, RDW Coeff of Patti 13.9, Plt Count 351, MPV 9.8, Immature Gran % (Auto) 0.600, Neut % (Auto) 72.9 H, Lymph % (Auto) 15.5 L, [place] % (Auto) 9.2, Eos % (Auto) 1.4, Baso % (Auto) 0.4, Absolute Neuts (auto) 8.9 H, Absolute Lymphs (auto) 1.89, Nucleated RBC % 0, Sodium 138, Potassium 3.5, Chloride 103, Carbon Dioxide 27.0, Anion Gap 8, BUN 10, Creatinine 0.70, Estim Creat Clear Calc 39.59, Est GFR (MDRD) Af Amer 105, Est GFR (MDRD) Non-Af 87, BUN/Creatinine Ratio 14.4, Glucose 116 H, Calcium 10.0, Phosphorus 3.3, Magnesium 2.5 11/02/22 06:40: POC Glucose 119 H 11/02/22 12:36: POC Glucose 91 Micro: Microbiology 10/30/22 10:53 Mucosa - Nose Respiratory Panel (PCR) - Final 10/30/22 03:00 Nasal Secretion SARS-CoV-2 & FLU Antigen (Rapid) - Final Physical Exam Const alert, oriented x3, no apparent distress and well nourished Constitutional Narrative: Obese, elderly, white female, sitting up in bed, appears comfortable and nontoxic at this time, watching television HEENT head/scalp atraumatic, moist oral mucous membranes and oropharynx normal HEENT Narrative: Mallampati 2-3, no thrush Resp normal respiratory effort, no retractions, no use of accessory muscles and clear to auscultation bilaterally Resp Narrative: No further splinting with deep breathing on right side Auscultation: Negative for rales, rhonchi or wheezes Cardio regular rate, regular rhythm, S1 normal heart sound, S2 normal heart sound, no murmurs, no rub, no gallops and no clicks GI normal to inspection, nondistended, normoactive bowel sounds, soft to palpation and non-tender Extremity no clubbing, cyanosis or edema Extremity Narrative: Pedal pulses are 2+, left lower extremity status post knee replacement with ex tension lag noted Neuro oriented x3, moves all extremities and no focal motor deficits Neuro Narrative: Significant generalized weakness noted with no focal the visit Speech: speech normal Psych affect normal Psych Narrative: Mood is appropriate Assessment & Plan Assessment/Plan (1) Pulmonary embolism on right: (2) Hypoxia: PLAN: Plan Right-sided pulmonary embolus -Highly likely that this is the etiology for her ongoing right-sided pleuritic chest pain -Pain seems to be resolving -Continue full anticoagulation with Eliquis 10 mg p.o. twice daily for total of 7 days then transition to 5 mg p.o. twice daily for at least 6 months -Day 4 of 7 for 10 mg dosing -Patient with decreased mobility and I suspect this is likely provoked -Did have right-sided total knee arthroplasty in May -Echocardiogram is unremarkable showing a normal EF with no signs of right-sided strain -No previous history of DVT or PE Hypoxia -Resolved -Likely related to PE -Encourage I-S and Acapella -Patient does have history of tobacco abuse as well -Patient did have order for oxygen 2 L but was not utilizing Leukocytosis -Slight elevation today--> question if yesterday's normal was spuriously low -Suspect stress response -Infectious work-up is unremarkable Chronic normocytic anemia -Baseline hemoglobin appears to be between 10 and 11 -Hemoglobin normalized today -Repeat CBC in a.m. DM-2 -Hold home oral regimen -A.m. fasting sugar was 116 -Diabetic diet -SSI -Accu-Cheks as ordered -Restart home oral agents on discharge Paroxysmal atrial tachycardia -Continue home digoxin -Has been in normal sinus rhythm HTN/HPL -Continue home statin -Continue home losartan -Continue amlodipine -Continue home atenolol -As needed hydralazine for systolic pressure greater than 160 History of tobacco abuse -Encouraged ongoing cessation Obesity -BMI 31.2 -Recommend weight loss -Complicates treatment, prognosis, outcomes Osteoarthritis with recent total knee arthroplasty -Encouraged ongoing physical and occupational therapy for mobility enhancement -Per family patient has been having ongoing bilateral lower extremity pain -I can only write for very brief prescription at discharge for pain medicine DVT prophylaxis -Continue Eliquis CODE STATUS -DNR CCA with no intubation as per discussion on admission Charges/Coding Visit Charges Inpatient E&M: 88351 Subs Hosp L2
[2022-11-02 16:47] LABS: Bedside Glucose 131 mg/dL (74-106)
[2022-11-02] MEDS: Pravastatin 80 MG Tablet PO (20:51)
[2022-11-02] MEDS: Amitriptyline 25 MG Tablet PO (20:52)
[2022-11-02] MEDS: Insulin Lispro 100 UNIT/ML INSULN.PEN SC (20:53)
[2022-11-02 22:49] LABS: Bedside Glucose 172 mg/dL (74-106)
[2022-11-03 03:30] VITALS: BP 160/63; PULSE 58; RESP 16; TEMP 37.1; O2SAT 93
[2022-11-03 05:57] VITALS: BMI 30.4
[2022-11-03 06:00] LABS: Absolute Lymphocyte Count 1.63 X10^3/uL (0.83-4.51); Absolute Neutrophil Count 5.4 X10^3/uL (2.0-7.7); Basophil# 0.05 X10^3/uL; Basophil% 0.6 % (0-1); Eosinophil# 0.21 X10^3/uL; Eosinophils% 2.5 % (0-5); Hemoglobin 12.5 g/dL (12.0-15.0); Lymphocyte # 1.63 X10^3/ul (0.83-4.51); Lymphocyte % 19.6 % (19-41); Mean Corp Hgb Conc 31.3 g/dL (32-36); Mean Corpuscular Hgb 29.2 pg (27.0-32.0); Mean Corpuscular Volume 93.5 fL (81-99); Mean Platelet Vol. 9.3 fl (6.2-12.0); Monocyte# 0.97 X10^3/uL; Monocyte% 11.7 % (0-10); NRBC Flagged by Analyzer 0 % (0-5); Neutrophil # 5.41 X10^3/uL (2.7-7.7); Neutrophil % 65.1 % (47-70); Platelet Count 315 K/mm3 (150-450); RBC Distribution Width CV 13.9 % (11.6-14.6); RBC Distribution Width SD 47.9 fl (35.1-43.9); Red Blood Count 4.28 M/mm3 (4.2-5.4); White Blood Count 8.3 K/mm3 (4.4-11.0)
[2022-11-03 06:30] LABS: Anion Gap 5 (5-15); BUN 15 mg/dL (7-18); BUN/Creat Ratio 20.3 RATIO (10-20); Calcium,Total 9.6 mg/dL (8.5-10.1); Chloride 108 mmol/L (98-107); Creatinine, Serum 0.74 mg/dL (0.55-1.02); EST Glomerular Filtration Rate 81 mL/min (>60); Est Glom Filt Rate - Afr Amer 98 mL/min (>60); Estimated Creatinine Clearance 39.59 ml/min; Glucose 109 mg/dL (74-106); Potassium 3.3 mmol/L (3.5-5.1); Sodium Level 142 mmol/L (136-145)
[2022-11-03 07:12] VITALS: O2SAT 96
[2022-11-03 09:00] VITALS: BP 156/62; PULSE 64; RESP 14; TEMP 36.6; O2SAT 97
[2022-11-03] MEDS: Digoxin 250 MCG Tablet PO (09:09)
[2022-11-03] MEDS: Losartan Potassium 25 MG Tablet PO (09:09)
[2022-11-03] MEDS: Furosemide 20 MG Tablet PO (09:09)
[2022-11-03] MEDS: amLODIPine 10 MG Tablet PO (09:09)
[2022-11-03] MEDS: Atenolol 50 MG Tablet PO (09:10)
[2022-11-03] MEDS: APIXABAN 5 MG TABLET 10 MG PO (09:10)
[2022-11-03] MEDS: Potassium Chloride Oral Tablet 20 MEQ 60 MEQ PO (09:17)
[2022-11-03] MEDS: Venlafaxine XR 37.5 MG Capsule PO (09:17)
[2022-11-03] MEDS: Gabapentin 300 MG Capsule PO (09:18)
[2022-11-03 09:46] VITALS: O2SAT 97
[2022-11-03 11:48] VITALS: O2SAT 92
--- NOTE | 2022-11-03 11:54 | PCM.TXEXTCAR ---
Diet Diet Order/Speech Therapy: 10/30/22 07:32 Diet: Cardiac: Calorie-Controlled Food consistency:: Regular Liquid Consistency:: Regular/Thin How many daily calories?: 1800 calorie Routine Orders/Code Status O2 Liters per Minute: 2 L while sleeping Routine Lab Work: CBC (1 week) and BMP (1 week) Code Status: DNRCC-A (no intubation) Therapies Weight Bearing: Full weight bearing Physical Therapy: Eval and Treat Occupational Therapy: Eval and Treat Problem/Diagnosis (1) Pulmonary embolism on right: Status: Acute Code(s): I26.99 - Other pulmonary embolism without acute cor pulmonale (2) Hypoxia: Status: Acute Code(s): R09.02 - Hypoxemia Allergies/Procedures Done in Hospital Allergies lisinopril Adverse Reaction (Severe, Verified 08/20/22 09:06) Intolerence, cough nalbuphine HCl [From Nubain] Adverse Reaction (Verified 08/20/22 09:06) Nausea/Vom/Diarrhea Procedures: 2-D Echocardiogram and - (CTA chest abdomen and pelvis/chest x-ray) Type of Care/Length of Stay Estimated LOS: Convalescent Care Less Than 30 days Type of Care Needed: Skilled Rehab Potential: Good Prognosis: Fair Additional Orders/Day of Discharge Day of Discharge: 11/03/22 Dietary and Speech Recommendations Dietitian Recommendations/Changes: Continue 1800CCD/Cardiac diet to manage medical conditions. Follow Up Care Please follow up with your Primary Care Physician in: 1-2 weeks after discharge Discharge Plan Admission Admit Date/Time: 10/30/22 05:39 Attending Provider: Mary Mercer Primary Care Provider: Rebecca Lewis Consulting Providers: Katia Desai; Sky Barrera Discharge Orders/Prescriptions Prescriptions: No Action pravastatin 80 mg tablet 80 mg PO QDAY atenolol 100 mg tablet 50 mg PO BID amlodipine 10 mg tablet 10 mg PO DAILY gabapentin 300 MG capsule 300 mg PO BID Patient Comments: NERVE PAIN digoxin 250 MCG tablet 250 mcg PO DAILY metformin 500 mg tablet 500 mg PO BID cholecalciferol (vitamin D3) [Vitamin D3] 25 mcg (1,000 unit) Tablet 25 mcg PO DAILY losartan 25 mg tablet 25 mg PO DAILY amitriptyline 25 mg Tablet 25 mg PO QHS acetaminophen 325 mg Tablet 650 mg PO Q4H PRN PRN (Reason: Pain 1-10 Or Fever) Qty: 0 0RF amoxicillin-pot clavulanate 875-125 mg tablet 1 tab PO BID Qty: 6 0RF Hold Instructions: Order Completed meloxicam 15 mg tablet 15 mg PO DAILY Qty: 14 0RF furosemide 20 mg tablet 20 mg PO DAILY venlafaxine 37.5 mg capsule,extended release 24hr 37.5 mg PO DAILY Patient Comments: TAKE 1 CAPSULE BY MOUTH DAILY tramadol 50 mg tablet 50 mg PO Q4H PRN (Reason: pain) Referrals / Follow Up: Barbara Galo MD [Med Staff - Active Staff] - Within 2 Weeks Rebecca Lewis MD [Primary Care Provider] - Within 1 Month
--- NOTE | 2022-11-03 11:56 | PCM.DC.SUM ---
Providers Date of Admission: 10/30/22 Date of Discharge: 11/03/22 Primary Care Physician: Dr. Rebecca Lewis MD Reason For Visit: ADULT FTT, ACUTE R SIDED PE Diagnosis Discharge Diagnosis (1) Pulmonary embolism on right: Status: Acute Code(s): I26.99 - Other pulmonary embolism without acute cor pulmonale (2) Hypoxia: Status: Acute Code(s): R09.02 - Hypoxemia Medications at Discharge Home Medications gabapentin 300 mg capsule 300 mg PO BID Check with primary doctor 02/22/13 digoxin 250 mcg (0.25 mg) tablet 250 mcg PO DAILY HEART 02/01/14 pravastatin 80 mg tablet 80 mg PO QDAY CHOLESTEROL 11/22/17 atenolol 100 mg tablet 50 mg PO BID BP 03/28/19 metformin 500 mg tablet 500 mg PO BID DIABETES 12/02/20 cholecalciferol (vitamin D3) 25 mcg (1,000 unit) tablet (Vitamin D3) 25 mcg PO DAILY SUPPLEMENT 05/12/21 amlodipine 10 mg tablet 10 mg PO DAILY HTN 05/20/21 losartan 25 mg tablet 25 mg PO DAILY HTN 08/01/22 furosemide 20 mg tablet 20 mg PO DAILY CHF 10/30/22 venlafaxine 37.5 mg capsule,extended release 24 hr 37.5 mg PO DAILY depression 10/30/22 acetaminophen 500 mg tablet (Tylenol Extra Strength) 1,000 mg (2 x 500 mg) PO TID #1 TAB 11/03/22 apixaban 5 mg tablet (Eliquis) 10 mg (2 x 5 mg) PO BID #7 tabs 11/03/22 melatonin 10 mg capsule 10 mg PO QHS #7 caps 11/03/22 oxycodone 5 mg tablet 5 mg PO Q4H PRN PRN Pain Score 4-10 1 day #6 tabs 11/03/22 risperidone 1 mg tablet (Risperdal) 1 mg PO QHS #30 tabs 11/03/22 sennosides 8.6 mg-docusate sodium 50 mg tablet (Stool Softener-Stimulant Laxative) 2 tab PO BID PRN PRN Constipation #0 tabs 11/03/22 Hospital Course Operations None Procedures 2-D Echocardiogram and - (X-ray/CTA chest abdomen and pelvis) Summary of Care Provided Minutes Spent on Discharge: 39 Hospital Course: Ms Tuesday is a 76-year-old white female who presented to the emergency department at [facility] on 10/30/2022 with pleuritic chest pain and shortness of breath. She also reported some increased weakness with difficulty getting around. She has been living with her son-in-law and daughter since she has been having some difficulty after having a knee replacement done in May 2022. She evidently had a fall approximately 2 weeks prior to presenting at which time she fell on the edge of the toilet with significant discomfort and musculoskeletal pain since that point time and she has been less active. On presentation, she had a mild fever with a temperature of 100.5, blood pressure was 162/72, respiratory rate is 18 and oxygen saturations are 95% on room air however she did desaturate emergency department to an oxygen saturation of 96% was placed on 2 L nasal cannula after which time she was stable. She had a leukocytosis with a white count of 17.5 and a left shift. Her chemistry panel was overall unremarkable. Her lactic acid was normal at 1.5. Her UA was unremarkable. COVID and flu were negative. A CTA of her chest was performed and showed a right middle lobe pulmonary embolus with no sign of acute right heart strain and a small right pleural effusion. CTA otherwise showed atherosclerotic disease without aortic aneurysm or dissection, bilateral nonobstructing nephrolithiasis, redundant sigmoid colon with constipation, hepatic steatosis with hepatomegaly and no other urgent findings. She was given IV fluids, Tylenol and Eliquis 10 mg was initiated and she was admitted to the PCU for ongoing care. An echocardiogram was performed and showed that her EF was 70% with trivial mitral valve insufficiency, mild aortic stenosis, mild aortic valve insufficiency and right ventricular systolic pressure of 25 mmHg. No RV strain was identified. The patient was slowly able to be weaned from 2 L [id number] to just 2 L at night which is her baseline. She was maintained on Eliquis 10 mg p.o. twice daily on the day of discharge it was day 5 of 7 and discharge instructions were for transition to 5 mg p.o. twice daily on 11/06/2022 after her 7-day loading dose. She did have some sundowning during her hospitalization. It sounds as if she was having issues at home and her amitriptyline was discontinued at home however this was not relayed to us on admission it was continued. Family thought that this was the etiology of her issues this was discontinued at discharge. She was also started on Effexor and we were not aware of this until 11/02/2022. We did restart her Effexor at that time. Started some Risperdal nightly which I recommended to start at 6 PM and some melatonin to see if this will help with her sundowning. She has had previous imaging that shows atrophy that is age-related. She also has a known meningioma that was stable on her last imaging less than a year ago. She needed ongoing therapy after discharge and was able to be discharged in stable condition to [facility] on 11/03/2022 after pre-CERT from the insurance company was obtained. Family did note that she had issues with chronic pain at home and they wanted to get her to pain management or have me prescribe more pain medications. We did explain to patient that I cannot prescribe more pain medicine and that she will need to follow-up with pain management as an outpatient. I suggested they call and make an appointment sooner than later so she has an appointment after she is discharged out of the facility. 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 Physical Exam Const alert, oriented x3, no apparent distress and well nourished Constitutional Narrative: Obese, elderly, white female, sitting up in bed, appears comfortable and nontoxic at this time, watching television and eating breakfast General Appearance: cooperative, comfortable, well kempt and well developed Orientation / Consciousness: awake, oriented to person, oriented to place and oriented to time Exam Limitations: no limitations Nutritional Appearance: obese HEENT normocephalic, head/scalp atraumatic, hearing grossly normal bilaterally, moist oral mucous membranes and oropharynx normal HEENT Narrative: Mallampati 2, no thrush Eyes PERRL, EOMs intact bilaterally and conjunctivae normal Neck no lymphadenopathy and supple Neck Narrative: Trachea midline, no thyroid enlargement Resp normal respiratory effort, no retractions, no use of accessory muscles and clear to auscultation bilaterally Resp Narrative: Deep breathing appears comfortable Auscultation: Negative for rales, rhonchi or wheezes Cardio regular rate, regular rhythm, S1 normal heart sound, S2 normal heart sound, no murmurs, no rub, no gallops and no clicks GI normal to inspection, nondistended, normoactive bowel sounds, soft to palpation and non-tender Extremity no clubbing, cyanosis or edema Extremity Narrative: Pedal pulses are 2+, left lower extremity status post knee replacement with extension lag noted Skin no rashes or lesions noted, no wounds, skin turgor normal and no jaundice Neuro oriented x3, moves all extremities, no focal motor deficits and no sensory deficits noted Neuro Narrative: Significant generalized weakness noted with no focal the visit Speech: speech normal Psych affect normal Psych Narrative: Mood is appropriate Weight / BMI Weight Weight: 78.1 kg Body Mass Index (BMI) 30.4 ABG / Lab / Microbiology Data 11/03/22 05:30 11/03/22 05:30 Laboratory: Laboratory Results - last 24 hr 10/30/22 02:37: Diff Path Review Reviewed 11/02/22 12:36: POC Glucose 91 11/02/22 16:29: POC Glucose 131 H 11/02/22 20:50: POC Glucose 172 H 11/03/22 05:30: WBC 8.3, RBC 4.28, Hgb 12.5, Hct 40.0, MCV 93.5, MCH 29.2, MCHC 31.3 L, RDW Std Deviation 47.9 H, RDW Coeff of Patti 13.9, Plt Count 315, MPV 9.3, Immature Gran % (Auto) 0.500, Neut % (Auto) 65.1, Lymph % (Auto) 19.6, [place] % (Auto) 11.7 H, Eos % (Auto) 2.5, Baso % (Auto) 0.6, Absolute Neuts (auto) 5.4, Absolute Lymphs (auto) 1.63, Nucleated RBC % 0, Sodium 142, Potassium 3.3 L, Chloride 108 H, Carbon Dioxide 29.0, Anion Gap 5, BUN 15, Creatinine 0.74, Estim Creat Clear Calc 39.59, Est GFR (MDRD) Af Amer 98, Est GFR (MDRD) Non-Af 81, BUN/Creatinine Ratio 20.3 H, Glucose 109 H, Calcium 9.6 Microbiology: Microbiology 10/30/22 10:53 Mucosa - Nose Respiratory Panel (PCR) - Final 10/30/22 03:00 Nasal Secretion SARS-CoV-2 & FLU Antigen (Rapid) - Final Meaningful Use Info Meaningful Use Diagnoses (Choose all that apply): None applicable Discharge Plan Admission Admit Date/Time: 10/30/22 05:39 Primary Reason for Your Visit: Right-sided chest pain/shortness of breath Attending Provider: Mary Mercer Primary Care Provider: Rebecca Lewis Consulting Providers: Katia Desai; Sky Barrera Instructions Additional Instructions / Restrictions: 1. You were found to have a right-sided pulmonary embolus which is a blood clot in your lung. This is likely related to your decreased mobility with your recent total knee arthroplasty. You will need a total of 6 months of anticoagulation at least. 2. As discussed, I did give you a referral for pain management however you indicated you did not want to follow-up with Dr. Galo. His information is below if you change your mind however if you would like to follow-up with another pain management physician I suggest you call as soon as possible to get make an appointment so you can get in shortly after your discharge from the nursing facility. Discharge Orders/Prescriptions Prescriptions: New oxycodone 5 mg Tablet 5 mg PO Q4H PRN PRN (Reason: Pain Score 4-10) 1 Days Qty: 6 0RF sennosides-docusate sodium [Stool Softener-Stimulant Laxat] 8.6-50 mg Tablet 2 tab PO BID PRN PRN (Reason: Constipation) Qty: 0 0RF Eliquis 5 mg Tablet 10 mg PO BID Qty: 7 0RF Rx Instructions: Continue 10 mg BID dosing through 11/05/2022 and then on 11/06/2022 5mg BID for at least 6 mos acetaminophen [Tylenol Extra Strength] 500 mg tablet 1,000 mg PO TID Qty: 1 0RF risperidone [Risperdal] 1 mg tablet 1 mg PO QHS Qty: 30 0RF Rx Instructions: please dose at 6 pm melatonin 10 mg capsule 10 mg PO QHS Qty: 7 0RF Continued pravastatin 80 mg tablet 80 mg PO QDAY atenolol 100 mg tablet 50 mg PO BID amlodipine 10 mg tablet 10 mg PO DAILY gabapentin 300 MG capsule 300 mg PO BID Patient Comments: NERVE PAIN digoxin 250 MCG tablet 250 mcg PO DAILY metformin 500 mg tablet 500 mg PO BID cholecalciferol (vitamin D3) [Vitamin D3] 25 mcg (1,000 unit) Tablet 25 mcg PO DAILY losartan 25 mg tablet 25 mg PO DAILY furosemide 20 mg tablet 20 mg PO DAILY venlafaxine 37.5 mg capsule,extended release 24hr 37.5 mg PO DAILY Patient Comments: TAKE 1 CAPSULE BY MOUTH DAILY Discontinued amitriptyline 25 mg Tablet 25 mg PO QHS acetaminophen 325 mg Tablet 650 mg PO Q4H PRN PRN (Reason: Pain 1-10 Or Fever) Qty: 0 0RF amoxicillin-pot clavulanate 875-125 mg tablet 1 tab PO BID Qty: 6 0RF Hold Instructions: Order Completed meloxicam 15 mg tablet 15 mg PO DAILY Qty: 14 0RF tramadol 50 mg tablet 50 mg PO Q4H PRN (Reason: pain) Referrals / Follow Up: Barbara Galo MD [Med Staff - Active Staff] - Within 2 Weeks Rebecca Lewis MD [Primary Care Provider] - Within 1 Month Disposition Disposition (needs filled in before D/C Order can be placed): [facility] Facility Charges/Coding Visit Charges Inpatient E&M: 43078 SNF Disch >30 Min
--- NOTE | 2022-11-03 12:08 | CASEMGMT ---
Patient was approved to go to [facility]. NIRALI notified physician, patient and her two daughters. SW completed 7000 in [id number]. Plan: [facility] under skilled level of care on a convalescent stay. Physicians will transport patient via cot. Sophie BENITEZ
[2022-11-03 12:18] LABS: Bedside Glucose 130 mg/dL (74-106)
[2022-11-03] MEDS: oxyCODONE 5 MG Tablet PO (12:58)
--- NOTE | 2022-11-03 13:16 | CASEMGMT ---
Discharge Planning Discharge orders, signed med list, and transport time sent to [facility] via [facility]. [facility] transport patient by cot at 1p. Nursing, SW, patient, and her daughters notified. Rosibel Patel, Discharge Planning Asst.
--- NOTE | 2022-11-03 13:40 | NURSING ---
Report called to CHARLINE Cervantes at [facility] at [phone].
--- NOTE | 2022-11-03 13:45 | PHA.DC.MR.R ---
Pharmacy [facility] Reconciliation Pharmacy Service has performed discharge medication reconciliation for this patient. The patient's discharge medication list was reviewed for discrepancies and discrepancies were resolved. Medications at Discharge Home Medications gabapentin 300 mg capsule 300 mg PO BID Check with primary doctor 02/22/13 digoxin 250 mcg (0.25 mg) tablet 250 mcg PO DAILY HEART 02/01/14 pravastatin 80 mg tablet 80 mg PO QDAY CHOLESTEROL 11/22/17 atenolol 100 mg tablet 50 mg PO BID BP 03/28/19 metformin 500 mg tablet 500 mg PO BID DIABETES 12/02/20 cholecalciferol (vitamin D3) 25 mcg (1,000 unit) tablet (Vitamin D3) 25 mcg PO DAILY SUPPLEMENT 05/12/21 amlodipine 10 mg tablet 10 mg PO DAILY HTN 05/20/21 losartan 25 mg tablet 25 mg PO DAILY HTN 08/01/22 furosemide 20 mg tablet 20 mg PO DAILY CHF 10/30/22 venlafaxine 37.5 mg capsule,extended release 24 hr 37.5 mg PO DAILY depression 10/30/22 acetaminophen 500 mg tablet (Tylenol Extra Strength) 1,000 mg (2 x 500 mg) PO TID #1 TAB 11/03/22 apixaban 5 mg tablet (Eliquis) 10 mg (2 x 5 mg) PO BID #7 tabs 11/03/22 melatonin 10 mg capsule 10 mg PO QHS #7 caps 11/03/22 oxycodone 5 mg tablet 5 mg PO Q4H PRN PRN Pain Score 4-10 1 day #6 tabs 11/03/22 risperidone 1 mg tablet (Risperdal) 1 mg PO QHS #30 tabs 11/03/22 sennosides 8.6 mg-docusate sodium 50 mg tablet (Stool Softener-Stimulant Laxative) 2 tab PO BID PRN PRN Constipation #0 tabs 11/03/22
== END 2022-11-03 13:27 | DRG 176 ==
LOC: ED 01:21 → PCU 05:47
PROVIDERS: Internal Medicine; Admitting Provider Family Medicine; Emergency Provider Emergency Medicine; PCP Internal Medicine; Referring Provider Family Medicine; Visit Provider Internal Medicine
DX: I26.93 Single subsegmental thrombotic pulmonary embolism without acute cor pulmonale (principal); F05 Delirium due to known physiological condition; I47.1 Supraventricular tachycardia; E87.1 Hypo-osmolality and hyponatremia; J96.11 Chronic respiratory failure with hypoxia; E11.42 Type 2 diabetes mellitus with diabetic polyneuropathy; D72.829 Elevated white blood cell count, unspecified; I35.2 Nonrheumatic aortic (valve) stenosis with insufficiency; E87.6 Hypokalemia; I10 Essential (primary) hypertension; E78.5 Hyperlipidemia, unspecified; M17.10 Unilateral primary osteoarthritis, unspecified knee; G31.84 Mild cognitive impairment of uncertain or unknown etiology; G47.33 Obstructive sleep apnea (adult) (pediatric); G89.4 Chronic pain syndrome; E66.9 Obesity, unspecified; Z68.31 Body mass index [BMI] 31.0-31.9, adult; Z66 Do not resuscitate; Z79.1 Long term (current) use of non-steroidal anti-inflammatories (NSAID); Z79.84 Long term (current) use of oral hypoglycemic drugs; Z87.891 Personal history of nicotine dependence; Z96.651 Presence of right artificial knee joint
CPT/HCPCS: 36415; 71045; 71275; 74174; 80048; 80053; 81001; 82962; 83605; 83735; 83880; 84100; 84145; 85025; 87428; 87633; 93005; 93306; 94668; 97110; 97116; 97163; 97166; 97530; 97535; 99285; J7030; J7040; Q9967; A4216

== ENCOUNTER 2023-02-09 19:22 | Inpatient (IN) | payer MEDICARE, SELFPAY ==
[2023-02-09] VITALS (11 sets, daily range): BP systolic 117–171; BP diastolic 52–100; PULSE 68–90; RESP 15–20; TEMP 37.7–39.3; O2SAT 87–100; BMI 32.1
[2023-02-09 20:09] LABS: Bacteria 0 SEEN /hpf (None Seen); Mucous, Urine 0 SEEN /hpf (<or=2+); Red Blood Cells-Urine 0 SEEN /hpf (0-5); Squamous Epithelial Cells - UA 0 SEEN /hpf (5-10)
[2023-02-09 20:10] LABS: Color, Urine Yellow (Yellow); Glucose, Dipstick Normal (Normal); Ketone-Dipstick Negative (Negative); Leukocyte Esterase-Dipstick 500 /ul (Negative); Nitrite-Dipstick Positive (Negative); Occult Blood-Urine 250 /ul (Negative); Protein-Dipstick 100 mg/dl (Negative); Urine Bilirubin Dipstick Negative (Negative); Urine Clarity Turbid (Clear); Urine Urobilinogen Normal (Normal)
[2023-02-09 20:10] LABS: Absolute Lymphocyte Count 1.04 X10^3/uL (0.83-4.51); Absolute Neutrophil Count 16.7 X10^3/uL (2.0-7.7); Basophil# 0.05 X10^3/uL; Basophil% 0.3 % (0-1); Eosinophil# 0.05 X10^3/uL; Eosinophils% 0.3 % (0-5); Hematocrit 40.7 % (37-47); Hemoglobin 12.9 g/dL (12.0-15.0); Lymphocyte # 1.04 X10^3/ul (0.83-4.51); Lymphocyte % 5.4 % (19-41); Mean Corp Hgb Conc 31.7 g/dL (32-36); Mean Corpuscular Hgb 30.4 pg (27.0-32.0); Mean Platelet Vol. 9.7 fl (6.2-12.0); Monocyte# 1.34 X10^3/uL; NRBC Flagged by Analyzer 0 % (0-5); Neutrophil # 16.66 X10^3/uL (2.7-7.7); Neutrophil % 86.4 % (47-70); Platelet Count 197 K/mm3 (150-450); RBC Distribution Width CV 14.1 % (11.6-14.6); RBC Distribution Width SD 49.8 fl (35.1-43.9); Red Blood Count 4.24 M/mm3 (4.2-5.4); White Blood Count 19.3 K/mm3 (4.4-11.0)
[2023-02-09 20:19] LABS: White Blood Cells >100 SEEN /hpf (0-5)
[2023-02-09 20:26] LABS: Anion Gap 9 (5-15); BUN 13 mg/dL (7-18); BUN/Creat Ratio 11.9 RATIO (10-20); Calcium,Total 9.4 mg/dL (8.5-10.1); Chloride 100 mmol/L (98-107); Creatinine, Serum 1.09 mg/dL (0.55-1.02); EST Glomerular Filtration Rate 52 mL/min (>60); Est Glom Filt Rate - Afr Amer 63 mL/min (>60); Glucose 150 mg/dL (74-106); Potassium 3.8 mmol/L (3.5-5.1); Sodium Level 140 mmol/L (136-145)
--- NOTE | 2023-02-09 20:39 | EX.ED.DYSGE1 ---
HPI History of Present Illness Chief Complaint: Mental Status Change Detail of Chief Complaint: Incontinence, change in mental status and temperature of 105.0 ?F Informant: family and EMS Onset/Context/Timing Onset: Today Context: Sudden Onset Timing: Continuous Quality: Altered mental status due to infectious encephalopathy Location: Urologic Current Severity: Severe Maximum Severity: Severe Worsened by: Infection Relieved by: Nothing Associated Symptoms Associated Symptoms: Incontinence Narrative Narrative: Patient is a 77-year-old woman who was brought in by ambulance after her daughter called because of temperature of 105.0 ?F with altered mental status and incontinence. Patient is disoriented. Patient answers most questions with I do not believe so. She is not a good informant. Prior similar symptoms: No Recent Illness/Hospitalization: No PFSH PFSH Medical History Chronic pain Diabetes Dysmetabolic syndrome Dyspnea on exertion Essential hypertension Former smoker GERD (gastroesophageal reflux disease) Greater trochanteric bursitis of right hip History of kidney stones History of paroxysmal atrial tachycardia Hyperlipidemia Meningioma Nonrheumatic aortic (valve) insufficiency Osteoarthritis of right hip Paroxysmal atrial tachycardia Peripheral neuropathy Pulmonary embolism on right Thoracic aortic aneurysm without rupture Home Medications gabapentin 300 mg capsule 300 mg PO BID Check with primary doctor 02/22/13 [History Last Taken 07/31/22] digoxin 250 mcg (0.25 mg) tablet 250 mcg PO DAILY HEART 02/01/14 [History Last Taken 07/31/22] pravastatin 80 mg tablet 80 mg PO QDAY CHOLESTEROL 11/22/17 [History Last Taken 07/31/22] atenolol 100 mg tablet 50 mg PO BID BP 03/28/19 [History Last Taken 07/31/22] metformin 500 mg tablet 500 mg PO BID DIABETES 12/02/20 [History Last Taken 07/31/22] cholecalciferol (vitamin D3) 25 mcg (1,000 unit) tablet (Vitamin D3) 25 mcg PO DAILY SUPPLEMENT 05/12/21 [History Last Taken 07/31/22] amlodipine 10 mg tablet 10 mg PO DAILY HTN 05/20/21 [History Last Taken 07/31/22] losartan 25 mg tablet 100 mg PO DAILY HTN 08/01/22 [History Last Taken 07/31/22] furosemide 20 mg tablet 20 mg PO BID CHF 10/30/22 [History Last Taken 10/29/22] venlafaxine 37.5 mg capsule,extended release 24 hr 37.5 mg PO DAILY depression 10/30/22 [History Last Taken 10/29/22] melatonin 10 mg capsule 10 mg PO QHS #7 caps 11/03/22 [Rx Last Taken Unknown] sennosides 8.6 mg-docusate sodium 50 mg tablet (Stool Softener-Stimulant Laxative) 2 tab PO BID PRN PRN Constipation #0 tabs 11/03/22 [Rx Last Taken Unknown] acetaminophen 500 mg tablet (Tylenol Extra Strength) 1,000 mg PO TID PRN fever or pain 02/09/23 [History Last Taken Unknown] apixaban 5 mg tablet (Eliquis) 5 mg PO BID 02/09/23 [History Last Taken Unknown] meclizine 12.5 mg tablet 12.5 mg PO BID PRN vertigo 02/09/23 [History Last Taken Unknown] potassium chloride 10 mEq tablet,extended release 10 meq PO DAILY 02/09/23 [History Last Taken Unknown] Allergy/AdvReac Type Severity Reaction Status Date / Time lisinopril AdvReac Severe Intolerence, Verified 08/20/22 09:06 cough nalbuphine HCl [From Nubain] AdvReac Nausea/Vom/ Verified 08/20/22 09:06 Diarrhea risperidone [From Risperdal] AdvReac PSYCHOSIS Verified 02/09/23 20:57 Family History Father CAD (coronary artery disease) Myocardial infarction, Onset Age: 51 Brother Myocardial infarction, Onset Age: 51 Brother CAD (coronary artery disease) Hx of CABG Sister Heart disease COPD (chronic obstructive pulmonary disease) Sister CVA (cerebral vascular accident) Surgical History History of arthroscopy of right shoulder History of back surgery History of elbow surgery History of hand surgery History of hemorrhoidectomy (~11/2021) History of hysterectomy History of knee replacement procedure of right knee History of knee surgery Hx of cardiac cath Status post trigger finger release Social History household members: none Smoking Status: Former smoker how long ago did patient quit smokin years ago alcohol intake: never substance use type: does not use caffeine: No ROS ROS ED Constitutional Constitutional ED: Reports chills and fever(s) Eyes Eyes: Denies blurry vision or change in vision ENT ENT ED: Denies ear pain or sore throat Cardiovascular Cardiovascular: Denies chest pain or palpitations Respiratory/Chest Respiratory/Chest: Denies cough or dyspnea Gastrointestinal Gastrointestinal: Denies abdominal pain, nausea or vomiting Genitourinary Genitourinary ED: Reports other Details: Incontinence per daughter ; Denies dysuria, hematuria or urinary frequency Musculoskeletal Musculoskeletal: Denies arthralgias, back pain or myalgias Integumentary Denies rash Neurologic Neurologic: Reports weakness; Denies headache(s) EXAM Physical Exam Const Vital Signs: 02/09/23 19:26 02/09/23 19:29 02/09/23 19:34 Temperature 102.8 F H Temperature Source Tympanic Pulse Rate 90 88 Respiratory Rate 20 H Blood Pressure 171/96 H Blood Pressure Mean 121 Pulse Ox 96 87 Oxygen Delivery Method Room Air Room Air Oxygen Flow Rate (L/min) 02/09/23 19:36 02/09/23 20:29 02/09/23 21:00 Temperature 102 F H 102 F H Temperature Source Oral Oral Pulse Rate 81 79 Respiratory Rate 15 17 Blood Pressure 143/58 H 117/100 H Blood Pressure Mean 86 105 Pulse Ox 93 96 97 Oxygen Delivery Method Nasal Cannula Nasal Cannula Nasal Cannula Oxygen Flow Rate (L/min) 2 2 2 02/09/23 22:00 Temperature 99.8 F H Temperature Source Oral Pulse Rate 74 Respiratory Rate 17 Blood Pressure 138/78 H Blood Pressure Mean 98 Pulse Ox 95 Oxygen Delivery Method Nasal Cannula Oxygen Flow Rate (L/min) 2 Positive well nourished, well developed and obese General Appearance ED: well developed and NAD; Negative for cyanotic, diaphoretic or pallor Nutritional Appearance: obese HEENT Reports dry mucous membranes Mouth ED: Yes dry mucous membranes Mouth: dry mucous membranes Neck no lymphadenopathy, supple and no JVD Chest Wall inspection of chest normal and palpation of chest normal Resp normal respiratory effort and clear to auscultation bilaterally Cardio regular rate, regular rhythm, S1 normal heart sound, S2 normal heart sound and no murmurs GI normal to inspection, nondistended, normoactive bowel sounds, non-tender, non-distended and no masses; Negative for hepatosplenomegaly Back/Spine no CVA tenderness Extremity normal to inspection General Extremety ED: Negative for edema or tenderness General Extremity: Negative for edema Neuro No oriented x3, CN's II-XII intact bilaterally and no sensory deficits noted Neuro Narrative: Patient is disoriented to time Sensorium / Orientation: orientation impaired; Negative for alert Psych Negative for mental status grossly normal Skin no rashes or lesions noted and no wounds General Skin Exam: Negative for elasticity normal, jaundice or pallor Sepsis Attestation Sepsis Alert: Yes Sepsis Attestation: Agree w/Sepsis Date exam was performed: 02/09/23 Time exam was performed: 20:25 Possible Source of Sepsis: Genitourinary Sepsis Organ Dysfunction Criteria Present: Lactic Acid > 2 mmol/L and New/Unexplained change in mental status Fluid Resuscitation Fluid resuscitation indicated?: Yes Fluid Resuscitation ordered: 30 ml/kg fluid bolus ordered Amount of fluid ordered: 2,700 MDM MDM MDM Narrative Medical decision making narrative: With change in mental status temperature 102.8 urine that is turbid in appearance suspect patient's source of infection is urinary. Sepsis work-up was initiated. EKG was obtained to assess for cardiac ischemia. CBC has white count differential as well as H&H. Comprehensive metabolic panel lactate to assess for endorgan dysfunction. Clinically patient is dehydrated. She received 1 L normal saline. Since she has urologic source she was treated with 1 g of Rocephin since she has no allergy to penicillin or cephalosporins. Lab Data Attestation: I reviewed the patient's lab results. Lab results narrative: White count is elevated 19.3 thousand with shift. There is no bandemia. Basic metabolic panel is unremarkable. Urine is turbid with positive blood, nitrites and leukoesterase. Microscopic reveals greater than 100 WBCs. No bacteria seen. B no bacteria since patient is incontinent and and has not been seen in the bladder for 1 to 2 hours. Lactate is 4. Per CMS criteria patient meets septic shock. Labs: Laboratory Results - last 24 hr 02/09/23 02/09/23 19:50 19:55 WBC 19.3 H RBC 4.24 Hgb 12.9 Hct 40.7 MCV 96.0 MCH 30.4 MCHC 31.7 L RDW Std Deviation 49.8 H RDW Coeff of Patti 14.1 Plt Count 197 MPV 9.7 Immature Gran % (Auto) 0.600 Neut % (Auto) 86.4 H Lymph % (Auto) 5.4 L [place] % (Auto) 7.0 Eos % (Auto) 0.3 Baso % (Auto) 0.3 Absolute Neuts (auto) 16.7 H Absolute Lymphs (auto) 1.04 Nucleated RBC % 0 Sodium 140 Potassium 3.8 Chloride 100 Carbon Dioxide 31.0 Anion Gap 9 BUN 13 Creatinine 1.09 H Est GFR (MDRD) Af Amer 63 Est GFR (MDRD) Non-Af 52 L BUN/Creatinine Ratio 11.9 Glucose 150 H Lactic Acid 4.0 H* Calcium 9.4 Urine Color Yellow Urine Clarity Turbid Urine pH 7.0 Ur Specific [place] 1.010 Urine Protein 100 H Urine Glucose (UA) Normal Urine Ketones Negative Urine Occult Blood 250 H Urine Nitrite Positive H Urine Bilirubin Negative Urine Urobilinogen Normal Ur Leukocyte Esterase 500 H Urine RBC 0 SEEN Urine WBC >100 SEEN Ur Squamous Epith Cells 0 SEEN Urine Bacteria 0 SEEN Urine Mucus 0 SEEN EKG Initial EKG: Attestation: I personally reviewed and interpreted this EKG as follows: Interpretation: Sinus Rhythm (Is 84. There is evidence of LVH with repolarization changes. ID interval is 138 ms. Cures duration 90 ms. QT duration 358 ms. [place] is normal.) Management Discussion w/another healthcare provider: Hospitalist Critical Care Time Critical Care Time: Yes Critical care time (excluding procedures): 30-74 minutes (31), Including time spent: (3, for documentation, review of prior records and labs. Initiation of treatment for urosepsis.), Discussing w/Patient &/or Family/Casting Supervisor, Discussing w/Consultants and Arranging Admission or Transfer Discharge Plan Dx/Rx/DC Orders Clinical Impression: Complicated urinary tract infection, Septic shock, Encephalopathy due to infection Disposition Disposition: Acute Care Hospital [facility]
[2023-02-09] MEDS: Ceftriaxone 1 GM/50 ML BAG IV (20:52)
[2023-02-09] MEDS: 0.9% Normal Saline (1000mL) 1,000 ML 1000 ML IV (20:52)
[2023-02-09] MEDS: 0.9% Normal Saline (1000mL) 1,000 ML 999 ML IV ×2 (21:39→22:55)
--- NOTE | 2023-02-09 22:06 | PCM.HP.STD ---
HPI - General General Date of Admission: 02/09/23 Date of Service: 02/09/23 Chief Complaint: Confusion HPI Narrative MARZENA TUESDAY, is a 77 F with a significant medical history of diabetes melitis; PE; hypertension; and meningioma was brought to emergency department because of confusion that started the same day of presentation. Also reportedly patient had a temperature of 105 at home. The patient is incontinent of urine but she reported that as a baseline. She reports frequent urination which she claims is also her baseline. [facility] Medical History Chronic pain Diabetes Dysmetabolic syndrome Dyspnea on exertion Essential hypertension Former smoker GERD (gastroesophageal reflux disease) Greater trochanteric bursitis of right hip History of kidney stones History of paroxysmal atrial tachycardia Hyperlipidemia Meningioma Nonrheumatic aortic (valve) insufficiency Osteoarthritis of right hip Paroxysmal atrial tachycardia Peripheral neuropathy Pulmonary embolism on right Thoracic aortic aneurysm without rupture Home Medications gabapentin 300 mg capsule 300 mg PO BID Check with primary doctor 02/22/13 [History Last Taken 07/31/22] digoxin 250 mcg (0.25 mg) tablet 250 mcg PO DAILY HEART 02/01/14 [History Last Taken 07/31/22] pravastatin 80 mg tablet 80 mg PO QDAY CHOLESTEROL 11/22/17 [History Last Taken 07/31/22] atenolol 100 mg tablet 50 mg PO BID BP 03/28/19 [History Last Taken 07/31/22] metformin 500 mg tablet 500 mg PO BID DIABETES 12/02/20 [History Last Taken 07/31/22] cholecalciferol (vitamin D3) 25 mcg (1,000 unit) tablet (Vitamin D3) 25 mcg PO DAILY SUPPLEMENT 05/12/21 [History Last Taken 07/31/22] amlodipine 10 mg tablet 10 mg PO DAILY HTN 05/20/21 [History Last Taken 07/31/22] losartan 25 mg tablet 100 mg PO DAILY HTN 08/01/22 [History Last Taken 07/31/22] furosemide 20 mg tablet 20 mg PO BID CHF 10/30/22 [History Last Taken 10/29/22] venlafaxine 37.5 mg capsule,extended release 24 hr 37.5 mg PO DAILY depression 10/30/22 [History Last Taken 10/29/22] melatonin 10 mg capsule 10 mg PO QHS #7 caps 11/03/22 [Rx Last Taken Unknown] sennosides 8.6 mg-docusate sodium 50 mg tablet (Stool Softener-Stimulant Laxative) 2 tab PO BID PRN PRN Constipation #0 tabs 11/03/22 [Rx Last Taken Unknown] acetaminophen 500 mg tablet (Tylenol Extra Strength) 1,000 mg PO TID PRN fever or pain 02/09/23 [History Last Taken Unknown] apixaban 5 mg tablet (Eliquis) 5 mg PO BID 02/09/23 [History Last Taken Unknown] meclizine 12.5 mg tablet 12.5 mg PO BID PRN vertigo 02/09/23 [History Last Taken Unknown] potassium chloride 10 mEq tablet,extended release 10 meq PO DAILY 02/09/23 [History Last Taken Unknown] Allergy/AdvReac Type Severity Reaction Status Date / Time lisinopril AdvReac Severe Intolerence, Verified 08/20/22 09:06 cough nalbuphine HCl [From Nubain] AdvReac Nausea/Vom/ Verified 08/20/22 09:06 Diarrhea risperidone [From Risperdal] AdvReac PSYCHOSIS Verified 02/09/23 20:57 Family History Father CAD (coronary artery disease) Myocardial infarction, Onset Age: 51 Brother Myocardial infarction, Onset Age: 51 Brother CAD (coronary artery disease) Hx of CABG Sister Heart disease COPD (chronic obstructive pulmonary disease) Sister CVA (cerebral vascular accident) Surgical History History of arthroscopy of right shoulder History of back surgery History of elbow surgery History of hand surgery History of hemorrhoidectomy (~11/2021) History of hysterectomy History of knee replacement procedure of right knee History of knee surgery Hx of cardiac cath Status post trigger finger release Social History household members: none Smoking Status: Former smoker how long ago did patient quit smokin years ago alcohol intake: never substance use type: does not use caffeine: No ROS ROS Narrative Pertinent positives and pertinent negatives as noted in HPI. All other systems were reviewed and are negative Vital Signs Vital Signs Vital Signs: 02/09/23 19:26 02/09/23 19:29 02/09/23 19:34 Temperature 102.8 F H Temperature Source Tympanic Pulse Rate 90 88 Respiratory Rate 20 H Blood Pressure 171/96 H Blood Pressure Mean 121 Pulse Ox 96 87 Oxygen Delivery Method Room Air Room Air Oxygen Flow Rate (L/min) 02/09/23 19:36 02/09/23 20:29 02/09/23 21:00 Temperature 102 F H 102 F H Temperature Source Oral Oral Pulse Rate 81 79 Respiratory Rate 15 17 Blood Pressure 143/58 H 117/100 H Blood Pressure Mean 86 105 Pulse Ox 93 96 97 Oxygen Delivery Method Nasal Cannula Nasal Cannula Nasal Cannula Oxygen Flow Rate (L/min) 2 2 2 02/09/23 22:00 Temperature 99.8 F H Temperature Source Oral Pulse Rate 74 Respiratory Rate 17 Blood Pressure 138/78 H Blood Pressure Mean 98 Pulse Ox 95 Oxygen Delivery Method Nasal Cannula Oxygen Flow Rate (L/min) 2 Physical Exam Narrative Physical exam: General: Well-nourished, well-developed. Head: Normocephalic, atraumatic, no tenderness Eyes: Vision is grossly intact. EOMI ENT, no trauma, moist mucous membranes, no rhinorrhea Neck: Nontender, No thyromegaly. CVS: Regular rate and rhythm. S1-S2 present. Murmur is present (patient states is chronic) Respiratory : clear to auscultation bilaterally, chest wall nontender Abdomen: Soft, nontender, nondistended, normal bowel sounds, no masses : Deferred Back: Nontender, no CVA tenderness, no midline spinal tenderness, deformities, step-offs Extremities: Nontender full range of motion, no trauma Skin: Normal color, no trauma, abrasions Neuro: Alert. Patient knows the month and the year. She knows that she is at [facility]. Cranial nerves II through XII grossly intact. Psychiatry: Normal mood. Normal affect. Not depressed. Not anxious. Results Lab / Micro Data 02/10/23 05:20 02/10/23 05:20 Labs: Laboratory Results - last 24 hr 02/09/23 19:50: Urine Color Yellow, Urine Clarity Turbid, Urine pH 7.0, Ur Specific [place] 1.010, Urine Protein 100 H, Urine Glucose (UA) Normal, Urine Ketones Negative, Urine Occult Blood 250 H, Urine Nitrite Positive H, Urine Bilirubin Negative, Urine Urobilinogen Normal, Ur Leukocyte Esterase 500 H, Urine RBC 0 SEEN, Urine WBC >100 SEEN, Ur Squamous Epith Cells 0 SEEN, Urine Bacteria 0 SEEN, Urine Mucus 0 SEEN 02/09/23 19:55: WBC 19.3 H, RBC 4.24, Hgb 12.9, Hct 40.7, MCV 96.0, MCH 30.4, MCHC 31.7 L, RDW Std Deviation 49.8 H, RDW Coeff of Patti 14.1, Plt Count 197, MPV 9.7, Immature Gran % (Auto) 0.600, Neut % (Auto) 86.4 H, Lymph % (Auto) 5.4 L, [place] % (Auto) 7.0, Eos % (Auto) 0.3, Baso % (Auto) 0.3, Absolute Neuts (auto) 16.7 H, Absolute Lymphs (auto) 1.04, Nucleated RBC % 0, Sodium 140, Potassium 3.8, Chloride 100, Carbon Dioxide 31.0, Anion Gap 9, BUN 13, Creatinine 1.09 H, Est GFR (MDRD) Af Amer 63, Est GFR (MDRD) Non-Af 52 L, BUN/Creatinine Ratio 11.9, Glucose 150 H, Lactic Acid 4.0 H*, Calcium 9.4 Assessment & Plan Assessment/Plan (1) Septic shock: (2) Encephalopathy due to infection: PLAN: Plan Septic shock The patient presented with sepsis due to (infection) with acute sepsis related organ dysfunction as evidenced by (organ dysfunction/s). SIRS criteria: Temperature more than 100.9 Fahrenheit. Reported temperature of 105 Fahrenheit at home. And Tmax of 102.6 Fahrenheit at the hospital WBC more than 12,000. In patient case and white count was 19,300 on presentation organ dysfunction: SBP less than 90 or MAP less than 65 Lactate more than 2 mmol/L Septic shock because lactic acid is 4. Of note patient is on metformin that may be contributing. Trend lactic acid. Emergency department labs reviewed: Abnormal urinalysis with leukocyte esterase of 500; urine nitrite positive; urine occult blood of 250; urine WBC of more than 100. However 0 bacteria in urine was seen. Follow urine culture and blood culture. Rocephin IV given in the emergency department and continued. Received normal saline bolus per septic shock protocol of 30 MLS per kilograms. Gentle IV hydration continue Hold Lasix and potassium. Diabetes mellitus Blood glucose on presentation was stable. Hold metformin Accu-Chek with correction scale insulin ordered Acute encephalopathy secondary to septic shock with UTI With sepsis and recent encephalopathy Case were discussed with emergency department doctor and patient was accepted for admission to the intensive care units. Acute encephalopathy has resolved. Continue to treat patient for septic shock as above. DVT Prophylaxis: Home apixaban continued. Time spent in the patient's overall evaluation,decision-making process, review of diagnostic data, adjustment of management, discussion with other providers, nursing and ancillary staff involved in patient's care documentation, 72 minutes. Sepsis Attestation Sepsis Alert: Yes Sepsis Attestation: Agree w/Sepsis Date exam was performed: 02/09/23 Time exam was performed: 22:47 Possible Source of Sepsis: GI tract/intra-abdominal Sepsis Organ Dysfunction Criteria Present: Lactic Acid > 2 mmol/L Fluid Resuscitation Fluid resuscitation indicated?: Yes Fluid Resuscitation ordered: 30 ml/kg fluid bolus ordered Amount of fluid ordered: 3,000 Charges/Coding Visit Charges Inpatient E&M: 23285 Init Hosp L3
[2023-02-10] VITALS (14 sets, daily range): BP systolic 114–164; BP diastolic 43–101; PULSE 65–83; RESP 15–21; TEMP 36.5–39.2; O2SAT 94–98; BMI 32.1
[2023-02-10 00:05] LABS: Reflex Lactate? Y
[2023-02-10 00:57] LABS: Lactic Acid 1.8 mmol/L (0.4-1.9)
[2023-02-10] MEDS: Acetaminophen 500 MG Tablet 1000 MG PO ×2 (05:26→13:54)
[2023-02-10 05:27] LABS: Absolute Lymphocyte Count 0.81 X10^3/uL (0.83-4.51); Absolute Neutrophil Count 16.3 X10^3/uL (2.0-7.7); Basophil# 0.04 X10^3/uL; Basophil% 0.2 % (0-1); Hematocrit 37.4 % (37-47); Hemoglobin 11.7 g/dL (12.0-15.0); Lymphocyte # 0.81 X10^3/ul (0.83-4.51); Lymphocyte % 4.1 % (19-41); Mean Corp Hgb Conc 31.3 g/dL (32-36); Mean Corpuscular Hgb 30.7 pg (27.0-32.0); Mean Corpuscular Volume 98.2 fL (81-99); Mean Platelet Vol. 9.6 fl (6.2-12.0); Monocyte# 2.25 X10^3/uL; Monocyte% 11.5 % (0-10); NRBC Flagged by Analyzer 0 % (0-5); Neutrophil # 16.33 X10^3/uL (2.7-7.7); Neutrophil % 83.7 % (47-70); POSITIVE DIFFERENTIAL YES; Platelet Count 168 K/mm3 (150-450); RBC Distribution Width CV 14.6 % (11.6-14.6); RBC Distribution Width SD 52.1 fl (35.1-43.9); Red Blood Count 3.81 M/mm3 (4.2-5.4); White Blood Count 19.5 K/mm3 (4.4-11.0)
[2023-02-10 05:33] LABS: Differential Indicated SCAN CRITERIA MET
[2023-02-10 05:47] LABS: Anion Gap 6 (5-15); BUN 12 mg/dL (7-18); BUN/Creat Ratio 13.1 RATIO (10-20); Calcium,Total 8.4 mg/dL (8.5-10.1); Chloride 108 mmol/L (98-107); Creatinine, Serum 0.92 mg/dL (0.55-1.02); EST Glomerular Filtration Rate 63 mL/min (>60); Est Glom Filt Rate - Afr Amer 76 mL/min (>60); Estimated Creatinine Clearance 42.36 ml/min; Glucose 155 mg/dL (74-106); Potassium 3.4 mmol/L (3.5-5.1); Sodium Level 143 mmol/L (136-145)
[2023-02-10] MEDS: Potassium Chloride Oral Tablet 20 MEQ 40 MEQ PO (06:28)
--- NOTE | 2023-02-10 06:45 | EX.PCM.CONCC ---
Assessment & Plan Assessment/Plan (1) Complicated urinary tract infection: (2) Encephalopathy due to infection: (3) Sepsis: QUALIFIERS: Sepsis acute organ dysfunction status: with acute organ dysfunction Sepsis type: sepsis due to unspecified organism Severe sepsis acute organ dysfunction type: encephalopathy Severe sepsis shock status: without septic shock Qualified Code(s): A41.9 - Sepsis, unspecified organism; R65.20 - Severe sepsis without septic shock; G93.41 - Metabolic encephalopathy PLAN: Plan RECOMMENDATIONS: 1. Continue antibiotics 2. Encourage incentive spirometer. Wean oxygen as tolerated 3. PT/OT for balance issues 4. Possible transfer from intensive care unit later today IMPRESSIONS: 1. Acute sepsis secondary to UTI Patient with fever, tachypnea, tachycardia and leukocytosis with evidence of endorgan damage by encephalopathy and elevated lactate. Patient has had an atypical etiology in the past, but appears to be responding to current antibiotics. Agree with holding Lasix at this time as patient's creatinine was up slightly on presentation. 2. Acute metabolic encephalopathy secondary to sepsis with UTI Patient appears to be improving slowly. Patient is directable at this time. Patient still slow to respond, but this should improve moving forward. Continue with delirium protocol. 3. Multiple falls/debility/advanced age/diabetes/hypertension/history of meningioma/obesity Complicates care, management, recovery and prognosis. Will consult PT OT to work with strengthening and balancing. Exam is nonfocal, so concern for acute stroke is low. HPI Consult Data Date of Consult: 02/10/23 HPI Narrative Reason for Consultation: Sepsis HPI Narrative: MARZENA TUESDAY is a 77 F, with past medical history listed below, who presents to [facility] on 02/09/2023 secondary to mental status change, incontinence and fever. Patient's daughter reportedly called the ambulance secondary to mental status and incontinence. Patient reportedly was not able to provide much additional information in the emergency department. In the ER, patient was noted to have a temperature of 102.8 ?F, tachypneic at 20 breaths/min and initially had a blood pressure of 171/96. Patient was requiring 2 L nasal cannula to maintain saturations, but has not required oxygen in the past. Laboratory data showed a white blood cell count of 19.3, hemoglobin of 12.9 and platelets of 197. Chemistries show an elevated bicarbonate of 31 with a creatinine of 1.09, glucose of 150 and a lactate of 4. UA was suggestive of a urinary tract infection. EKG showed sinus rhythm. ER physician did note that the patient looked clinically dehydrated and patient was given Rocephin and normal saline. Patient received IV fluids and was admitted to the intensive care unit for further evaluation. Since being in the intensive care unit, patient is more appropriate. Patient is aware that she was admitted with a UTI in November, but is unclear on when current symptoms started. Patient has been persistently febrile throughout her hospitalization. Patient is on 2 L nasal cannula, but is not endorsing any respiratory complaints. Patient does report that she was recently in the halfway secondary to recurrent falls, but is unclear if she received antibiotics since her hospitalization. Patient is on Eliquis at baseline, but is not endorsing any bleeding complications recently. Review of systems otherwise negative from a constitutional, HEENT, respiratory, cardiovascular, GI, genitourinary, musculoskeletal, skin, neurologic, psychiatric and hematologic system unless stated above. [facility] Medical History Chronic pain Diabetes Dysmetabolic syndrome Dyspnea on exertion Essential hypertension Former smoker GERD (gastroesophageal reflux disease) Greater trochanteric bursitis of right hip History of kidney stones History of paroxysmal atrial tachycardia Hyperlipidemia Meningioma Nonrheumatic aortic (valve) insufficiency Osteoarthritis of right hip Paroxysmal atrial tachycardia Peripheral neuropathy Pulmonary embolism on right Thoracic aortic aneurysm without rupture Home Medications gabapentin 300 mg capsule 300 mg PO BID Check with primary doctor 02/22/13 [History Last Taken 07/31/22] digoxin 250 mcg (0.25 mg) tablet 250 mcg PO DAILY HEART 02/01/14 [History Last Taken 07/31/22] pravastatin 80 mg tablet 80 mg PO QDAY CHOLESTEROL 11/22/17 [History Last Taken 07/31/22] atenolol 100 mg tablet 50 mg PO BID BP 03/28/19 [History Last Taken 07/31/22] metformin 500 mg tablet 500 mg PO BID DIABETES 12/02/20 [History Last Taken 07/31/22] cholecalciferol (vitamin D3) 25 mcg (1,000 unit) tablet (Vitamin D3) 25 mcg PO DAILY SUPPLEMENT 05/12/21 [History Last Taken 07/31/22] amlodipine 10 mg tablet 10 mg PO DAILY HTN 05/20/21 [History Last Taken 07/31/22] losartan 25 mg tablet 100 mg PO DAILY HTN 08/01/22 [History Last Taken 07/31/22] furosemide 20 mg tablet 20 mg PO BID CHF 10/30/22 [History Last Taken 10/29/22] venlafaxine 37.5 mg capsule,extended release 24 hr 37.5 mg PO DAILY depression 10/30/22 [History Last Taken 10/29/22] melatonin 10 mg capsule 10 mg PO QHS #7 caps 11/03/22 [Rx Last Taken Unknown] sennosides 8.6 mg-docusate sodium 50 mg tablet (Stool Softener-Stimulant Laxative) 2 tab PO BID PRN PRN Constipation #0 tabs 11/03/22 [Rx Last Taken Unknown] acetaminophen 500 mg tablet (Tylenol Extra Strength) 1,000 mg PO TID PRN fever or pain 02/09/23 [History Last Taken Unknown] apixaban 5 mg tablet (Eliquis) 5 mg PO BID 02/09/23 [History Last Taken Unknown] meclizine 12.5 mg tablet 12.5 mg PO BID PRN vertigo 02/09/23 [History Last Taken Unknown] potassium chloride 10 mEq tablet,extended release 10 meq PO DAILY 02/09/23 [History Last Taken Unknown] Allergy/AdvReac Type Severity Reaction Status Date / Time lisinopril AdvReac Severe Intolerence, Verified 08/20/22 09:06 cough nalbuphine HCl [From Nubain] AdvReac Nausea/Vom/ Verified 08/20/22 09:06 Diarrhea risperidone [From Risperdal] AdvReac PSYCHOSIS Verified 02/09/23 20:57 Family History Father CAD (coronary artery disease) Myocardial infarction, Onset Age: 51 Brother Myocardial infarction, Onset Age: 51 Brother CAD (coronary artery disease) Hx of CABG Sister Heart disease COPD (chronic obstructive pulmonary disease) Sister CVA (cerebral vascular accident) Surgical History History of arthroscopy of right shoulder History of back surgery History of elbow surgery History of hand surgery History of hemorrhoidectomy (~11/2021) History of hysterectomy History of knee replacement procedure of right knee History of knee surgery Hx of cardiac cath Status post trigger finger release Social History household members: none Smoking Status: Former smoker how long ago did patient quit smokin years ago alcohol intake: never substance use type: does not use caffeine: No ROS ROS Narrative See HPI. Patient is a relatively poor historian Physical Exam Const alert, no apparent distress and well nourished Constitutional Narrative: Obese, elderly, white female, sitting up in bed, appears comfortable, but somewhat slow to respond HEENT head/scalp atraumatic, moist oral mucous membranes and oropharynx normal HEENT Narrative: Mallampati 2, no thrush Eyes PERRL and EOMs intact bilaterally Eyes Narrative: Glasses in place Neck full ROM Chest inspection of chest normal Resp normal respiratory effort, no retractions, no use of accessory muscles and clear to auscultation bilaterally Auscultation: Negative for rales, rhonchi or wheezes Cardio regular rate, regular rhythm, S1 normal heart sound, S2 normal heart sound, no murmurs, no rub, no gallops and no clicks GI normal to inspection, nondistended, normoactive bowel sounds, soft to palpation and non-tender Extremity no clubbing, cyanosis or edema Neuro oriented x3, moves all extremities and no focal motor deficits Speech: speech normal Psych cooperative and affect normal Medical Records Data Attestation: I reviewed the patient's medical records Lab / Micro Data Attestation: I reviewed the patient's lab results. Lab results narrative: Patient previously with actinomyces UTI 02/10/23 05:20 02/10/23 05:20 Labs: Laboratory Results - last 24 hr 02/09/23 19:50: Urine Color Yellow, Urine Clarity Turbid, Urine pH 7.0, Ur Specific [place] 1.010, Urine Protein 100 H, Urine Glucose (UA) Normal, Urine Ketones Negative, Urine Occult Blood 250 H, Urine Nitrite Positive H, Urine Bilirubin Negative, Urine Urobilinogen Normal, Ur Leukocyte Esterase 500 H, Urine RBC 0 SEEN, Urine WBC >100 SEEN, Ur Squamous Epith Cells 0 SEEN, Urine Bacteria 0 SEEN, Urine Mucus 0 SEEN 02/09/23 19:55: WBC 19.3 H, RBC 4.24, Hgb 12.9, Hct 40.7, MCV 96.0, MCH 30.4, MCHC 31.7 L, RDW Std Deviation 49.8 H, RDW Coeff of Patti 14.1, Plt Count 197, MPV 9.7, Immature Gran % (Auto) 0.600, Neut % (Auto) 86.4 H, Lymph % (Auto) 5.4 L, [place] % (Auto) 7.0, Eos % (Auto) 0.3, Baso % (Auto) 0.3, Absolute Neuts (auto) 16.7 H, Absolute Lymphs (auto) 1.04, Nucleated RBC % 0, Sodium 140, Potassium 3.8, Chloride 100, Carbon Dioxide 31.0, Anion Gap 9, BUN 13, Creatinine 1.09 H, Est GFR (MDRD) Af Amer 63, Est GFR (MDRD) Non-Af 52 L, BUN/Creatinine Ratio 11.9, Glucose 150 H, Lactic Acid 4.0 H*, Calcium 9.4 02/10/23 00:20: Lactic Acid 1.8 02/10/23 05:20: WBC 19.5 H, RBC 3.81 L, Hgb 11.7 L, Hct 37.4, MCV 98.2, MCH 30.7, MCHC 31.3 L, RDW Std Deviation 52.1 H, RDW Coeff of Patti 14.6, Plt Count 168, MPV 9.6, Immature Gran % (Auto) 0.500, Neut % (Auto) 83.7 H, Lymph % (Auto) 4.1 L, [place] % (Auto) 11.5 H, Eos % (Auto) 0.0, Baso % (Auto) 0.2, Absolute Neuts (auto) 16.3 H, Absolute Lymphs (auto) 0.81 L, Nucleated RBC % 0, Diff Path Review August, Sodium 143, Potassium 3.4 L, Chloride 108 H, Carbon Dioxide 29.0, Anion Gap 6, BUN 12, Creatinine 0.92, Estim Creat Clear Calc 42.36, Est GFR (MDRD) Af Amer 76, Est GFR (MDRD) Non-Af 63, BUN/Creatinine Ratio 13.1, Glucose 155 H, Calcium 8.4 L Rhythm Strip Rhythm Strip: Sinus Rhythm Rate: 83 Ectopy: None Charges/Coding Visit Charges Inpatient E&M: 85109 Init Hosp L3
--- NOTE | 2023-02-10 08:26 | PN.HOSP_ITS ---
Subjective Subjective Doing well, no issues overnight. She feels better than when she came in Objective Data Objective Data Vital Signs: Vital Signs Temp Pulse Resp BP Pulse Ox O2 Del Method O2 Flow Rate 100.4 F H 73 20 H 121/51 H 97 Nasal Cannula 2 02/10/23 06:00 02/10/23 07:00 02/10/23 07:00 02/10/23 07:00 02/10/23 07:00 02/10/23 07:00 02/10/23 07:00 Oxygen Flow Rate (L/min) 2 Oxygen Delivery Method Nasal Cannula Weight: 181 lb 7.047 oz Body Mass Index (BMI) 32.1 Intake & Output: Intake and Output for Last 24 Hours 02/09/23 02/10/23 02/11/23 03:59 03:59 03:59 Intake Total 3050 / 3050 Output Total 1300 / 1300 Balance 1750 / 1750 Lab / Micro Data 02/10/23 05:20 02/10/23 05:20 Labs: Laboratory Results - last 24 hr 02/09/23 19:50: Urine Color Yellow, Urine Clarity Turbid, Urine pH 7.0, Ur Specific [place] 1.010, Urine Protein 100 H, Urine Glucose (UA) Normal, Urine Ketones Negative, Urine Occult Blood 250 H, Urine Nitrite Positive H, Urine Bilirubin Negative, Urine Urobilinogen Normal, Ur Leukocyte Esterase 500 H, Urine RBC 0 SEEN, Urine WBC >100 SEEN, Ur Squamous Epith Cells 0 SEEN, Urine Bacteria 0 SEEN, Urine Mucus 0 SEEN 02/09/23 19:55: WBC 19.3 H, RBC 4.24, Hgb 12.9, Hct 40.7, MCV 96.0, MCH 30.4, MCHC 31.7 L, RDW Std Deviation 49.8 H, RDW Coeff of Patti 14.1, Plt Count 197, MPV 9.7, Immature Gran % (Auto) 0.600, Neut % (Auto) 86.4 H, Lymph % (Auto) 5.4 L, [place] % (Auto) 7.0, Eos % (Auto) 0.3, Baso % (Auto) 0.3, Absolute Neuts (auto) 16.7 H, Absolute Lymphs (auto) 1.04, Nucleated RBC % 0, Sodium 140, Potassium 3.8, Chloride 100, Carbon Dioxide 31.0, Anion Gap 9, BUN 13, Creatinine 1.09 H, Est GFR (MDRD) Af Amer 63, Est GFR (MDRD) Non-Af 52 L, BUN/Creatinine Ratio 11.9, Glucose 150 H, Lactic Acid 4.0 H*, Calcium 9.4 02/10/23 00:20: Lactic Acid 1.8 02/10/23 05:20: WBC 19.5 H, RBC 3.81 L, Hgb 11.7 L, Hct 37.4, MCV 98.2, MCH 30.7, MCHC 31.3 L, RDW Std Deviation 52.1 H, RDW Coeff of Patti 14.6, Plt Count 168, MPV 9.6, Immature Gran % (Auto) 0.500, Neut % (Auto) 83.7 H, Lymph % (Auto) 4.1 L, [place] % (Auto) 11.5 H, Eos % (Auto) 0.0, Baso % (Auto) 0.2, Absolute Neuts (auto) 16.3 H, Absolute Lymphs (auto) 0.81 L, Nucleated RBC % 0, Diff Path Review [place], Sodium 143, Potassium 3.4 L, Chloride 108 H, Carbon Dioxide 29.0, Anion Gap 6, BUN 12, Creatinine 0.92, Estim Creat Clear Calc 42.36, Est GFR (MDRD) Af Amer 76, Est GFR (MDRD) Non-Af 63, BUN/Creatinine Ratio 13.1, Glucose 155 H, Calcium 8.4 L Rhythm Strip Rhythm Strip: Sinus Rhythm Rate: 83 Ectopy: None Physical Exam Narrative General: Alert, Oriented x3, Cooperative, No apparent distress HEENT: Atraumatic, PERRLA, EOMI, Normocephalic Oral: Moist Mucosa Neck: Supple, No JVD Lungs: The left, Normal air movement, No rhonchi, No wheeze, No rales Cardiovascular: Regular rate, Regular Rhythm, Normal S1, Normal S2, No murmurs Abdomen: Soft, Non Tender, Non-Distended, No Hepato-splenomegaly Extremities: No edema, Capillary Refill Less than 3 Seconds Skin: No rashes, No breakdown Musculoskeletal: No Tenderness to Palpation of Joints or Extremities Neurological: Cranial nerves II-XII grossly intact, Motor Exam 5/5 strength throughout, Sensory exam intact to light touch and pain Psych/Mental Status: Normal Affect, Appropriate Assessment & Plan Assessment/Plan (1) Encephalopathy due to infection: (2) Sepsis: QUALIFIERS: Sepsis type: sepsis due to unspecified organism Sepsis acute organ dysfunction status: with acute organ dysfunction Severe sepsis acute organ dysfunction type: encephalopathy Severe sepsis shock status: without septic shock Qualified Code(s): A41.9 - Sepsis, unspecified organism; R65.20 - Severe sepsis without septic shock; G93.41 - Metabolic encephalopathy PLAN: Plan 1. Acute sepsis secondary to UTI with metabolic encephalopathy ? No signs of septic shock as she is not requiring pressors and everything was responsive to fluids ? Continue with antibiotics previous cultures grew actinomyces, she is also had previous cultures with E. coli ? We will await sensitivities prior to narrowing ? Can change status to PCU status ? Metabolic encephalopathy resolved 2. Paroxysmal atrial tachycardia/HTN/HLD ? Blood pressures are stable we will monitor and make adjustments as necessary ? Continue with her home blood pressure medications ? Continue with her Eliquis ? We will hold her Lasix as she is receiving IV fluids for sepsis 3. Recent right pulmonary embolism ? Continue with Eliquis 4. DM2 ? Hold her metformin which may be contributing to her lactic acidosis ? Continue with sliding scale insulin ? Accu-Cheks ACHS ? We will monitor and make adjustments as DVT: [place]lic[place] Charges/Coding Visit Charges Inpatient E&M: 65926 Subs Hosp L2
[2023-02-10] MEDS: Cholecalciferol (VIT D3) 25 MCG TABLET (1,000 UNITS) PO (10:06)
[2023-02-10] MEDS: APIXABAN 5 MG TABLET PO ×2 (10:07→20:50)
[2023-02-10] MEDS: Digoxin 250 MCG Tablet PO (10:07)
[2023-02-10] MEDS: Gabapentin 100 MG Capsule 200 MG PO ×2 (10:12→20:50)
--- NOTE | 2023-02-10 10:12 | CASEMGMT ---
CHARLINE GOETZ Assessment: Face to Face with pt for initial transition planning/care coordination assessment. RN BISHNU introduced self and role at [facility], pt voices understanding and consents to assessment. Pt is A&O x4 and answers all questions appropriately at this time. Pt sitting up in bed in no distress with nurse at bedside. Care providers, pharmacy, and demographics verified/updated. Admitting Dx: septic shock PCP:Joshua Specialists: PREMA, cardio Preferred Pharmacy: [facility] [place] Insurance: [place] [employer] [facility] Prescription Benefit: yes LNOK: Olga Gibson dtr; Nanci Childers dtr Living Arrangements: Pt lives alone in a single story home with 6-7 steps to enter with a rail on both sides. Pt reports she is I in ADL's and denies concerns at home. Transportation: Pt drives self and denies concerns with transportation. DME:cane, 3 walkers, w/c, BGM with sufficient supply of strips and lancets [facility]; [place] [facility] Pt states no concerns with going home at time of dc. Therapy evals pending. Pt states no further concerns/needs. CM to follow. Advised pt to ask CM if any further question/concerns/needs arise, voices understanding. Pt Goal: Home Plan: Home, follow therapy
[2023-02-10] MEDS: Venlafaxine XR 37.5 MG Capsule PO (10:13)
[2023-02-10 10:36] LABS: Bedside Glucose 144 mg/dL (74-106)
[2023-02-10 12:56] LABS: Bedside Glucose 91 mg/dL (74-106)
[2023-02-10] MEDS: 0.9% Normal Saline (1000mL) 1,000 ML 60 ML IV ×2 (15:19)
[2023-02-10 15:53] LABS: Bedside Glucose 122 mg/dL (74-106)
[2023-02-10] MEDS: Insulin Lispro 100 UNIT/ML INSULN.PEN SC ×2 (17:07→20:49)
[2023-02-10 17:16] LABS: Bedside Glucose 176 mg/dL (74-106)
[2023-02-10] MEDS: Pravastatin 80 MG Tablet PO ×2 (20:50)
[2023-02-10] MEDS: Ceftriaxone 1 GM/50 ML BAG IV (20:50)
[2023-02-10 21:44] LABS: Bedside Glucose 154 mg/dL (74-106)
[2023-02-11 02:00] VITALS: BP 163/63; PULSE 85; RESP 18; TEMP 38.4; O2SAT 93
[2023-02-11] MEDS: Acetaminophen 500 MG Tablet 1000 MG PO (03:30)
[2023-02-11 03:45] LABS: Absolute Lymphocyte Count 1.32 X10^3/uL (0.83-4.51); Absolute Neutrophil Count 11.6 X10^3/uL (2.0-7.7); Basophil# 0.04 X10^3/uL; Basophil% 0.3 % (0-1); Differential Indicated SCAN CRITERIA MET; Eosinophil# 0.07 X10^3/uL; Eosinophils% 0.5 % (0-5); Hematocrit 33.8 % (37-47); Hemoglobin 10.7 g/dL (12.0-15.0); Lymphocyte # 1.32 X10^3/ul (0.83-4.51); Lymphocyte % 8.9 % (19-41); Mean Corp Hgb Conc 31.7 g/dL (32-36); Mean Platelet Vol. 9.2 fl (6.2-12.0); Monocyte# 1.64 X10^3/uL; Monocyte% 11.1 % (0-10); NRBC Flagged by Analyzer 0 % (0-5); Neutrophil # 11.63 X10^3/uL (2.7-7.7); Neutrophil % 78.6 % (47-70); POSITIVE DIFFERENTIAL YES; Platelet Count 155 K/mm3 (150-450); RBC Distribution Width CV 14.4 % (11.6-14.6); Red Blood Count 3.45 M/mm3 (4.2-5.4); White Blood Count 14.8 K/mm3 (4.4-11.0)
[2023-02-11 03:58] LABS: Anion Gap 3 (5-15); BUN 13 mg/dL (7-18); BUN/Creat Ratio 15.4 RATIO (10-20); Calcium,Total 8.5 mg/dL (8.5-10.1); Chloride 110 mmol/L (98-107); Creatinine, Serum 0.84 mg/dL (0.55-1.02); EST Glomerular Filtration Rate 69 mL/min (>60); Est Glom Filt Rate - Afr Amer 84 mL/min (>60); Glucose 128 mg/dL (74-106); Potassium 3.5 mmol/L (3.5-5.1); Sodium Level 140 mmol/L (136-145)
[2023-02-11 05:05] LABS: Differential Comment SCANNED
[2023-02-11 05:32] VITALS: BMI 32.0
[2023-02-11 05:35] VITALS: TEMP 37.2
[2023-02-11] MEDS: 0.9% Normal Saline (1000mL) 1,000 ML 60 ML IV (06:19)
--- NOTE | 2023-02-11 06:31 | PN.CC_ITS ---
Assessment & Plan Assessment/Plan (1) Complicated urinary tract infection: (2) Encephalopathy due to infection: (3) Sepsis: QUALIFIERS: Sepsis type: sepsis due to unspecified organism Sepsis acute organ dysfunction status: with acute organ dysfunction Severe sepsis acute organ dysfunction type: encephalopathy Severe sepsis shock status: without septic shock Qualified Code(s): A41.9 - Sepsis, unspecified organism; R65.20 - Severe sepsis without septic shock; G93.41 - Metabolic encephalopathy PLAN: Plan RECOMMENDATIONS: 1. Continue antibiotics pending sensitivities. Transition to p.o. if possible. 2. Encourage incentive spirometer. Wean oxygen as tolerated 3. PT/OT for balance issues 4. Hemodynamically stable on room air. Will sign off from a critical care perspective IMPRESSIONS: 1. Acute sepsis secondary to UTI Patient with fever, tachypnea, tachycardia and leukocytosis with evidence of endorgan damage by encephalopathy and elevated lactate. Patient has had an atypical etiology in the past, but appears to be responding to current a ntibiotics. Likely okay to reinitiate Lasix from my perspective 2. Acute metabolic encephalopathy secondary to sepsis with UTI Patient appears to be back to baseline. Patient is directable at this time. Continue with delirium protocol. 3. Multiple falls/debility/advanced age/diabetes/hypertension/history of meningioma/obesity Complicates care, management, recovery and prognosis. Will consult PT OT to work with strengthening and balancing. Exam is nonfocal, so concern for acute stroke is low. Subjective Subjective Patient did well overnight. No fluid boluses were required. Patient did have fever, but no associated hemodynamic instability. Patient is not reporting any pain at this time. Patient has been able to ambulate in the room with no issu es. Objective Data Objective Data Vital Signs: Vital Signs Temp Pulse Resp BP Pulse Ox O2 Del Method O2 Flow Rate 37.2 C 85 18 163/63 H 93 Room Air 2 02/11/23 05:35 02/11/23 02:00 02/11/23 02:00 02/11/23 02:00 02/11/23 02:00 02/11/23 02:00 02/10/23 15:16 Oxygen Flow Rate (L/min) 2 Oxygen Delivery Method Room Air Weight: 82 kg Body Mass Index (BMI) 32.0 Intake & Output: Intake and Output for Last 24 Hours 02/09/23 02/10/23 02/11/23 23:59 23:59 23:59 Intake Total 3050 / 3050 969 / 969 900 / 900 Output Total 2200 / 2200 500 / 500 Balance 3050 / 2600 -1231 / -1231 400 / 400 Lab / Micro Data Attestation: I reviewed the patient's lab results. 02/11/23 03:35 02/11/23 03:35 Labs: Laboratory Results - last 24 hr 02/09/23 23:44: POC Glucose 122 H 02/10/23 10:04: POC Glucose 144 H 02/10/23 12:36: POC Glucose 91 02/10/23 16:58: POC Glucose 176 H 02/10/23 20:48: POC Glucose 154 H 02/11/23 03:35: WBC 14.8 H, RBC 3.45 L, Hgb 10.7 L, Hct 33.8 L, MCV 98.0, MCH 3 1.0, MCHC 31.7 L, RDW Std Deviation 52.0 H, RDW Coeff of Patti 14.4, Plt Count 155, MPV 9.2, Immature Gran % (Auto) 0.600, Neut % (Auto) 78.6 H, Lymph % (Auto) 8.9 L, [place] % (Auto) 11.1 H, Eos % (Auto) 0.5, Baso % (Auto) 0.3, Absolute Neuts (auto) 11.6 H, Absolute Lymphs (auto) 1.32, Nucleated RBC % 0, Differential Comment SCANNED, Diff Path Review August, Sodium 140, Potassium 3.5, Chloride 110 H, Carbon Dioxide 27.0, Anion Gap 3 L, BUN 13, Creatinine 0.84, Estim Creat Clear Calc 46.40, Est GFR (MDRD) Af Amer 84, Est GFR (MDRD) Non-Af 69, BUN/Creatinine Ratio 15.4, Glucose 128 H, Calcium 8.5 Micro: Microbiology 02/09/23 19:50 Urine, Catheterized Urine Culture - Preliminary Presumptive E. coli -sensitivities still pending Rhythm Strip Rhythm Strip: Sinus Rhythm Rate: 85 Ectopy: None Physical Exam Const alert, no apparent distress and well nourished Constitutional Narrative: Obese, elderly, white female, sitting up in bed, appears comfortable, responds appropriately HEENT head/scalp atraumatic, moist oral mucous membranes and oropharynx normal Eyes PERRL and EOMs intact bilaterally Eyes Narrative: Glasses in place Neck full ROM Chest inspection of chest normal Resp normal respiratory effort, no retractions, no use of accessory muscles and clear to auscultation bilaterally Auscultation: Negative for rales, rhonchi or wheezes Cardio regular rate, regular rhythm, S1 normal heart sound, S2 normal heart sound, no murmurs, no rub, no gallops and no clicks GI normal to inspection, nondistended, normoactive bowel sounds, soft to palpation and non-tender Extremity no clubbing, cyanosis or edema Neuro oriented x3, moves all extremities and no focal motor deficits Speech: speech normal Psych cooperative and affect normal Charges/Coding Visit Charges Inpatient E&M: 01949 Subs Hosp L2
[2023-02-11] MEDS: Atenolol 50 MG Tablet PO (07:33)
[2023-02-11] MEDS: Cholecalciferol (VIT D3) 25 MCG TABLET (1,000 UNITS) PO (07:33)
[2023-02-11] MEDS: Venlafaxine XR 37.5 MG Capsule PO (07:34)
[2023-02-11] MEDS: amLODIPine 10 MG Tablet PO (07:34)
[2023-02-11] MEDS: APIXABAN 5 MG TABLET PO (07:34)
[2023-02-11] MEDS: Digoxin 250 MCG Tablet PO (07:35)
[2023-02-11 07:39] VITALS: BP 159/70; PULSE 66; RESP 18; TEMP 37.5; O2SAT 93
[2023-02-11 08:29] LABS: Bedside Glucose 98 mg/dL (74-106)
--- NOTE | 2023-02-11 09:04 | PCM.PN.HOSP ---
Subjective Subjective Doing well, no issues overnight. Preliminary culture with E. coli Objective Data Objective Data Vital Signs: Vital Signs Temp Pulse Resp BP Pulse Ox O2 Del Method O2 Flow Rate 99.5 F H 66 18 159/70 H 93 Room Air 2 02/11/23 07:39 02/11/23 07:39 02/11/23 07:39 02/11/23 07:39 02/11/23 07:39 02/11/23 08:47 02/10/23 15:16 Oxygen Flow Rate (L/min) 2 Oxygen Delivery Method Room Air Weight: 180 lb 12.465 oz Body Mass Index (BMI) 32.0 Intake & Output: Intake and Output for Last 24 Hours 02/10/23 02/11/23 02/12/23 03:59 03:59 03:59 Intake Total 3050 / 3050 969 / 969 900 / 900 Output Total 1300 / 1300 900 / 900 500 / 500 Balance 1750 / 1750 69 / 69 400 / 400 Lab / Micro Data 02/11/23 03:35 02/11/23 03:35 Labs: Laboratory Results - last 24 hr 02/09/23 23:44: POC Glucose 122 H 02/10/23 10:04: POC Glucose 144 H 02/10/23 12:36: POC Glucose 91 02/10/23 16:58: POC Glucose 176 H 02/10/23 20:48: POC Glucose 154 H 02/11/23 03:35: WBC 14.8 H, RBC 3.45 L, Hgb 10.7 L, Hct 33.8 L, MCV 98.0, MCH 31.0, MCHC 31.7 L, RDW Std Deviation 52.0 H, RDW Coeff of Patti 14.4, Plt Count 155, MPV 9.2, Immature Gran % (Auto) 0.600, Neut % (Auto) 78.6 H, Lymph % (Auto) 8.9 L, [place] % (Auto) 11.1 H, Eos % (Auto) 0.5, Baso % (Auto) 0.3, Absolute Neuts (auto) 11.6 H, Absolute Lymphs (auto) 1.32, Nucleated RBC % 0, Differential Comment SCANNED, Diff Path Review August, Sodium 140, Potassium 3.5, Chloride 110 H, Carbon Dioxide 27.0, Anion Gap 3 L, BUN 13, Creatinine 0.84, Estim Creat Clear Calc 46.40, Est GFR (MDRD) Af Amer 84, Est GFR (MDRD) Non-Af 69, BUN/Creatinine Ratio 15.4, Glucose 128 H, Calcium 8.5 02/11/23 07:32: POC Glucose 98 Micro: Microbiology 02/09/23 19:50 Urine, Catheterized Urine Culture - Final Presumptive E. coli Rhythm Strip Rhythm Strip: Sinus Rhythm Rate: 85 Ectopy: None Physical Exam Narrative General: Alert, Oriented x3, Cooperative, No apparent distress HEENT: Atraumatic, PERRLA, EOMI, Normocephalic Oral: Moist Mucosa Neck: Supple, No JVD Lungs: The left, Normal air movement, No rhonchi, No wheeze, No rales Cardiovascular: Regular rate, Regular Rhythm, Normal S1, Normal S2, No murmurs Abdomen: Soft, Non Tender, Non-Distended, No Hepato-splenomegaly Extremities: No edema, Capillary Refill Less than 3 Seconds Skin: No rashes, No breakdown Musculoskeletal: No Tenderness to Palpation of Joints or Extremities Neurological: Cranial nerves II-XII grossly intact, Motor Exam 5/5 strength throughout, Sensory exam intact to light touch and pain Psych/Mental Status: Normal Affect, Appropriate Assessment & Plan Assessment/Plan (1) Encephalopathy due to infection: (2) Sepsis: QUALIFIERS: Sepsis type: sepsis due to unspecified organism Sepsis acute organ dysfunction status: with acute organ dysfunction Severe sepsis acute organ dysfunction type: encephalopathy Severe sepsis shock status: without septic shock Qualified Code(s): A41.9 - Sepsis, unspecified organism; R65.20 - Severe sepsis without septic shock; G93.41 - Metabolic encephalopathy PLAN: Plan 1. Acute sepsis secondary to UTI with metabolic encephalopathy ? No signs of septic shock as she is not requiring pressors and everything was responsive to fluids ? Continue with antibiotics prelim culture with E. coli ? We will await sensitivities prior to narrowing ? Metabolic encephalopathy resolved 2. Paroxysmal atrial tachycardia/HTN/HLD ? Blood pressures are stable we will monitor and make adjustments as necessary ? Continue with her home blood pressure medications ? Continue with her Eliquis ? We will hold her Lasix as she is receiving IV fluids for sepsis 3. Recent right pulmonary embolism ? Continue with Eliquis 4. DM2 ? Hold her metformin which may be contributing to her lactic acidosis ? Continue with sliding scale insulin ? Accu-Cheks ACHS ? We will monitor and make adjustments as DVT: Eliquis Charges/Coding Visit Charges Inpatient E&M: 94006 Subs Hosp L2
[2023-02-11] MEDS: Gabapentin 100 MG Capsule 200 MG PO (09:16)
[2023-02-11 09:56] LABS: Pathologist Review Reviewed
[2023-02-11 13:35] LABS: Pathologist Review Reviewed
[2023-02-11 14:05] VITALS: BP 136/63; PULSE 70; RESP 16; TEMP 36.9; O2SAT 98
--- NOTE | 2023-02-11 14:53 | DCINST_ITS ---
Discharge Instructions Diet Discharge Diet: Low fat / Low cholesterol and Carb Control Diet Activity Discharge Activity: Return to Normal Activity Dressing / Incision Call your doctor if you observe: Fever of 101 or Higher, Shortness of breath, Dizziness, Fainting spells, Swelling in the ankles, Chest pain and Increased palpitations (irregular heartbeat) Follow Up Care Test Results: Test results from this visit will be discussed in further detail at your follow- up appointment, if applicable. Discharge Plan Admission Admit Date/Time: 02/09/23 22:07 Attending Provider: Chago Portillo Primary Care Provider: Rebecca Lewis Consulting Providers: Austin Lynn Discharge Orders/Prescriptions Prescriptions: New cefdinir 300 mg capsule 300 mg PO BID 5 Days Qty: 10 0RF Continued pravastatin 80 mg tablet 80 mg PO QDAY atenolol 100 mg tablet 50 mg PO BID amlodipine 10 mg tablet 10 mg PO DAILY gabapentin 300 MG capsule 300 mg PO BID Patient Comments: NERVE PAIN digoxin 250 MCG tablet 250 mcg PO DAILY metformin 500 mg tablet 500 mg PO BID cholecalciferol (vitamin D3) [Vitamin D3] 25 mcg (1,000 unit) Tablet 25 mcg PO DAILY losartan 25 mg tablet 100 mg PO DAILY furosemide 20 mg tablet 20 mg PO BID venlafaxine 37.5 mg capsule,extended release 24hr 37.5 mg PO DAILY Patient Comments: TAKE 1 CAPSULE BY MOUTH DAILY sennosides-docusate sodium [Stool Softener-Stimulant Laxat] 8.6-50 mg Tablet 2 tab PO BID PRN PRN (Reason: Constipation) Qty: 0 0RF melatonin 10 mg capsule 10 mg PO QHS Qty: 7 0RF potassium chloride 10 mEq tablet extended release 10 meq PO DAILY meclizine 12.5 mg tablet 12.5 mg PO BID PRN (Reason: vertigo) acetaminophen [Tylenol Extra Strength] 500 mg tablet 1,000 mg PO TID PRN (Reason: fever or pain) Eliquis 5 mg Tablet 5 mg PO BID Referrals / Follow Up: Rebecca Lewis MD [Primary Care Provider] - Within 1 Week Disposition Disposition (needs filled in before D/C Order can be placed): Home, Self Care
--- NOTE | 2023-02-11 15:14 | DS.PCM_ITS ---
Providers Date of Admission: 02/09/23 Primary Care Physician: Dr. Rebecca Lewis MD Consultations 02/09/23 23:32 Consult: Drywall Stripper / Pulmonary Medicine Routine Consulting Provider: Lauri Holt Reason for Consult: Septic shock EMERGENT Consult: No MD Notified: Yes Date Notified: 02/09/23 Time Notified: 22:24 Method of Notification: Text Reason For Visit: SEPTIC SHOCK Diagnosis Discharge Diagnosis (1) Encephalopathy due to infection: Status: Acute Code(s): G93.49 - Other encephalopathy; B99.9 - Unspecified infectious disease (2) Sepsis: Status: Acute Code(s): A41.9 - Sepsis, unspecified organism Qualifiers: Sepsis acute organ dysfunction status: with acute organ dysfunction Sepsis type: sepsis due to unspecified organism Severe sepsis acute organ dysfunction type: encephalopathy Severe sepsis shock status: without septic shock Qualified Code(s): A41.9 - Sepsis, unspecified organism; R65.20 - Severe sepsis without septic shock; G93.41 - Metabolic encephalopathy Plan 1. Acute sepsis secondary to UTI with metabolic encephalopathy ? No signs of septic shock as she is not requiring pressors and everything was responsive to fluids ? Continue with antibiotics prelim culture with E. coli ? We will await sensitivities prior to narrowing ? Metabolic encephalopathy resolved 2. Paroxysmal atrial tachycardia/HTN/HLD ? Blood pressures are stable we will monitor and make adjustments as necessary ? Continue with her home blood pressure medications ? Continue with her Eliquis ? We will hold her Lasix as she is receiving IV fluids for sepsis 3. Recent right pulmonary embolism ? Continue with Eliquis 4. DM2 ? Hold her metformin which may be contributing to her lactic acidosis ? Continue with sliding scale insulin ? Accu-Cheks ACHS ? We will monitor and make adjustments as DVT: Eliquis Medications at Discharge Home Medications gabapentin 300 mg capsule 300 mg PO BID Check with primary doctor 02/22/13 digoxin 250 mcg (0.25 mg) tablet 250 mcg PO DAILY HEART 02/01/14 pravastatin 80 mg tablet 80 mg PO QDAY CHOLESTEROL 11/22/17 atenolol 100 mg tablet 50 mg PO BID BP 03/28/19 metformin 500 mg tablet 500 mg PO BID DIABETES 12/02/20 cholecalciferol (vitamin D3) 25 mcg (1,000 unit) tablet (Vitamin D3) 25 mcg PO DAILY SUPPLEMENT 05/12/21 amlodipine 10 mg tablet 10 mg PO DAILY HTN 05/20/21 losartan 25 mg tablet 100 mg PO DAILY HTN 08/01/22 furosemide 20 mg tablet 20 mg PO BID CHF 10/30/22 venlafaxine 37.5 mg capsule,extended release 24 hr 37.5 mg PO DAILY depression 10/30/22 melatonin 10 mg capsule 10 mg PO QHS #7 caps 11/03/22 sennosides 8.6 mg-docusate sodium 50 mg tablet (Stool Softener-Stimulant Laxative) 2 tab PO BID PRN PRN Constipation #0 tabs 11/03/22 acetaminophen 500 mg tablet (Tylenol Extra Strength) 1,000 mg PO TID PRN fever or pain 02/09/23 apixaban 5 mg tablet (Eliquis) 5 mg PO BID 02/09/23 meclizine 12.5 mg tablet 12.5 mg PO BID PRN vertigo 02/09/23 potassium chloride 10 mEq tablet,extended release 10 meq PO DAILY 02/09/23 cefdinir 300 mg capsule 300 mg PO BID 5 days #10 caps 02/11/23 Hospital Course Operations None Procedures None Summary of Care Provided Minutes Spent on Discharge: 35 Hospital Course: Per HPI: MARZENA TUESDAY, is a 77 F with a significant medical history of d iabetes melitis; PE; hypertension; and meningioma was brought to emergency department because of confusion that started the same day of presentation. Also reportedly patient had a temperature of 105 at home. The patient is incontinent of urine but she reported that as a baseline. She reports frequent urination which she claims is also her baseline. Hospital Course: 1. Acute sepsis secondary to E. coli UTI with metabolic encephalopathy? 77-year-old female presented to the hospital with sepsis. She was started on IV fluids and IV Rocephin and she did improve very quickly. Culture data came back with a pansensitive E. coli. I discussed with her that there might be some benefit to staying 1 more day however she would prefer to go home if possible and since we are able to know the sensitivities today we will plan to discharge her on cefdinir for another 5 days at 300 mg p.o. twice daily. She will receive a dose of Rocephin prior to discharge today so she will of already completed 3 days of antibiotics here in the hospital prior to discharge. Only outstanding tests are blood cultures worse are still pending however she will already have completed 8 days of antibiotics by the end of her cefdinir prescription. I discussed with her the plan for discharge today she expressed understanding of the risk and benefits of going home and would like to go home today. 2. Paroxysmal atrial tachycardia, hypertension, hyperlipidemia, recent right pulmonary embolism, type 2 diabetes are all chronic medical conditions which complicate her care. Her home medications were continued where appropriate Weight / BMI Weight Weight: 180 lb 12.465 oz Body Mass Index (BMI) 32.0 ABG / Lab / Microbiology Data 02/11/23 03:35 02/11/23 03:35 Laboratory: Laboratory Results - last 24 hr 02/09/23 23:44: POC Glucose 122 H 02/10/23 05:20: Diff Path Review Reviewed 02/10/23 16:58: POC Glucose 176 H 02/10/23 20:48: POC Glucose 154 H 02/11/23 03:35: WBC 14.8 H, RBC 3.45 L, Hgb 10.7 L, Hct 33.8 L, MCV 98.0, MCH 31.0, MCHC 31.7 L, RDW Std Deviation 52.0 H, RDW Coeff of Patti 14.4, Plt Count 155, MPV 9.2, Immature Gran % (Auto) 0.600, Neut % (Auto) 78.6 H, Lymph % (Auto) 8.9 L, [place] % (Auto) 11.1 H, Eos % (Auto) 0.5, Baso % (Auto) 0.3, Absolute Neuts (auto) 11.6 H, Absolute Lymphs (auto) 1.32, Nucleated RBC % 0, Differential Comment SCANNED, Diff Path Review Reviewed, Sodium 140, Potassium 3.5, Chloride 110 H, Carbon Dioxide 27.0, Anion Gap 3 L, BUN 13, Creatinine 0.84, Estim Creat Clear Calc 46.40, Est GFR (MDRD) Af Amer 84, Est GFR (MDRD) Non-Af 69, BUN/Creatinine Ratio 15.4, Glucose 128 H, Calcium 8.5 02/11/23 07:32: POC Glucose 98 Microbiology: Microbiology 02/09/23 19:50 Urine, Catheterized Urine Culture - Final Presumptive E. coli D/C Instructions Discharge Diet: Low fat / Low cholesterol and Carb Control Diet Call your doctor if you observe: Fever of 101 or Higher, Shortness of breath, Dizziness, Fainting spells, Swelling in the ankles, Chest pain and Increased palpitations (irregular heartbeat) Meaningful Use Info Meaningful Use Diagnoses (Choose all that apply): None applicable Discharge Plan Admission Admit Date/Time: 02/09/23 22:07 Attending Provider: Chago Portillo Primary Care Provider: Rebecca Lewis Consulting Providers: Austin Lynn Discharge Orders/Prescriptions Prescriptions: New cefdinir 300 mg capsule 300 mg PO BID 5 Days Qty: 10 0RF Continued pravastatin 80 mg tablet 80 mg PO QDAY atenolol 100 mg tablet 50 mg PO BID amlodipine 10 mg tablet 10 mg PO DAILY gabapentin 300 MG capsule 300 mg PO BID Patient Comments: NERVE PAIN digoxin 250 MCG tablet 250 mcg PO DAILY metformin 500 mg tablet 500 mg PO BID cholecalciferol (vitamin D3) [Vitamin D3] 25 mcg (1,000 unit) Tablet 25 mcg PO DAILY losartan 25 mg tablet 100 mg PO DAILY furosemide 20 mg tablet 20 mg PO BID venlafaxine 37.5 mg capsule,extended release 24hr 37.5 mg PO DAILY Patient Comments: TAKE 1 CAPSULE BY MOUTH DAILY sennosides-docusate sodium [Stool Softener-Stimulant Laxat] 8.6-50 mg Tablet 2 tab PO BID PRN PRN (Reason: Constipation) Qty: 0 0RF melatonin 10 mg capsule 10 mg PO QHS Qty: 7 0RF potassium chloride 10 mEq tablet extended release 10 meq PO DAILY meclizine 12.5 mg tablet 12.5 mg PO BID PRN (Reason: vertigo) acetaminophen [Tylenol Extra Strength] 500 mg tablet 1,000 mg PO TID PRN (Reason: fever or pain) Eliquis 5 mg Tablet 5 mg PO BID Referrals / Follow Up: Rebecca Lewis MD [Primary Care Provider] - Within 1 Week Disposition Disposition (needs filled in before D/C Order can be placed): Home, Self Care Charges/Coding Visit Charges Inpatient E&M: 34902 Disch Hosp >30min
[2023-02-11] MEDS: Ceftriaxone 1 GM/50 ML BAG IV (15:15)
== END 2023-02-11 16:33 | disposition home or self-care (01) | DRG 690 ==
LOC: ED 21:21 → ICU 22:30
PROVIDERS: Admitting Provider Hospitalist; Emergency Provider Emergency Medicine; PCP Internal Medicine; Visit Provider Family Medicine
DX: N39.0 Urinary tract infection, site not specified (principal); I47.19 Other supraventricular tachycardia; E11.42 Type 2 diabetes mellitus with diabetic polyneuropathy; Z79.4 Long term (current) use of insulin; I10 Essential (primary) hypertension; E78.5 Hyperlipidemia, unspecified; K21.9 Gastro-esophageal reflux disease without esophagitis; E66.9 Obesity, unspecified; Z86.711 Personal history of pulmonary embolism; Z79.01 Long term (current) use of anticoagulants; Z68.32 Body mass index [BMI] 32.0-32.9, adult; Z79.899 Other long term (current) drug therapy; R32 Unspecified urinary incontinence; Z87.891 Personal history of nicotine dependence
CPT/HCPCS: 80048; 81001; 82962; 83605; 85025; 87040; 87086; 87088; 87186; 93005; 99285; J7030; A4216

== ENCOUNTER 2023-08-22 08:35 | Day surgery (SDC) | payer MEDICARE, SELFPAY ==
[2023-08-22 08:59] VITALS: BP 152/57; PULSE 57; RESP 16; TEMP 36.2; O2SAT 97; BMI 32.8
[2023-08-22] MEDS: Lactated Ringers 1,000 ML 15 ML IV (09:06)
[2023-08-22 09:26] LABS: Bedside Glucose 139 mg/dL (74-106)
[2023-08-22] MEDS: MethylPREDNISolone Acetate 80 MG/ML Vial (09:56)
[2023-08-22] MEDS: Lidocaine 1% (5 ml sdv) 5 ML Vial (09:56)
--- NOTE | 2023-08-22 10:00 | RAD_ITS ---
PROCEDURE: Left knee genicular nerve steroid injection. DATE OF EXAMINATION: August 22, 2023. INDICATION: Female, 77 years old. Knee pain. FLUOROSCOPY TIME (if supplied): (6 seconds) minutes/seconds. 3 images were submitted. RAD/Fluoro Guided Needle Placement IMPRESSION: Intraoperative fluoroscopic imaging provided for left knee the genicular nerve steroid injection. Electronically Signed: Job Mcguire MD at 14:51 EDT ,
[2023-08-22 10:03] VITALS: BP 139/60; BP 152/57; PULSE 56; RESP 18; TEMP 36.3; O2SAT 93
[2023-08-22 10:05] VITALS: BP 148/57; BP 152/57; PULSE 55; RESP 16; O2SAT 100
[2023-08-22 10:10] VITALS: BP 152/57; BP 152/75; PULSE 56; RESP 18; O2SAT 97
[2023-08-22 10:15] VITALS: BP 152/57; BP 154/73; PULSE 56; RESP 18; TEMP 36.6; O2SAT 99
--- NOTE | 2023-08-22 10:23 | OP.PCM_ITS ---
Report of Operation Date of Procedure: 08/22/23 Description of Surgical Findings:: PREOPERATIVE DIAGNOSIS: Osteoarthritis of the left knee, chronic postoperative knee pain POSTOPERATIVE DIAGNOSIS: Osteoarthritis of the left knee, chronic pos toperative knee pain PROCEDURE PERFORMED: Left knee superomedial, superolateral, and inferomedial genicular nerves steroid injection under fluoroscopy guidance. ANESTHESIA: MAC. BLOOD LOSS: Minimal. COMPLICATIONS: None. DESCRIPTION OF PROCEDURE: History and physical of today was reviewed. Risks and benefits of the procedure were explained. The patient understood and agreed to proceed. Informed consent was obtained. IV inserted per routine protocol. The patient was taken to the operating room and placed in the supine position. The left knee was prepped and draped in a sterile fashion using iodine x3. Under fluoroscopy guidance on AP view, the left knee was visualized. The skin and subcutaneous tissue was anesthetized with approximately 5 mL of 1% lidocaine using a 25-gauge regular needle at the vicinity of the superomedial, superolateral, and inferomedial genicular nerves. Under direct visualization of fluoroscopy on AP view as well as lateral view, starting on the left superomedial, ending on the left inferomedial, passing through the left superolateral genicular nerves, the needle was passed through the skin. The tip of the needle was maneuvered and directed towards the diaphyseal junction of each corresponding nerve. Once tip of the needle was in the vicinity of the diaphysis and in contact with the bone, after confirmation on AP as well as lateral view and repeated negative aspiration for blood, a total of 12 mL of preservative-free 0.25% Marcaine with 80 mg of Depo-Medrol was injected in divided doses between those three levels. The needles were then removed intact. The patient experienced no sign or symptoms of intravascular injection. The patient experienced no paresthesia. The procedure was completed without any apparent difficulty or any complications. The patient appeared to tolerate it well. ASSESSMENT AND PLAN: This is a 77-year-old female with osteoarthritis of the left knee chronic postoperative knee pain status post left knee superior medial superior lateral, inferior medial genicular nerve steroid injection under fluoroscopic guidance, patient will continue her current medications, patient will follow in approximately 2 weeks for reevaluation.
[2023-08-22 10:32] VITALS: BP 152/57
== END 2023-08-22 10:57 | disposition home or self-care (01) ==
LOC: SDC 08:36 → AC 08:39
PROVIDERS: PCP Internal Medicine; Referring Provider Anesthesiology Pain Medicine; Visit Provider Anesthesiology Pain Medicine
PROC: 3E0U3GC Introduction of Other Therapeutic Substance into Joints, Percutaneous Approach (ICD-10-PCS; CPT 20610; principal; 2023-08-22 09:55)
DX: M17.12 Unilateral primary osteoarthritis, left knee (principal); E11.42 Type 2 diabetes mellitus with diabetic polyneuropathy; G89.28 Other chronic postprocedural pain; M25.562 Pain in left knee; I10 Essential (primary) hypertension
CPT/HCPCS: 64454; 01991; 76000; 77002; 82962; J7120

== ENCOUNTER 2023-09-07 16:10 | Emergency (ER) | payer MEDICARE, SELFPAY ==
[2023-09-07 16:12] VITALS: BP 175/96; PULSE 56; RESP 14; TEMP 37.3; O2SAT 94; BMI 33.8
--- NOTE | 2023-09-07 16:39 | EKG12_ITS ---
Test Reason : Blood Pressure : / mmHG Vent. Rate : 050 BPM Atrial Rate : 050 BPM P-R Int : 198 ms QRS Dur : 088 ms QT Int : 432 ms P-R-T Axes : 043 -31 184 degrees QTc Int : 393 ms Sinus bradycardia Left axis deviation Left ventricular hypertrophy ST/TWAVE CHANGES CONSISTENT WITH ISCHEMIA Abnormal ECG Confirmed by Felipe Robert ([id number]), book or script editor BREANNA CASTELLANOS ([id number]) on 09/08/2023 12:01:15 PM Referred By: Confirmed By:Felipe Robert
--- NOTE | 2023-09-07 16:39 | CT_ITS ---
STUDY: CT BRAIN WITHOUT CONTRAST REASON FOR EXAM: Female, 77 years old. ms change and falls RADIATION DOSAGE (If Supplied By Facility): CTDIvol = ( 44.99 ) mGy, DLP = ( 745.49 ) mGycm TECHNIQUE: Transaxial CT imaging of the brain was performed without administration of intravenous contrast material. Individualized dose optimization techniques were used for this CT. COMPARISON: December 01, 2022 FINDINGS: Normal soft tissue structures. Normal calvarium. Calcific plaquing cavernous carotid and vertebral arteries Moderate atrophy and periventricular white matter ischemic changes.. There is disproportionate dilatation of the lateral ventricles with respect cortical sulci raising question of nonspecific communicating hydrocephalus or NPH. Normal basal ganglia and thalami. Normal brainstem. Normal cerebellum. Densely calcified mass along the posterior falx likely meningioma Empty sella deformity of uncertain significance. There is no intracranial hemorrhage. There are no findings of an acute ischemic infarction. Mild polypoid mucosal thickening left maxillary sinus CT/Brain/Head without Contrast IMPRESSION: Atrophy and periventricular white matter ischemic changes. Cannot exclude the possibility of NPH. No acute bleed. Incidental finding of densely calcified meningioma arising from the posterior falx Electronically Signed: Jonathan Mason MD at 17:39 EDT ,
--- NOTE | 2023-09-07 16:43 | EX.ED.DYSGE1 ---
HPI History of Present Illness Chief Complaint: Weakness Detail of Chief Complaint: Fall at home. Unable to get up. Informant: patient Onset/Context/Timing Onset: Hours Context: Sudden Onset Timing: Continuous Current Severity: Mild Maximum Severity: Mild Narrative Narrative: 77-year-old female history diabetes, hypertension, anemia and prior pulmonary emboli. She has frequent falls and has fallen numerous times in the last several months. She lives alone at home. States she was hospitalized about 6 weeks ago came remember why. Today fell at home was unable to get up as a med alert and called the squad who picked her up brought in the emergency department. Squad stated the nursing that they have been there numerous times for falls typically she does not want to be brought to the hospital or admitted. Today she seems a little confused and had urinated herself when she was on the floor. Patient denies any complaints. Prior similar symptoms: Yes Recent Illness/Hospitalization: Yes [facility] Medical History History of stress test History of echocardiogram Wears glasses Walker as ambulation aid Fatty liver Frequent falls Cardiology follow-up encounter History of paroxysmal atrial tachycardia Pulmonary embolism on right Osteoarthritis of right hip Greater trochanteric bursitis of right hip Diabetes Chronic pain Former smoker Meningioma Essential hypertension Dysmetabolic syndrome Peripheral neuropathy GERD (gastroesophageal reflux disease) History of kidney stones Thoracic aortic aneurysm without rupture Hyperlipidemia Nonrheumatic aortic (valve) insufficiency Paroxysmal atrial tachycardia Dyspnea on exertion Home Medications ?Medication ?Instructions ?Recorded ?Last Taken ?Type gabapentin 300 mg capsule 300 mg PO BID Check with primary 02/22/13 07/31/22 History doctor digoxin 250 mcg (0.25 mg) tablet 250 mcg PO DAILY HEART 02/01/14 07/31/22 History pravastatin 80 mg tablet 80 mg PO QDAY CHOLESTEROL 11/22/17 07/31/22 History atenolol 100 mg tablet 50 mg PO BID BP 03/28/19 07/31/22 History metformin 500 mg tablet 500 mg PO BID DIABETES 12/02/20 07/31/22 History cholecalciferol (vitamin D3) 25 25 mcg PO DAILY SUPPLEMENT 05/12/21 07/31/22 History mcg (1,000 unit) tablet (Vitamin D3) amlodipine 10 mg tablet 10 mg PO DAILY HTN 05/20/21 07/31/22 History furosemide 20 mg tablet 20 mg PO BID CHF 10/30/22 10/29/22 History venlafaxine 37.5 mg 37.5 mg PO DAILY depression 10/30/22 10/29/22 History capsule,extended release 24 hr melatonin 10 mg capsule 10 mg PO QHS #7 caps 11/03/22 Unknown Rx sennosides 8.6 mg-docusate sodium 2 tab PO BID PRN PRN Constipation 11/03/22 Unknown Rx 50 mg tablet (Stool #0 tabs Softener-Stimulant Laxative) acetaminophen 500 mg tablet 1,000 mg PO TID PRN fever or pain 02/09/23 Unknown History (Tylenol Extra Strength) meclizine 12.5 mg tablet 12.5 mg PO BID PRN vertigo 02/09/23 Unknown History potassium chloride 10 mEq 10 meq PO DAILY 02/09/23 Unknown History tablet,extended release losartan 100 mg tablet 100 mg PO DAILY 08/11/23 Unknown History Allergy/AdvReac Type Severity Reaction Status Date / Time lisinopril AdvReac Severe Intolerence, Verified 09/07/23 16:12 cough nalbuphine HCl (From Nubain) AdvReac Nausea/Vom/ Verified 09/07/23 16:12 Diarrhea risperidone (From Risperdal) AdvReac PSYCHOSIS Verified 09/07/23 16:12 Family History Father CAD (coronary artery disease) Myocardial infarction, Onset Age: 51 Brother Myocardial infarction, Onset Age: 51 Brother CAD (coronary artery disease) Hx of CABG Sister Heart disease COPD (chronic obstructive pulmonary disease) Sister CVA (cerebral vascular accident) Surgical History History of hemorrhoidectomy (~11/2021) Hx of cardiac cath Status post trigger finger release History of knee replacement procedure of right knee History of arthroscopy of right shoulder History of back surgery History of hand surgery History of elbow surgery History of knee surgery History of hysterectomy Social History household members: none Smoking Status: Former smoker how long ago did patient quit smokin years ago alcohol intake: never substance use type: does not use caffeine: No ROS ROS ED ROS Narrative Generalized weakness. Falls. Review of Systems ROS Unobtainable: Denies due to encephalopathy Constitutional Constitutional ED: Denies chills Eyes Eyes: Denies blurry vision ENT ENT ED: Denies ear pain Cardiovascular Cardiovascular: Denies chest pain Respiratory/Chest Respiratory/Chest: Denies cough or dyspnea Gastrointestinal Gastrointestinal: Denies abdominal pain, diarrhea, melena, nausea or vomiting Genitourinary Genitourinary ED: Denies dysuria or hematuria Musculoskeletal Musculoskeletal: Denies arthralgias Integumentary Denies abscess Neurologic Neurologic: Denies headache(s) Psychiatric Psychiatric: Denies anxiety Endocrine Endocrinology: Denies cold intolerance Hematologic/Lymphatic Hematologic/Lymphatic: Reports none Allergic/Immunologic Allergic/Immunologic ED: Denies mouth swelling, tongue swelling or urticaria EXAM Physical Exam Narrative Exam Narrative: Well-appearing 77-year-old female. Sitting upright in bed. Vital signs are stable her temperature is 99.1 orally. Pulse ox 94% on room air no hypoxia. No distress. No family in the room. H EENT exam pupils round reactive light. No signs of trauma to her face or scalp. Nontender. Neck nontender. Trachea midline. Lungs clear to auscultation bilaterally. Heart regular rhythm rate about 60 no murmur. Chest wall and ribs are nontender. Normal prescription eyeglass maker strength. Normal dorsi plantarflexion. No hip tenderness. No tenderness to the upper or lower extremities. Neurologically she is awake. She is alert. She is answering questions following commands. Const Vital Signs: 09/07/23 16:12 09/07/23 16:12 09/07/23 16:33 Temperature 99.1 F Temperature Source Oral Pulse Rate 56 L Respiratory Rate 14 Respiratory Effort Normal Non-Labored Respiratory Pattern Normal Blood Pressure 175/96 H Blood Pressure Mean 122 Pulse Ox 94 Oxygen Delivery Method Room Air Room Air 09/07/23 18:30 09/07/23 20:00 09/07/23 22:00 Temperature Temperature Source Pulse Rate 64 55 L 64 Respiratory Rate 14 20 H 18 Respiratory Effort Respiratory Pattern Blood Pressure 137/51 H 190/55 H 192/55 H Blood Pressure Mean 79 100 100 Pulse Ox 95 96 97 Oxygen Delivery Method Room Air Positive well nourished and well developed; Negative for cachectic, contractures or unkempt General Appearance ED: well developed and NAD; Negative for unkempt, cachectic, contractures, cyanotic, diaphoretic or pallor Nutritional Appearance: Negative for cachectic HEENT Reports moist mucous membranes; Denies dry mucous membranes Negative for trauma or tenderness Mouth ED: No dry mucous membranes Mouth: No dry mucous membranes Eyes PERRL and EOMs intact bilaterally General Eye ED: Negative for pale conjunctiva or scleral icterus Neck no lymphadenopathy, supple and no JVD General: Negative for tenderness Lymph Lymphatic: Negative for other Chest Wall inspection of chest normal and palpation of chest normal Chest: Negative for other Resp normal respiratory effort and clear to auscultation bilaterally Effort and Inspection: Negative for retractions Auscultation: Negative for rales, rhonchi, wheezes or diminished lung sounds Cardio regular rate, regular rhythm, S1 normal heart sound, S2 normal heart sound and no murmurs Palpation: Negative for palpable S3 or palpable S4 Rate: Negative for bradycardia or tachycardic Rhythm: Negative for abnormal rhythm GI normal to inspection, nondistended, normoactive bowel sounds, non-tender, non-distended and no masses; Negative for hepatosplenomegaly Inspection: Negative for abdominal distention Auscultation: normoactive bowel sounds Palpation: soft; Negative for tender, guarding, mass or rebound tenderness present Back/Spine no CVA tenderness General Back: Negative for CVA tenderness Cervical Spine: Negative for cervical spine tenderness Thoracic Spine / Upper Back: Negative for thoracic spinal tenderness or paraspinal muscle tenderness Lumbar Spine / Lower Back: Negative for lumbar spinal tenderness Extremity normal to inspection General Extremety ED: Negative for edema, tenderness or other findings General Extremity: Negative for edema or other findings Neuro No oriented x3 and No CN's II-XII intact bilaterally Sensorium / Orientation: alert; Negative for orientation impaired, lethargic or stuporous Motor Exam: strength 5/5 throughout; Negative for general weakness or strength abnormal Psych mental status grossly normal Appearance: Negative for unkempt Attitude: No agitated Mood & Affect: Negative for depressed, anxious or tearful Skin no rashes or lesions noted, no wounds and skin turgor normal General Skin Exam: Negative for jaundice or pallor Lesions: No lesion noted Rashes: No rashes noted Trauma: Negative for abrasion Wounds: Negative for wounds noted MDM MDM MDM Narrative Medical decision making narrative: 77-year-old female complain generalized weakness frequent falls at home. Lives alone. I do not feel any acute injuries on her at this time on exam. Her weakness may be secondary to infectious etiology versus dehydration, anemia versus other. She took it through screening labs and CAT scan chest x-ray. Most likely will need to be admitted he is an elderly she can be walk on her own. Currently there is no family here with her. Repeat exam patient doing well at 10:45 PM. I went over all the test results with her and his 2 family members now and they are with her. Patient feels fine. She has had falls that is really not new. She feels comfortable being discharged home. She is not looking for prison placement or assisted living. Family is comfortable with her being discharged. We went over all of her lab test. She meets no criteria for admission to the hospital. The nurses did ambulate in the hallway and she did well. She uses a walker at home. She will follow-up with her primary care physician at the [facility]. History & Record Review Discussion w/independent historian: Patient Additional record(s) reviewed:: Prior inpatient record, Prior outpatient record, Prior ED visit and Prior labs Lab Data Attestation: I reviewed the patient's lab results. Lab results narrative: CBC normal. White count of 9. H&H 13 and 42. Platelets 248. Electrolytes unremarkable gap 6. BUN and creatinine of 18 and 1.2. Liver enzymes normal. Alcohol negative. UA normal. No infection. No nitrates. No bacteria. No white or red cells. Chest x-ray unremarkable. CT brain shows chronic changes and a calcified meningioma but no acute process. Labs: Laboratory Results - last 24 hr 09/07/23 09/07/23 09/07/23 14:05 16:55 16:57 WBC 9.5 RBC 4.33 Hgb 13.1 Hct 42.5 MCV 98.2 MCH 30.3 MCHC 30.8 L RDW Std Deviation 46.8 H RDW Coeff of Patti 13.2 Plt Count 248 MPV 9.7 Immature Gran % (Auto) 0.400 Neut % (Auto) 59.7 Lymph % (Auto) 28.2 [place] % (Auto) 9.1 Eos % (Auto) 1.9 Baso % (Auto) 0.7 Absolute Neuts (auto) 5.7 Absolute Lymphs (auto) 2.68 Nucleated RBC % 0 Sodium 140 Potassium 4.3 Chloride 104 Carbon Dioxide 30.0 Anion Gap 6 BUN 18 Creatinine 1.22 H Estim Creat Clear Calc 40.31 Est GFR (MDRD) Af Amer 55 L Est GFR (MDRD) Non-Af 45 L BUN/Creatinine Ratio 14.8 Glucose 86 Calcium 9.8 Total Bilirubin 0.40 AST 19 ALT 17 Alkaline Phosphatase 63 Total Protein 7.5 Albumin 3.9 Globulin 3.6 Albumin/Globulin Ratio 1.1 Urine Color Yellow Urine Clarity Clear Urine pH 7.0 Ur Specific [place] 1.010 Urine Protein Negative Urine Glucose (UA) Normal Urine Ketones Negative Urine Occult Blood Negative Urine Nitrite Negative Urine Bilirubin Negative Urine Urobilinogen Normal Ur Leukocyte Esterase Negative Urine RBC 0 SEEN Urine WBC 0 SEEN Ur Squamous Epith Cells 0-5 SEEN Urine Bacteria 0 SEEN Urine Mucus 0 SEEN Ethyl Alcohol < 3.0 Radiography Chest X-Ray - ED: 1 View, Read by ED Physician, Read by Radiologist, Mediastinum, Bony Structures, No Acute Disease, Chronic Changes and Cardiomegaly Diagnostic Testing: Clinical Impression(s) from Imaging Studies Brain CT 09/07/23 16:39 IMPRESSION: Atrophy and periventricular white matter ischemic changes. Cannot exclude the possibility of NPH. No acute bleed. Incidental finding of densely calcified meningioma arising from the posterior falx Electronically Signed: Jonathan Mason MD at 17:39 EDT , Chest X-Ray 09/07/23 17:18 IMPRESSION: Minor discoid atelectasis of the left lower lobe.. Cannot definitively exclude subtle pneumoperitoneum below left hemidiaphragm possibly related to adjacent bowel. Upright film recommended for further evaluation Electronically Signed: Jonathan Mason MD at 17:44 EDT , ADDENDUM: 09/07/23 1757 IMPRESSION: Minor discoid atelectasis of the left lower lobe.. Cannot definitively exclude subtle pneumoperitoneum below left hemidiaphragm possibly related to adjacent bowel. Upright film recommended for further evaluation N.B. : The above Results were Read Back by Jonathan Mason MD to Benigno Enrique MD, and understanding confirmed on 09/07/2023 17:50:52 (ET). Electronically Signed: Jonathan Mason MD at 17:44 EDT , Chest X-Ray 09/07/23 17:50 IMPRESSION: No radiographic evidence of acute cardiopulmonary disease. Electronically Signed: Nathan Kay MD at 18:35 EDT , Chest x-ray portable interpreted by myself and the radiologist shows no acute abnormality. Radiologist was concerned because he saw a lucency below the left hemidiaphragm he did not think it was free air but said he could not ruled out so wanted him to get a second film that was upright. I did get a second film. The radiology technicians told me that the first film was upright also. The second film shows no signs of free air. Both chest x-rays were interpreted by myself and the radiologist. Rhythm Strip Rhythm Strip: Sinus bradycardia Rate: 50 Ectopy: None EKG Initial EKG: Attestation: I personally reviewed and interpreted this EKG as follows: Interpretation: Sinus Bradycardia Comments: Sinus bradycardia rate of 50 patient does have inverted T waves in 1 to aVL, V3, V4, V5 and V6. These are seen on a prior EKG in which she had an WA on in January 2023. Prior EKG tracings: available for review Prior: Unchanged Discharge Plan Triage Chief Complaint: Weakness ED Provider: Benigno Enrique Dx/Rx/DC Orders Clinical Impression: Falls, History of diabetes mellitus, History of hypertension Instructions: ED Fall with Uncertain Cause Prescriptions: No Action pravastatin 80 mg tablet 80 mg PO QDAY atenolol 100 mg tablet 50 mg PO BID amlodipine 10 mg tablet 10 mg PO DAILY gabapentin 300 MG capsule 300 mg PO BID Patient Comments: NERVE PAIN digoxin 250 MCG tablet 250 mcg PO DAILY metformin 500 mg tablet 500 mg PO BID cholecalciferol (vitamin D3) [Vitamin D3] 25 mcg (1,000 unit) Tablet 25 mcg PO DAILY furosemide 20 mg tablet 20 mg PO BID venlafaxine 37.5 mg capsule,extended release 24hr 37.5 mg PO DAILY Patient Comments: TAKE 1 CAPSULE BY MOUTH DAILY sennosides-docusate sodium [Stool Softener-Stimulant Laxat] 8.6-50 mg Tablet 2 tab PO BID PRN PRN (Reason: Constipation) Qty: 0 0RF melatonin 10 mg capsule 10 mg PO QHS Qty: 7 0RF potassium chloride 10 mEq tablet extended release 10 meq PO DAILY meclizine 12.5 mg tablet 12.5 mg PO BID PRN (Reason: vertigo) acetaminophen [Tylenol Extra Strength] 500 mg tablet 1,000 mg PO TID PRN (Reason: fever or pain) losartan 100 mg tablet 100 mg PO DAILY Primary Care Provider: Rebecca Lewis Referrals: Rebecca Lewis MD [Primary Care Provider] - 1 Week if not improving Activity Restrictions/Additional Instructions: Your labs and tests look good tonight. No specific cause for your falls. Follow-up with your doctor if you continue to falls. Return if you are feeling worse. Print Language: Lao Disposition Disposition: Home, Self Care
[2023-09-07 17:08] LABS: Absolute Lymphocyte Count 2.68 X10^3/uL (0.83-4.51); Absolute Neutrophil Count 5.7 X10^3/uL (2.0-7.7); Basophil# 0.07 X10^3/uL; Basophil% 0.7 % (0-1); Eosinophil# 0.18 X10^3/uL; Eosinophils% 1.9 % (0-5); Hematocrit 42.5 % (37-47); Hemoglobin 13.1 g/dL (12.0-15.0); Lymphocyte # 2.68 X10^3/ul (0.83-4.51); Lymphocyte % 28.2 % (19-41); Mean Corp Hgb Conc 30.8 g/dL (32-36); Mean Corpuscular Hgb 30.3 pg (27.0-32.0); Mean Corpuscular Volume 98.2 fL (81-99); Mean Platelet Vol. 9.7 fl (6.2-12.0); Monocyte# 0.86 X10^3/uL; Monocyte% 9.1 % (0-10); NRBC Flagged by Analyzer 0 % (0-5); Neutrophil # 5.66 X10^3/uL (2.7-7.7); Neutrophil % 59.7 % (47-70); Platelet Count 248 K/mm3 (150-450); RBC Distribution Width CV 13.2 % (11.6-14.6); RBC Distribution Width SD 46.8 fl (35.1-43.9); Red Blood Count 4.33 M/mm3 (4.2-5.4); White Blood Count 9.5 K/mm3 (4.4-11.0)
[2023-09-07] MEDS: 0.9% Normal Saline (500mL Bag) 500 ML 1000 ML IV (17:10)
--- NOTE | 2023-09-07 17:18 | RAD_ITS ---
We are attempting to reach an attending provider to discuss findings. An addendum with communication details will be sent when the communication is complete. STUDY: X-RAY CHEST REASON FOR EXAM: Female, 77 years old. confused TECHNIQUE: AP portable COMPARISON: October 30, 2022 FINDINGS: There is minor discoid atelectasis at the left base. There is no demonstrated pleural abnormality. Normal size heart. Normal mediastinum and alfonzo. Normal visualized pulmonary arteries. [Mildly calcified aortic arch and descending thoracic aorta. Dorsal spine and shoulders demonstrates degenerative changes. Normal visualized ribs. Foreshortened clavicles raising question of prior osteotomy There are loops of bowel below the left hemidiaphragm.. There is also curvilinear lucency possibly extraluminal and mild pneumoperitoneum not entirely excluded. Recommend upright film for further evaluation RAD/Chest 1 View (Portable) IMPRESSION: Minor discoid atelectasis of the left lower lobe.. Cannot definitively exclude subtle pneumoperitoneum below left hemidiaphragm possibly related to adjacent bowel. Upright film recommended for further evaluation Electronically Signed: Jonathan Mason MD at 17:44 EDT ,
[2023-09-07 17:19] LABS: Bacteria 0 SEEN /hpf (None Seen); Mucous, Urine 0 SEEN /hpf (<or=2+); Red Blood Cells-Urine 0 SEEN /hpf (0-5); White Blood Cells 0 SEEN /hpf (0-5)
[2023-09-07 17:24] LABS: Alcohol, Blood (Medical)-Serum < 3.0 mg/dL
[2023-09-07 17:29] LABS: ALB/GLOB Ratio 1.1 RATIO (0.9-2.4); AST(SGOT) 19 U/L (15-37); Alanine Aminotransfer ALT/SGPT 17 U/L (13-56); Albumin, Serum 3.9 g/dL (3.2-5.0); Alkaline Phosphatase 63 U/L (45-117); Anion Gap 6 (5-15); BUN 18 mg/dL (7-18); BUN/Creat Ratio 14.8 RATIO (10-20); Calcium,Total 9.8 mg/dL (8.5-10.1); Chloride 104 mmol/L (98-107); Creatinine, Serum 1.22 mg/dL (0.55-1.02); EST Glomerular Filtration Rate 45 mL/min (>60); Est Glom Filt Rate - Afr Amer 55 mL/min (>60); Estimated Creatinine Clearance 40.31 ml/min; Globulin 3.6 g/dL (2.2-4.2); Glucose 86 mg/dL (74-106); Potassium 4.3 mmol/L (3.5-5.1); Protein, Total 7.5 g/dL (6.4-8.2); Sodium Level 140 mmol/L (136-145)
[2023-09-07 17:42] LABS: Color, Urine Yellow (Yellow); Glucose, Dipstick Normal (Normal); Ketone-Dipstick Negative (Negative); Leukocyte Esterase-Dipstick Negative /ul (Negative); Nitrite-Dipstick Negative (Negative); Occult Blood-Urine Negative /ul (Negative); Protein-Dipstick Negative (Negative); Urine Bilirubin Dipstick Negative (Negative); Urine Clarity Clear (Clear); Urine Urobilinogen Normal (Normal)
[2023-09-07 17:50] LABS: Squamous Epithelial Cells - UA 0-5 SEEN /hpf (5-10)
--- NOTE | 2023-09-07 17:50 | RAD_ITS ---
INDICATION: ?? freee air LUQ. Please make sure upright. Tx EXAMINATION/TECHNIQUE: X-RAY - XR Chest 1 View COMPARISON: September 07, 2023. FINDINGS: LINES/DEVICES: None. LUNGS: Lungs symmetrically hyperexpanded. No consolidation, edema or effusion. No pneumothorax. MEDIASTINUM AND CARDIOVASCULAR STRUCTURES: Cardiac silhouette not enlarged. BONES AND SOFT TISSUES: Unremarkable. RAD/Chest 1 View (Portable) IMPRESSION: No radiographic evidence of acute cardiopulmonary disease. Electronically Signed: Nathan Kay MD at 18:35 EDT ,
[2023-09-07 18:30] VITALS: BP 137/51; PULSE 64; RESP 14; O2SAT 95
[2023-09-07 20:00] VITALS: BP 190/55; PULSE 55; RESP 20; O2SAT 96
[2023-09-07 22:00] VITALS: BP 192/55; PULSE 64; RESP 18; O2SAT 97
[2023-09-07 23:06] VITALS: BP 188/90; PULSE 88; RESP 17; TEMP 36.4; O2SAT 99
[2023-09-07 23:07] VITALS: BP 192/55; PULSE 56; RESP 14; TEMP 36.4; O2SAT 94
== END 2023-09-07 23:07 | disposition home or self-care (01) ==
PROVIDERS: Emergency Provider Emergency Medicine; PCP Internal Medicine; Visit Provider Emergency Medicine
DX: R29.6 Repeated falls (principal); E11.42 Type 2 diabetes mellitus with diabetic polyneuropathy; R53.1 Weakness; Z87.891 Personal history of nicotine dependence; D64.9 Anemia, unspecified; I10 Essential (primary) hypertension; Z86.711 Personal history of pulmonary embolism; K21.9 Gastro-esophageal reflux disease without esophagitis; E78.5 Hyperlipidemia, unspecified; Z91.81 History of falling; R41.0 Disorientation, unspecified; Z60.2 Problems related to living alone; Z79.899 Other long term (current) drug therapy; Z79.84 Long term (current) use of oral hypoglycemic drugs
CPT/HCPCS: 70450; 71045; 80053; 80320; 81001; 85025; 87631; 93005; 96360; 99284; J7040; P9612; A4216; G0480

== ENCOUNTER 2023-09-13 14:07 | Emergency (ER) | payer MEDICARE, SELFPAY ==
[2023-09-13 14:07] VITALS: BP 202/70; PULSE 60; RESP 17; TEMP 37; O2SAT 97; BMI 33.2
--- NOTE | 2023-09-13 14:55 | CT_ITS ---
STUDY: CT CERVICAL SPINE WITHOUT CONTRAST REASON FOR EXAM: Female, 77 years old. neck injury RADIATION DOSAGE (If Supplied By Facility): CTDIvol = ( 15.35 ) mGy, DLP = ( 253.81 ) mGycm TECHNIQUE: High resolution transaxial imaging was performed without contrast material. Sagittal and coronal images were reconstructed. Individualized dose optimization techniques were used for this CT. COMPARISON: None FINDINGS: No definite acute fracture/dislocation. The cervical junction is intact. C1-C2 articulation is intact. There is reversal of curvature. There is normal alignment. Facet joints are intact at all levels bilaterally. No jumped facets. There is multilevel spondyloarthropathy. Multilevel degenerative disc disease seen. Multilevel loss of disc height. Multilevel posterior marginal osteophytes and disc bulges. Multilevel neural foraminal narrowing. Multilevel narrowing of the spinal canal. Visualized paraspinal soft tissues and structures are unremarkable. CT/Spine Cervical without Contras IMPRESSION: There is no definite acute fracture/dislocation. Degenerative changes. Electronically Signed: Mitchell Rodriguez MD at 16:27 EDT ,
--- NOTE | 2023-09-13 14:55 | EKG12_ITS ---
Test Reason : GENERAL Blood Pressure : / mmHG Vent. Rate : 058 BPM Atrial Rate : 058 BPM P-R Int : 294 ms QRS Dur : 092 ms QT Int : 380 ms P-R-T Axes : 045 -29 197 degrees QTc Int : 373 ms Sinus bradycardia with 1st degree A-V block Left ventricular hypertrophy with repolarization abnormality ( Fernley product ) Cannot rule out Septal infarct , age undetermined Abnormal ECG Confirmed by Felipe Robert ([id number]), food expeditor APRIL MATHIAS ([id number]) on 09/19/2023 1:12:13 PM Referred By: Confirmed By:Felipe Robert
--- NOTE | 2023-09-13 14:55 | CT_ITS ---
STUDY: CT BRAIN WITHOUT CONTRAST REASON FOR EXAM: Female, 77 years old. head injury RADIATION DOSAGE (If Supplied By Facility): CTDIvol = ( 44.99 ) mGy, DLP = ( 779.24 ) mGycm TECHNIQUE: Transaxial CT imaging of the brain was performed without administration of intravenous contrast material. Individualized dose optimization techniques were used for this CT. COMPARISON: 09/07/2023 FINDINGS: Normal soft tissue structures. Normal calvarium. There is mild cerebral atrophy with widening of the extra-axial spaces and ventricular dilatation. There are areas of decreased attenuation within the white matter tracts of the supratentorial brain, consistent with microvascular disease changes. There are bilateral lacunar infarcts of the basal ganglia and thalami. Normal brainstem. Normal cerebellum. Stable calcified 2.5 cm meningioma the posterior falx. There is no intracranial hemorrhage. There are no findings of an acute ischemic infarction. Normal visualized paranasal sinuses. CT/Brain/Head without Contrast IMPRESSION: Chronic involutional changes of the brain. No change or acute abnormality. Electronically Signed: Mitchell Rodriguez MD at 16:24 EDT ,
--- NOTE | 2023-09-13 14:57 | ED.VIS.FALL ---
HPI HPI - Fall History of Present Illness Chief Complaint: Fall Narrative Narrative: 77-year-old female presenting with confusion and concern for fall. Patient initially states that she was sitting out on the sidewalk and she did not realize somebody had called EMS but since they were there wanted to be transported. She also states after this that she knew the ambulance was on its way because she called. Family states that she is intermittently confused and sometimes she is completely with it. Patient apparently was supposed to a gynecology appointment today at 2:15 PM her daughter has cameras in the house so she can communicate with her mom verbally and see her. She lives alone. Patient's daughter states she was unable to see her but could hear something in the background and stated that she was on her way. Apparently they found her just off the front porch steps laying on the sidewalk with her head between the stairs and the sidewalk in the grass. She complained of lower back pain and states she still having some. She was not able to get up on her own. Patient is not on any blood thinners. She also reported that she has a history of PAT since she was a child and if her heart rate goes fast she typically takes a deep breath and hold it to try to slow down her heart. She also reports that this did not happen today. Denies chest pain or shortness of breath. Denies visual complaints. Family states that she does get UTIs from time to time and she is incontinent. They also states she falls all the time. They state they do not know why she falls. [facility] Medical History History of stress test History of echocardiogram Wears glasses Walker as ambulation aid Fatty liver Frequent falls Cardiology follow-up encounter History of paroxysmal atrial tachycardia Pulmonary embolism on right Osteoarthritis of right hip Greater trochanteric bursitis of right hip Diabetes Chronic pain Former smoker Meningioma Essential hypertension Dysmetabolic syndrome Peripheral neuropathy GERD (gastroesophageal reflux disease) History of kidney stones Thoracic aortic aneurysm without rupture Hyperlipidemia Nonrheumatic aortic (valve) insufficiency Paroxysmal atrial tachycardia Dyspnea on exertion Home Medications ?Medication ?Instructions ?Recorded ?Last Taken ?Type gabapentin 300 mg capsule 300 mg PO BID NERVE PAIN 02/22/13 09/12/23 History digoxin 250 mcg (0.25 mg) tablet 250 mcg PO DAILY HEART 02/01/14 09/12/23 History pravastatin 80 mg tablet 80 mg PO DAILY CHOLESTEROL 11/22/17 09/12/23 History metformin 500 mg tablet 500 mg PO BID DIABETES 12/02/20 09/12/23 History cholecalciferol (vitamin D3) 25 25 mcg PO DAILY SUPPLEMENT 05/12/21 09/12/23 History mcg (1,000 unit) tablet (Vitamin D3) amlodipine 10 mg tablet 10 mg PO DAILY HTN 05/20/21 09/12/23 History furosemide 20 mg tablet 20 mg PO BID CHF 10/30/22 09/12/23 History venlafaxine 37.5 mg 37.5 mg PO DAILY depression 10/30/22 09/12/23 History capsule,extended release 24 hr melatonin 10 mg capsule 10 mg PO QHS #7 caps 11/03/22 09/12/23 Rx meclizine 12.5 mg tablet 12.5 mg PO BID PRN vertigo 02/09/23 09/12/23 History potassium chloride 10 mEq 10 meq PO DAILY 02/09/23 09/12/23 History tablet,extended release losartan 100 mg tablet 100 mg PO DAILY 08/11/23 09/12/23 History atenolol 50 mg tablet 50 mg PO BID 09/13/23 09/12/23 History hydrocodone-acetaminophen 5-325mg 0.5 - 1 tab PO BID PRN pain 09/13/23 09/12/23 History 5mg-325mg sennosides 8.6 mg-docusate sodium 2 tab PO BID PRN Constipation 09/13/23 09/12/23 History 50 mg tablet (Stool Softener-Stimulant Laxative) Allergy/AdvReac Type Severity Reaction Status Date / Time lisinopril AdvReac Severe Intolerence, Verified 09/13/23 14:09 cough nalbuphine HCl (From Nubain) AdvReac Nausea/Vom/ Verified 09/13/23 14:09 Diarrhea risperidone (From Risperdal) AdvReac PSYCHOSIS Verified 09/13/23 14:09 Family History Father CAD (coronary artery disease) Myocardial infarction, Onset Age: 51 Brother Myocardial infarction, Onset Age: 51 Brother CAD (coronary artery disease) Hx of CABG Sister Heart disease COPD (chronic obstructive pulmonary disease) Sister CVA (cerebral vascular accident) Surgical History History of hemorrhoidectomy (~11/2021) Hx of cardiac cath Status post trigger finger release History of knee replacement procedure of right knee History of arthroscopy of right shoulder History of back surgery History of hand surgery History of elbow surgery History of knee surgery History of hysterectomy Social History household members: none Smoking Status: Former smoker how long ago did patient quit smokin years ago alcohol intake: never substance use type: does not use caffeine: No ROS ROS ED Constitutional Constitutional ED: Denies chills or fever(s) Eyes Eyes: Denies blurry vision or change in vision ENT ENT ED: Denies rhinorrhea or sore throat Cardiovascular Cardiovascular: Denies chest pain or palpitations Respiratory/Chest Respiratory/Chest: Denies cough, dyspnea or dyspnea on exertion Gastrointestinal Gastrointestinal: Denies abdominal pain, nausea or vomiting Genitourinary Genitourinary ED: Denies dysuria Musculoskeletal Musculoskeletal: Reports back pain; Denies neck pain Integumentary Denies abscess Neurologic Neurologic: Reports headache(s); Denies paresthesias Psychiatric Psychiatric: Denies anxiety or depression EXAM Physical Exam Const Vital Signs: 09/13/23 14:07 09/13/23 14:13 09/13/23 15:22 Temperature 98.6 F Temperature Source Oral Pulse Rate 60 Respiratory Rate 17 Respiratory Effort Normal Non-Labored Respiratory Depth Normal Respiratory Pattern Normal Blood Pressure 202/70 H Blood Pressure Mean 114 Pulse Ox 97 96 Oxygen Delivery Method Room Air Room Air Room Air 09/13/23 16:16 09/13/23 18:00 Temperature Temperature Source Pulse Rate 55 L 58 L Respiratory Rate 12 16 Respiratory Effort Respiratory Depth Respiratory Pattern Blood Pressure 201/52 H 176/57 H Blood Pressure Mean 101 96 Pulse Ox 94 91 Oxygen Delivery Method Room Air Nasal Cannula Positive well nourished General Appearance ED: NAD HEENT Reports normocephalic atraumatic Eyes PERRL and EOMs intact bilaterally Neck full ROM Chest Wall inspection of chest normal and palpation of chest normal Resp normal respiratory effort and no retractions Auscultation: Negative for rales, rhonchi or wheezes Cardio regular rate and regular rhythm GI non-tender and non-distended Back/Spine Back/Spine Narrative: Right lumbar paraspinal muscular tenderness proximally level of L1-L2 Neuro oriented x3 and CN's II-XII intact bilaterally Sensorium / Orientation: alert Motor Exam: strength 5/5 throughout Psych mental status grossly normal and thought process normal MDM MDM MDM Narrative Medical decision making narrative: Patient presenting with a fall. Is unclear whether she had a syncopal event mechanical fall. Patient is a poor informant. Differential includes intracranial hemorrhage, skull fracture, C-spine fracture, lumbar contusion, lumbar fracture, dehydration, anemia, dysrhythmia, electrolyte abnormalities, ACS, CHF, UTI, digoxin toxicity, syncope. CBC was obtained to assess white blood cell count, hemoglobin, platelets. BMP to assess renal function, electrolytes, glucose. High-sensitivity troponin and EKG to assess for ischemia/dysrhythmia. Chest x-ray to rule out pneumonia or CHF. Digoxin level will be obtained. BNP to assess for CHF. CBC shows white blood cell count of 12.8. Hemoglobin 13.8. Platelets 214. GFR slightly low at 56, creatinine 1.02. High-sensitivity troponin is 23. BNP 67.4 EKG interpreted by myself shows sinus rhythm with first-degree AV block at 58 bpm. There does not appear to be diffuse T wave inversions in 1 to and V3 through V6 which are unchanged from previous EKG. Digoxin level was elevated at 2.26. Discussed the case with Dr. Curry who is on-call for cardiology and we reviewed her medications. He recommended just discontinuing the digoxin. CT brain and cervical spine were negative for acute findings. Chest x-ray interpreted by myself shows no acute cardiopulmonary process. Radiologist services and agrees. Lumbar spine also shows no acute process on my interpretation and radiology interprets this as a patient as well. Given the patient's workup is fairly normal except for the elevated digoxin which we are going to discontinue. Urinalysis shows 3+ bacteria on cath specimen which I do believe is consistent with UTI. Patient will be placed on Keflex. First dose given in the ER. Will discuss findings and discontinuing the digoxin with the patient's family. Impression: 1. Elevated oxygen level 2. Fall 3. Closed head injury 4. Back contusion 5. UTI Lab Data Labs: Laboratory Results - last 24 hr 09/13/23 09/13/23 09/13/23 15:30 18:30 18:36 WBC 12.8 H RBC 4.59 Hgb 13.8 Hct 43.9 MCV 95.6 MCH 30.1 MCHC 31.4 L RDW Std Deviation 46.6 H RDW Coeff of Patti 13.3 Plt Count 214 MPV 10.0 Immature Gran % (Auto) 0.700 Neut % (Auto) 78.3 H Lymph % (Auto) 12.8 L Bell % (Auto) 6.9 Eos % (Auto) 0.7 Baso % (Auto) 0.6 Absolute Neuts (auto) 10.0 H Absolute Lymphs (auto) 1.64 Nucleated RBC % 0 Sodium 135 L Potassium 4.0 Chloride 104 Carbon Dioxide 24.0 Anion Gap 7 BUN 18 Creatinine 1.02 Estim Creat Clear Calc 47.75 Est GFR (MDRD) Af Amer 67 Est GFR (MDRD) Non-Af 56 L BUN/Creatinine Ratio 17.6 Glucose 124 H Calcium 10.2 H Troponin I High Sens 23 32 B-Natriuretic Peptide 67.4 Urine Color Yellow Urine Clarity Clear Urine pH 8.0 Ur Specific [place] 1.015 Urine Protein Negative Urine Glucose (UA) Normal Urine Ketones Negative Urine Occult Blood Negative Urine Nitrite Negative Urine Bilirubin Negative Urine Urobilinogen Normal Ur Leukocyte Esterase 25 H Urine RBC 0 SEEN Urine WBC 0-5 SEEN Ur Squamous Epith Cells 0-5 SEEN Urine Bacteria 3+ Urine Mucus 0 SEEN Digoxin 2.26 H* Radiography Diagnostic Testing: Clinical Impression(s) from Imaging Studies Brain CT 09/13/23 14:55 IMPRESSION: Chronic involutional changes of the brain. No change or acute abnormality. Electronically Signed: Mitchell Rodriguez MD at 16:24 EDT , Cervical Spine CT 09/13/23 14:55 IMPRESSION: There is no definite acute fracture/dislocation. Degenerative changes. Electronically Signed: Mitchell Rodriguez MD at 16:27 EDT , Chest X-Ray 09/13/23 16:00 IMPRESSION: No definite acute or significant abnormality seen. Electronically Signed: Mitchell Rodriguez MD at 16:47 EDT , Lumbar Spine X-Ray 09/13/23 16:00 IMPRESSION: Degenerative changes of the spine, as detailed above. Electronically Signed: Mitchell Rodriguez MD at 16:39 EDT , Discharge Plan Triage Chief Complaint: Fall ED Provider: Shaun Gipson Dx/Rx/DC Orders Instructions: ED Back Contusion, ED Cystitis Female Adult, ED Fall Prevention Prescriptions: No Action pravastatin 80 mg tablet 80 mg PO DAILY amlodipine 10 mg tablet 10 mg PO DAILY Patient Comments: NOT SURE OF DOSE, 2.5 FILLED AT [facility] ON 07/26/23 gabapentin 300 MG capsule 300 mg PO BID digoxin 250 MCG tablet 250 mcg PO DAILY metformin 500 mg tablet 500 mg PO BID cholecalciferol (vitamin D3) [Vitamin D3] 25 mcg (1,000 unit) Tablet 25 mcg PO DAILY furosemide 20 mg tablet 20 mg PO BID venlafaxine 37.5 mg capsule,extended release 24hr 37.5 mg PO DAILY melatonin 10 mg capsule 10 mg PO QHS Qty: 7 0RF potassium chloride 10 mEq tablet extended release 10 meq PO DAILY meclizine 12.5 mg tablet 12.5 mg PO BID PRN (Reason: vertigo) Patient Comments: PT STATES SHE TAKES ONCE DAILY atenolol 50 mg tablet 50 mg PO BID hydrocodone-acetaminophen 5-325 mg tablet 0.5 - 1 tab PO BID PRN (Reason: pain) sennosides-docusate sodium [Stool Softener-Stimulant Laxat] 8.6-50 mg Tablet 2 tab PO BID PRN (Reason: Constipation) losartan 100 mg tablet 100 mg PO DAILY Primary Care Provider: Rebecca Lewis Referrals: Rebecca Lewis MD [Primary Care Provider] - Print Language: Portuguese Disposition Disposition: Home, Self Care
[2023-09-13 15:22] VITALS: O2SAT 96
[2023-09-13 15:45] LABS: Absolute Lymphocyte Count 1.64 X10^3/uL (0.83-4.51); Basophil# 0.08 X10^3/uL; Basophil% 0.6 % (0-1); Eosinophil# 0.09 X10^3/uL; Eosinophils% 0.7 % (0-5); Hematocrit 43.9 % (37-47); Hemoglobin 13.8 g/dL (12.0-15.0); Lymphocyte # 1.64 X10^3/ul (0.83-4.51); Lymphocyte % 12.8 % (19-41); Mean Corp Hgb Conc 31.4 g/dL (32-36); Mean Corpuscular Hgb 30.1 pg (27.0-32.0); Mean Corpuscular Volume 95.6 fL (81-99); Monocyte# 0.89 X10^3/uL; Monocyte% 6.9 % (0-10); NRBC Flagged by Analyzer 0 % (0-5); Neutrophil # 10.03 X10^3/uL (2.7-7.7); Neutrophil % 78.3 % (47-70); Platelet Count 214 K/mm3 (150-450); RBC Distribution Width CV 13.3 % (11.6-14.6); RBC Distribution Width SD 46.6 fl (35.1-43.9); Red Blood Count 4.59 M/mm3 (4.2-5.4); White Blood Count 12.8 K/mm3 (4.4-11.0)
--- NOTE | 2023-09-13 16:00 | RAD_ITS ---
STUDY: X-RAY - LUMBAR SPINE REASON FOR EXAM: Female, 77 years old. back injury TECHNIQUE: 2 view(s) of the lumbar spine were obtained. COMPARISON: None FINDINGS: Normal lumbar lordosis. There is no substantial scoliosis. There is a normal alignment of the vertebrae. There is multilevel endplate spondylosis of the lumbar vertebrae. There is multi-level degenerative disc disease with multi-level disc space narrowing. Findings most pronounced at L4-L5 and L5-S1. There is no demonstrated fracture. There is atherosclerotic calcification of the abdominal aorta without a demonstrated aneurysm. RAD/Lumbar Spine 2 or 3 Views IMPRESSION: Degenerative changes of the spine, as detailed above. Electronically Signed: Mitchell Rodriguez MD at 16:39 EDT ,
--- NOTE | 2023-09-13 16:00 | RAD_ITS ---
STUDY: X-RAY CHEST REASON FOR EXAM: Female, 77 years old. chest pain TECHNIQUE: Single AP portable view of the chest. COMPARISON: 09/07/2023. FINDINGS: The lungs are clear and expanded. There is no demonstrated pleural abnormality. Normal size heart. Normal mediastinum and alfonzo. Normal visualized pulmonary arteries. There is atherosclerotic calcification of the aortic arch with tortuosity. Normal visualized thoracic spine. Normal visualized ribs, clavicles, and shoulders. There is no demonstrated abnormality of the visualized soft tissue structures of the upper abdomen. RAD/Chest 1 View (Portable) IMPRESSION: No definite acute or significant abnormality seen. Electronically Signed: Mitchell Rodriguez MD at 16:47 EDT ,
[2023-09-13 16:08] LABS: Anion Gap 7 (5-15); BUN 18 mg/dL (7-18); BUN/Creat Ratio 17.6 RATIO (10-20); Calcium,Total 10.2 mg/dL (8.5-10.1); Chloride 104 mmol/L (98-107); Creatinine, Serum 1.02 mg/dL (0.55-1.02); EST Glomerular Filtration Rate 56 mL/min (>60); Est Glom Filt Rate - Afr Amer 67 mL/min (>60); Estimated Creatinine Clearance 47.75 ml/min; Glucose 124 mg/dL (74-106); Sodium Level 135 mmol/L (136-145); Troponin-I HS (w/2H Reflex) 23 pg/mL (3.0-54.0)
[2023-09-13 16:16] VITALS: BP 201/52; PULSE 55; RESP 12; O2SAT 94
[2023-09-13 16:31] LABS: BNP,B-Type NATRIURETIC PEPTIDE 67.4 pg/mL (0-100)
[2023-09-13 16:34] LABS: Digoxin Level 2.26 ng/mL (0.80-2.00)
[2023-09-13 17:38] LABS: Reflex Troponin-HS? (from REC) Y
[2023-09-13 18:00] VITALS: BP 176/57; PULSE 58; RESP 16; O2SAT 91
[2023-09-13 18:36] LABS: Mucous, Urine 0 SEEN /hpf (<or=2+); Red Blood Cells-Urine 0 SEEN /hpf (0-5)
[2023-09-13 18:47] LABS: Color, Urine Yellow (Yellow); Glucose, Dipstick Normal (Normal); Ketone-Dipstick Negative (Negative); Leukocyte Esterase-Dipstick 25 /ul (Negative); Nitrite-Dipstick Negative (Negative); Occult Blood-Urine Negative /ul (Negative); Protein-Dipstick Negative (Negative); Specific Gravity, Urine 1.015 (1.002-1.030); Urine Bilirubin Dipstick Negative (Negative); Urine Clarity Clear (Clear); Urine Urobilinogen Normal (Normal)
[2023-09-13 19:01] LABS: Bacteria 3+ /hpf (None Seen); Squamous Epithelial Cells - UA 0-5 SEEN /hpf (5-10); White Blood Cells 0-5 SEEN /hpf (0-5)
[2023-09-13 19:05] LABS: Troponin-I HS 32 pg/mL (3.0-54.0)
[2023-09-13 20:00] VITALS: BP 176/57; PULSE 62; RESP 18; TEMP 36.8; O2SAT 94
[2023-09-13] MEDS: Cephalexin 250 MG Capsule 500 MG PO (20:05)
== END 2023-09-13 20:41 | disposition home or self-care (01) ==
PROVIDERS: Emergency Provider Student in an Organized Health Care Education/Training Program; PCP Internal Medicine; Visit Provider Student in an Organized Health Care Education/Training Program
DX: S09.90XA Unspecified injury of head, initial encounter (principal); E11.9 Type 2 diabetes mellitus without complications; N39.0 Urinary tract infection, site not specified; Z87.891 Personal history of nicotine dependence; R41.0 Disorientation, unspecified; S20.229A Contusion of unspecified back wall of thorax, initial encounter; I10 Essential (primary) hypertension; K21.9 Gastro-esophageal reflux disease without esophagitis; E78.5 Hyperlipidemia, unspecified; Z79.84 Long term (current) use of oral hypoglycemic drugs; Z79.899 Other long term (current) drug therapy; I44.0 Atrioventricular block, first degree; W19.XXXA Unspecified fall, initial encounter; R79.81 Abnormal blood-gas level
CPT/HCPCS: 36415; 70450; 71045; 72100; 72125; 80048; 80162; 81001; 83880; 84484; 85025; 93005; 99284; P9612; A4216

== ENCOUNTER → 2024-03-02 | Outpatient (CLI) | payer MEDICARE, SELFPAY ==
--- NOTE | 2024-03-02 14:26 | RAD_ITS ---
STUDY: X-RAY - ABDOMEN/PELVIS REASON FOR EXAM: Female, 78 years old. KUB- KIDNEY STONES TECHNIQUE: Two AP supine views of the abdomen and pelvis. COMPARISON: CT May 15, 2022 FINDINGS: Normal visualized lung bases. There is an unremarkable bowel gas pattern. There are no dilated loops of bowel. There is abundant stool. There is no demonstrated free abdominal air. There are small calcifications in the regions of the kidneys including measuring 0.8 and 0.4 cm on the right and 1.0 cm on the left. Normal soft tissue structures. There is degenerative change of the spine. RAD/Abdomen Single View IMPRESSION: Abdominal calcifications suggesting renal stones. Abundant stool. Electronically Signed: Yahir Nevarez MD at 15:28 EST ,
== END | disposition home or self-care (01) ==
LOC: MTRAD 14:22
PROVIDERS: PCP Internal Medicine; Referring Provider Urology; Visit Provider Urology
DX: N20.0 Calculus of kidney (principal)
CPT/HCPCS: 74018

== ENCOUNTER → 2024-05-31 | Outpatient (CLI) | payer MEDICARE, SELFPAY ==
[2024-05-31 15:20] LABS: Hematocrit 41.5 % (37-47); Hemoglobin 13.3 g/dL (12.0-15.0); Mean Corpuscular Hgb 30.4 pg (27.0-32.0); Mean Corpuscular Volume 94.7 fL (81-99); Platelet Count 198 K/mm3 (150-450); RBC Distribution Width CV 13.6 % (11.6-14.6); RBC Distribution Width SD 47.3 fl (35.1-43.9); Red Blood Count 4.38 M/mm3 (4.2-5.4); White Blood Count 8.4 K/mm3 (4.4-11.0)
[2024-05-31 15:56] LABS: Anion Gap 6 (5-15); BUN 18 mg/dL (7-18); BUN/Creat Ratio 18.3 RATIO (10-20); Chloride 108 mmol/L (98-107); Creatinine, Serum 0.98 mg/dL (0.55-1.02); EST Glomerular Filtration Rate 58 mL/min (>60); Est Glom Filt Rate - Afr Amer 70 mL/min (>60); Glucose 106 mg/dL (74-106); Sodium Level 140 mmol/L (136-145)
== END | disposition home or self-care (01) ==
PROVIDERS: PCP Internal Medicine; Referring Provider Urology; Visit Provider Urology
DX: N39.0 Urinary tract infection, site not specified (principal)
CPT/HCPCS: 36415; 80048; 85027; 87086; 87088

== ENCOUNTER 2024-06-07 07:12 | Day surgery (SDC) | payer MEDICARE, SELFPAY ==
--- NOTE | 2024-05-30 16:16 | PAT.ANESEVAL ---
Pre-Assessment Diagnosis/Proposed Procedure Planned Operative Procedure(s): (R) Cysto, Right stent insertion, Right Renal ESWL Anesthesia History Anesthesia History - facility sales and admin: Anesthesia History - facility sales and admin Hx Hospitalization Yes: FREQ [facility]ALL[facility] 05/30/24 15:34 Any Problems With Anesthesia No 05/30/24 15:34 Cholinesterase deficiency No 05/30/24 15:34 You/Your Family Experience No 05/30/24 15:34 fever (hyperthermia) with Relationship Recent Exposure to Contagious No 08/22/23 08:59 Disease Does patient have nerve No 05/30/24 15:34 stimulator Patient instructed to have device shut off --Does patient have Pacemaker or ICD? When Was Last Pacemaker Check QUESTION #4 FULL TEXT: You/Your Family Experience fever (hyperthermia) with Anesthesia Last Oral Intake Last Oral intake: Last Oral Intake NPO since Meds taken in AM with sips of water? Meds patient instructed to take am of surgery PONV PONV - facility sales and admin: PONV - facility sales and admin Female Yes 05/30/24 15:34 HX of Motion Sickness No 05/30/24 15:34 HX of N/V After Surgery No 05/30/24 15:34 Non-Smoker Yes 05/30/24 15:34 Duration of Surgery greater No 05/30/24 15:34 than 60 minutes Number of Risk Factors 2 05/30/24 15:34 PONV Score Moderate Risk 05/30/24 15:34 Height & Weight Height & Weight: Anesthesia: Height & Weight Height 5 ft 3 in 03/12/24 09:22 Respiratory Assessment Respiratory Assessment - facility sales and admin: Respiratory Tract Infection Hx - facility sales and admin Hx Respiratory Tract Infection No 05/30/24 15:34 STOP Sleep Apnea STOP Sleep Apnea - facility sales and admin: STOP Sleep Apnea - facility sales and admin Hx Hypertension Yes: CONTROLLED ON MED 05/30/24 15:34 Hx Sleep Apnea No 05/30/24 15:34 CPAP No 05/30/24 15:34 BIPAP No 05/30/24 15:34 Do you snore loudly (louder No 05/30/24 15:34 than talking or can be heard Do you often feel tired/ No 05/30/24 15:34 fatigued/ sleepy during daytime? Has anyone observed you stop No 05/30/24 15:34 breathing during sleep? STOP Results Negative 05/30/24 15:34 QUESTION #5 FULL TEXT : Do you snore loudly (louder than talking or can be heard through closed doors)? 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 Specify any problems Hx of Preganancy in last 3 No 05/30/24 15:34 Months Nurse Filling Out Transfusion VCHRISTIN 05/30/24 15:34 & Questions: Date: 05/30/24 05/30/24 15:34 Time: 15:36 05/30/24 15:34 Patient unable to answer at this time (ie. confused, unrespo /Reproduction History /Reproductive History - facility sales and admin: /Reproductive Hx- facility sales and admin Hx Now No 05/30/24 15:34 Gestational Age (in weeks): EDC: Hx Hx Para Hx Section SAB No 05/30/24 15:34 PFSH Medical History (Updated 05/30/24 @ 15:34 by Kelly Pierce) History of Holter monitoring History of stress test History of echocardiogram Wears glasses Walker as ambulation aid Fatty liver Frequent falls Cardiology follow-up encounter History of paroxysmal atrial tachycardia Pulmonary embolism on right Osteoarthritis of right hip Greater trochanteric bursitis of right hip Diabetes Chronic pain Former smoker Meningioma Essential hypertension Dysmetabolic syndrome Peripheral neuropathy GERD (gastroesophageal reflux disease) History of kidney stones Thoracic aortic aneurysm without rupture Hyperlipidemia Nonrheumatic aortic (valve) insufficiency Paroxysmal atrial tachycardia Dyspnea on exertion Home Medications ?Medication ?Instructions ?Recorded ?Last Taken ?Type pravastatin 80 mg tablet 80 mg PO DAILY CHOLESTEROL 11/22/17 09/12/23 History metformin 500 mg tablet 500 mg PO BID DIABETES 12/02/20 09/12/23 History cholecalciferol (vitamin D3) 25 25 mcg PO DAILY SUPPLEMENT 05/12/21 09/12/23 History mcg (1,000 unit) tablet (Vitamin D3) furosemide 20 mg tablet 20 mg PO DAILY CHF 10/30/22 09/12/23 History melatonin 10 mg capsule 10 mg PO QHS #7 caps 11/03/22 09/12/23 Rx potassium chloride 10 mEq 10 meq PO DAILY 02/09/23 09/12/23 History tablet,extended release losartan 100 mg tablet 100 mg PO DAILY 08/11/23 09/12/23 History atenolol 50 mg tablet 50 mg PO BID 09/13/23 09/12/23 History sennosides 8.6 mg-docusate sodium 2 tab PO BID PRN Constipation 09/13/23 09/12/23 History 50 mg tablet (Stool Softener-Stimulant Laxative) diphenhydramine 25 1 tab PO QHS PRN sleep 03/12/24 Unknown History mg-acetaminophen 500 mg tablet (Tylenol PM Extra Strength) amlodipine 2.5 mg tablet 2.5 mg PO DAILY 05/30/24 Unknown History cyanocobalamin (vitamin B-12) 100 100 mcg PO DAILY 05/30/24 Unknown History mcg tablet (Vitamin B-12) venlafaxine 37.5 mg 37.5 mg PO DAILY 05/30/24 Unknown History capsule,extended release 24 hr vibegron 75 mg tablet (Gemtesa) 75 mg PO DAILY 05/30/24 Unknown History Allergy/AdvReac Type Severity Reaction Status Date / Time lisinopril AdvReac Severe Intolerence, Verified 05/30/24 15:20 cough nalbuphine HCl (From Nubain) AdvReac Nausea/Vom/ Verified 05/30/24 15:20 Diarrhea risperidone (From Risperdal) AdvReac PSYCHOSIS Verified 05/30/24 15:20 Family History Father CAD (coronary artery disease) Myocardial infarction, Onset Age: 51 Brother Myocardial infarction, Onset Age: 51 Brother CAD (coronary artery disease) Hx of CABG Sister Heart disease COPD (chronic obstructive pulmonary disease) Sister CVA (cerebral vascular accident) Surgical History (Updated 05/30/24 @ 15:34 by Kelly Pierce) Hx of surgical procedure History of hemorrhoidectomy (~11/2021) Hx of cardiac cath Status post trigger finger release History of knee replacement procedure of right knee History of arthroscopy of right shoulder History of back surgery History of hand surgery History of elbow surgery History of knee surgery History of hysterectomy Social History household members: none Smoking Status: Former smoker how long ago did patient quit smokin years ago alcohol intake: never substance use type: does not use caffeine: No Audit: Pertinent Findings Pertinent Findings EKG Perinent findings: 09/05/2023 sinus bradycardia first-degree AV block LVH with repull abnormality Echo (EF%) pertinent findings: 10/30/2022 EF 70% mild aortic stenosis pulmonary artery pressure 25. Consult pertinent findings: Cardiology 03/12/2024 thoracic aortic aneurysm without rupture chronic stable mild aortic valve stenosis mean gradient of 13 mmHg stable paroxysmal atrial tachycardia chronic. Hypertension chronic stable. Recommendation Anesthesia Recommendation Anesthesia recommendation: OPTIMIZED for anesthesia
[2024-06-07] VITALS (8 sets, daily range): BP systolic 160–212; BP diastolic 67–80; PULSE 58–66; RESP 12–18; TEMP 36.1–36.4; O2SAT 96–100; BMI 32.8
[2024-06-07] MEDS: 0.9% Normal Saline (1000mL) 1,000 ML 15 ML IV (07:58)
--- NOTE | 2024-06-07 08:02 | PRE.ANES_ITS ---
ASA Classification* ASA Classification ASA Classification: 2 Assessment & Plan Anesthesia* Anesthesia Assessment Anesthesia Assessment: Discussed sedation and/or anesthesia options, risks, benefits, and alternatives with patient/parents/legal guardian/POA. Questions invited. The patient/parents/legal guardian/POA seems to understand and agrees to proceed with anesthesia plan. Reviewed the physical assessment, medical history, allergy history and patient home medications list prior to surgery/procedure/anesthetic and documented any changes. Performed airway and anesthesia risk assessments. Anesthesia Type Anesthesia Type: General History Source History Obtained from:: Patient and Chart Anesthesia Focused Assessment* Temperature: 97.4 F Pulse Rate: 58 Blood Pressure: 167/80 Respiratory Rate: 16 Pulse Ox: 98 Oxygen Delivery Method: Room Air Airway Assessment Mouth opens: >3 cm Mallampati Score: II Teeth Condition: Dentures (upper dentures, no lower teeth) Neck Range of motion (ROM): Limited ROM Comment: mildly restricted neck ROM Focused Labs Anesthesia Preop lab: CBC WBC 8.4 K/mm3 (4.4-11.0) 05/31/24 12:50 05/31/24 RBC 4.38 M/mm3 (4.2-5.4) 05/31/24 12:50 05/31/24 Hgb 13.3 g/dL (12.0-15.0) 05/31/24 12:50 05/31/24 Hct 41.5 % (37-47) 05/31/24 12:50 05/31/24 Plt Count 198 K/mm3 (150-450) 05/31/24 12:50 05/31/24 CHEMISTRY Potassium 4.0 mmol/L (3.5-5.1) 05/31/24 13:15 05/31/24 Sodium 140 mmol/L (136-145) 05/31/24 13:15 05/31/24 Magnesium 2.5 mg/dL (1.6-2.6) 11/02/22 05:54 11/02/22 Phosphorus 3.3 mg/dL (2.5-4.9) 11/02/22 05:54 11/02/22 BUN 18 mg/dL (7-18) 05/31/24 13:15 05/31/24 Creatinine 0.98 mg/dL (0.55-1.02) 05/31/24 13:15 05/31/24 Glucose 106 mg/dL (74-106) 05/31/24 13:15 05/31/24 POC Glucose 139 mg/dL (74-106) H 08/22/23 09:05 08/22/23 COAG PT 12.2 SECONDS (11.7-14.9) 05/14/21 10:55 Pre-Assessment Diagnosis/Proposed Procedure Planned Operative Procedure(s): (R) Cysto, Right stent insertion, Right Renal ESWL Anesthesia History Anesthesia History - alternative medicine practitioner: Anesthesia History - alternative medicine practitioner Hx Hospitalization Yes: FREQ [facility] 05/30/24 15:34 Any Problems With Anesthesia No 05/30/24 15:34 Cholinesterase deficiency No 05/30/24 15:34 You/Your Family Experience No 05/30/24 15:34 fever (hyperthermia) with Relationship Recent Exposure to Contagious No 06/07/24 07:48 Disease Does patient have nerve No 05/30/24 15:34 stimulator Patient instructed to have device shut off --Does patient have Pacemaker No 06/07/24 07:48 or ICD? When Was Last Pacemaker Check QUESTION #4 FULL TEXT: You/Your Family Experience fever (hyperthermia) with Anesthesia Last Oral Intake Last Oral intake: Last Oral Intake NPO since 06:00 06/07/24 07:48 Meds taken in AM with sips of Yes 06/07/24 07:48 water? Meds patient instructed to atenolol 06/07/24 07:48 take am of surgery PONV PONV - alternative medicine practitioner: PONV - alternative medicine practitioner Female Yes 05/30/24 15:34 HX of Motion Sickness No 05/30/24 15:34 HX of N/V After Surgery No 05/30/24 15:34 Non-Smoker Yes 05/30/24 15:34 Duration of Surgery greater No 05/30/24 15:34 than 60 minutes Number of Risk Factors 2 05/30/24 15:34 PONV Score Moderate Risk 05/30/24 15:34 Height & Weight Height & Weight: Anesthesia: Height & Weight Height 5 ft 3 in 06/07/24 07:48 Weight: 84 kg 06/07/24 07:48 Body Mass Index (BMI) 32.8 06/07/24 07:48 Respiratory Assessment Respiratory Assessment - alternative medicine practitioner: Respiratory Tract Infection Hx - alternative medicine practitioner Hx Respiratory Tract Infection No 05/30/24 15:34 STOP Sleep Apnea STOP Sleep Apnea - alternative medicine practitioner: STOP Sleep Apnea - alternative medicine practitioner Hx Hypertension Yes: CONTROLLED ON MED 05/30/24 15:34 Hx Sleep Apnea No 05/30/24 15:34 CPAP No 05/30/24 15:34 BIPAP No 05/30/24 15:34 Do you snore loudly (louder No 05/30/24 15:34 than talking or can be heard Do you often feel tired/ No 05/30/24 15:34 fatigued/ sleepy during daytime? Has anyone observed you stop No 05/30/24 15:34 breathing during sleep? STOP Results Negative 05/30/24 15:34 QUESTION #5 FULL TEXT : Do you snore loudly (louder than talking or can be heard through closed doors)? Tobacco Use History Tobacco Use History - alternative medicine practitioner: Tobacco Use History - alternative medicine practitioner Tobacco Use Smoking Status Former smoker 05/30/24 15:34 Hx Tobacco Use No 05/30/24 15:34 Years Smoking Packs Smoked per Day Smoking Cessation Date was No - quit smoking greater 05/30/24 15:34 within the last 15 years than 15 years ago Hx Smoking Cessation Date 12/01/00 05/30/24 15:34 Hx Smoking Cessation Counseling Hematologic Medial History Hematologic Hx - alternative medicine practitioner: Hematologic Medical Hx - manager heart Hx of Blood Transfusion No 05/30/24 15:34 Hx of Transfusion in last 3 No 05/30/24 15:34 Months Date of Last Transfusion (if within last 3 months) Ever experience any problems No 05/30/24 15:34 with transfusion(s)? Specify any problems Hx of Preganancy in last 3 No 05/30/24 15:34 Months Nurse Filling Out Transfusion VCHRISTIN 05/30/24 15:34 & Questions: Date: 05/30/24 05/30/24 15:34 Time: 15:36 05/30/24 15:34 Patient unable to answer at this time (ie. confused, unrespo /Reproduction History /Reproductive History - alternative medicine practitioner: /Reproductive Hx- alternative medicine practitioner Hx Now No 05/30/24 15:34 Gestational Age (in weeks): EDC: Hx Hx Para Hx Section SAB No 05/30/24 15:34 Active Medications Active Medications: Current Medications Generic Name Dose Route Start Last Admin Trade Name Gregg PRN Reason Stop Dose Admin Cefazolin Sodium 2 gm/ N/A 20 mls @ 400 mls/hr 06/07/24 08:50 IV 06/07/24 08:52 PREOP ONE Sodium Chloride 1,000 mls @ 15 mls/hr 06/07/24 08:00 06/07/24 07:58 IV 06/12/24 21:19 15 mls/hr .Q48H MARTINEZ Administration Protocol [facility] Medical History History of Holter monitoring History of stress test History of echocardiogram Wears glasses Walker as ambulation aid Fatty liver Frequent falls Cardiology follow-up encounter History of paroxysmal atrial tachycardia Pulmonary embolism on right Osteoarthritis of right hip Greater trochanteric bursitis of right hip Diabetes Chronic pain Former smoker Meningioma Essential hypertension Dysmetabolic syndrome Peripheral neuropathy GERD (gastroesophageal reflux disease) History of kidney stones Thoracic aortic aneurysm without rupture Hyperlipidemia Nonrheumatic aortic (valve) insufficiency Paroxysmal atrial tachycardia Dyspnea on exertion Home Medications ?Medication ?Instructions ?Recorded ?Last Taken ?Type pravastatin 80 mg tablet 80 mg PO DAILY CHOLESTEROL 0 11/22/17 06/06/24 History metformin 500 mg tablet 500 mg PO BID DIABETES 12/0206/06/24 History cholecalciferol (vitamin D3) 25 25 mcg PO DAILY SUPPLE MENT 05/12/21 06/06/24 History mcg (1,000 unit) tablet (Vitamin D3) furosemide 20 mg tablet 20 mg PO DAILY CHF 10/30/22 06/06/24 History melatonin 10 mg capsule 10 mg PO QHS #7 caps 3 06/06/24 Rx potassium chloride 10 mEq 10 meq PO DAILY 02/09/23 History tablet,extended release losartan 100 mg tablet 100 mg PO DAILY 08/11/23 History atenolol 50 mg tablet 50 mg PO BID 09/13/23 History sennosides 8.6 mg-docusate sodium 2 tab PO BID PRN Con stipation 09/13/23 06/06/24 History 50 mg tablet (Stool Softener-Stimulant Laxative) diphenhydramine 25 1 tab PO QHS sleep 03/12/24 06/06/24 History mg-acetaminophen 500 mg tablet (Tylenol PM Extra Strength) amlodipine 2.5 mg tablet 2.5 mg PO DAILY 05/30/24 History cyanocobalamin (vitamin B-12) 100 100 mcg PO DAILY 04/1106/06/24 History mcg tablet (Vitamin B-12) venlafaxine 37.5 mg 37.5 mg PO DAILY 05/30/24 History capsule,extended release 24 hr vibegron 75 mg tablet (Gemtesa) 75 mg PO DAILY 5 06/06/24 History Allergy/AdvReac Type Severity Reaction Status Date / Time lisinopril AdvReac Severe Intolerence, Verified 06/07/24 07:46 cough nalbuphine HCl (From Nubain) AdvReac Nausea/Vom/ Verified 06/07/24 07:46 Diarrhea risperidone (From Risperdal) AdvReac PSYCHOSIS Verified 06/07/24 07:46 Family History Father CAD (coronary artery disease) Myocardial infarction, Onset Age: 51 Brother Myocardial infarction, Onset Age: 51 Brother CAD (coronary artery disease) Hx of CABG Sister Heart disease COPD (chronic obstructive pulmonary disease) Sister CVA (cerebral vascular accident) Surgical History (Updated 05/30/24 @ 15:34 by Kelly Pierce) Hx of surgical procedure History of hemorrhoidectomy (~11/2021) Hx of cardiac cath Status post trigger finger release History of knee replacement procedure of right knee History of arthroscopy of right shoulder History of back surgery History of hand surgery History of elbow surgery History of knee surgery History of hysterectomy Social History household members: none Smoking Status: Former smoker how long ago did patient quit smokin years ago alcohol intake: never substance use type: does not use caffeine: No Review of Systems (Anesthesia) ROS Narrative System reviewed and no additional complaints, except as documented.
[2024-06-07] MEDS: Cefazolin 2 GM in Syringe IV (09:06)
--- NOTE | 2024-06-07 09:35 | DCINST_ITS ---
Discharge Instructions Diet Discharge Diet: No restrictions Activity Discharge Activity: Return to Normal Activity Dressing / Incision Call your doctor if you observe: Fever of 101 or Higher, Inability to urinate and Inability to have a bowel movement Follow Up Care Please Follow Up With: Denisse Leija MD When: The office will call to schedule the next procedure. Test Results: Test results from this visit will be discussed in further detail at your follow- up appointment, if applicable. Discharge Plan Admission Attending Provider: Denisse Leija Primary Care Provider: Rebecca Lewis Instructions Print Language: Citizen Of [place] Discharge Orders/Prescriptions Prescriptions: New oxycodone-acetaminophen 5-325 mg tablet 1 tab PO Q8H PRN (Reason: pain) 3 Days Qty: 10 0RF cephalexin 500 mg capsule 500 mg PO Q12 3 Days Qty: 6 0RF ondansetron 4 mg tablet,disintegrating 4 mg PO Q8H PRN (Reason: nausea and vomiting) Qty: 10 0RF phenazopyridine 200 mg tablet 200 mg PO TID PRN (Reason: pain) Qty: 30 3RF Continued pravastatin 80 mg tablet 80 mg PO DAILY diphenhydramine-acetaminophen [Tylenol PM Extra Strength] 25-500 mg tablet 1 tab PO QHS metformin 500 mg tablet 500 mg PO BID cholecalciferol (vitamin D3) [Vitamin D3] 25 mcg (1,000 unit) Tablet 25 mcg PO DAILY furosemide 20 mg tablet 20 mg PO DAILY melatonin 10 mg capsule 10 mg PO QHS Qty: 7 0RF potassium chloride 10 mEq tablet extended release 10 meq PO DAILY atenolol 50 mg tablet 50 mg PO BID sennosides-docusate sodium [Stool Softener-Stimulant Laxat] 8.6-50 mg Tablet 2 tab PO BID PRN (Reason: Constipation) losartan 100 mg tablet 100 mg PO DAILY amlodipine 2.5 mg tablet 2.5 mg PO DAILY venlafaxine 37.5 mg capsule,extended release 24hr 37.5 mg PO DAILY cyanocobalamin (vitamin B-12) [Vitamin B-12] 100 mcg tablet 100 mcg PO DAILY Gemtesa 75 mg tablet 75 mg PO DAILY Referrals / Follow Up: Rebecca Lewis MD [Primary Care Provider] - Disposition Disposition (needs filled in before D/C Order can be placed): Home, Self Care
--- NOTE | 2024-06-07 09:41 | PCM.OPRPT ---
Operative Report (Standard) Operative Information Date of Procedure: 06/07/24 Pre-Operative Diagnosis: Bilateral renal stones Post-Operative Diagnosis: Same Surgery/Procedure Performed: Cystoscopy with right ureteral stent insertion, right renal extracorporal shockwave lithotripsy neurosurgical nurse practitioner: No Type of Anesthesia: General RN Documented Start/Stop Times: Operation Date: 06/07/24 08:50 Case Time Into Pre-Op 06/07/24 07:21 Out of Pre-Op 06/07/24 09:00 Anesthesia Start 06/07/24 09:05 Into Room 06/07/24 09:05 Procedure Start 06/07/24 09:21 Procedure End 06/07/24 09:55 Anesthesia End 06/07/24 10:01 Into Recovery 06/07/24 10:01 Out of Room 06/07/24 10:01 Out of Recovery 06/07/24 10:41 Into Phase II Recovery 06/07/24 10:42 Procedure Start Time: 09:21 Procedure Stop Time: 09:55 Select all DRAINS/GRAFTS/IMPLANTS that apply: Drains Drain details: 6 [place] by 24 cm JJ stent Estimated Blood Loss: <5cc Specimen collected: No Description of surgery: The patient is a 78-year-old female found to have bilateral renal stones enlarging over the last few years. She now presents for definitive surgical intervention. Informed consent was obtained. The patient was taken to the operating room and placed on the operating room table. Anesthesia monitored the head, neck, airway, IV access and vital signs throughout the case. Once anesthesia was appropriately administered, she was placed into dorsolithotomy position was prepped and draped in usual sterile fashion. The cystoscope was inserted through the urethra under direct visualization into the urinary bladder. The bladder mucosa was visualized in its entirety finding no evidence of mass, erythema, ulceration or foreign body. The right ureteral orifice was gently cannulated with a 0.035 Glidewire and this was advanced into the renal pelvis is seen on fluoroscopic visualization. A 6 [place]an 24 cm JJ stent was placed over the wire with good positioning in the renal pelvis as well as the urinary bladder. At this time the cystoscope was removed. The patient was repositioned on the table. 2000 shocks were applied to the 2 stones identified within the kidney. These were no longer visible at the end of 2000 shocks and the procedure was stopped. The patient was then awakened and taken to the recovery room in good condition. There were no complications during this procedure. Surgical Findings: 2 stones within the right kidney totaling approximately 1.2 cm in size. Some difficulty in identifying all of the left renal stones on fluoroscopy. Will plan to do retrograde pyelogram at the time of left extracorporal shockwave lithotripsy. Complications Complications: No Admit VTE Documentation VTE Present on Admission: Yes VTE Mechan Device Prophylaxis: SCD's VTE Pharm Prophylaxis ordered?: No Reason prophylaxis not ordered: Treatment Not Indicated
--- NOTE | 2024-06-07 10:15 | PCM.POST.ANE ---
Anesthesia: Postop Eval I Current Vital Signs Temperature: 97.5 F Pulse Rate: 66 Blood Pressure: 194/77 Respiratory Rate: 12 Pulse Ox: 98 Oxygen Delivery Method: Nasal Cannula Assessment Airway patent: Yes Spontaneous unlabored respirations: Yes Mental status: Awake nausea: No Vomiting: No Anesthesia Complication: No Fluid Hydration Crystalloid volume administer (ml): 1,000 Total IV fluid infused: 1,000 Progress Note Anesthesia document: Postop Eval 1 completed: Yes
[2024-06-07 10:49] LABS: Bedside Glucose 80 mg/dL (74-106)
--- NOTE | 2024-06-07 16:18 | POSTOPAN2_ITS ---
Anesthesia Postop Eval I Sum Postop Eval Completion status Anesthesia document: Postop Eval 1 completed: Yes Anesthesia Postop Eval I Summary Anesthesia Postop Eval I Summary: Anesthesia Postop Eval I: Assessment Summary Airway patent Yes 06/07/24 10:16 PIERCE AND SHAVE PRESS OPERATOR.HBARR Spontaneous unlabored Yes 06/07/24 10:16 PIERCE AND SHAVE PRESS OPERATOR.HBARR respirations Mental status Awake 06/07/24 10:16 PIERCE AND SHAVE PRESS OPERATOR.HBARR nausea No 06/07/24 10:16 PIERCE AND SHAVE PRESS OPERATOR.HBARR Vomiting No 06/07/24 10:16 PIERCE AND SHAVE PRESS OPERATOR.HBARR Anesthesia Postop Eval I: Fluid Summary Crystalloid volume administer 1,000 06/07/24 10:16 PIERCE AND SHAVE PRESS OPERATOR.HBARR (ml) Colloids volume administered ( ml) Blood Product volume administered (ml) Total IV fluid infused 1,000 06/07/24 10:16 PIERCE AND SHAVE PRESS OPERATOR.HBARR Anesthesia Postop Eval I: Summary Notes Anesthesia Complication No 06/07/24 10:16 PIERCE AND SHAVE PRESS OPERATOR.HBARR Anesthesia Complication Comment: Post-operative progress note Anesthesia: Postop Eval II Evaluation Mental status: Awake and Calm Pain Level: 1 nausea: No Vomiting: No Complications Anesthesia Complication: No
--- NOTE | 2024-06-07 16:18 | PCM.POSTANE2 ---
Anesthesia Postop Eval I Sum Postop Eval Completion status Anesthesia document: Postop Eval 1 completed: Yes Anesthesia Postop Eval I Summary Anesthesia Postop Eval I Summary: Anesthesia Postop Eval I: Assessment Summary Airway patent Yes 06/07/24 10:16 SOFTWARE DEVELOPMENT ANALYST.HBARR Spontaneous unlabored Yes 06/07/24 10:16 SOFTWARE DEVELOPMENT ANALYST.HBARR respirations Mental status Awake 06/07/24 10:16 SOFTWARE DEVELOPMENT ANALYST.HBARR nausea No 06/07/24 10:16 SOFTWARE DEVELOPMENT ANALYST.HBARR Vomiting No 06/07/24 10:16 SOFTWARE DEVELOPMENT ANALYST.HBARR Anesthesia Postop Eval I: Fluid Summary Crystalloid volume administer 1,000 06/07/24 10:16 SOFTWARE DEVELOPMENT ANALYST.HBARR (ml) Colloids volume administered ( ml) Blood Product volume administered (ml) Total IV fluid infused 1,000 06/07/24 10:16 SOFTWARE DEVELOPMENT ANALYST.HBARR Anesthesia Postop Eval I: Summary Notes Anesthesia Complication No 06/07/24 10:16 SOFTWARE DEVELOPMENT ANALYST.HBARR Anesthesia Complication Comment: Post-operative progress note Anesthesia: Postop Eval II Evaluation Mental status: Awake and Calm Pain Level: 1 nausea: No Vomiting: No Complications Anesthesia Complication: No
== END 2024-06-07 12:02 | disposition home or self-care (01) ==
LOC: SDC 07:12 → AC 07:17
PROVIDERS: PCP Internal Medicine; Referring Provider Internal Medicine; Visit Provider Urology
PROC: (CPT 50590; principal; 2024-06-07 08:40)
DX: N20.0 Calculus of kidney (principal); E11.9 Type 2 diabetes mellitus without complications; I10 Essential (primary) hypertension; E78.5 Hyperlipidemia, unspecified; Z87.891 Personal history of nicotine dependence; Z79.899 Other long term (current) drug therapy; Z79.84 Long term (current) use of oral hypoglycemic drugs
CPT/HCPCS: 50590; 52332; 00873; 82962; C2617; J2405

== ENCOUNTER 2024-07-05 10:43 | Day surgery (SDC) | payer MEDICARE, SELFPAY ==
--- NOTE | 2024-06-21 16:00 | PAT.ANE_ITS ---
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 When Was Last Pacemaker Check QUESTION #4 FULL TEXT: You/Your Family Experience fever (hyperthermia) with Anesthesia Last Oral Intake Last Oral intake: Last Oral Intake NPO since Meds taken in AM with sips of water? Meds patient instructed to take am of surgery PONV PONV - truck body repairer: PONV - truck body repairer Female Yes 06/21/24 14:11 HX of Motion Sickness No 06/21/24 14:11 HX of N/V After Surgery No 06/21/24 14:11 Non-Smoker Yes 06/21/24 14:11 Duration of Surgery greater Yes 06/21/24 14:11 than 60 minutes Number of Risk Factors 3 06/21/24 14:11 PONV Score Moderate Risk 06/21/24 14:11 Height & Weight Height & Weight: Anesthesia: Height & Weight Height 5 ft 3 in 06/07/24 07:48 Respiratory Assessment Respiratory Assessment - truck body repairer: Respiratory Tract Infection Hx - truck body repairer Hx Respiratory Tract Infection No 06/21/24 14:11 STOP Sleep Apnea STOP Sleep Apnea - truck body repairer: STOP Sleep Apnea - truck body repairer Hx Hypertension Yes 06/21/24 14:11 Hx Sleep Apnea No 06/21/24 14:11 CPAP No 06/21/24 14:11 BIPAP No 06/21/24 14:11 Do you snore loudly (louder No 06/21/24 14:11 than talking or can be heard Do you often feel tired/ No 06/21/24 14:11 fatigued/ sleepy during daytime? Has anyone observed you stop No 06/21/24 14:11 breathing during sleep? STOP Results Negative 06/21/24 14:11 QUESTION #5 FULL TEXT : Do you snore loudly (louder than talking or can be heard through closed doors)? 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 Specify any problems Hx of Preganancy in last 3 No 06/21/24 14:11 Months Nurse Filling Out Transfusion VCHRISTIN 06/21/24 14:11 & Questions: Date: 06/21/24 06/21/24 14:11 Time: 14:12 06/21/24 14:11 Patient unable to answer at this time (ie. confused, unrespo /Reproduction History /Reproductive History - truck body repairer: /Reproductive Hx- truck body repairer Hx Now No 06/21/24 14:11 Gestational Age (in weeks): EDC: Hx Hx Para Hx Section SAB No 06/21/24 14:11 [facility] Medical History (Updated 06/07/24 @ 09:[address] Denisse Leija MD) Kidney calculus History of Holter monitoring History of stress test History of echocardiogram Wears glasses Walker as ambulation aid Fatty liver Frequent falls Cardiology follow-up encounter History of paroxysmal atrial tachycardia Pulmonary embolism on right Osteoarthritis of right hip Greater trochanteric bursitis of right hip Diabetes Chronic pain Former smoker Meningioma Essential hypertension Dysmetabolic syndrome Peripheral neuropathy GERD (gastroesophageal reflux disease) History of kidney stones Thoracic aortic aneurysm without rupture Hyperlipidemia Nonrheumatic aortic (valve) insufficiency Paroxysmal atrial tachycardia Dyspnea on exertion Home Medications ?Medication ?Instructions ?Recorded ?Last Taken ?Type pravastatin 80 mg tablet 80 mg PO DAILY CHOLESTEROL 0 11/22/17 06/06/24 History metformin 500 mg tablet 500 mg PO BID DIABETES 12/0206/06/24 History cholecalciferol (vitamin D3) 25 25 mcg PO DAILY SUPPLE MENT 05/12/21 06/06/24 His tory mcg (1,000 unit) tablet (Vitamin D3) furosemide 20 mg tablet 20 mg PO DAILY CHF 10/30/22 06/06/24 History melatonin 10 mg capsule 10 mg PO QHS #7 caps 3 06/06/24 Rx potassium chloride 10 mEq 10 meq PO DAILY 02/09/23 History tablet,extended release losartan 100 mg tablet 100 mg PO DAILY 08/11/23 History atenolol 50 mg tablet 50 mg PO BID 09/13/23 History sennosides 8.6 mg-docusate sodium 2 tab PO BID PRN Con stipation 09/13/23 06/06/24 History 50 mg tablet (Stool Softener-Stimulant Laxative) diphenhydramine 25 1 tab PO QHS sleep 03/12/24 06/06/24 History mg-acetaminophen 500 mg tablet (Tylenol PM Extra Strength) amlodipine 2.5 mg tablet 2.5 mg PO DAILY 05/30/24 History cyanocobalamin (vitamin B-12) 100 100 mcg PO DAILY 04/1106/06/24 History mcg tablet (Vitamin B-12) venlafaxine 37.5 mg 37.5 mg PO DAILY 05/30/24 History capsule,extended release 24 hr vibegron 75 mg tablet (Gemtesa) 75 mg PO DAILY 5 06/06/24 History ondansetron 4 mg disintegrating 4 mg PO Q8H PRN nausea and 06/07/24 Unknown Rx tablet vomiting #10 tabs oxycodone-acetaminophen 5 mg-325 1 tab PO Q8H PRN pain 3 days #10 06/07/24 Unknown Rx mg tablet tabs phenazopyridine 200 mg tablet 200 mg PO TID PRN pain # 30 tabs 06/07/24 Unknown Rx Allergy/AdvReac Type Severity Reaction Status Date / Time lisinopril AdvReac Severe Intolerence, Verified 06/21/24 14:04 cough nalbuphine HCl (From Nubain) AdvReac Nausea/Vom/ Verified 06/21/24 14:04 Diarrhea risperidone (From Risperdal) AdvReac PSYCHOSIS Verified 06/21/24 14:04 Family History Father CAD (coronary artery disease) Myocardial infarction, Onset Age: 51 Brother Myocardial infarction, Onset Age: 51 Brother CAD (coronary artery disease) Hx of CABG Sister Heart disease COPD (chronic obstructive pulmonary disease) Sister CVA (cerebral vascular accident) Surgical History (Updated 06/21/24 @ 14:10 by Kelly Pierce) History of cystoscopy Hx of surgical procedure History of hemorrhoidectomy (~11/2021) Hx of cardiac cath Status post trigger finger release History of knee replacement procedure of right knee History of arthroscopy of right shoulder History of back surgery History of hand surgery History of elbow surgery History of knee surgery History of hysterectomy Social History household members: none Smoking Status: Former smoker how long ago did patient quit smokin years ago alcohol intake: never substance use type: does not use caffeine: No Audit: Pertinent Findings Pertinent Findings EKG Perinent findings: September 13, 2023. Sinus bradycardia at 58 bpm with first- degree AV block. Left ventricular hypertrophy. Cannot rule out septal infarct, age undetermined. Stress test pertinent findings: May 25, 2021. Left ventricular ejection fraction is 71%. No ischemia or infarct noted on nuclear test. Echo (EF%) pertinent findings: October 30, 2022. Ejection fraction 70%. Right ventricular systolic pressure is 25 mmHg. Mild aortic stenosis noted. Consult pertinent findings: March 12, 2024. Roof MILIEU TECHNICIAN-C. 1. Thoracic aortic aneurysm without rupture-most recent chest CTA from July 2022 showed stable ascending thoracic aorta. Maintain good blood pressure and heart rate control. 2. Nonrheumatic aortic insufficiency. Echo in November 07 showed ejection fraction 70%. Mild aortic valve stenosis. This appears stable. Continue medical therapy. 3. Paroxysmal atrial tachycardia?stable. 4. Hypertension-elevated in office. Patient states normal at home. Patient will bring in her home cuff to have correlated with office cuff. Additional pertinent findings: Holter monitor. January 20, 2024. Predominantly normal sinus rhythm. Some SVT. Less than 1% of SVE's, SVE couplets, or VE's. Recommendation Anesthesia Recommendation Anesthesia recommendation: OPTIMIZED for anesthesia (Avoid tachycardia and hypotension secondary to mild aortic stenosis.)
[2024-07-05] VITALS (13 sets, daily range): BP systolic 128–215; BP diastolic 62–99; PULSE 56–72; RESP 16–18; TEMP 36.1–36.9; O2SAT 93–99; BMI 32.4
[2024-07-05] MEDS: 0.9% Normal Saline (1000mL) 1,000 ML 15 ML IV (11:51)
--- NOTE | 2024-07-05 12:10 | CALC_PTH ---
PATIENT: TUESDAYMARZENA I LOC: [facility] U#:[id number] AGE/SX: 78/F ROOM: RE07/05/[address]: Dr. Denisse Leija MD : 1945 BED: DIS: 07/05/2024 SPEC #: [id number] RECD: 07/06/24 10:01 STATUS: MILAN DOBBINS #: [id number] [place]: 07/05/24 12:[address]: Denisse Leija DEPT: SURGICAL PATHOLOGY RECD BY: Tomas Paige ENTERED: 07/06/24 10:02 SP TYPE: Calculi OTHR DR: Dr. Rebecca Lewis MD Tissues: A - CALCULI Procedures: Surgery Specimen Level I HEADER OPERATION: Cysto, left ESWL, left ureteral stent PRE-OP DIAGNOSIS: Left renal stones TISSUE SUBMITTED: Ureteral calculi GROSS DIAGNOSIS Renal calculi, gross diagnosis only: 3 renal stones, gross diagnosis only GROSS DESCRIPTION A. Received fresh is one container labeled with the patient's name and designated Renal calculi. The specimen consists of three small stones each measuring 0.1 x 0.1 x 0.1cm (gross only). 07/06/2024 CPT:66029
--- NOTE | 2024-07-05 12:46 | PCM.PRE.AN2 ---
ASA Classification* ASA Classification ASA Classification: 3 Assessment & Plan Anesthesia* Anesthesia Assessment Anesthesia Assessment: Discussed sedation and/or anesthesia options, risks, benefits, and alternatives with patient/parents/legal guardian/POA. Questions invited. The patient/parents/legal guardian/POA seems to understand and agrees to proceed with anesthesia plan. Reviewed the physical assessment, medical history, allergy history and patient home medications list prior to surgery/procedure/anesthetic and documented any changes. Performed airway and anesthesia risk assessments. Anesthesia Type Anesthesia Type: General History Source History Obtained from:: Patient and Chart Anesthesia Focused Assessment* Temperature: 98.4 F Pulse Rate: 56 Blood Pressure: 145/63 Respiratory Rate: 18 Pulse Ox: 96 Oxygen Delivery Method: Room Air Airway Assessment Mouth opens: >3 cm Mallampati Score: I Teeth Condition: Dentures (Patient has full upper denture.) and Missing (Patient is edentulous on the bottom.) Neck Range of motion (ROM): Limited ROM (Somewhat decreased extension) Focused Labs Anesthesia Preop lab: CBC WBC 8.4 K/mm3 (4.4-11.0) 05/31/24 12:50 05/31/24 RBC 4.38 M/mm3 (4.2-5.4) 05/31/24 12:50 05/31/24 Hgb 13.3 g/dL (12.0-15.0) 05/31/24 12:50 05/31/24 Hct 41.5 % (37-47) 05/31/24 12:50 05/31/24 Plt Count 198 K/mm3 (150-450) 05/31/24 12:50 05/31/24 CHEMISTRY Potassium 4.0 mmol/L (3.5-5.1) 05/31/24 13:15 05/31/24 Sodium 140 mmol/L (136-145) 05/31/24 13:15 05/31/24 Magnesium 2.5 mg/dL (1.6-2.6) 11/02/22 05:54 11/02/22 Phosphorus 3.3 mg/dL (2.5-4.9) 11/02/22 05:54 11/02/22 BUN 18 mg/dL (7-18) 05/31/24 13:15 05/31/24 Creatinine 0.98 mg/dL (0.55-1.02) 05/31/24 13:15 05/31/24 Glucose 106 mg/dL (74-106) 05/31/24 13:15 05/31/24 POC Glucose 80 mg/dL (74-106) 06/07/24 07:52 06/07/24 COAG PT 12.2 SECONDS (11.7-14.9) 05/14/21 10:55 05/14/21 Pre-Assessment Diagnosis/Proposed Procedure Planned Operative Procedure(s): (L) ESWL,Cystocopy Insertion Stent Anesthesia History 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 When Was Last Pacemaker Check QUESTION #4 FULL TEXT: You/Your Family Experience fever (hyperthermia) with Anesthesia Last Oral Intake Last Oral intake: Last Oral Intake NPO since 08:45 07/05/24 11:12 Meds taken in AM with sips of Yes 07/05/24 11:12 water? 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 advertising analyst Female Yes 06/21/24 14:11 HX of Motion Sickness No 06/21/24 14:11 HX of N/V After Surgery No 06/21/24 14:11 Non-Smoker Yes 06/21/24 14:11 Duration of Surgery greater Yes 06/21/24 14:11 than 60 minutes Number of Risk Factors 3 06/21/24 14:11 PONV Score Moderate Risk 06/21/24 14:11 Height & Weight Height & Weight: Anesthesia: Height & Weight Height 5 ft 3 in 07/05/24 11:12 Weight: 83 kg 07/05/24 11:12 Body Mass Index (BMI) 32.4 07/05/24 11:12 Respiratory Assessment Respiratory Assessment - online advertising analyst: Respiratory Tract Infection Hx - online advertising analyst Hx Respiratory Tract Infection No 06/21/24 14:11 STOP Sleep Apnea STOP Sleep Apnea - online advertising analyst: STOP Sleep Apnea - online advertising analyst Hx Hypertension Yes 06/21/24 14:11 Hx Sleep Apnea No 06/21/24 14:11 CPAP No 06/21/24 14:11 BIPAP No 06/21/24 14:11 Do you snore loudly (louder No 06/21/24 14:11 than talking or can be heard Do you often feel tired/ No 06/21/24 14:11 fatigued/ sleepy during daytime? Has anyone observed you stop No 06/21/24 14:11 breathing during sleep? STOP Results Negative 06/21/24 14:11 QUESTION #5 FULL TEXT : Do you snore loudly (louder than talking or can be heard through closed doors)? 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 Specify any problems Hx of Preganancy in last 3 No 06/21/24 14:11 Months Nurse Filling Out Transfusion VCHRISTIN 06/21/24 14:11 & Questions: Date: 06/21/24 06/21/24 14:11 Time: 14:12 06/21/24 14:11 Patient unable to answer at this time (ie. confused, unrespo /Reproduction History /Reproductive History - online advertising analyst: /Reproductive Hx- online advertising analyst Hx Now No 06/21/24 14:11 Gestational Age (in weeks): EDC: Hx Hx Para Hx Section SAB No 06/21/24 14:11 Active Medications Active Medications: Current Medications Generic Name Dose Route Start Last Admin Trade Name Freq PRN Reason Stop Dose Admin Sodium Chloride 1,000 mls @ 15 mls/hr 07/05/24 11:55 07/05/24 11:51 IV 15 mls/hr .Q48H MARTINEZ Administration PFSH Medical History Kidney calculus History of Holter monitoring History of stress test History of echocardiogram Wears glasses Walker as ambulation aid Fatty liver Frequent falls Cardiology follow-up encounter History of paroxysmal atrial tachycardia Pulmonary embolism on right Osteoarthritis of right hip Greater trochanteric bursitis of right hip Diabetes Chronic pain Former smoker Meningioma Essential hypertension Dysmetabolic syndrome Peripheral neuropathy GERD (gastroesophageal reflux disease) History of kidney stones Thoracic aortic aneurysm without rupture Hyperlipidemia Nonrheumatic aortic (valve) insufficiency Paroxysmal atrial tachycardia Dyspnea on exertion Home Medications ?Medication ?Instructions ?Recorded ?Last Taken ?Type pravastatin 80 mg tablet 80 mg PO DAILY CHOLESTEROL 11/22/17 06/06/24 History metformin 500 mg tablet 500 mg PO BID DIABETES 12/02/20 06/06/24 History cholecalciferol (vitamin D3) 25 25 mcg PO DAILY SUPPLEMENT 05/12/21 06/06/24 History mcg (1,000 unit) tablet (Vitamin D3) furosemide 20 mg tablet 20 mg PO DAILY CHF 10/30/22 06/06/24 History melatonin 10 mg capsule 10 mg PO QHS #7 caps 11/03/22 06/06/24 Rx potassium chloride 10 mEq 10 meq PO DAILY 02/09/23 06/06/24 History tablet,extended release losartan 100 mg tablet 100 mg PO DAILY 08/11/23 06/06/24 History atenolol 50 mg tablet 50 mg PO BID 09/13/23 06/07/24 History sennosides 8.6 mg-docusate sodium 2 tab PO BID PRN Constipation 09/13/23 06/06/24 History 50 mg tablet (Stool Softener-Stimulant Laxative) diphenhydramine 25 1 tab PO QHS sleep 03/12/24 06/06/24 History mg-acetaminophen 500 mg tablet (Tylenol PM Extra Strength) amlodipine 2.5 mg tablet 2.5 mg PO DAILY 05/30/24 06/06/24 History cyanocobalamin (vitamin B-12) 100 100 mcg PO DAILY 05/30/24 06/06/24 History mcg tablet (Vitamin B-12) venlafaxine 37.5 mg 37.5 mg PO DAILY 05/30/24 06/06/24 History capsule,extended release 24 hr vibegron 75 mg tablet (Gemtesa) 75 mg PO DAILY 05/30/24 06/06/24 History ondansetron 4 mg disintegrating 4 mg PO Q8H PRN nausea and 06/07/24 Unknown Rx tablet vomiting #10 tabs oxycodone-acetaminophen 5 mg-325 1 tab PO Q8H PRN pain 3 days #10 06/07/24 Unknown Rx mg tablet tabs phenazopyridine 200 mg tablet 200 mg PO TID PRN pain #30 tabs 06/07/24 Unknown Rx Allergy/AdvReac Type Severity Reaction Status Date / Time lisinopril AdvReac Severe Intolerence, Verified 07/05/24 11:10 cough nalbuphine HCl (From Nubain) AdvReac Nausea/Vom/ Verified 07/05/24 11:10 Diarrhea risperidone (From Risperdal) AdvReac PSYCHOSIS Verified 07/05/24 11:10 Family History Father CAD (coronary artery disease) Myocardial infarction, Onset Age: 51 Brother Myocardial infarction, Onset Age: 51 Brother CAD (coronary artery disease) Hx of CABG Sister Heart disease COPD (chronic obstructive pulmonary disease) Sister CVA (cerebral vascular accident) Surgical History History of cystoscopy Hx of surgical procedure History of hemorrhoidectomy (~11/2021) Hx of cardiac cath Status post trigger finger release History of knee replacement procedure of right knee History of arthroscopy of right shoulder History of back surgery History of hand surgery History of elbow surgery History of knee surgery History of hysterectomy Social History household members: none Smoking Status: Former smoker how long ago did patient quit smokin years ago alcohol intake: never substance use type: does not use caffeine: No Review of Systems (Anesthesia) ROS Narrative System reviewed and no additional complaints, except as documented.
--- NOTE | 2024-07-05 12:54 | PCM.POST.ANE ---
Anesthesia: Postop Eval I Current Vital Signs Temperature: 97.8 F Pulse Rate: 78 Blood Pressure: 121/99 Respiratory Rate: 16 Pulse Ox: 100 Oxygen Delivery Method: Room Air Assessment Airway patent: Yes Spontaneous unlabored respirations: Yes Mental status: Awake and Calm nausea: No Vomiting: No Anesthesia Complication: No Fluid Hydration Crystalloid volume administer (ml): 600 Total IV fluid infused: 600 Progress Note Anesthesia document: Postop Eval 1 completed: Yes
--- NOTE | 2024-07-05 13:11 | EX.PCM.DISCH ---
Discharge Instructions Diet Discharge Diet: No restrictions Activity Discharge Activity: Return to Normal Activity Dressing / Incision Call your doctor if you observe: Fever of 101 or Higher, Inability to urinate and Inability to have a bowel movement Follow Up Care Please Follow Up With: Denisse Leija MD When: KUB and possible cystoscopy with stent removal in 2-3 weeks, the office will call to schedule Test Results: Test results from this visit will be discussed in further detail at your follow-up appointment, if applicable. Discharge Plan Admission Attending Provider: Denisse Leija Primary Care Provider: Rebecca Lewis Instructions Print Language: Tunisian Discharge Orders/Prescriptions Prescriptions: New oxycodone-acetaminophen 5-325 mg tablet 1 tab PO Q8H PRN (Reason: pain) 3 Days Qty: 10 0RF cephalexin 500 mg capsule 500 mg PO Q12 3 Days Qty: 6 0RF Continued pravastatin 80 mg tablet 80 mg PO DAILY diphenhydramine-acetaminophen [Tylenol PM Extra Strength] 25-500 mg tablet 1 tab PO QHS metformin 500 mg tablet 500 mg PO BID cholecalciferol (vitamin D3) [Vitamin D3] 25 mcg (1,000 unit) Tablet 25 mcg PO DAILY furosemide 20 mg tablet 20 mg PO DAILY melatonin 10 mg capsule 10 mg PO QHS Qty: 7 0RF potassium chloride 10 mEq tablet extended release 10 meq PO DAILY atenolol 50 mg tablet 50 mg PO BID sennosides-docusate sodium [Stool Softener-Stimulant Laxat] 8.6-50 mg Tablet 2 tab PO BID PRN (Reason: Constipation) losartan 100 mg tablet 100 mg PO DAILY amlodipine 2.5 mg tablet 2.5 mg PO DAILY venlafaxine 37.5 mg capsule,extended release 24hr 37.5 mg PO DAILY cyanocobalamin (vitamin B-12) [Vitamin B-12] 100 mcg tablet 100 mcg PO DAILY Gemtesa 75 mg tablet 75 mg PO DAILY oxycodone-acetaminophen 5-325 mg tablet 1 tab PO Q8H PRN (Reason: pain) 3 Days Qty: 10 0RF ondansetron 4 mg tablet,disintegrating 4 mg PO Q8H PRN (Reason: nausea and vomiting) Qty: 10 0RF phenazopyridine 200 mg tablet 200 mg PO TID PRN (Reason: pain) Qty: 30 3RF Referrals / Follow Up: Rebecca Lewis MD [Primary Care Provider] - Disposition Disposition (needs filled in before D/C Order can be placed): Home, Self Care
--- NOTE | 2024-07-05 13:15 | OP.PCM_ITS ---
Operative Report (Standard) Operative Information Date of Procedure: 07/05/24 Pre-Operative Diagnosis: left renal stone Post-Operative Diagnosis: same Surgery/Procedure Performed: cystoscopy with left retrograde pyelogram, right ureteral stent removal, left ureteral stent insertion with left renal extracorporeal shockwave lithotripsy technical training coordinator: No Type of Anesthesia: General RN Documented Start/Stop Times: Operation Date: 07/05/24 12:10 Case Time Into Pre-Op 07/05/24 11:00 Out of Pre-Op 07/05/24 12:19 Select all DRAINS/GRAFTS/IMPLANTS that apply: Drains Drain details: 6 Wol[place] by 24 cm JJ stent Estimated Blood Loss: <5cc Specimen collected: No Complications Complications: No Admit VTE Documentation VTE Present on Admission: Yes VTE Mechan Device Prophylaxis: SCD's VTE Pharm Prophylaxis ordered?: No
--- NOTE | 2024-07-05 13:15 | PCM.OPRPT ---
Operative Report (Standard) Operative Information Date of Procedure: 07/05/24 Pre-Operative Diagnosis: left renal stone Post-Operative Diagnosis: same Surgery/Procedure Performed: cystoscopy with left retrograde pyelogram, right ureteral stent removal, left ureteroscopy, thulium laser lithotripsy, stone basket extraction, left ureteral stent insertion storeperson: No Type of Anesthesia: General RN Documented Start/Stop Times: Operation Date: 07/05/24 12:10 Case Time Into Pre-Op 07/05/24 11:00 Out of Pre-Op 07/05/24 12:19 Anesthesia Start 07/05/24 13:16 Into Room 07/05/24 13:16 Procedure Start 07/05/24 13:39 Procedure End 07/05/24 14:24 Anesthesia End 07/05/24 14:30 Out of Room 07/05/24 14:30 Into Recovery 07/05/24 14:32 Procedure Start Time: 13:39 Procedure Stop Time: 14:24 Select all DRAINS/GRAFTS/IMPLANTS that apply: Drains Drain details: 6 English by 24 cm JJ stent Estimated Blood Loss: <5cc Specimen collected: Yes Description of specimen(s) removed: Left ureteral stone fragments Description of surgery: The patient is a 78-year-old female with bilateral renal stones who presents for cystoscopy with left ureteral stent insertion and left extracorporeal shockwave lithotripsy with possible right ureteral stent removal. She previously underwent a right shockwave lithotripsy for a kidney stone. Informed consent was obtained. She was taken to the operating room and placed on the operating room table. Anesthesia monitored the head, neck, airway, IV access and vital signs throughout the case. Once anesthesia was appropriately ministered, she was placed into dorsolithotomy position was prepped and draped in usual sterile fashion. She was evaluated with fluoroscopy revealing no evidence of stones in the right kidney or along the ureteral stent. On the left side no kidney stones were identified. The cystoscope was inserted through the urethra under direct visualization into the urinary bladder. Using grasping forceps the right ureteral stent was removed without difficulty. An 8 English cone-tip catheter was then used to gently cannulate the left ureteral orifice and contrast was injected in retrograde fashion. No contrast was touching the kidney at this time and the fluoroscopy was moved towards the bladder. In the distal left ureter a large stone was identified. At this time a 0.035 Glidewire was passed alongside the stone and into the renal pelvis. A semirigid ureteroscope was then used to cannulate the ureter and was advanced without difficulty to the level of the stone which was very large. Using the thulium laser, the stone was broken into small pieces very slowly as the ureter was quite edematous and the stone appeared to be almost embedded into the ureter. Several pieces of the stone were removed with a stone basket. Large pieces remained. During the middle of lasering the stone, the Glidewire slipped out and access was lost. A retrograde pyelogram was performed through the ureteroscope revealing no evidence of ureteral extravasation or injury. The wire did then advanced into the renal pelvis with some manipulation as the ureter was quite dilated and tortuous. At this time the decision was made to place a ureteral stent secondary to the edema of the ureter where the stone was located. Over the wire, a 6 English 24 cm JJ stent was placed with good positioning in the renal pelvis and urinary bladder. The bladder was then emptied and the cystoscope was removed. She was awakened and taken to the recovery room in good condition. There were no complications during this procedure. Surgical Findings: Left renal stone dropped into the distal left ureter and was likely present for a few weeks at minimum in the ureter causing significant left hydroureteronephrosis Complications Complications: No Admit VTE Documentation VTE Present on Admission: Yes VTE Mechan Device Prophylaxis: SCD's VTE Pharm Prophylaxis ordered?: No
[2024-07-05] MEDS: Cefazolin 2 GM in Syringe IV (13:20)
[2024-07-05 14:31] LABS: Bedside Glucose 86 mg/dL (74-106)
--- NOTE | 2024-07-05 14:46 | PCM.POST.ANE ---
Anesthesia: Postop Eval I Current Vital Signs Temperature: 97.5 F Pulse Rate: 66 Blood Pressure: 188/71 Respiratory Rate: 16 Pulse Ox: 97 Oxygen Delivery Method: Room Air Assessment Airway patent: Yes Spontaneous unlabored respirations: Yes Mental status: Awake and Calm nausea: No Vomiting: No Anesthesia Complication: No Fluid Hydration Crystalloid volume administer (ml): 800 Total IV fluid infused: 800 Progress Note Anesthesia document: Postop Eval 1 completed: Yes
--- NOTE | 2024-07-05 16:32 | POSTOPAN2_ITS ---
Anesthesia Postop Eval I Sum Postop Eval Completion status Anesthesia document: Postop Eval 1 completed: Yes Anesthesia Postop Eval I Summary Anesthesia Postop Eval I Summary: Anesthesia Postop Eval I: Assessment Summary Airway patent Yes 07/05/24 14:47 PORTER USED CAR LOT.[email or web address] Spontaneous unlabored Yes 07/05/24 14:47 PORTER USED CAR LOT.[email or web address] respirations Mental status Awake,Calm 07/05/24 14:47 PORTER USED CAR LOT.[email or web address] nausea No 07/05/24 14:47 PORTER USED CAR LOT.[email or web address] Vomiting No 07/05/24 14:47 PORTER USED CAR LOT.[email or web address] Anesthesia Postop Eval I: Fluid Summary Crystalloid volume administer 800 07/05/24 14:47 PORTER USED CAR LOT.[email or web address] (ml) Colloids volume administered ( ml) Blood Product volume administered (ml) Total IV fluid infused 800 07/05/24 14:47 PORTER USED CAR LOT.[email or web address] Anesthesia Postop Eval I: Summary Notes Anesthesia Complication No 07/05/24 14:47 PORTER USED CAR LOT.[email or web address] Anesthesia Complication Comment: Post-operative progress note Anesthesia: Postop Eval II Evaluation Mental status: Awake Pain Level: 1 nausea: No Vomiting: No
--- NOTE | 2024-07-05 16:32 | PCM.POSTANE2 ---
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 [email or web address].[email or web address] Spontaneous unlabored Yes 07/05/24 14:47 MATHEMATICS IMPROVEMENT TEACHER.[email or web address] respirations Mental status Awake,Calm 07/05/24 14:47 MATHEMATICS IMPROVEMENT TEACHER.[email or web address] nausea No 07/05/24 14:47 MATHEMATICS IMPROVEMENT TEACHER.[email or web address] Vomiting No 07/05/24 14:47 MATHEMATICS IMPROVEMENT TEACHER.[email or web address] Anesthesia Postop Eval I: Fluid Summary Crystalloid volume administer 800 07/05/24 14:47 MATHEMATICS IMPROVEMENT [email or web address].[email or web address] (ml) Colloids volume administered ( ml) Blood Product volume administered (ml) Total IV fluid infused 800 07/05/24 14:47 MATHEMATICS IMPROVEMENT TEACHER.[email or web address] Anesthesia Postop Eval I: Summary Notes Anesthesia Complication No 07/05/24 14:47 MATHEMATICS IMPROVEMENT TEACHER.[email or web address] Anesthesia Complication Comment: Post-operative progress note Anesthesia: Postop Eval II Evaluation Mental status: Awake Pain Level: 1 nausea: No Vomiting: No
== END 2024-07-05 16:47 | disposition home or self-care (01) ==
LOC: SDC 10:46 → AC 10:50
PROVIDERS: PCP Internal Medicine; Referring Provider Urology; Visit Provider Urology
PROC: (CPT 50590; principal; 2024-07-05 12:00)
DX: N13.2 Hydronephrosis with renal and ureteral calculous obstruction (principal); E11.9 Type 2 diabetes mellitus without complications; I10 Essential (primary) hypertension; Z79.84 Long term (current) use of oral hypoglycemic drugs; Z87.891 Personal history of nicotine dependence; K21.9 Gastro-esophageal reflux disease without esophagitis; Z79.899 Other long term (current) drug therapy
CPT/HCPCS: 52356; 00873; 82360; 82962; 88300; C1769; A4216; C2617; J2405

== ENCOUNTER 2024-07-19 09:03 | Day surgery (SDC) | payer MEDICARE, SELFPAY ==
--- NOTE | 2024-07-16 10:43 | PAT.ANESEVAL ---
Pre-Assessment Diagnosis/Proposed Procedure Planned Operative Procedure(s): (L) Cysto, Left ureteroscopy, laser litho, stone basket extraction, stent change Anesthesia History Anesthesia History - supervisor plastics: Anesthesia History - supervisor plastics Hx Hospitalization Yes: FREQ FALLS 07/16/24 08:27 Any Problems With Anesthesia No 07/16/24 08:27 Cholinesterase deficiency No 07/16/24 08:27 You/Your Family Experience No 07/16/24 08:27 fever (hyperthermia) with Relationship Recent Exposure to Contagious No 07/05/24 11:12 Disease Does patient have nerve No 07/16/24 08:27 stimulator Patient instructed to have device shut off --Does patient have Pacemaker or ICD? When Was Last Pacemaker Check QUESTION #4 FULL TEXT: You/Your Family Experience fever (hyperthermia) with Anesthesia Last Oral Intake Last Oral intake: Last Oral Intake NPO since Meds taken in AM with sips of water? Meds patient instructed to take am of surgery PONV PONV - supervisor plastics: PONV - supervisor plastics Female Yes 07/16/24 08:27 HX of Motion Sickness Yes 07/16/24 08:27 HX of N/V After Surgery No 07/16/24 08:27 Non-Smoker Yes 07/16/24 08:27 Duration of Surgery greater No 07/16/24 08:27 than 60 minutes Number of Risk Factors 3 07/16/24 08:27 PONV Score Moderate Risk 07/16/24 08:27 Height & Weight Height & Weight: Anesthesia: Height & Weight Height 5 ft 3 in 07/05/24 11:12 Respiratory Assessment Respiratory Assessment - supervisor plastics: Respiratory Tract Infection Hx - supervisor plastics Hx Respiratory Tract Infection No 07/16/24 08:27 STOP Sleep Apnea STOP Sleep Apnea - supervisor plastics: STOP Sleep Apnea - supervisor plastics Hx Hypertension Yes: per pt, controlled on 07/16/24 08:27 meds Hx Sleep Apnea No 07/16/24 08:27 CPAP No 07/16/24 08:27 BIPAP No 07/16/24 08:27 Do you snore loudly (louder No 07/16/24 08:27 than talking or can be heard Do you often feel tired/ No 07/16/24 08:27 fatigued/ sleepy during daytime? Has anyone observed you stop No 07/16/24 08:27 breathing during sleep? STOP Results Negative 07/16/24 08:27 QUESTION #5 FULL TEXT : Do you snore loudly (louder than talking or can be heard through closed doors)? 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 Specify any problems Hx of Preganancy in last 3 No 07/16/24 08:27 Months Nurse Filling Out Transfusion DUY 07/16/24 08:27 & Questions: Date: 07/16/24 07/16/24 08:27 Time: 08:30 07/16/24 08:27 Patient unable to answer at this time (ie. confused, unrespo /Reproduction History /Reproductive History - supervisor plastics: /Reproductive Hx- supervisor plastics Hx Now Gestational Age (in weeks): EDC: Hx Hx Para Hx Section SAB No 07/16/24 08:27 PFS Medical History (Updated 07/16/24 @ 08:38 by Taylor Singletary) Wears dentures Depression Hematoma Arthritis Bladder disease Restless legs Leg cramps History of edema Kidney calculus History of Holter monitoring History of stress test History of echocardiogram Wears glasses Walker as ambulation aid Fatty liver Frequent falls Cardiology follow-up encounter History of paroxysmal atrial tachycardia Pulmonary embolism on right Osteoarthritis of right hip Greater trochanteric bursitis of right hip Chronic pain Former smoker Meningioma Essential hypertension Dysmetabolic syndrome Peripheral neuropathy History of kidney stones Thoracic aortic aneurysm without rupture Hyperlipidemia Nonrheumatic aortic (valve) insufficiency Paroxysmal atrial tachycardia Dyspnea on exertion Home Medications ?Medication ?Instructions ?Recorded ?Last Taken ?Type pravastatin 80 mg tablet 80 mg PO DAILY CHOLESTEROL 11/22/17 06/06/24 History cholecalciferol (vitamin D3) 25 25 mcg PO DAILY SUPPLEMENT 05/12/21 06/06/24 History mcg (1,000 unit) tablet (Vitamin D3) furosemide 20 mg tablet 20 mg PO DAILY CHF 10/30/22 06/06/24 History melatonin 10 mg capsule 10 mg PO QHS #7 caps 11/03/22 06/06/24 Rx losartan 100 mg tablet 100 mg PO DAILY 08/11/23 06/06/24 History atenolol 50 mg tablet 50 mg PO BID 09/13/23 06/07/24 History sennosides 8.6 mg-docusate sodium 2 tab PO BID PRN Constipation 09/13/23 06/06/24 History 50 mg tablet (Stool Softener-Stimulant Laxative) diphenhydramine 25 1 tab PO QHS sleep 03/12/24 06/06/24 History mg-acetaminophen 500 mg tablet (Tylenol PM Extra Strength) amlodipine 2.5 mg tablet 2.5 mg PO DAILY 05/30/24 06/06/24 History cyanocobalamin (vitamin B-12) 100 100 mcg PO DAILY 05/30/24 06/06/24 History mcg tablet (Vitamin B-12) venlafaxine 37.5 mg 37.5 mg PO DAILY 05/30/24 06/06/24 History capsule,extended release 24 hr vibegron 75 mg tablet (Gemtesa) 75 mg PO DAILY 05/30/24 06/06/24 History ondansetron 4 mg disintegrating 4 mg PO Q8H PRN nausea and 06/07/24 Unknown Rx tablet vomiting #10 tabs phenazopyridine 200 mg tablet 200 mg PO TID PRN pain #30 tabs 06/07/24 Unknown Rx oxycodone-acetaminophen 5 mg-325 1 tab PO Q8H PRN pain 3 days #10 07/05/24 Unknown Rx mg tablet tabs Allergy/AdvReac Type Severity Reaction Status Date / Time lisinopril AdvReac Severe Intolerence, Verified 07/16/24 08:21 cough nalbuphine HCl (From Nubain) AdvReac Nausea/Vom/ Verified 07/16/24 08:21 Diarrhea risperidone (From Risperdal) AdvReac PSYCHOSIS Verified 07/16/24 08:21 Family History Father CAD (coronary artery disease) Myocardial infarction, Onset Age: 51 Brother Myocardial infarction, Onset Age: 51 Brother CAD (coronary artery disease) Hx of CABG Sister Heart disease COPD (chronic obstructive pulmonary disease) Sister CVA (cerebral vascular accident) Surgical History (Updated 07/16/24 @ 08:27 by Taylor Singletary) History of cystoscopy Hx of surgical procedure History of hemorrhoidectomy (~11/2021) Hx of cardiac cath Status post trigger finger release History of knee replacement procedure of right knee History of arthroscopy of right shoulder History of back surgery History of hand surgery History of elbow surgery History of knee surgery History of hysterectomy Social History household members: none Smoking Status: Former smoker how long ago did patient quit smokin years ago alcohol intake: never substance use type: does not use caffeine: No Audit: Pertinent Findings Pertinent Findings EKG Perinent findings: 09/13/2023. Sinus bradycardia 58 bpm. First-degree AV block. LVH with repull abnormality. Cannot rule out septal infarct, age undetermined. Stress test pertinent findings: 05/25/2021. Perfusion within normal limits. EF 71% Echo (EF%) pertinent findings: 10/30/2022 EF 70% PA pressure 25 Consult pertinent findings: Cardiology 03/12/2024. Thoracic aortic aneurysm without rupture. CTA from July 2022 shows stable thoracic aorta paroxysmal atrial tachycardia chronic stable hypertension chronic stable. Aortic valve insufficiency. Echo October 2022 shows mild aortic valve stenosis. Mean gradient 13 mmHg. Mild insufficiency. Stable Recommendation Anesthesia Recommendation Anesthesia recommendation: OPTIMIZED for anesthesia
[2024-07-19] VITALS (12 sets, daily range): BP systolic 157–199; BP diastolic 67–98; PULSE 54–65; RESP 16–18; TEMP 36.2–36.8; O2SAT 93–98; BMI 33.5
[2024-07-19] MEDS: 0.9% Normal Saline (1000mL) 1,000 ML 15 ML IV (09:42)
--- NOTE | 2024-07-19 09:52 | PRE.ANES_ITS ---
ASA Classification* ASA Classification ASA Classification: 3 Assessment & Plan Anesthesia* Anesthesia Assessment Anesthesia Assessment: Discussed sedation and/or anesthesia options, risks, benefits, and alternatives with patient/parents/legal guardian/POA. Questions invited. The patient/parents/legal guardian/POA seems to understand and agrees to proceed with anesthesia plan. Reviewed the physical assessment, medical history, allergy history and patient home medications list prior to surgery/procedure/anesthetic and documented any changes. Performed airway and anesthesia risk assessments. Anesthesia Type Anesthesia Type: General History Source History Obtained from:: Patient and Chart Anesthesia Focused Assessment* Temperature: 97.7 F Pulse Rate: 55 Blood Pressure: 157/74 Respiratory Rate: 18 Pulse Ox: 98 Oxygen Delivery Method: Room Air Airway Assessment Mouth opens: >3 cm Mallampati Score: III Teeth Condition: Dentures (Patient has full upper dentures) and Missing (Patient is edentulous.) Neck Range of motion (ROM): Limited ROM (Somewhat decreased extension) Focused Labs Anesthesia Preop lab: CBC WBC 8.4 K/mm3 (4.4-11.0) 05/31/24 12:50 05/31/24 RBC 4.38 M/mm3 (4.2-5.4) 05/31/24 12:50 05/31/24 Hgb 13.3 g/dL (12.0-15.0) 05/31/24 12:50 05/31/24 Hct 41.5 % (37-47) 05/31/24 12:50 05/31/24 Plt Count 198 K/mm3 (150-450) 05/31/24 12:50 05/31/24 CHEMISTRY Potassium 4.0 mmol/L (3.5-5.1) 05/31/24 13:15 05/31/24 Sodium 140 mmol/L (136-145) 05/31/24 13:15 05/31/24 Magnesium 2.5 mg/dL (1.6-2.6) 11/02/22 05:54 11/02/22 Phosphorus 3.3 mg/dL (2.5-4.9) 11/02/22 05:54 11/02/22 BUN 18 mg/dL (7-18) 05/31/24 13:15 05/31/24 Creatinine 0.98 mg/dL (0.55-1.02) 05/31/24 13:15 05/31/24 Glucose 106 mg/dL (74-106) 05/31/24 13:15 05/31/24 POC Glucose 86 mg/dL (74-106) 07/05/24 11:41 07/05/24 COAG PT 12.2 SECONDS (11.7-14.9) 05/14/21 10:55 Pre-Assessment Diagnosis/Proposed Procedure Planned Operative Procedure(s): (L) Cysto, Left ureteroscopy, laser litho, stone basket extraction, stent change Anesthesia History 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 When Was Last Pacemaker Check QUESTION #4 FULL TEXT: You/Your Family Experience fever (hyperthermia) with Anesthesia Last Oral Intake Last Oral intake: Last Oral Intake NPO since 22:00 07/19/24 09:36 Meds taken in AM with sips of No 07/19/24 09:36 water? Meds patient instructed to take am of surgery Any additional information?: Yes Meds taken in AM with sips of water?: No PONV PONV - manager of customer billing: PONV - manager of customer billing Female Yes 07/16/24 08:27 HX of Motion Sickness Yes 07/16/24 08:27 HX of N/V After Surgery No 07/16/24 08:27 Non-Smoker Yes 07/16/24 08:27 Duration of Surgery greater No 07/16/24 08:27 than 60 minutes Number of Risk Factors 3 07/16/24 08:27 PONV Score Moderate Risk 07/16/24 08:27 Height & Weight Height & Weight: Anesthesia: Height & Weight Height 5 ft 3 in 07/19/24 09:36 Weight: 86 kg 04/03/25 09:36 Body Mass Index (BMI) 33.5 07/19/24 09:36 Respiratory Assessment Respiratory Assessment - manager of customer billing: Respiratory Tract Infection Hx - manager of customer billing Hx Respiratory Tract Infection No 07/16/24 08:27 STOP Sleep Apnea STOP Sleep Apnea - manager of customer billing: STOP Sleep Apnea - manager of customer billing Hx Hypertension Yes: per pt, controlled on 07/16/24 08:27 meds Hx Sleep Apnea No 07/16/24 08:27 CPAP No 07/16/24 08:27 BIPAP No 07/16/24 08:27 Do you snore loudly (louder No 07/16/24 08:27 than talking or can be heard Do you often feel tired/ No 07/16/24 08:27 fatigued/ sleepy during daytime? Has anyone observed you stop No 07/16/24 08:27 breathing during sleep? STOP Results Negative 07/16/24 08:27 QUESTION #5 FULL TEXT : Do you snore loudly (louder than talking or can be heard through closed doors)? 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 Specify any problems Hx of Preganancy in last 3 No 07/16/24 08:27 Months Nurse Filling Out Transfusion MGRIFFITH 07/16/24 08:27 & Questions: Date: 07/16/24 07/16/24 08:27 Time: 08:30 07/16/24 08:27 Patient unable to answer at this time (ie. confused, unrespo /Reproduction History /Reproductive History - manager of customer billing: /Reproductive Hx- manager of customer billing Hx Now Gestational Age (in weeks): EDC: Hx Hx Para Hx Section SAB No 07/16/24 08:27 Active Medications Active Medications: Current Medications Generic Name Dose Route Start Last Admin Trade Name Freq PRN Reason Stop Dose Admin Cefazolin Sodium 2 gm/ N/A 20 mls @ 400 mls/hr 07/19/24 10:30 IV 07/19/24 10:32 X1 ONE Sodium Chloride 1,000 mls @ 15 mls/hr 07/19/24 09:10 07/19/24 09:42 IV 15 mls/hr .Q48H MARTINEZ Administration PFSH Medical History Wears dentures Depression Hematoma Arthritis Bladder disease Restless legs Leg cramps History of edema Kidney calculus History of Holter monitoring History of stress test History of echocardiogram Wears glasses Walker as ambulation aid Fatty liver Frequent falls Cardiology follow-up encounter History of paroxysmal atrial tachycardia Pulmonary embolism on right Osteoarthritis of right hip Greater trochanteric bursitis of right hip Chronic pain Former smoker Meningioma Essential hypertension Dysmetabolic syndrome Peripheral neuropathy History of kidney stones Thoracic aortic aneurysm without rupture Hyperlipidemia Nonrheumatic aortic (valve) insufficiency Paroxysmal atrial tachycardia Dyspnea on exertion Home Medications ?Medication ?Instructions ?Recorded ?Last Taken ?Type pravastatin 80 mg tablet 80 mg PO DAILY CHOLESTEROL 0 11/22/17 06/06/24 History cholecalciferol (vitamin D3) 25 25 mcg PO DAILY SUPPLE MENT 05/12/21 06/06/24 History mcg (1,000 unit) tablet (Vitamin D3) furosemide 20 mg tablet 20 mg PO DAILY CHF 10/30/22 06/06/24 History melatonin 10 mg capsule 10 mg PO QHS #7 caps 3 06/06/24 Rx losartan 100 mg tablet 100 mg PO DAILY 08/11/23 History atenolol 50 mg tablet 50 mg PO BID 09/13/23 History sennosides 8.6 mg-docusate sodium 2 tab PO BID PRN Con stipation 09/13/23 06/06/24 History 50 mg tablet (Stool Softener-Stimulant Laxative) diphenhydramine 25 1 tab PO QHS sleep 03/12/24 06/06/24 History mg-acetaminophen 500 mg tablet (Tylenol PM Extra Strength) amlodipine 2.5 mg tablet 2.5 mg PO DAILY 05/30/24 History cyanocobalamin (vitamin B-12) 100 100 mcg PO DAILY 04/1106/06/24 History mcg tablet (Vitamin B-12) venlafaxine 37.5 mg 37.5 mg PO DAILY 05/30/24 History capsule,extended release 24 hr vibegron 75 mg tablet (Gemtesa) 75 mg PO DAILY 5 06/06/24 History ondansetron 4 mg disintegrating 4 mg PO Q8H PRN nausea and 06/07/24 Unknown Rx tablet vomiting #10 tabs phenazopyridine 200 mg tablet 200 mg PO TID PRN pain # 30 tabs 06/07/24 Unknown Rx oxycodone-acetaminophen 5 mg-325 1 tab PO Q8H PRN pain 3 days #10 07/05/24 Unknown Rx mg tablet tabs Allergy/AdvReac Type Severity Reaction Status Date / Time lisinopril AdvReac Severe Intolerence, Verified 07/19/24 09:35 cough nalbuphine HCl (From Nubain) AdvReac Nausea/Vom/ Verified 07/19/24 09:35 Diarrhea risperidone (From Risperdal) AdvReac PSYCHOSIS Verified 07/19/24 09:35 Family History Father CAD (coronary artery disease) Myocardial infarction, Onset Age: 51 Brother Myocardial infarction, Onset Age: 51 Brother CAD (coronary artery disease) Hx of CABG Sister Heart disease COPD (chronic obstructive pulmonary disease) Sister CVA (cerebral vascular accident) Surgical History History of cystoscopy Hx of surgical procedure History of hemorrhoidectomy (~11/2021) Hx of cardiac cath Status post trigger finger release History of knee replacement procedure of right knee History of arthroscopy of right shoulder History of back surgery History of hand surgery History of elbow surgery History of knee surgery History of hysterectomy Social History household members: none Smoking Status: Former smoker how long ago did patient quit smokin years ago alcohol intake: never substance use type: does not use caffeine: No Review of Systems (Anesthesia) ROS Narrative System reviewed and no additional complaints, except as documented.
--- NOTE | 2024-07-19 10:30 | CALC_PTH ---
PATIENT: MARZENA Fleming LOC: [facility] – [place] U#:[id number] AGE/SX: 78/F ROOM: RE07/19/[address]: Dr. Denisse Leija MD : 1945 BED: DIS: 07/19/2024 SPEC #: [id number] RECD: 07/19/24 12:33 STATUS: MILAN RODRIGUEZJoes #: [id number] [place]: 07/19/24 10:[address]: Denisse Leija DEPT: SURGICAL PATHOLOGY RECD BY: Lubna Wong ENTERED: 07/19/24 14:01 SP TYPE: Calculi OTHR DR: Dr. Rebecca Lewis MD Tissues: CALCULI Procedures: Surgery Specimen Level I HEADER OPERATION: Left ureteroscopy, stone basket extraction PRE-OP DIAGNOSIS: Left renal calculi, urge incontinence, overactive bladder, nocturia TISSUE SUBMITTED: A- Left ureteral calculi GROSS DIAGNOSIS A. Left Ureter, Calculi, Ureteroscopy: - Calculi confirmed (gross examination only). - Chemical analysis is pending and will be reported separately. GROSS DESCRIPTION A. Received fresh in a container labeled with the patient's name, date of , and left ureteral calculi are 3 castillo-breaux, irregular, and firm stones ranging from 0.3 x 0.3 x 0.3 cm to 0.4 x 0.4 x 0.4 cm. The entire specimen is submitted to urolithiasis lab. [facility] 07-19-2024 CPT:75980
[2024-07-19] MEDS: Cefazolin 2 GM in Syringe IV (11:40)
--- NOTE | 2024-07-19 12:06 | OP.PCM_ITS ---
Operative Report (Standard) Operative Information Date of Procedure: 07/19/24 Pre-Operative Diagnosis: Left ureteral stones Post-Operative Diagnosis: Same Surgery/Procedure Performed: Cystoscopy, left ureteroscopy stone basket extraction, left ureteral stent change memorandum statement clerk: No Type of Anesthesia: General RN Documented Start/Stop Times: Operation Date: 07/19/24 10:30 Case Time Into Pre-Op 07/19/24 09:13 Out of Pre-Op 07/19/24 11:25 Anesthesia Start 07/19/24 11:30 Into Room 07/19/24 11:30 Procedure Start 07/19/24 11:50 Procedure End 07/19/24 12:02 Procedure Start Time: 11:50 Procedure Stop Time: 12:02 Select all DRAINS/GRAFTS/IMPLANTS that apply: Drains Drain details: 6 Swedish by 24 cm JJ stent Estimated Blood Loss: <5cc Specimen collected: Yes Description of specimen(s) removed: Left ureteral stone fragment Description of surgery: The patient is a 78-year-old female who had a left ureteroscopy laser lithotripsy and stone removal with stent insertion and now presents for repeat procedure as there was edema of the ureter prior to completing the stone removal. Informed consent has been obtained. She was taken to the operating room and placed on the operating room table. Anesthesia monitored the head, neck, airway, IV access and vital signs throughout the case. Once anesthesia was appropriately ministered, she was placed into dorsolithotomy position was prepped and draped in usual sterile fashion. The cystoscope was inserted through the urethra under direct visualization into the urinary bladder. A 0.035 Glidewire was passed alongside of the ureteral stent into the renal pelvis. A grasping forcep was utilized to remove the indwelling ureteral stent. Stone fragments were seen at the ureteral orifice. A the semirigid ureteroscope was then used to intubate the distal ureteral orifice and advanced minimally when the several stone fragments were identified. They were easily removed with a stone basket and sent for analysis. Once all of them were removed there was no evidence of injury to the ureter but it did remain dilated. Using the safety wire and the cystoscope, a 6 Swedish 24 cm JJ stent was replaced over the wire with good positioning in the renal pelvis and the urinary bladder. Her bladder was emptied. The cystoscope was then removed and she was awakened and taken to the recovery room in good condition. There were no complications during this procedure. Surgical Findings: The remaining distal ureteral stone fragments were removed and the stent was changed. Complications Complications: No Admit VTE Documentation VTE Present on Admission: Yes VTE Mechan Device Prophylaxis: SCD's VTE Pharm Prophylaxis ordered?: No Reason prophylaxis not ordered: Treatment Not Indicated
--- NOTE | 2024-07-19 12:11 | EX.PCM.DISCH ---
Discharge Instructions Diet Discharge Diet: No restrictions Activity Discharge Activity: Return to Normal Activity Dressing / Incision Call your doctor if you observe: Fever of 101 or Higher, Inability to urinate and Inability to have a bowel movement Follow Up Care Please Follow Up With: Denisse Leija MD When: The office will call for follow-up. Test Results: Test results from this visit will be discussed in further detail at your follow-up appointment, if applicable. Discharge Plan Admission Attending Provider: Denisse Leija Primary Care Provider: Rebecca Lewis Instructions Print Language: Bulgarian Discharge Orders/Prescriptions Prescriptions: New oxycodone-acetaminophen 5-325 mg tablet 1 tab PO Q8H PRN (Reason: pain) 3 Days Qty: 10 0RF cephalexin 500 mg capsule 500 mg PO Q12 3 Days Qty: 6 0RF Continued pravastatin 80 mg tablet 80 mg PO DAILY diphenhydramine-acetaminophen [Tylenol PM Extra Strength] 25-500 mg tablet 1 tab PO QHS cholecalciferol (vitamin D3) [Vitamin D3] 25 mcg (1,000 unit) Tablet 25 mcg PO DAILY furosemide 20 mg tablet 20 mg PO DAILY melatonin 10 mg capsule 10 mg PO QHS Qty: 7 0RF atenolol 50 mg tablet 50 mg PO BID sennosides-docusate sodium [Stool Softener-Stimulant Laxat] 8.6-50 mg Tablet 2 tab PO BID PRN (Reason: Constipation) oxycodone-acetaminophen 5-325 mg tablet 1 tab PO Q8H PRN (Reason: pain) 3 Days Qty: 10 0RF losartan 100 mg tablet 100 mg PO DAILY amlodipine 2.5 mg tablet 2.5 mg PO DAILY venlafaxine 37.5 mg capsule,extended release 24hr 37.5 mg PO DAILY cyanocobalamin (vitamin B-12) [Vitamin B-12] 100 mcg tablet 100 mcg PO DAILY Gemtesa 75 mg tablet 75 mg PO DAILY ondansetron 4 mg tablet,disintegrating 4 mg PO Q8H PRN (Reason: nausea and vomiting) Qty: 10 0RF phenazopyridine 200 mg tablet 200 mg PO TID PRN (Reason: pain) Qty: 30 3RF Referrals / Follow Up: Rebecca Lewis MD [Primary Care Provider] - Disposition Disposition (needs filled in before D/C Order can be placed): Home, Self Care
--- NOTE | 2024-07-19 12:25 | PCM.POST.ANE ---
Anesthesia: Postop Eval I Current Vital Signs Temperature: 97.1 F Pulse Rate: 62 Blood Pressure: 199/74 Respiratory Rate: 16 Pulse Ox: 94 Oxygen Delivery Method: Nasal Cannula Oxygen Flow Rate (L/min): 3 Assessment Airway patent: Yes Spontaneous unlabored respirations: Yes Mental status: Awake and Calm nausea: No Vomiting: No Anesthesia Complication: No Fluid Hydration Crystalloid volume administer (ml): 900 Total IV fluid infused: 900 Progress Note Anesthesia document: Postop Eval 1 completed: Yes
--- NOTE | 2024-07-19 13:00 | PCM.POST.ANE ---
Anesthesia: Postop Eval I Current Vital Signs Temperature: 98.2 F Pulse Rate: 60 Blood Pressure: 189/78 Respiratory Rate: 16 Pulse Ox: 94 Oxygen Delivery Method: Nasal Cannula Oxygen Flow Rate (L/min): 3 Assessment Airway patent: Yes Spontaneous unlabored respirations: Yes Mental status: Awake nausea: No Vomiting: No Anesthesia Complication: No Fluid Hydration Crystalloid volume administer (ml): 400 Total IV fluid infused: 400 Progress Note Anesthesia document: Postop Eval 1 completed: Yes
--- NOTE | 2024-07-19 14:00 | POSTOPAN2_ITS ---
Anesthesia Postop Eval I Sum Postop Eval Completion status Anesthesia document: Postop Eval 1 completed: Yes Anesthesia Postop Eval I Summary Anesthesia Postop Eval I Summary: Anesthesia Postop Eval I: Assessment Summary Airway patent Yes 07/19/24 13:01 [email or web address] Spontaneous unlabored Yes 07/19/24 13:01 [email or web address] respirations Mental status Awake 07/19/24 13:01 [email or web address] nausea No 07/19/24 13:01 [email or web address] Vomiting No 07/19/24 13:01 [email or web address] Anesthesia Postop Eval I: Fluid Summary Crystalloid volume administer 400 07/19/24 13:01 [email or web address] (ml) Colloids volume administered ( ml) Blood Product volume administered (ml) Total IV fluid infused 400 07/19/24 13:01 [email or web address] Anesthesia Postop Eval I: Summary Notes Anesthesia Complication No 07/19/24 13:01 [email or web address] Anesthesia Complication Comment: Post-operative progress note Anesthesia: Postop Eval II Evaluation Mental status: Awake and Calm Pain Level: 0 nausea: No Vomiting: No Complications Anesthesia Complication: No
--- NOTE | 2024-07-19 14:00 | PCM.POSTANE2 ---
Anesthesia Postop Eval I Sum Postop Eval Completion status Anesthesia document: Postop Eval 1 completed: Yes Anesthesia Postop Eval I Summary Anesthesia Postop Eval I Summary: Anesthesia Postop Eval I: Assessment Summary Airway patent Yes 07/19/24 13:01 INTERNATIONAL OPERATIONS [email or web address] Spontaneous unlabored Yes 07/19/24 13:01 INTERNATIONAL OPERATIONS [email or web address] respirations Mental status Awake 07/19/24 13:01 INTERNATIONAL OPERATIONS [email or web address] nausea No 07/19/24 13:01 INTERNATIONAL OPERATIONS MANAGER.NFOR Vomiting No 07/19/24 13:01 INTERNATIONAL OPERATIONS [email or web address] Anesthesia Postop Eval I: Fluid Summary Crystalloid volume administer 400 07/19/24 13:01 INTERNATIONAL OPERATIONS [email or web address] (ml) Colloids volume administered ( ml) Blood Product volume administered (ml) Total IV fluid infused 400 07/19/24 13:01 INTERNATIONAL OPERATIONS [email or web address] Anesthesia Postop Eval I: Summary Notes Anesthesia Complication No 07/19/24 13:01 INTERNATIONAL OPERATIONS [email or web address] Anesthesia Complication Comment: Post-operative progress note Anesthesia: Postop Eval II Evaluation Mental status: Awake and Calm Pain Level: 0 nausea: No Vomiting: No Complications Anesthesia Complication: No
== END 2024-07-19 14:02 | disposition home or self-care (01) ==
LOC: SDC 09:04 → AC 09:07
PROVIDERS: PCP Internal Medicine; Referring Provider Urology; Visit Provider Urology
PROC: 0TJ98ZZ Inspection of Ureter, Via Natural or Artificial Opening Endoscopic (ICD-10-PCS; CPT 52352; principal; 2024-07-19 10:20)
DX: N20.1 Calculus of ureter (principal); E11.9 Type 2 diabetes mellitus without complications; I10 Essential (primary) hypertension; Z90.710 Acquired absence of both cervix and uterus; Z87.891 Personal history of nicotine dependence; E78.5 Hyperlipidemia, unspecified; N32.81 Overactive bladder; R35.1 Nocturia; N39.41 Urge incontinence
CPT/HCPCS: 52332; 52351; 76000; 82360; 88300; C1769; C2617; J2405

== ENCOUNTER → 2025-03-18 | Outpatient (CLI) | payer MEDICARE, SELFPAY ==
[2025-03-18 17:42] LABS: Hematocrit 45.6 % (37-47); Hemoglobin 14.4 g/dL (12.0-15.0); Immature Granulocytes Count 0.040 X10^3/uL (0.0-0.0); Mean Corp Hgb Conc 31.6 g/dL (32-36); Mean Corpuscular Volume 100.4 fL (81-99); Mean Platelet Vol. 10.0 fl (6.2-12.0); NRBC Flagged by Analyzer 0 % (0-5); Platelet Count 235 K/mm3 (150-450); RBC Distribution Width CV 13.4 % (11.6-14.6); RBC Distribution Width SD 49.6 fl (35.1-43.9); Red Blood Count 4.54 M/mm3 (4.2-5.4); White Blood Count 9.6 K/mm3 (4.4-11.0)
[2025-03-18 18:27] LABS: CRP < 3.00 mg/L (0.0-3.0)
== END | disposition home or self-care (01) ==
LOC: MTLAB 15:39
PROVIDERS: PCP Internal Medicine; Referring Provider Specialist; Visit Provider Specialist
DX: T84.84XA Pain due to internal orthopedic prosthetic devices, implants and grafts, initial encounter (principal); T84.82XA Fibrosis due to internal orthopedic prosthetic devices, implants and grafts, initial encounter; M17.32 Unilateral post-traumatic osteoarthritis, left knee
CPT/HCPCS: 36415; 85025; 85652; 86140